=== PATIENT | male | born 1950 | race Caucasian/White ===

== ENCOUNTER 2018-03-17 11:12 | Emergency (ER) | payer MEDICARE ==
[~2018-03-17] VITALS: Ht 182.9 cm; Wt 106.6 kg
[~2018-03-17 11:12] MED LIST: ALBU2.5V5 NEB; ALPR0.5T6 PO; AMLO5TAB7 PO; AMOX1TAB11 PO; AMOX1TAB58 PO; AZIT250T6 PO; CYCL10TA2 PO; DOXY100T PO; FLUT1DIS5 IH; GUAI5SYR PO; HYDR-2758 PO; HYDR-971 PO; IPRA3AMP29 IH; LEVO500T59 PO; LOSA1TAB19 PO; LOSA50TA7 PO; METH4TAB2 PO; PANT40TA5 PO; PRED-220 PO; PRED2.5T PO; PRED20TA PO; TAMS0.4C2 PO; TIZA4TAB PO
[2018-03-17] MEDS ORDERED: IV NORMAL SALINE 1000ML BAG 1,000 ML IV SCH (12:02)
--- NOTE | 2018-03-17 12:11 | PHYS DOC ---
Past Medical History Past Medical History: COPD, Hypertension, Pneumonia Additional Past Medical Histor: Emphysema Past Surgical History: Other Additional Past Surgical Histo: Hernia repair, right hip infection Smoking: Cigarettes, Quit Greater Than 1 Year Alcohol Use: None Drug Use: None Adult General Chief Complaint Chief Complaint: SHORTNESS OF BREATH HPI HPI Pt is a 67-year-old male with a past history of COPD, on 3 L of home oxygen chronically, who presents to the emergency department for evaluation. He states he has been having pleuritic left-sided chest discomfort over the past 2 days. He states he started taking a Z-Shar which she had previously prescribed from his adhesive bandage machine operator but did not get any better. He denies any definite exertional pain but has been more short of breath than normal. He states he has a home pulse oximeter and on exertion, his oxygen saturation has been dropping into the upper 70s. He denies any chest pain at rest. He has had a cough but it has been nonproductive. He states he feels he has mucus in his chest but is unable to cough it up. Deep breathing worsens his left-sided chest pain. There are no alleviating factors to his symptoms. Review of Systems Review of Systems Constitutional: Denies fever or chills [] Eyes: Denies change in visual acuity, redness, or eye pain [] HENT: Denies nasal congestion or sore throat [] Respiratory: No additional information not addressed in HPI.[] Cardiovascular: No additional information not addressed in HPI [] GI: Denies abdominal pain, nausea, vomiting, bloody stools or diarrhea [] : Denies dysuria or hematuria [] Musculoskeletal: Denies back pain or joint pain [] Integument: Denies rash or skin lesions [] Neurologic: Denies headache, focal weakness or sensory changes [] Endocrine: Denies polyuria or polydipsia [] All other systems were reviewed and found to be within normal limits, except as documented in this note. Current Medications Current Medications Current Medications Medications (Trade) Dose Ordered Sig/Georges Start Time Stop Time Status Last Admin Dose Admin Albuterol/ Ipratropium (Duoneb) 3 ml 1X ONCE 03/17/18 12:15 03/17/18 12:16 DC 03/17/18 12:46 3 ML Aspirin (Children'S Aspirin) 162 mg 1X ONCE 03/17/18 12:15 03/17/18 12:16 DC 03/17/18 12:15 162 MG Info (CONTRAST GIVEN -- Rx MONITORING) 1 each PRN DAILY PRN 03/17/18 12:45 03/19/18 12:44 Iohexol (Omnipaque 300 Mg/ml) 75 ml 1X ONCE 03/17/18 12:45 03/17/18 12:46 DC Methylprednisolone Sodium Succinate (SOLU-Medrol 125MG VIAL) 125 mg 1X ONCE 03/17/18 12:15 03/17/18 12:16 DC 03/17/18 12:15 125 MG Sodium Chloride 1,000 ml @ 100 mls/hr Q10H 03/17/18 12:02 03/17/18 22:01 03/17/18 12:14 100 MLS/HR Allergies Allergies Allergies Coded Allergies Type Severity Reaction Last Updated Verified No Known Drug Allergies 09/12/14 No Physical Exam Physical Exam PHYSICAL EXAM: CONSTITUTIONAL: Well developed, well nourished HEAD: normocephalic, atraumatic EENT: PERRL, EOMI. Conjunctivae normal color, sclerae non-icteric; moist mucous membranes. NECK: Supple, non-tender; no meningismus. LUNGS: There are globally diminished breath sounds in all lung elizabeth, without any definite rales, wheezes, or rhonchi. HEART: Regular rate and rhythm, no murmur CHEST: No deformity; non-tender ABDOMEN: The abdomen is soft, and non-tender, no masses or bruits. EXTREM: Normal ROM; no deformity, no calf tenderness. Normal pulses palpable in all extremities. There is no pedal edema. SKIN: No rash; no diaphoresis NEURO: Alert; normal speech and cognition; CN's grossly intact; strength grossly intact without focal deficit. BACK: No CVA TTP. Current Patient Data Vital Signs Vital Signs Date Time Temp Pulse Resp B/P (MAP) Pulse Ox O2 Delivery O2 Flow Rate FiO2 03/17/18 12:48 93 Room Air 03/17/18 11:30 98.4 93 20 157/70 (99) 3.0 98.4 Lab Values Laboratory Tests Test 03/17/18 11:57 White Blood Count 9.2 x10^3/uL (4.0-11.0) Red Blood Count 4.79 x10^6/uL (4.30-5.70) Hemoglobin 14.4 g/dL (13.0-17.5) Hematocrit 42.1 % (39.0-53.0) Mean Corpuscular Volume 88 fL (79-100) Mean Corpuscular Hemoglobin 30 pg (25-35) Mean Corpuscular Hemoglobin Concent 34 g/dL (31-37) Red Cell Distribution Width 14.6 % (11.5-14.5) H Platelet Count 350 x10^3/uL (140-400) Neutrophils (%) (Auto) 49 % (31-73) Lymphocytes (%) (Auto) 35 % (24-48) Monocytes (%) (Auto) 9 % (0-9) Eosinophils (%) (Auto) 6 % (0-3) H Basophils (%) (Auto) 1 % (0-3) Neutrophils # (Auto) 4.5 x10^3uL (1.8-7.7) Lymphocytes # (Auto) 3.3 x10^3/uL (1.0-4.8) Monocytes # (Auto) 0.8 x10^3/uL (0.0-1.1) Eosinophils # (Auto) 0.6 x10^3/uL (0.0-0.7) Basophils # (Auto) 0.1 x10^3/uL (0.0-0.2) Sodium Level 137 mmol/L (136-145) Potassium Level 3.5 mmol/L (3.5-5.1) Chloride Level 106 mmol/L (98-107) Carbon Dioxide Level 27 mmol/L (21-32) Anion Gap 4 (6-14) L Blood Urea Nitrogen 7 mg/dL (8-26) L Creatinine 1.0 mg/dL (0.7-1.3) Estimated GFR (Cockcroft-Gault) 74.1 BUN/Creatinine Ratio 7 (6-20) Glucose Level 90 mg/dL (70-99) Calcium Level 9.4 mg/dL (8.5-10.1) Total Bilirubin 0.6 mg/dL (0.2-1.0) Aspartate Amino Transferase (AST) 15 U/L (15-37) Alanine Aminotransferase (ALT) 23 U/L (16-63) Alkaline Phosphatase 88 U/L (46-116) Creatine Kinase 53 U/L (39-308) Creatine Kinase MB (Mass) 0.5 ng/mL (0.0-3.6) Creatine Kinase MB Relative Index % (0-4) Troponin I Quantitative < 0.017 ng/mL (0.000-0.055) ZG-Wxp-S-Type Natriuretic Peptide 52 pg/mL (0-124) Total Protein 7.8 g/dL (6.4-8.2) Albumin 3.7 g/dL (3.4-5.0) Albumin/Globulin Ratio 0.9 (1.0-1.7) L Laboratory Tests 03/17/18 11:57 Laboratory Tests 03/17/18 11:57 EKG EKG [No sinus rhythm at a rate of 82 beats for minute, first-degree AV block, otherwise normal intervals. There are no acute ischemic ST/T changes.] Radiology/Procedures Radiology/Procedures [PROCEDURE: PORTABLE CHEST 1V PORTABLE CHEST 1V dated 03/17/2018 12:02 PM. Comparison: 10/22/2017 Clinical Indication: SHORTNESS OF BREATH. Findings: Single upright portable exam performed. Heart and mediastinal contours are stable. There is some prominent linear markings at the perihilar regions and bilateral lung bases, similar to prior study. Biapical lucency consistent with emphysematous change. There is blunting of the costophrenic sulci. No pneumothorax. Impression: 1. No acute radiographic abnormality. 2. Findings consistent with COPD, unchanged from prior exam. ] PROCEDURE: CT ANGIOGRAPHY CHEST Examination: CT angiography chest HISTORY: History of shortness of breath, pleuritic left-sided chest pain COMPARISON: 10/22/2017 TECHNIQUE: Axial CT angiographic images of chest were performed with IV contrast. Coronal and sagittal 3-D MIP reformats are performed Exposure: One or more of the following individualized dose reduction techniques were utilized for this examination: 1. Automated exposure control 2. Adjustment of the mA and/or kV according to patient size 3. Use of iterative reconstruction technique FINDINGS: The visualized thyroid gland grossly appears unremarkable. Mild cardiomegaly. The caliber of the aorta grossly appears unremarkable. Mild coronary artery calcifications. There is no evidence of filling defect identified in the main pulmonary arterial trunk and right and left main pulmonary arteries and the visualized lobar branches of the pulmonary arteries. The evaluation of the segmental branch of the pulmonary arteries is limited particularly in the right lower lobe of the lung due to mild motion artifact. Severe emphysematous changes identified in the lungs. Linear airspace opacity identified in the right lower lobe of the lung and the left lingula likely atelectasis or scarring similar to prior exam. Multiple cystic structures identified in the liver similar to prior exam likely cysts. Large gallstone identified in the proximal gallbladder. Mild degenerative changes thoracic spine. IMPRESSION: 1. No evidence of central pulmonary embolism. Evaluation of segmental branches is limited due to motion. 2. Severe emphysematous changes identified in the lungs. Linear airspace opacity identified in the right lower lobe of the lung and the left lingula likely atelectasis or scarring similar to prior exam. 3. Large gallstone identified within the gallbladder. Course & Med Decision Making Course & Med Decision Making Pertinent Labs and Imaging studies reviewed. (See chart for details) [2:10 PM: The patient's condition remained stable at this time. He is feeling similar to his baseline after receiving nebulizer treatment in the emergency department. He does take nebulizer treatments at home and I encouraged him to do so. He'll be treated with a short course of steroids, and I will change his antibiotic to Levaquin. He has no point with his PCP in 2 days and has an appointment with his adhesive bandage machine operator next week. Return precautions were discussed in detail.] Dragon Disclaimer Dragon Disclaimer This electronic medical record was generated, in whole or in part, using a voice recognition dictation system. Departure Departure Impression: Primary Impression: COPD (chronic obstructive pulmonary disease) Additional Impression: COPD exacerbation Disposition: 01 HOME, SELF-CARE Condition: STABLE Referrals: SUE KELLY MD (PCP) KRISTINA OROPEZA MD Patient Instructions: Chronic Obstructive Pulmonary Disease Exacerbation Scripts Levofloxacin (LEVAQUIN) 500 Mg Tablet 1 TAB PO DAILY, #7 TAB Prov: MADELYN BARBOZA MD 03/17/18 Prednisone (PREDNISONE) 20 Mg Tablet 40 MG PO DAILY for 5 Days, #10 TAB Prov: MADELYN BARBOZA MD 03/17/18 Problem Qualifiers MADELYN BARBOZA MD Mar 17, 2018 12:11
--- NOTE | 2018-03-17 12:12 | EKG ---
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
[2018-03-17 12:13] LABS: BASO # 0.1 x10^3/uL (0.0-0.2); BASO % 1 % (0-3); EOS # 0.6 x10^3/uL (0.0-0.7); EOS % 6 % (0-3); HEMATOCRIT 42.1 % (39.0-53.0); HEMOGLOBIN 14.4 g/dL (13.0-17.5); LYMPH # 3.3 x10^3/uL (1.0-4.8); LYMPH % 35 % (24-48); MEAN CORPUSCULAR HEMOGLOBIN 30 pg (25-35); MEAN CORPUSCULAR HGB CONC 34 g/dL (31-37); MEAN CORPUSCULAR VOLUME 88 fL (79-100); MONO # 0.8 x10^3/uL (0.0-1.1); MONO % 9 % (0-9); NEUT # 4.5 x10^3uL (1.8-7.7); NEUT % 49 % (31-73); PLATELET COUNT 350 x10^3/uL (140-400); RED BLOOD COUNT 4.79 x10^6/uL (4.30-5.70); RED CELL DISTRIBUTION WIDTH 14.6 % (11.5-14.5); WHITE BLOOD COUNT 9.2 x10^3/uL (4.0-11.0)
[2018-03-17] MEDS ORDERED: ASPIRIN CHEWABLE 81 MG TABLET. PO ONE (12:15)
[2018-03-17] MEDS ORDERED: IPRATRPIUM/ALBUTEROL 0.5/2.5MG 3 ML NEBU. NEB ONE (12:15)
[2018-03-17] MEDS ORDERED: methylPREDNISolone SOD SUCC PF 125 MG/2 ML VIAL. IV ONE (12:15)
--- NOTE | 2018-03-17 12:22 | RAD ---
PORTABLE CHEST 1V dated 03/17/2018 12:02 PM. Comparison: 10/22/2017 Clinical Indication: SHORTNESS OF BREATH. Findings: Single upright portable exam performed. Heart and mediastinal contours are stable. There is some prominent linear markings at the perihilar regions and bilateral lung bases, similar to prior study. Biapical lucency consistent with emphysematous change. There is blunting of the costophrenic sulci. No pneumothorax. Impression: 1. No acute radiographic abnormality. 2. Findings consistent with COPD, unchanged from prior exam. Electronically signed by: Tiago Cross MD (03/17/2018 12:19 PM) [id number]
[2018-03-17 12:26] LABS: CALCIUM 9.4 mg/dL (8.5-10.1); GFR 74.1; POTASSIUM 3.5 mmol/L (3.5-5.1)
[2018-03-17 12:32] LABS: ALBUMIN 3.7 g/dL (3.4-5.0); ALBUMIN/GLOBULIN RATIO 0.9 (1.0-1.7); TOTAL BILIRUBIN 0.6 mg/dL (0.2-1.0); TOTAL PROTEIN 7.8 g/dL (6.4-8.2)
[2018-03-17 12:40] LABS: CREATINE KINASE 53 U/L (39-308)
[2018-03-17] MEDS ORDERED: IOHEXOL 300 MG/ML 100ML VIAL. IV ONE (12:45)
[2018-03-17] MEDS ORDERED: CONTRAST GIVEN. MC PRN (12:45)
--- NOTE | 2018-03-17 13:27 | RAD ---
Examination: CT angiography chest HISTORY: History of shortness of breath, pleuritic left-sided chest pain COMPARISON: 10/22/2017 TECHNIQUE: Axial CT angiographic images of chest were performed with IV contrast. Coronal and sagittal 3-D MIP reformats are performed Exposure: One or more of the following individualized dose reduction techniques were utilized for this examination: 1. Automated exposure control 2. Adjustment of the mA and/or kV according to patient size 3. Use of iterative reconstruction technique FINDINGS: The visualized thyroid gland grossly appears unremarkable. Mild cardiomegaly. The caliber of the aorta grossly appears unremarkable. Mild coronary artery calcifications. There is no evidence of filling defect identified in the main pulmonary arterial trunk and right and left main pulmonary arteries and the visualized lobar branches of the pulmonary arteries. The evaluation of the segmental branch of the pulmonary arteries is limited particularly in the right lower lobe of the lung due to mild motion artifact. Severe emphysematous changes identified in the lungs. Linear airspace opacity identified in the right lower lobe of the lung and the left lingula likely atelectasis or scarring similar to prior exam. Multiple cystic structures identified in the liver similar to prior exam likely cysts. Large gallstone identified in the proximal gallbladder. Mild degenerative changes thoracic spine. IMPRESSION: 1. No evidence of central pulmonary embolism. Evaluation of segmental branches is limited due to motion. 2. Severe emphysematous changes identified in the lungs. Linear airspace opacity identified in the right lower lobe of the lung and the left lingula likely atelectasis or scarring similar to prior exam. 3. Large gallstone identified within the gallbladder. Electronically signed by: Blake Willson MD (03/17/2018 1:24 PM) [id number]
[2018-03-17 13:56] VITALS: BP 144/82
[2018-03-17] MEDS ORDERED: LEVO500T59 PO (14:11)
[2018-03-17] MEDS ORDERED: PRED20TA PO (14:11)
== END 2018-03-17 14:17 | disposition home or self-care (01) ==
LOC: ER 11:12
DX: J44.1 Chronic obstructive pulmonary disease with (acute) exacerbation (principal); I10 Essential (primary) hypertension; Z87.891 Personal history of nicotine dependence
CPT/HCPCS: 36415; 71045; 71275; 80053; 82553; 83880; 84484; 85025; 93005; 94640; 96374; 99285; J2930; J7030; J7620

== ENCOUNTER 2018-10-01 15:30 | Inpatient (IN) | payer MEDICARE ==
[~2018-10-01] VITALS: Ht 182.9 cm; Wt 107.1 kg
[~2018-10-01 15:30] MED LIST changes: +AMLO5TAB10 PO; -AMLO5TAB7 PO; -HYDR-2758 PO; +HYDR-2761 PO; +HYDR-3164 PO; -HYDR-971 PO; +LOSA-73 PO; -LOSA50TA7 PO
[2018-10-01] MEDS ORDERED: IV NORMAL SALINE 1000ML BAG 1,000 ML IV SCH (15:43)
[2018-10-01] MEDS ORDERED: IPRATRPIUM/ALBUTEROL 0.5/2.5MG 3 ML NEBU. NEB ONE (15:45)
--- NOTE | 2018-10-01 16:03 | PHYS DOC ---
Past Medical History Past Medical History: COPD, Hypertension, Pneumonia Additional Past Medical Histor: Emphysema (MADELYN BARBOZA MD) Past Surgical History: Other Additional Past Surgical Histo: Hernia repair, right hip infection (MADELYN BARBOZA MD) Alcohol Use: None Drug Use: None (MADELYN BARBOZA MD) Adult General Chief Complaint Chief Complaint: SHORTNESS OF BREATH HPI HPI Patient is a 67-year-old male with a past history of COPD, on home oxygen, who presents to the emergency department for evaluation. He states he has been having increasing shortness of breath, and cough productive of yellowish sputum , for the past 3 days. He reports subjective fevers at home. He has had some posterior pleuritic chest pain as well, no anterior chest pain. He has not had any nausea or vomiting. He was noted to have an oxygen saturation in the lower 80s on room air, which improved to the 89-90 level when he was placed on his home 3 L, improved to the mid 90s on 4 L nasal cannula. Exertion worsens his symptoms. There are no alleviating factors to his symptoms. (MADELYN BARBOZA MD) Review of Systems Review of Systems Constitutional: Denies lethargy or chills [] Eyes: Denies change in visual acuity, redness, or eye pain [] HENT: Denies otalgia or sore throat, reports nasal congestion [] Respiratory: No additional information not addressed in HPI [] Cardiovascular: No additional information not addressed in HPI [] GI: Denies abdominal pain, nausea, vomiting, bloody stools or diarrhea [] : Denies dysuria or hematuria [] Musculoskeletal: Denies back pain or joint pain [] Integument: Denies rash or skin lesions [] Neurologic: Denies headache, focal weakness or sensory changes [] Endocrine: Denies polyuria or polydipsia [] All other systems were reviewed and found to be within normal limits, except as documented in this note. (MADELYN BARBOZA MD) Current Medications Current Medications Current Medications Medications (Trade) Dose Ordered Sig/Georges Start Time Stop Time Status Last Admin Dose Admin Albuterol/ Ipratropium (Duoneb) 3 ml 1X ONCE 10/01/18 15:45 10/01/18 15:49 DC 10/01/18 15:59 3 ML Fentanyl Citrate (Fentanyl 2ml Vial) 50 mcg 1X ONCE 10/01/18 19:00 10/01/18 19:01 DC Sodium Chloride 1,000 ml @ 100 mls/hr Q10H 10/01/18 15:43 10/02/18 01:42 10/01/18 16:30 100 MLS/HR (NAN SABILLON Jr. DO) Allergies Allergies Allergies Coded Allergies Type Severity Reaction Last Updated Verified No Known Drug Allergies 09/12/14 No (NAN SABILLON Jr. DO) Physical Exam Physical Exam PHYSICAL EXAM: CONSTITUTIONAL: Well developed, well nourished HEAD: normocephalic, atraumatic EENT: PERRL, EOMI. Conjunctivae normal color, sclerae non-icteric; moist mucous membranes. NECK: Supple, non-tender; no meningismus. LUNGS: There are globally diminished breath sounds in all lung elizabeth, with mildly increased work of breathing, and faint scattered expiratory wheezes. HEART: Regular rate and rhythm, no murmur CHEST: No deformity; non-tender ABDOMEN: The abdomen is soft, and non-tender, no masses or bruits. EXTREM: Normal ROM; no deformity, no calf tenderness. Normal pulses palpable in all extremities. There is no pedal edema. SKIN: No rash; no diaphoresis NEURO: Alert; normal speech and cognition; CN's grossly intact; strength grossly intact without focal deficit. BACK: No CVA TTP. (MADELYN BARBOZA MD) Current Patient Data Vital Signs Vital Signs Date Time Temp Pulse Resp B/P (MAP) Pulse Ox O2 Delivery O2 Flow Rate FiO2 10/01/18 18:54 80 163/98 (119) 95 Nasal Cannula 4.0 10/01/18 17:10 22 10/01/18 15:56 98.0 98.0 (NAN SABILLON Jr. DO) Lab Values Laboratory Tests Test 10/01/18 16:00 10/01/18 16:13 Influenza Type A Antigen Negative (NEGATIVE) Influenza Type B Antigen Negative (NEGATIVE) White Blood Count 8.9 x10^3/uL (4.0-11.0) Red Blood Count 4.47 x10^6/uL (4.30-5.70) Hemoglobin 13.3 g/dL (13.0-17.5) Hematocrit 39.8 % (39.0-53.0) Mean Corpuscular Volume 89 fL (79-100) Mean Corpuscular Hemoglobin 30 pg (25-35) Mean Corpuscular Hemoglobin Concent 33 g/dL (31-37) Red Cell Distribution Width 15.1 % (11.5-14.5) H Platelet Count 343 x10^3/uL (140-400) Neutrophils (%) (Auto) 47 % (31-73) Lymphocytes (%) (Auto) 31 % (24-48) Monocytes (%) (Auto) 17 % (0-9) H Eosinophils (%) (Auto) 4 % (0-3) H Basophils (%) (Auto) 1 % (0-3) Neutrophils # (Auto) 4.2 x10^3uL (1.8-7.7) Lymphocytes # (Auto) 2.7 x10^3/uL (1.0-4.8) Monocytes # (Auto) 1.5 x10^3/uL (0.0-1.1) H Eosinophils # (Auto) 0.4 x10^3/uL (0.0-0.7) Basophils # (Auto) 0.1 x10^3/uL (0.0-0.2) D-Dimer (Kellee) 0.46 ug/mlFEU (0.00-0.50) Sodium Level 143 mmol/L (136-145) Potassium Level 3.3 mmol/L (3.5-5.1) L Chloride Level 103 mmol/L (98-107) Carbon Dioxide Level 29 mmol/L (21-32) Anion Gap 11 (6-14) Blood Urea Nitrogen 11 mg/dL (8-26) Creatinine 0.9 mg/dL (0.7-1.3) Estimated GFR (Cockcroft-Gault) 83.7 BUN/Creatinine Ratio 12 (6-20) Glucose Level 99 mg/dL (70-99) Lactic Acid Level 0.9 mmol/L (0.4-2.0) Calcium Level 9.5 mg/dL (8.5-10.1) Total Bilirubin 0.6 mg/dL (0.2-1.0) Aspartate Amino Transferase (AST) 14 U/L (15-37) L Alanine Aminotransferase (ALT) 17 U/L (16-63) Alkaline Phosphatase 90 U/L (46-116) Creatine Kinase 51 U/L (39-308) Creatine Kinase MB (Mass) 0.6 ng/mL (0.0-3.6) Creatine Kinase MB Relative Index % (0-4) Troponin I Quantitative < 0.017 ng/mL (0.000-0.055) [id number]-Type Natriuretic Peptide 59 pg/mL (0-124) Total Protein 7.6 g/dL (6.4-8.2) Albumin 3.5 g/dL (3.4-5.0) Albumin/Globulin Ratio 0.9 (1.0-1.7) L Laboratory Tests 10/01/18 16:13 Laboratory Tests 10/01/18 16:13 (NAN SABILLON Jr. DO) Lab Values Laboratory Tests Test 10/01/18 16:13 White Blood Count 8.9 x10^3/uL (4.0-11.0) Red Blood Count 4.47 x10^6/uL (4.30-5.70) Hemoglobin 13.3 g/dL (13.0-17.5) Hematocrit 39.8 % (39.0-53.0) Mean Corpuscular Volume 89 fL (79-100) Mean Corpuscular Hemoglobin 30 pg (25-35) Mean Corpuscular Hemoglobin Concent 33 g/dL (31-37) Red Cell Distribution Width 15.1 % (11.5-14.5) H Platelet Count 343 x10^3/uL (140-400) Neutrophils (%) (Auto) 47 % (31-73) Lymphocytes (%) (Auto) 31 % (24-48) Monocytes (%) (Auto) 17 % (0-9) H Eosinophils (%) (Auto) 4 % (0-3) H Basophils (%) (Auto) 1 % (0-3) Neutrophils # (Auto) 4.2 x10^3uL (1.8-7.7) Lymphocytes # (Auto) 2.7 x10^3/uL (1.0-4.8) Monocytes # (Auto) 1.5 x10^3/uL (0.0-1.1) H Eosinophils # (Auto) 0.4 x10^3/uL (0.0-0.7) Basophils # (Auto) 0.1 x10^3/uL (0.0-0.2) D-Dimer (Kellee) 0.46 ug/mlFEU (0.00-0.50) Sodium Level 143 mmol/L (136-145) Potassium Level 3.3 mmol/L (3.5-5.1) L Chloride Level 103 mmol/L (98-107) Carbon Dioxide Level 29 mmol/L (21-32) Anion Gap 11 (6-14) Blood Urea Nitrogen 11 mg/dL (8-26) Creatinine 0.9 mg/dL (0.7-1.3) Estimated GFR (Cockcroft-Gault) 83.7 BUN/Creatinine Ratio 12 (6-20) Glucose Level 99 mg/dL (70-99) Calcium Level 9.5 mg/dL (8.5-10.1) Total Bilirubin 0.6 mg/dL (0.2-1.0) Aspartate Amino Transferase (AST) 14 U/L (15-37) L Alanine Aminotransferase (ALT) 17 U/L (16-63) Alkaline Phosphatase 90 U/L (46-116) Troponin I Quantitative < 0.017 ng/mL (0.000-0.055) Total Protein 7.6 g/dL (6.4-8.2) Albumin 3.5 g/dL (3.4-5.0) Albumin/Globulin Ratio 0.9 (1.0-1.7) L Laboratory Tests 10/01/18 16:13 Laboratory Tests 10/01/18 16:13 (MADELYN BARBOZA MD) EKG EKG [Normal sinus rhythm a rate of 94 beats for minute, left axis deviation, normal intervals. There are no acute ischemic ST/T changes.] (MADELYN BARBOZA MD) Radiology/Procedures Radiology/Procedures [] (MADELYN BARBOZA MD) Impressions: PROCEDURE: CHEST PA & LATERAL EXAM: PA and Lateral Views of the Chest DATE: 10/01/2018 4:47 PM INDICATION: SHORTNESS OF AIR X3 DAYS. Hx COPD. COMPARISON: 03/17/2018, CT 03/17/2018 FINDINGS: Heart is top normal in size. Bilateral emphysematous changes are seen. No lobar consolidation. Linear opacities lung bases likely scarring/atelectasis. No pleural effusion or pneumothorax. IMPRESSION: 1. Bilateral emphysematous changes are seen. 2. Bibasilar linear predominant opacities likely scarring/atelectasis, not significantly changed. Electronically signed by: Tato Strauss MD (10/01/2018 5:30 PM) [facility] (NAN SABILLON Jr., DO) Course & Med Decision Making Course & Med Decision Making Pertinent Labs and Imaging studies reviewed. (See chart for details) [] 5:00 PM: Pt condition remains stable. Awaiting CXR and Influenza and lactic acid results. Care turned over to Dr Sabillon at shift change, report given, pending results and final disposition. (MADELYN BARBOZA MD) Dragon Disclaimer Dragon Disclaimer This electronic medical record was generated, in whole or in part, using a voice recognition dictation system. (MADELYN BARBOZA MD) Departure Departure Impression: Primary Impression: Dyspnea Additional Impressions: COPD exacerbation Pleurisy Disposition: ADMITTED INPATIENT Admitting Physician: Comfort Mann (NAN SABILLON Jr. DO) Condition: IMPROVED Referrals: SUE KELLY MD (PCP) Problem Qualifiers Primary Impression: Dyspnea Dyspnea type: unspecified Qualified Codes: R06.00 - Dyspnea, unspecified MADELYN BARBOZA MD Oct 01, 2018 16:03 NAN SABILLON Jr., DO Oct 01, 2018 18:46
[2018-10-01 16:26] LABS: BASO # 0.1 x10^3/uL (0.0-0.2); BASO % 1 % (0-3); EOS # 0.4 x10^3/uL (0.0-0.7); EOS % 4 % (0-3); HEMATOCRIT 39.8 % (39.0-53.0); HEMOGLOBIN 13.3 g/dL (13.0-17.5); LYMPH # 2.7 x10^3/uL (1.0-4.8); LYMPH % 31 % (24-48); MEAN CORPUSCULAR HEMOGLOBIN 30 pg (25-35); MEAN CORPUSCULAR HGB CONC 33 g/dL (31-37); MEAN CORPUSCULAR VOLUME 89 fL (79-100); MONO # 1.5 x10^3/uL (0.0-1.1); MONO % 17 % (0-9); NEUT # 4.2 x10^3uL (1.8-7.7); NEUT % 47 % (31-73); PLATELET COUNT 343 x10^3/uL (140-400); RED BLOOD COUNT 4.47 x10^6/uL (4.30-5.70); RED CELL DISTRIBUTION WIDTH 15.1 % (11.5-14.5); WHITE BLOOD COUNT 8.9 x10^3/uL (4.0-11.0)
[2018-10-01 16:43] LABS: CALCIUM 9.5 mg/dL (8.5-10.1); CREATININE 0.9 mg/dL (0.7-1.3); GFR 83.7; POTASSIUM 3.3 mmol/L (3.5-5.1)
[2018-10-01] MEDS ORDERED: fentaNYL PF VIAL 100 MCG/2 ML VIAL IV ONE ×2 (16:45→19:00)
[2018-10-01 16:50] LABS: ALBUMIN 3.5 g/dL (3.4-5.0); ALBUMIN/GLOBULIN RATIO 0.9 (1.0-1.7); TOTAL BILIRUBIN 0.6 mg/dL (0.2-1.0); TOTAL PROTEIN 7.6 g/dL (6.4-8.2)
[2018-10-01 17:06] LABS: CREATINE KINASE 51 U/L (39-308)
[2018-10-01 17:14] LABS: INFLUENZA A PATIENT NEGATIVE (NEGATIVE); INFLUENZA B PATIENT NEGATIVE (NEGATIVE)
--- NOTE | 2018-10-01 17:33 | RAD ---
EXAM: PA and Lateral Views of the Chest DATE: 10/01/2018 4:47 PM INDICATION: SHORTNESS OF AIR X3 DAYS. Hx COPD. COMPARISON: 03/17/2018, CT 03/17/2018 FINDINGS: Heart is top normal in size. Bilateral emphysematous changes are seen. No lobar consolidation. Linear opacities lung bases likely scarring/atelectasis. No pleural effusion or pneumothorax. IMPRESSION: 1. Bilateral emphysematous changes are seen. 2. Bibasilar linear predominant opacities likely scarring/atelectasis, not significantly changed. Electronically signed by: Tato Strauss MD (10/01/2018 5:30 PM) [facility]
[2018-10-01] MEDS ORDERED: ACETAMINOPHEN 325 MG TABLET. PO PRN (19:15)
[2018-10-01] MEDS ORDERED: ONDANSETRON PF 4 MG/2 ML VIAL. IV PRN ×2 (19:15→19:30)
[2018-10-01] MEDS ORDERED: fentaNYL PF VIAL 100 MCG/2 ML VIAL IV PRN (19:15)
[2018-10-01] MEDS ORDERED: ACETAMINOPHEN 500 MG TABLET PO PRN (19:30)
[2018-10-01] MEDS ORDERED: ONDANSETRON ODT 4 MG TAB.RAPDIS. PO PRN (19:30)
[2018-10-01] MEDS ORDERED: POTASSIUM CHLORIDE 20 MEQ TABLET.ER. PO ONE (19:30)
[2018-10-01] MEDS ORDERED: ACETAMINOPHEN/CODEINE 300/30MG TABLET. PO PRN (19:30)
[2018-10-01] MEDS ORDERED: tiZANidine 4 MG TABLET. PO PRN (19:30)
[2018-10-01] MEDS ORDERED: LABETALOL 20 MG/4 ML DISP.SYRIN. IVP PRN (19:30)
[2018-10-01] MEDS ORDERED: IPRATRPIUM/ALBUTEROL 0.5/2.5MG 3 ML NEBU. NEB SCH ×2 (20:00)
--- NOTE | 2018-10-01 20:35 | NUR ---
The patient, JESSIE BRANHAM, 67 y/o, M admitted by KATHIE EDMONDS MD, was given written information regarding hospital policies, unit procedures and contact persons. Valuables were checked and left with him.
[2018-10-01] MEDS: fentaNYL PF VIAL 100 MCG/2 ML VIAL IV PRN (21:00)
[2018-10-01] MEDS: HYDROcodone/APAP 5/325MG 1 TAB TABLET PO PRN (22:23)
[2018-10-01] MEDS: ALPRAZolam 0.5 MG TABLET PO PRN (22:23)
[2018-10-01] MEDS: TEMAZEPAM 7.5 MG CAPSULE PO PRN (22:24)
[2018-10-01 23:00] VITALS: BP 152/81
[2018-10-02] MEDS: fentaNYL PF VIAL 100 MCG/2 ML VIAL IV PRN ×7 (01:06→23:10)
[2018-10-02 03:00] VITALS: BP 137/67
[2018-10-02] MEDS ORDERED: ALBUTEROL SULFATE 2.5 MG/3 ML NEBU. NEB PRN (05:00)
--- NOTE | 2018-10-02 05:24 | EKG ---
[facility] [address] [place] [address] Test Date: 2018-10-01 Test Time: 15:47:54 Pat Name: JESSIE BRANHAM Department: Room: 521 1 Gender: Male Resident Care Provider: : 1950 Requested By: MADELYN BARBOZA Order Number: [id number] Reading MD: Nuno Catherine MD Measurements Intervals [place] Rate: 94 P: [place]: QRS: -18 QRSD: 102 T: 22 QT: 346 QTc: 433 Interpretive Statements SINUS RHYTHM Electronically Signed On 10-08-2018 13:49:39 CDT by Nuno Catherine MD
[2018-10-02 07:00] VITALS: BP 110/74
[2018-10-02] MEDS: guaiFENesin DM 200MG/20MG 10 ML SYRUP PO PRN ×2 (08:08→18:32)
[2018-10-02] MEDS: amLODIPine BESYLATE 5 MG TABLET PO SCH (08:09)
[2018-10-02] MEDS: TAMSULOSIN 0.4 MG CAP.ER.24H. PO SCH (08:14)
[2018-10-02] MEDS: LOSARTAN POTASSIUM 50 MG TABLET. PO SCH (08:18)
[2018-10-02] MEDS ORDERED: BUDESONIDE 0.5 MG/2 ML NEBU. NEB ONE (08:45)
--- NOTE | 2018-10-02 08:52 | PDOC1 ---
History and Physical Date of Admission Date of Admission DATE: 10/02/18 TIME: 08:47 Source Source: Chart review, Patient History of Present Illness History of Present Illness Mr. Beltran is a 67-year-old male admit from ER wtih acute weakness, cough, and hypoxia has worsened. He has a past history of COPD, on home oxygen, w./ days of worsneing shortness of breath, and cough w/ yellow sputum he has some fevers and chills at home, feels a little better this AM cough and deep chest pain with deep inspiration, pain 4/10, he has needed additional breathing tx to compensate Exertion worsens his symptoms. There are no alleviating factors to his symptoms. 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 Polanco, he has been seeing Dr. Lara as his technology solutions architect > 4 years, with home 02 for years. Past Medical History Cardiovascular: No pertinent hx Pulmonary: COPD, Pneumonia GI: GERD, Other Hepatobiliary: No pertinent hx Psych: No pertinent hx Musculoskeletal: low back pain Past Surgical History Past Surgical History: Hernia Repair Family History Family History: Hypertension, Other Social History Smoke: Quit ALCOHOL: none Drugs: None Current Problem List Problem List Problems Medical Problems: (1) COPD exacerbation Status: Acute (2) Dyspnea Status: Acute (3) Pleurisy Status: Acute Current Medications Current Medications Current Medications Albuterol/ Ipratropium (Duoneb) 3 ml 1X ONCE NEB Last administered on at 15:59; Start 10/01/18 at 15:45; Stop 10/01/18 at 15:49; Status DC Sodium Chloride 1,000 ml @ 100 mls/hr Q10H IV Last administered on 10/01/18at 16:30; Start 10/01/18 at 15:43; Stop 10/02/18 at 01:42; Status DC Fentanyl Citrate (Fentanyl 2ml Vial) 50 mcg 1X ONCE IV Last administered on at 17:10; Start 10/01/18 at 16:45; Stop 10/01/18 at 16:46; Status DC Fentanyl Citrate (Fentanyl 2ml Vial) 50 mcg 1X ONCE IV Last administered on at 19:13; Start 10/01/18 at 19:00; Stop 10/01/18 at 19:01; Status DC Labetalol HCl (Normodyne Iv Push) 20 mg PRN Q2HR PRN IVP HYPERTENSION, SEE COMMENTS; Start 10/01/18 at 19:30 Albuterol/ Ipratropium (Duoneb) 3 ml RTQID NEB Last administered on 10/01/18at 21:42; Start 10/01/18 at 20:00 Temazepam (Restoril) 7.5 mg PRN QHS PRN PO INSOMNIA Last administered on at 22:24; Start 10/01/18 at 19:30 Guaifenesin (Robitussin Dm) 10 ml PRN Q6HRS PRN PO COUGH Last administered on at 08:08; Start 10/01/18 at 19:30 Acetaminophen/ Codeine Phosphate (Tylenol #3) 1 tab PRN Q6HRS PRN PO MODERATE PAIN; Start 10/01/18 at 19:30 Acetaminophen (Tylenol) 500 mg PRN Q6HRS PRN PO MILD PAIN / TEMP; Start at 19:30 Ondansetron HCl (Zofran) 4 mg PRN Q6HRS PRN IV NAUSEA/VOMITING; Start 10/01/18 at 19:30 Ondansetron HCl (Zofran Odt) 4 mg PRN Q6HRS PRN PO NAUSEA/VOMITING; Start 10/01 at 19:30 Ondansetron HCl (Zofran) 4 mg PRN Q8HRS PRN IV NAUSEA/VOMITING; Start 10/01/18 at 19:15; Stop 10/02/18 at 19:14; Status UNV Fentanyl Citrate (Fentanyl 2ml Vial) 50 mcg PRN Q2HRS PRN IV PAIN; Start at 19:15; Stop 10/01/18 at 19:20; Status DC Acetaminophen (Tylenol) 650 mg PRN Q4HRS PRN PO FEVER; Start 10/01/18 at 19:15 ; Stop 10/02/18 at 19:14; Status UNV Albuterol/ Ipratropium (Duoneb) 3 ml RTQID NEB ; Start 10/01/18 at 20:00; Stop 10/02/18 at 19:59; Status UNV Potassium Chloride (Klor-Con) 40 meq 1X ONCE PO Last administered on 19:37; Start 10/01/18 at 19:30; Stop 10/01/18 at 19:31; Status DC Fentanyl Citrate (Fentanyl 2ml Vial) 50 mcg PRN Q2HR PRN IV PAIN Last administered on 10/02/18 05:04; Start 10/01/18 at 19:30 Alprazolam (Xanax) 0.5 mg PRN Q6HRS PRN PO ANXIETY Last administered on 22:23; Start 10/01/18 at 19:30 Amlodipine Besylate (Norvasc) 5 mg DAILY PO Last administered on 10/02/18 08: 09; Start 10/02/18 at 09:00 Acetaminophen/ Hydrocodone Bitart (Lortab 5/325) 1 tab PRN Q6HRS PRN PO SEVERE PAIN Last administered on 10/01/18 22:23; Start 10/01/18 at 19:30 Losartan Potassium (Cozaar) 50 mg DAILY PO Last administered on 10/02/18 08:18 ; Start 10/02/18 at 09:00 Tamsulosin HCl (Flomax) 0.4 mg DAILY PO Last administered on 10/02/18 08:14; Start 10/02/18 at 09:00 Tizanidine HCl (Zanaflex) 4 mg PRN QHS PRN PO MUSCLE SPASMS; Start 10/01/18 at 19:30 Albuterol Sulfate (Ventolin Neb Soln) 2.5 mg PRN Q4HRS PRN NEB SHORTNESS OF BREATH Last administered on 10/02/18 05:03; Start 10/02/18 at 05:00 Active Scripts Active Levaquin (Levofloxacin) 500 Mg Tablet 1 Tab PO DAILY Prednisone 20 Mg Tablet 40 Mg PO DAILY 5 Days Augmentin 500-125 Tablet (Amoxicillin/Potassium Clav) 1 Each Tablet 1 Tab PO BID [place] 5-325 Tablet (Acetaminophen/Hydrocodone Bitart) 1 Each Tablet 1 Tab PO PRN Q6HRS PRN Reported Alprazolam 0.5 Mg Tablet 1 Tab PO PRN Q6HRS PRN Tamsulosin Hcl 0.4 Mg Cap.er.24h 1 Cap PO DAILY Prednisone 2.5 Mg Tablet 5 Mg PO DAILY Tizanidine Hcl 4 Mg Tablet 1 Tab PO PRN QHS PRN Amlodipine Besylate 5 Mg Tablet 5 Mg PO DAILY Losartan Potassium 50 Mg Tablet 50 Mg PO DAILY Duoneb 0.5-3(2.5) Mg/3 Ml (Albuterol/Ipratropium) 3 Ml Ampul.neb 3 Ml IH Q4HRS Advair 500-50 Diskus (Fluticasone/Salmeterol) 1 Each Disk.w.dev 1 Puff IH BID PRN Patient takes prn before bed if he feels he needs it Allergies Allergies: Coded Allergies: No Known Drug Allergies (Unverified , 09/12/14) ROS General: YES: Chills, Fatigue PSYCHOLOGICAL ROS: No: Anxiety, Behavioral Disorder, Concentration difficultie , Decreased libido, Depression, Disorientation, Hallucinations, Hostility, Irritablity, Memory difficulties, Mood Swings, Obsessive thoughts, Physical abuse, Sexual abuse, Sleep disturbances, Suicidal ideation, Other Eyes: No Blurry vision, No Decreased vision, No Double vision, No Dry eyes, No Excessive tearing, No Eye Pain, No Itchy Eyes, No Loss of vision, No Photophobia , No Scotomata, No Uses contacts, No Uses glasses, No Other HEENT: No: Heacaches, Visual Changes, Hearing change, Nasal congestion, Nasal discharge, Oral lesions, Sinus pain, Sore Throat, Epistaxis, Sneezing, Snoring, Tinnitus, Vertigo, Vocal changes, Other Respiratory: YES: Cough, Pleuritic Pain, Shortness of breath, SOB with excertion, Tachypnea, Wheezing Cardiovascular: No Chest Pain, No Palpitations, No Orthopnea, No Paroxysmal Noc. Dyspnea, No Edema, No Lt Headedness, No Other Genitourinary: No Dysuria, No Frequency, No Incontinence, No Hematuria, No Retention, No Discharge, No Urgency, No Pain, No Flank Pain, No Other, No , No , No , No , No , No , No Musculoskeletal: No Gait Disturbance, No Joint Pain, No Joint Stiffness, No Joint Swelling, No Muscle Pain, No Muscular Weakness, No Pain In:, No Swelling In:, No Other Neurological: No Behavorial Changes, No Bowel/Bladder ControlChng, No Confusion , No Dizziness, No Gait Disturbance, No Headaches, No Impaired Coord/balance, No Memory Loss, No Numbness/Tingling, No Seizures, No Speech Problems, No Tremors, No Visual Changes, No Weakness, No Other Skin: No Dry Skin, No Eczema, No Hair Changes, No Lumps, No Mole Changes, No Mottling, No Nail Changes, No Pruritus, No Rash, No Skin Lesion Changes, No Other, No Acne Physical Exam General: Alert, Oriented X3, Cooperative, mild distress HEENT: Atraumatic, EOMI, Mucous membr. moist/pink Lungs: Other (smaller range of volume, long expiratory rales, no wheeze, ) Heart: S1S2, no gallops, no murmurs Extremities: No cyanosis, No edema, Normal pulses Skin: No rashes, No significant lesion Neuro: Normal speech, Normal tone, Sensation intact Psych/Mental Status: Mental status NL, Mood NL Vitals Vitals Vital Signs Date Time Temp Pulse Resp B/P (MAP) Pulse Ox O2 Delivery O2 Flow Rate FiO2 10/02/18 08:18 86 110/74 10/02/18 07:00 98.5 22 93 Nasal Cannula 5.0 98.5 Labs Labs Laboratory Tests Test 10/01/18 16:00 10/01/18 16:13 Influenza Type A Antigen Negative (NEGATIVE) Influenza Type B Antigen Negative (NEGATIVE) White Blood Count 8.9 x10^3/uL (4.0-11.0) Red Blood Count 4.47 x10^6/uL (4.30-5.70) Hemoglobin 13.3 g/dL (13.0-17.5) Hematocrit 39.8 % (39.0-53.0) Mean Corpuscular Volume 89 fL (79-100) Mean Corpuscular Hemoglobin 30 pg (25-35) Mean Corpuscular Hemoglobin Concent 33 g/dL (31-37) Red Cell Distribution Width 15.1 % (11.5-14.5) Platelet Count 343 x10^3/uL (140-400) Neutrophils (%) (Auto) 47 % (31-73) Lymphocytes (%) (Auto) 31 % (24-48) Monocytes (%) (Auto) 17 % (0-9) Eosinophils (%) (Auto) 4 % (0-3) Basophils (%) (Auto) 1 % (0-3) Neutrophils # (Auto) 4.2 x10^3uL (1.8-7.7) Lymphocytes # (Auto) 2.7 x10^3/uL (1.0-4.8) Monocytes # (Auto) 1.5 x10^3/uL (0.0-1.1) Eosinophils # (Auto) 0.4 x10^3/uL (0.0-0.7) Basophils # (Auto) 0.1 x10^3/uL (0.0-0.2) D-Dimer (Kellee) 0.46 ug/mlFEU (0.00-0.50) Sodium Level 143 mmol/L (136-145) Potassium Level 3.3 mmol/L (3.5-5.1) Chloride Level 103 mmol/L (98-107) Carbon Dioxide Level 29 mmol/L (21-32) Anion Gap 11 (6-14) Blood Urea Nitrogen 11 mg/dL (8-26) Creatinine 0.9 mg/dL (0.7-1.3) Estimated GFR (Cockcroft-Gault) 83.7 BUN/Creatinine Ratio 12 (6-20) Glucose Level 99 mg/dL (70-99) Lactic Acid Level 0.9 mmol/L (0.4-2.0) Calcium Level 9.5 mg/dL (8.5-10.1) Total Bilirubin 0.6 mg/dL (0.2-1.0) Aspartate Amino Transf (AST/SGOT) 14 U/L (15-37) Alanine Aminotransferase (ALT/SGPT) 17 U/L (16-63) Alkaline Phosphatase 90 U/L (46-116) Creatine Kinase 51 U/L (39-308) Creatine Kinase MB (Mass) 0.6 ng/mL (0.0-3.6) Creatine Kinase MB Relative Index % (0-4) Troponin I Quantitative < 0.017 ng/mL (0.000-0.055) OE-Lat-D-Type Natriuretic Peptide 59 pg/mL (0-124) Total Protein 7.6 g/dL (6.4-8.2) Albumin 3.5 g/dL (3.4-5.0) Albumin/Globulin Ratio 0.9 (1.0-1.7) Laboratory Tests Test 10/01/18 16:00 10/01/18 16:13 Influenza Type A Antigen Negative (NEGATIVE) Influenza Type B Antigen Negative (NEGATIVE) White Blood Count 8.9 x10^3/uL (4.0-11.0) Red Blood Count 4.47 x10^6/uL (4.30-5.70) Hemoglobin 13.3 g/dL (13.0-17.5) Hematocrit 39.8 % (39.0-53.0) Mean Corpuscular Volume 89 fL (79-100) Mean Corpuscular Hemoglobin 30 pg (25-35) Mean Corpuscular Hemoglobin Concent 33 g/dL (31-37) Red Cell Distribution Width 15.1 % (11.5-14.5) Platelet Count 343 x10^3/uL (140-400) Neutrophils (%) (Auto) 47 % (31-73) Lymphocytes (%) (Auto) 31 % (24-48) Monocytes (%) (Auto) 17 % (0-9) Eosinophils (%) (Auto) 4 % (0-3) Basophils (%) (Auto) 1 % (0-3) Neutrophils # (Auto) 4.2 x10^3uL (1.8-7.7) Lymphocytes # (Auto) 2.7 x10^3/uL (1.0-4.8) Monocytes # (Auto) 1.5 x10^3/uL (0.0-1.1) Eosinophils # (Auto) 0.4 x10^3/uL (0.0-0.7) Basophils # (Auto) 0.1 x10^3/uL (0.0-0.2) D-Dimer (Kellee) 0.46 ug/mlFEU (0.00-0.50) Sodium Level 143 mmol/L (136-145) Potassium Level 3.3 mmol/L (3.5-5.1) Chloride Level 103 mmol/L (98-107) Carbon Dioxide Level 29 mmol/L (21-32) Anion Gap 11 (6-14) Blood Urea Nitrogen 11 mg/dL (8-26) Creatinine 0.9 mg/dL (0.7-1.3) Estimated GFR (Cockcroft-Gault) 83.7 BUN/Creatinine Ratio 12 (6-20) Glucose Level 99 mg/dL (70-99) Lactic Acid Level 0.9 mmol/L (0.4-2.0) Calcium Level 9.5 mg/dL (8.5-10.1) Total Bilirubin 0.6 mg/dL (0.2-1.0) Aspartate Amino Transf (AST/SGOT) 14 U/L (15-37) Alanine Aminotransferase (ALT/SGPT) 17 U/L (16-63) Alkaline Phosphatase 90 U/L (46-116) Creatine Kinase 51 U/L (39-308) Creatine Kinase MB (Mass) 0.6 ng/mL (0.0-3.6) Creatine Kinase MB Relative Index % (0-4) Troponin I Quantitative < 0.017 ng/mL (0.000-0.055) PC-Ofx-U-Type Natriuretic Peptide 59 pg/mL (0-124) Total Protein 7.6 g/dL (6.4-8.2) Albumin 3.5 g/dL (3.4-5.0) Albumin/Globulin Ratio 0.9 (1.0-1.7) VTE Prophylaxis Ordered VTE Prophylaxis Devices: No VTE Pharmacological Prophylaxi: Yes Assessment/Plan Assessment/Plan Acute on chronic hypoxic respiratory failure COPD with acute exacerbation, acute bronchitis, hypokalemia BPH htn anxiety, stable SHARON FLORES MD Oct 02, 2018 08:52
--- NOTE | 2018-10-02 09:33 | NUR ---
SW following pt for anticipated dc needs. Chart reviewed and discussed with RN. Pt lives at home alone and has home 02. PT/OT pending. SW will await for PT/OT recommendations to assess skilled needs. No discharge recommendations/SW needs noted at this time. Will continue to assess needs.
[2018-10-02 09:40] LABS: BASO % 0 % (0-3); CALCIUM 9.3 mg/dL (8.5-10.1); EOS # 0.3 x10^3/uL (0.0-0.7); EOS % 4 % (0-3); GFR 74.1; HEMATOCRIT 41.8 % (39.0-53.0); HEMOGLOBIN 13.8 g/dL (13.0-17.5); LYMPH # 2.3 x10^3/uL (1.0-4.8); LYMPH % 28 % (24-48); MEAN CORPUSCULAR HEMOGLOBIN 30 pg (25-35); MEAN CORPUSCULAR HGB CONC 33 g/dL (31-37); MEAN CORPUSCULAR VOLUME 90 fL (79-100); MONO # 1.1 x10^3/uL (0.0-1.1); MONO % 14 % (0-9); NEUT # 4.3 x10^3uL (1.8-7.7); NEUT % 53 % (31-73); PLATELET COUNT 325 x10^3/uL (140-400); POTASSIUM 3.5 mmol/L (3.5-5.1); RED BLOOD COUNT 4.64 x10^6/uL (4.30-5.70); RED CELL DISTRIBUTION WIDTH 15.1 % (11.5-14.5); WHITE BLOOD COUNT 8.1 x10^3/uL (4.0-11.0)
[2018-10-02] MEDS: IPRATRPIUM/ALBUTEROL 0.5/2.5MG 3 ML NEBU. NEB SCH ×4 (10:36→23:58)
[2018-10-02 11:00] VITALS: BP 120/76
--- NOTE | 2018-10-02 12:51 | NUR ---
SW following pt. Pt was evaluated by PT/OT and no skilled needs indicated at this time. PT recommends a follow up with pulmonary rehab. SW will continue to follow pt.
[2018-10-02 14:24] VITALS: BP 103/77
--- NOTE | 2018-10-02 14:52 | CONS ---
DATE OF CONSULTATION: PULMONARY CONSULTATION ATTENDING PHYSICIAN: Dr. Casillas. REASON FOR CONSULTATION: Dyspnea. HISTORY OF PRESENT ILLNESS: The patient is known to me. He is a 67-year-old male who has a history of severe COPD with last FEV1 of 1.4, which was 38% predicted. He is on chronic oxygen at 3 liters. He came to the hospital with cough with yellow sputum production. Denies any chest pain. He does have some pain in his left upper quadrant after a meal. No headache, no nausea or vomiting, no diarrhea. The patient says that the nebulizer treatment is held. His chest x-ray did not reveal any definite consolidation. He has some mild parenchymal scarring. PAST MEDICAL HISTORY: Significant for history of COPD; history of chronic respiratory failure, last FEV1 of 1.4, which was 38% predicted; prior history of pneumonia. PAST SURGICAL HISTORY: Hernia repair. FAMILY HISTORY: Hypertension. SOCIAL HISTORY: Quit tobacco 20 years ago, before that smoked for 30 years. ALLERGIES: None. CURRENT MEDICATIONS: Reviewed as listed in the [facility], including bronchodilators and oxygen. He is not on antibiotics. REVIEW OF SYSTEMS: Twelve-point systems obtained. Pertinent positives discussed in my history of present illness, otherwise noncontributory. All systems that were negative were reviewed as well. PHYSICAL EXAMINATION: VITAL SIGNS: Reviewed. Pulse ox 92% on 4 liters. He was on 5 liters on admission. HEENT: Sclerae nonicteric. NECK: Supple. LUNGS: With rhonchi anteriorly. CARDIOVASCULAR: Regular rate. ABDOMEN: Soft, nontender, obese. EXTREMITIES: With no pitting edema. LABORATORY DATA: Reviewed. White cell count 8.1, hemoglobin 13.8 and platelets are 325. Influenza screen negative. D-dimer 0.46. IMPRESSION: 1. Acute on chronic hypoxic respiratory failure secondary to acute exacerbation of chronic obstructive pulmonary disease and acute bronchitis. 2. Cough with purulent sputum production consistent with acute bronchitis. No definite new consolidation seen on chest x-ray. 3. Normal D-dimer, no need for thromboembolic disease. 4. Left upper quadrant pain with meal. Likely gastroesophageal reflux disease. Would benefit from antacid therapy. RECOMMENDATIONS: 1. Continue with present DuoNebs. 2. Continue with Pulmicort. 3. Gradually wean oxygen to a baseline of 3 liters. 4. Add empiric antibiotics. 5. Add Pepcid. 6. We will follow along with you. Discussed with RN. KRISTINA OROPEZA MD DR: ELAINA/ramo JOB#: [id number] / [id number]
[2018-10-02] MEDS: cefTRIAXone IV Push 1 GM VIAL. IVP SCH (18:08)
[2018-10-02 19:00] VITALS: BP 138/76
[2018-10-02] MEDS: BUDESONIDE 0.5 MG/2 ML NEBU. NEB SCH (20:05)
[2018-10-02] MEDS: FAMOTIDINE 20 MG TABLET. PO SCH (20:18)
[2018-10-02] MEDS: HYDROcodone/APAP 5/325MG 1 TAB TABLET PO PRN (20:19)
[2018-10-02 22:52] VITALS: BP 100/73
[2018-10-02] MEDS: TEMAZEPAM 7.5 MG CAPSULE PO PRN (23:09)
[2018-10-02] MEDS: ALBUTEROL SULFATE 2.5 MG/3 ML NEBU. NEB PRN (23:40)
[2018-10-03] MEDS: ALBUTEROL SULFATE 2.5 MG/3 ML NEBU. NEB PRN (04:09)
[2018-10-03] MEDS: IPRATRPIUM/ALBUTEROL 0.5/2.5MG 3 ML NEBU. NEB SCH ×5 (07:11→23:03)
[2018-10-03] MEDS: BUDESONIDE 0.5 MG/2 ML NEBU. NEB SCH ×2 (07:15→19:23)
[2018-10-03 07:25] VITALS: BP 145/71
--- NOTE | 2018-10-03 08:35 | PDOC ---
PULMONARY PROGRESS NOTES Subjective has nasal congestion, causing him to have more sob, has cough, no pain, hard of hearing Vitals Vital Signs Date Time Temp Pulse Resp B/P (MAP) Pulse Ox O2 Delivery O2 Flow Rate FiO2 10/03/18 07:25 98.2 85 20 145/71 (95) 93 Nasal Cannula 5.0 98.2 ROS: No Nausea General: Alert, No acute distress Lungs: Other (a few end exp wheezing) Cardiovascular: S1, S2 Abdomen: Soft, Non-tender Neuro Exam: Alert Extremities: No Edema, Other Skin: Warm Labs Laboratory Tests Test 10/01/18 16:00 10/01/18 16:13 10/02/18 09:20 Influenza Type A Antigen Negative (NEGATIVE) Influenza Type B Antigen Negative (NEGATIVE) White Blood Count 8.9 x10^3/uL (4.0-11.0) 8.1 x10^3/uL (4.0-11.0) Red Blood Count 4.47 x10^6/uL (4.30-5.70) 4.64 x10^6/uL (4.30-5.70) Hemoglobin 13.3 g/dL (13.0-17.5) 13.8 g/dL (13.0-17.5) Hematocrit 39.8 % (39.0-53.0) 41.8 % (39.0-53.0) Mean Corpuscular Volume 89 fL (79-100) 90 fL (79-100) Mean Corpuscular Hemoglobin 30 pg (25-35) 30 pg (25-35) Mean Corpuscular Hemoglobin Concent 33 g/dL (31-37) 33 g/dL (31-37) Red Cell Distribution Width 15.1 % (11.5-14.5) 15.1 % (11.5-14.5) Platelet Count 343 x10^3/uL (140-400) 325 x10^3/uL (140-400) Neutrophils (%) (Auto) 47 % (31-73) 53 % (31-73) Lymphocytes (%) (Auto) 31 % (24-48) 28 % (24-48) Monocytes (%) (Auto) 17 % (0-9) 14 % (0-9) Eosinophils (%) (Auto) 4 % (0-3) 4 % (0-3) Basophils (%) (Auto) 1 % (0-3) 0 % (0-3) Neutrophils # (Auto) 4.2 x10^3uL (1.8-7.7) 4.3 x10^3uL (1.8-7.7) Lymphocytes # (Auto) 2.7 x10^3/uL (1.0-4.8) 2.3 x10^3/uL (1.0-4.8) Monocytes # (Auto) 1.5 x10^3/uL (0.0-1.1) 1.1 x10^3/uL (0.0-1.1) Eosinophils # (Auto) 0.4 x10^3/uL (0.0-0.7) 0.3 x10^3/uL (0.0-0.7) Basophils # (Auto) 0.1 x10^3/uL (0.0-0.2) 0.0 x10^3/uL (0.0-0.2) D-Dimer (Kellee) 0.46 ug/mlFEU (0.00-0.50) Sodium Level 143 mmol/L (136-145) 144 mmol/L (136-145) Potassium Level 3.3 mmol/L (3.5-5.1) 3.5 mmol/L (3.5-5.1) Chloride Level 103 mmol/L (98-107) 104 mmol/L (98-107) Carbon Dioxide Level 29 mmol/L (21-32) 29 mmol/L (21-32) Anion Gap 11 (6-14) 11 (6-14) Blood Urea Nitrogen 11 mg/dL (8-26) 15 mg/dL (8-26) Creatinine 0.9 mg/dL (0.7-1.3) 1.0 mg/dL (0.7-1.3) Estimated GFR (Cockcroft-Gault) 83.7 74.1 BUN/Creatinine Ratio 12 (6-20) Glucose Level 99 mg/dL (70-99) 109 mg/dL (70-99) Lactic Acid Level 0.9 mmol/L (0.4-2.0) Calcium Level 9.5 mg/dL (8.5-10.1) 9.3 mg/dL (8.5-10.1) Total Bilirubin 0.6 mg/dL (0.2-1.0) Aspartate Amino Transf (AST/SGOT) 14 U/L (15-37) Alanine Aminotransferase (ALT/SGPT) 17 U/L (16-63) Alkaline Phosphatase 90 U/L (46-116) Creatine Kinase 51 U/L (39-308) Creatine Kinase MB (Mass) 0.6 ng/mL (0.0-3.6) Creatine Kinase MB Relative Index % (0-4) Troponin I Quantitative < 0.017 ng/mL (0.000-0.055) LL-Jep-L-Type Natriuretic Peptide 59 pg/mL (0-124) Total Protein 7.6 g/dL (6.4-8.2) Albumin 3.5 g/dL (3.4-5.0) Albumin/Globulin Ratio 0.9 (1.0-1.7) Laboratory Tests Test 10/02/18 09:20 White Blood Count 8.1 x10^3/uL (4.0-11.0) Red Blood Count 4.64 x10^6/uL (4.30-5.70) Hemoglobin 13.8 g/dL (13.0-17.5) Hematocrit 41.8 % (39.0-53.0) Mean Corpuscular Volume 90 fL (79-100) Mean Corpuscular Hemoglobin 30 pg (25-35) Mean Corpuscular Hemoglobin Concent 33 g/dL (31-37) Red Cell Distribution Width 15.1 % (11.5-14.5) Platelet Count 325 x10^3/uL (140-400) Neutrophils (%) (Auto) 53 % (31-73) Lymphocytes (%) (Auto) 28 % (24-48) Monocytes (%) (Auto) 14 % (0-9) Eosinophils (%) (Auto) 4 % (0-3) Basophils (%) (Auto) 0 % (0-3) Neutrophils # (Auto) 4.3 x10^3uL (1.8-7.7) Lymphocytes # (Auto) 2.3 x10^3/uL (1.0-4.8) Monocytes # (Auto) 1.1 x10^3/uL (0.0-1.1) Eosinophils # (Auto) 0.3 x10^3/uL (0.0-0.7) Basophils # (Auto) 0.0 x10^3/uL (0.0-0.2) Sodium Level 144 mmol/L (136-145) Potassium Level 3.5 mmol/L (3.5-5.1) Chloride Level 104 mmol/L (98-107) Carbon Dioxide Level 29 mmol/L (21-32) Anion Gap 11 (6-14) Blood Urea Nitrogen 15 mg/dL (8-26) Creatinine 1.0 mg/dL (0.7-1.3) Estimated GFR (Cockcroft-Gault) 74.1 Glucose Level 109 mg/dL (70-99) Calcium Level 9.3 mg/dL (8.5-10.1) Medications Active Scripts Medications Dose Route/Sig Max Daily Dose Days Date Category Dose Instructions Levaquin (Levofloxacin) 500 Mg Tablet 1 Tab PO DAILY 03/17/18 Rx Prednisone 20 Mg Tablet 40 Mg PO DAILY 5 03/17/18 Rx Augmentin 500-125 Tablet (Amoxicillin/Potassium Clav) 1 Each Tablet 1 Tab PO BID 10/23/17 Rx Alprazolam 0.5 Mg Tablet 1 Tab PO PRN Q6HRS PRN 10/22/17 Reported Tamsulosin Hcl 0.4 Mg Cap.er.24h 1 Cap PO DAILY 10/22/17 Reported Prednisone 2.5 Mg Tablet 5 Mg PO DAILY 10/22/17 Reported [place] 5-325 Tablet (Acetaminophen/Hydrocodone Bitart) 1 Each Tablet 1 Tab PO PRN Q6HRS PRN 02/06/16 Rx Tizanidine Hcl 4 Mg Tablet 1 Tab PO PRN QHS PRN 08/16/15 Reported Amlodipine Besylate 5 Mg Tablet 5 Mg PO DAILY 08/15/15 Reported Losartan Potassium 50 Mg Tablet 50 Mg PO DAILY 08/15/15 Reported Duoneb 0.5-3(2.5) Mg/3 Ml (Albuterol/Ipratropium) 3 Ml Ampul.neb 3 Ml IH Q4HRS 08/15/15 Reported Advair 500-50 Diskus (Fluticasone/Salmeterol) 1 Each Disk.w.dev 1 Puff IH BID PRN 07/04/14 Reported Patient takes prn before bed if he feels he needs it Impression . IMPRESSION: 1. Acute on chronic hypoxic respiratory failure secondary to acute exacerbation of chronic obstructive pulmonary disease and acute bronchitis. 2. Cough with purulent sputum production consistent with acute bronchitis. No definite new consolidation seen on chest x-ray. 3. Normal D-dimer, no need for thromboembolic disease. 4. Left upper quadrant pain with meal. Likely gastroesophageal reflux disease. Would benefit from antacid therapy. 5. allergic rhinitis Plan . RECOMMENDATIONS: 1. Continue with present DuoNebs. 2. Continue with Pulmicort. 3. Gradually wean oxygen to a baseline of 3 liters. 4. cont empiric antibiotics. 5. Pepcid. 6. add flonase We will follow along with you. Discussed with pt DON TARANGO MD Oct 03, 2018 08:34
[2018-10-03] MEDS: TAMSULOSIN 0.4 MG CAP.ER.24H. PO SCH (08:55)
[2018-10-03] MEDS: amLODIPine BESYLATE 5 MG TABLET PO SCH (08:55)
[2018-10-03] MEDS: HYDROcodone/APAP 5/325MG 1 TAB TABLET PO PRN (08:56)
[2018-10-03] MEDS: LOSARTAN POTASSIUM 50 MG TABLET. PO SCH (08:56)
[2018-10-03] MEDS: fentaNYL PF VIAL 100 MCG/2 ML VIAL IV PRN ×7 (08:57→22:39)
[2018-10-03] MEDS ORDERED: POTASSIUM CHLORIDE 20 MEQ TABLET.ER. PO ONE (10:00)
[2018-10-03 11:05] VITALS: BP 126/78
--- NOTE | 2018-10-03 11:23 | PDOC ---
PROGRESS NOTES Chief Complaint Chief Complaint Acute on chronic hypoxic respiratory failure COPD with acute exacerbation, acute bronchitis, hypokalemia BPH htn anxiety, stable History of Present Illness History of Present Illness slept well, complains of weakness is talking better, has more wind, Vitals Vitals Vital Signs Date Time Temp Pulse Resp B/P (MAP) Pulse Ox O2 Delivery O2 Flow Rate FiO2 10/03/18 11:11 Nasal Cannula 5.5 10/03/18 10:50 93 10/03/18 08:56 85 145/71 10/03/18 07:25 98.2 20 98.2 Physical Exam General: Alert, Oriented X3, Cooperative, mild distress Heart: Regular rate Lungs: Clear, Other (a few end exp wheezing) Abdomen: Normal bowel sounds, Soft Extremities: No cyanosis, No edema, Normal pulses Skin: No rashes, No significant lesion Review of Systems Review of Systems no n.v.d Assessment and Plan Assessmemt and Plan Problems Medical Problems: (1) COPD exacerbation Status: Acute (2) Dyspnea Status: Acute (3) Pleurisy Status: Acute Comment Review of Relevant I have reviewed the following items tim (where applicable) has been applied. Labs Laboratory Tests Test 10/01/18 16:00 10/01/18 16:13 10/02/18 09:20 Influenza Type A Antigen Negative (NEGATIVE) Influenza Type B Antigen Negative (NEGATIVE) White Blood Count 8.9 x10^3/uL (4.0-11.0) 8.1 x10^3/uL (4.0-11.0) Red Blood Count 4.47 x10^6/uL (4.30-5.70) 4.64 x10^6/uL (4.30-5.70) Hemoglobin 13.3 g/dL (13.0-17.5) 13.8 g/dL (13.0-17.5) Hematocrit 39.8 % (39.0-53.0) 41.8 % (39.0-53.0) Mean Corpuscular Volume 89 fL (79-100) 90 fL (79-100) Mean Corpuscular Hemoglobin 30 pg (25-35) 30 pg (25-35) Mean Corpuscular Hemoglobin Concent 33 g/dL (31-37) 33 g/dL (31-37) Red Cell Distribution Width 15.1 % (11.5-14.5) 15.1 % (11.5-14.5) Platelet Count 343 x10^3/uL (140-400) 325 x10^3/uL (140-400) Neutrophils (%) (Auto) 47 % (31-73) 53 % (31-73) Lymphocytes (%) (Auto) 31 % (24-48) 28 % (24-48) Monocytes (%) (Auto) 17 % (0-9) 14 % (0-9) Eosinophils (%) (Auto) 4 % (0-3) 4 % (0-3) Basophils (%) (Auto) 1 % (0-3) 0 % (0-3) Neutrophils # (Auto) 4.2 x10^3uL (1.8-7.7) 4.3 x10^3uL (1.8-7.7) Lymphocytes # (Auto) 2.7 x10^3/uL (1.0-4.8) 2.3 x10^3/uL (1.0-4.8) Monocytes # (Auto) 1.5 x10^3/uL (0.0-1.1) 1.1 x10^3/uL (0.0-1.1) Eosinophils # (Auto) 0.4 x10^3/uL (0.0-0.7) 0.3 x10^3/uL (0.0-0.7) Basophils # (Auto) 0.1 x10^3/uL (0.0-0.2) 0.0 x10^3/uL (0.0-0.2) D-Dimer (Kellee) 0.46 ug/mlFEU (0.00-0.50) Sodium Level 143 mmol/L (136-145) 144 mmol/L (136-145) Potassium Level 3.3 mmol/L (3.5-5.1) 3.5 mmol/L (3.5-5.1) Chloride Level 103 mmol/L (98-107) 104 mmol/L (98-107) Carbon Dioxide Level 29 mmol/L (21-32) 29 mmol/L (21-32) Anion Gap 11 (6-14) 11 (6-14) Blood Urea Nitrogen 11 mg/dL (8-26) 15 mg/dL (8-26) Creatinine 0.9 mg/dL (0.7-1.3) 1.0 mg/dL (0.7-1.3) Estimated GFR (Cockcroft-Gault) 83.7 74.1 BUN/Creatinine Ratio 12 (6-20) Glucose Level 99 mg/dL (70-99) 109 mg/dL (70-99) Lactic Acid Level 0.9 mmol/L (0.4-2.0) Calcium Level 9.5 mg/dL (8.5-10.1) 9.3 mg/dL (8.5-10.1) Total Bilirubin 0.6 mg/dL (0.2-1.0) Aspartate Amino Transf (AST/SGOT) 14 U/L (15-37) Alanine Aminotransferase (ALT/SGPT) 17 U/L (16-63) Alkaline Phosphatase 90 U/L (46-116) Creatine Kinase 51 U/L (39-308) Creatine Kinase MB (Mass) 0.6 ng/mL (0.0-3.6) Creatine Kinase MB Relative Index % (0-4) Troponin I Quantitative < 0.017 ng/mL (0.000-0.055) NN-Ldh-Q-Type Natriuretic Peptide 59 pg/mL (0-124) Total Protein 7.6 g/dL (6.4-8.2) Albumin 3.5 g/dL (3.4-5.0) Albumin/Globulin Ratio 0.9 (1.0-1.7) Microbiology 10/02/18 Blood Culture - Preliminary, Resulted NO GROWTH AFTER 1 DAY Medications Current Medications Albuterol/ Ipratropium (Duoneb) 3 ml 1X ONCE NEB Last administered on at 15:59; Start 10/01/18 at 15:45; Stop 10/01/18 at 15:49; Status DC Sodium Chloride 1,000 ml @ 100 mls/hr Q10H IV Last administered on 10/01/18at 16:30; Start 10/01/18 at 15:43; Stop 10/02/18 at 01:42; Status DC Fentanyl Citrate (Fentanyl 2ml Vial) 50 mcg 1X ONCE IV Last administered on at 17:10; Start 10/01/18 at 16:45; Stop 10/01/18 at 16:46; Status DC Fentanyl Citrate (Fentanyl 2ml Vial) 50 mcg 1X ONCE IV Last administered on at 19:13; Start 10/01/18 at 19:00; Stop 10/01/18 at 19:01; Status DC Labetalol HCl (Normodyne Iv Push) 20 mg PRN Q2HR PRN IVP HYPERTENSION, SEE COMMENTS; Start 10/01/18 at 19:30 Albuterol/ Ipratropium (Duoneb) 3 ml RTQID NEB Last administered on 10/01/18at 21:42; Start 10/01/18 at 20:00; Stop 10/02/18 at 08:46; Status DC Temazepam (Restoril) 7.5 mg PRN QHS PRN PO INSOMNIA Last administered on at 23:09; Start 10/01/18 at 19:30 Guaifenesin (Robitussin Dm) 10 ml PRN Q6HRS PRN PO COUGH Last administered on at 18:32; Start 10/01/18 at 19:30 Acetaminophen/ Codeine Phosphate (Tylenol #3) 1 tab PRN Q6HRS PRN PO MODERATE PAIN; Start 10/01/18 at 19:30 Acetaminophen (Tylenol) 500 mg PRN Q6HRS PRN PO MILD PAIN / TEMP; Start at 19:30 Ondansetron HCl (Zofran) 4 mg PRN Q6HRS PRN IV NAUSEA/VOMITING; Start 10/01/18 at 19:30 Ondansetron HCl (Zofran Odt) 4 mg PRN Q6HRS PRN PO NAUSEA/VOMITING; Start 10/01 at 19:30 Ondansetron HCl (Zofran) 4 mg PRN Q8HRS PRN IV NAUSEA/VOMITING; Start 10/01/18 at 19:15; Stop 10/02/18 at 19:14; Status UNV Fentanyl Citrate (Fentanyl 2ml Vial) 50 mcg PRN Q2HRS PRN IV PAIN; Start at 19:15; Stop 10/01/18 at 19:20; Status DC Acetaminophen (Tylenol) 650 mg PRN Q4HRS PRN PO FEVER; Start 10/01/18 at 19:15 ; Stop 10/02/18 at 19:14; Status UNV Albuterol/ Ipratropium (Duoneb) 3 ml RTQID NEB ; Start 10/01/18 at 20:00; Stop 10/02/18 at 19:59; Status UNV Potassium Chloride (Klor-Con) 40 meq 1X ONCE PO Last administered on at 19:37; Start 10/01/18 at 19:30; Stop 10/01/18 at 19:31; Status DC Fentanyl Citrate (Fentanyl 2ml Vial) 50 mcg PRN Q2HR PRN IV PAIN Last administered on 10/03/18 10:50; Start 10/01/18 at 19:30 Alprazolam (Xanax) 0.5 mg PRN Q6HRS PRN PO ANXIETY Last administered on 22:23; Start 10/01/18 at 19:30 Amlodipine Besylate (Norvasc) 5 mg DAILY PO Last administered on 10/03/18 08: 55; Start 10/02/18 at 09:00 Acetaminophen/ Hydrocodone Bitart (Lortab 5/325) 1 tab PRN Q6HRS PRN PO SEVERE PAIN Last administered on 10/02/18 20:19; Start 10/01/18 at 19:30 Losartan Potassium (Cozaar) 50 mg DAILY PO Last administered on 10/03/18 08:56 ; Start 10/02/18 at 09:00 Tamsulosin HCl (Flomax) 0.4 mg DAILY PO Last administered on 10/03/18 08:55; Start 10/02/18 at 09:00 Tizanidine HCl (Zanaflex) 4 mg PRN QHS PRN PO MUSCLE SPASMS; Start 10/01/18 at 19:30 Albuterol Sulfate (Ventolin Neb Soln) 2.5 mg PRN Q4HRS PRN NEB SHORTNESS OF BREATH Last administered on 10/02/18at 05:03; Start 10/02/18 at 05:00; Stop 10/02 at 08:47; Status DC Albuterol/ Ipratropium (Duoneb) 3 ml Q4HRS W/A NEB Last administered on at 11:11; Start 10/02/18 at 10:00 Budesonide (Pulmicort) 0.5 mg RTBID NEB Last administered on 10/03/18at 07:15; Start 10/02/18 at 20:00 Budesonide (Pulmicort) 0.5 mg 1X ONCE NEB Last administered on 10/02/18at 08:45 ; Start 10/02/18 at 08:45; Stop 10/02/18 at 08:50; Status DC Albuterol Sulfate (Ventolin Neb Soln) 2.5 mg PRN Q4HRS PRN NEB SHORTNESS OF BREATH Last administered on 10/03/18at 04:09; Start 10/02/18 at 09:00 Ceftriaxone Sodium (Rocephin) 1 gm Q24H IVP Last administered on 10/02/18at 18: 08; Start 10/02/18 at 15:00 Famotidine (Pepcid) 20 mg QHS PO Last administered on 10/02/18at 20:18; Start at 21:00 Potassium Chloride (Klor-Con) 20 meq 1X ONCE PO Last administered on at 10:49; Start 10/03/18 at 10:00; Stop 10/03/18 at 10:01; Status DC Active Scripts Active Levaquin (Levofloxacin) 500 Mg Tablet 1 Tab PO DAILY Prednisone 20 Mg Tablet 40 Mg PO DAILY 5 Days Augmentin 500-125 Tablet (Amoxicillin/Potassium Clav) 1 Each Tablet 1 Tab PO BID [place] 5-325 Tablet (Acetaminophen/Hydrocodone Bitart) 1 Each Tablet 1 Tab PO PRN Q6HRS PRN Reported Alprazolam 0.5 Mg Tablet 1 Tab PO PRN Q6HRS PRN Tamsulosin Hcl 0.4 Mg Cap.er.24h 1 Cap PO DAILY Prednisone 2.5 Mg Tablet 5 Mg PO DAILY Tizanidine Hcl 4 Mg Tablet 1 Tab PO PRN QHS PRN Amlodipine Besylate 5 Mg Tablet 5 Mg PO DAILY Losartan Potassium 50 Mg Tablet 50 Mg PO DAILY Duoneb 0.5-3(2.5) Mg/3 Ml (Albuterol/Ipratropium) 3 Ml Ampul.neb 3 Ml IH Q4HRS Advair 500-50 Diskus (Fluticasone/Salmeterol) 1 Each Disk.w.dev 1 Puff IH BID PRN Patient takes prn before bed if he feels he needs it Vitals/I & O Vital Sign - Last 24 Hours 10/02/18 10/02/18 10/02/18 10/02/18 13:48 14:24 15:28 18:07 Temp 97.8 97.8 Pulse 95 Resp 20 22 20 B/P (MAP) 103/77 (86) Pulse Ox 93 92 91 91 O2 Delivery Nasal Cannula Nasal Cannula Nasal Cannula Nasal Cannula O2 Flow Rate 5.0 4.0 4.0 4.0 10/02/18 10/02/18 10/02/18 10/02/18 18:37 19:00 20:00 20:05 Temp 97.9 97.9 Pulse 88 Resp 20 20 B/P (MAP) 138/76 (96) Pulse Ox 92 93 O2 Delivery Nasal Cannula Nasal Cannula Nasal Cannula O2 Flow Rate 5.0 5.0 5.0 10/02/18 10/02/18 10/02/18 10/02/18 20:09 20:19 21:30 22:52 Temp 97.9 97.9 Pulse 108 Resp 20 22 B/P (MAP) 100/73 (82) Pulse Ox 91 91 O2 Delivery Nasal Cannula Nasal Cannula Nasal Cannula Nasal Cannula O2 Flow Rate 5.0 5.0 5.0 10/02/18 10/02/18 10/03/18 10/03/18 23:10 23:41 04:11 07:12 Resp 20 Pulse Ox 91 93 95 O2 Delivery Nasal Cannula Nasal Cannula Nasal Cannula Nasal Cannula O2 Flow Rate 5.0 5.0 5.0 5.5 10/03/18 10/03/18 10/03/18 10/03/18 07:25 08:00 08:55 08:56 Temp 98.2 98.2 Pulse 85 85 85 Resp 20 B/P (MAP) 145/71 (95) 145/71 145/71 Pulse Ox 93 O2 Delivery Nasal Cannula Nasal Cannula O2 Flow Rate 5.0 5.0 10/03/18 10/03/18 10/03/18 10/03/18 08:57 10:03 10:50 11:11 Pulse Ox 93 93 93 O2 Delivery Nasal Cannula Nasal Cannula Nasal Cannula Nasal Cannula O2 Flow Rate 5.0 5.0 5.0 5.5 Intake and Output 10/02/18 10/02/18 10/03/18 14:59 22:59 06:59 Intake Total 180 ml 180 ml Output Total 350 ml 1250 ml Balance 180 ml -170 ml -1250 ml SHARON FLORES MD Oct 03, 2018 11:23
[2018-10-03] MEDS: cefTRIAXone IV Push 1 GM VIAL. IVP SCH (14:52)
[2018-10-03 15:18] VITALS: BP 136/71
[2018-10-03 19:00] VITALS: BP 130/73
[2018-10-03] MEDS: LACTOBACILLUS RHAMNOSUS GG 1 CAPSULE. PO SCH (20:07)
[2018-10-03] MEDS: FAMOTIDINE 20 MG TABLET. PO SCH (20:07)
[2018-10-03 22:34] VITALS: BP 116/69
[2018-10-04] MEDS: IPRATRPIUM/ALBUTEROL 0.5/2.5MG 3 ML NEBU. NEB SCH ×5 (06:00→23:30)
[2018-10-04] MEDS: fentaNYL PF VIAL 100 MCG/2 ML VIAL IV PRN ×9 (06:17→23:06)
[2018-10-04] MEDS: BUDESONIDE 0.5 MG/2 ML NEBU. NEB SCH ×2 (06:39→19:23)
[2018-10-04 07:00] VITALS: BP 136/85
[2018-10-04] MEDS: LACTOBACILLUS RHAMNOSUS GG 1 CAPSULE. PO SCH ×2 (08:27→20:54)
[2018-10-04] MEDS: amLODIPine BESYLATE 5 MG TABLET PO SCH (08:27)
[2018-10-04] MEDS: TAMSULOSIN 0.4 MG CAP.ER.24H. PO SCH (08:27)
[2018-10-04] MEDS: LOSARTAN POTASSIUM 50 MG TABLET. PO SCH (08:27)
--- NOTE | 2018-10-04 08:32 | PDOC ---
PULMONARY PROGRESS NOTES Subjective has more sob, cough, has nasal congestion Vitals Vital Signs Date Time Temp Pulse Resp B/P (MAP) Pulse Ox O2 Delivery O2 Flow Rate FiO2 10/04/18 08:29 94 Nasal Cannula 5.0 10/04/18 08:27 103 136/85 10/04/18 07:00 98.1 20 98.1 ROS: No Nausea General: Alert, No acute distress Lungs: Wheezing Cardiovascular: S1, S2 Abdomen: Soft, Non-tender Neuro Exam: Alert Extremities: No Edema, Other Skin: Warm Labs Laboratory Tests Test 10/02/18 09:20 White Blood Count 8.1 x10^3/uL (4.0-11.0) Red Blood Count 4.64 x10^6/uL (4.30-5.70) Hemoglobin 13.8 g/dL (13.0-17.5) Hematocrit 41.8 % (39.0-53.0) Mean Corpuscular Volume 90 fL (79-100) Mean Corpuscular Hemoglobin 30 pg (25-35) Mean Corpuscular Hemoglobin Concent 33 g/dL (31-37) Red Cell Distribution Width 15.1 % (11.5-14.5) Platelet Count 325 x10^3/uL (140-400) Neutrophils (%) (Auto) 53 % (31-73) Lymphocytes (%) (Auto) 28 % (24-48) Monocytes (%) (Auto) 14 % (0-9) Eosinophils (%) (Auto) 4 % (0-3) Basophils (%) (Auto) 0 % (0-3) Neutrophils # (Auto) 4.3 x10^3uL (1.8-7.7) Lymphocytes # (Auto) 2.3 x10^3/uL (1.0-4.8) Monocytes # (Auto) 1.1 x10^3/uL (0.0-1.1) Eosinophils # (Auto) 0.3 x10^3/uL (0.0-0.7) Basophils # (Auto) 0.0 x10^3/uL (0.0-0.2) Sodium Level 144 mmol/L (136-145) Potassium Level 3.5 mmol/L (3.5-5.1) Chloride Level 104 mmol/L (98-107) Carbon Dioxide Level 29 mmol/L (21-32) Anion Gap 11 (6-14) Blood Urea Nitrogen 15 mg/dL (8-26) Creatinine 1.0 mg/dL (0.7-1.3) Estimated GFR (Cockcroft-Gault) 74.1 Glucose Level 109 mg/dL (70-99) Calcium Level 9.3 mg/dL (8.5-10.1) Medications Active Scripts Medications Dose Route/Sig Max Daily Dose Days Date Category Dose Instructions Levaquin (Levofloxacin) 500 Mg Tablet 1 Tab PO DAILY 03/17/18 Rx Prednisone 20 Mg Tablet 40 Mg PO DAILY 5 03/17/18 Rx Augmentin 500-125 Tablet (Amoxicillin/Potassium Clav) 1 Each Tablet 1 Tab PO BID 10/23/17 Rx Alprazolam 0.5 Mg Tablet 1 Tab PO PRN Q6HRS PRN 10/22/17 Reported Tamsulosin Hcl 0.4 Mg Cap.er.24h 1 Cap PO DAILY 10/22/17 Reported Prednisone 2.5 Mg Tablet 5 Mg PO DAILY 10/22/17 Reported [place] 5-325 Tablet (Acetaminophen/Hydrocodone Bitart) 1 Each Tablet 1 Tab PO PRN Q6HRS PRN 02/06/16 Rx Tizanidine Hcl 4 Mg Tablet 1 Tab PO PRN QHS PRN 08/16/15 Reported Amlodipine Besylate 5 Mg Tablet 5 Mg PO DAILY 08/15/15 Reported Losartan Potassium 50 Mg Tablet 50 Mg PO DAILY 08/15/15 Reported Duoneb 0.5-3(2.5) Mg/3 Ml (Albuterol/Ipratropium) 3 Ml Ampul.neb 3 Ml IH Q4HRS 08/15/15 Reported Advair 500-50 Diskus (Fluticasone/Salmeterol) 1 Each Disk.w.dev 1 Puff IH BID PRN 07/04/14 Reported Patient takes prn before bed if he feels he needs it Impression . IMPRESSION: 1. Acute on chronic hypoxic respiratory failure secondary to acute exacerbation of chronic obstructive pulmonary disease and acute bronchitis. 2. Cough with purulent sputum production consistent with acute bronchitis. No definite new consolidation seen on chest x-ray. 3. Normal D-dimer, no need for thromboembolic disease. 4. Left upper quadrant pain with meal. Likely gastroesophageal reflux disease. 5. allergic rhinitis Plan . RECOMMENDATIONS: 1. Continue with present DuoNebs. 2. Continue with Pulmicort. add solumedrol, will do cxr 3. Gradually wean oxygen to a baseline of 3 liters. 4. cont empiric antibiotics. 5. Pepcid. 6. flonase We will follow along with you. Discussed with pt, DON Hopkins MD Oct 04, 2018 08:32
--- NOTE | 2018-10-04 09:28 | RAD ---
EXAM: CHEST 1 VIEW History: Shortness of breath COMPARISON: 10/01/2018 TECHNIQUE: Single portable radiograph of the chest FINDINGS: The cardiac silhouette is unremarkable. Hyperinflated lungs likely changes of COPD. Mild bibasilar lung airspace opacities likely atelectasis or infiltrates. IMPRESSION: 1. Mild bibasilar lung airspace opacities likely atelectasis or infiltrates. 2. Changes of COPD. Electronically signed by: Blake Willson MD (10/04/2018 9:26 AM) [facility]
[2018-10-04] MEDS: FLUTICASONE 50MCG/NASAL SPRAY 16GM BOTTLE. NS SCH (10:34)
[2018-10-04] MEDS: methylPREDNISolone SOD SUCC PF 40 MG/ML VIAL. IV SCH ×2 (10:34→20:54)
[2018-10-04 10:48] VITALS: BP 135/73
--- NOTE | 2018-10-04 12:28 | PDOC ---
PROGRESS NOTES Chief Complaint Chief Complaint Acute on chronic hypoxic respiratory failure COPD with acute exacerbation, acute bronchitis, hypokalemia BPH htn anxiety, stable History of Present Illness History of Present Illness slept well, complains of weakness complains of pain and poor pain control, wants more IV meds, I discussed at length x2, that he needs to take PO meds if he can eat, he feels they dont work , and when he takes the IV fentanyl he thinks it helps with his breathing a lot. try large PO dose, cont IV PRN, try to wean, he was upset now, will need to try again to discuss is talking better, has more wind, Vitals Vitals Vital Signs Date Time Temp Pulse Resp B/P (MAP) Pulse Ox O2 Delivery O2 Flow Rate FiO2 10/04/18 11:09 93 Nasal Cannula 3.0 10/04/18 10:48 98.1 82 18 135/73 (93) 98.1 Physical Exam General: Alert, Oriented X3, Cooperative, No acute distress, mild distress Heart: Regular rate, No murmurs Lungs: Wheezing Abdomen: Normal bowel sounds, Soft Extremities: No cyanosis, No edema, Normal pulses Skin: No rashes, No breakdown, No significant lesion Review of Systems Review of Systems chest pain, dyspnea Assessment and Plan Assessmemt and Plan Problems Medical Problems: (1) COPD exacerbation Status: Acute (2) Dyspnea Status: Acute (3) Pleurisy Status: Acute Comment Review of Relevant I have reviewed the following items tim (where applicable) has been applied. Labs Microbiology 10/02/18 Blood Culture - Preliminary, Resulted NO GROWTH AFTER 2 DAYS Medications Current Medications Albuterol/ Ipratropium (Duoneb) 3 ml 1X ONCE NEB Last administered on at 15:59; Start 10/01/18 at 15:45; Stop 10/01/18 at 15:49; Status DC Sodium Chloride 1,000 ml @ 100 mls/hr Q10H IV Last administered on 10/01/18at 16:30; Start 10/01/18 at 15:43; Stop 10/02/18 at 01:42; Status DC Fentanyl Citrate (Fentanyl 2ml Vial) 50 mcg 1X ONCE IV Last administered on at 17:10; Start 10/01/18 at 16:45; Stop 10/01/18 at 16:46; Status DC Fentanyl Citrate (Fentanyl 2ml Vial) 50 mcg 1X ONCE IV Last administered on at 19:13; Start 10/01/18 at 19:00; Stop 10/01/18 at 19:01; Status DC Labetalol HCl (Normodyne Iv Push) 20 mg PRN Q2HR PRN IVP HYPERTENSION, SEE COMMENTS; Start 10/01/18 at 19:30 Albuterol/ Ipratropium (Duoneb) 3 ml RTQID NEB Last administered on 10/01/18at 21:42; Start 10/01/18 at 20:00; Stop 10/02/18 at 08:46; Status DC Temazepam (Restoril) 7.5 mg PRN QHS PRN PO INSOMNIA Last administered on at 23:09; Start 10/01/18 at 19:30 Guaifenesin (Robitussin Dm) 10 ml PRN Q6HRS PRN PO COUGH Last administered on at 18:32; Start 10/01/18 at 19:30 Acetaminophen/ Codeine Phosphate (Tylenol #3) 1 tab PRN Q6HRS PRN PO MODERATE PAIN; Start 10/01/18 at 19:30 Acetaminophen (Tylenol) 500 mg PRN Q6HRS PRN PO MILD PAIN / TEMP; Start at 19:30 Ondansetron HCl (Zofran) 4 mg PRN Q6HRS PRN IV NAUSEA/VOMITING; Start 10/01/18 at 19:30 Ondansetron HCl (Zofran Odt) 4 mg PRN Q6HRS PRN PO NAUSEA/VOMITING; Start 10/01 at 19:30 Ondansetron HCl (Zofran) 4 mg PRN Q8HRS PRN IV NAUSEA/VOMITING; Start 10/01/18 at 19:15; Stop 10/02/18 at 19:14; Status UNV Fentanyl Citrate (Fentanyl 2ml Vial) 50 mcg PRN Q2HRS PRN IV PAIN; Start at 19:15; Stop 10/01/18 at 19:20; Status DC Acetaminophen (Tylenol) 650 mg PRN Q4HRS PRN PO FEVER; Start 10/01/18 at 19:15 ; Stop 10/02/18 at 19:14; Status UNV Albuterol/ Ipratropium (Duoneb) 3 ml RTQID NEB ; Start 10/01/18 at 20:00; Stop 10/02/18 at 19:59; Status UNV Potassium Chloride (Klor-Con) 40 meq 1X ONCE PO Last administered on at 19:37; Start 10/01/18 at 19:30; Stop 10/01/18 at 19:31; Status DC Fentanyl Citrate (Fentanyl 2ml Vial) 50 mcg PRN Q2HR PRN IV PAIN Last administered on 10/04/18 10:35; Start 10/01/18 at 19:30; Stop 10/04/18 at 12:19 ; Status DC Alprazolam (Xanax) 0.5 mg PRN Q6HRS PRN PO ANXIETY Last administered on at 22:23; Start 10/01/18 at 19:30 Amlodipine Besylate (Norvasc) 5 mg DAILY PO Last administered on 10/04/18at 08: 27; Start 10/02/18 at 09:00 Acetaminophen/ Hydrocodone Bitart (Lortab 5/325) 1 tab PRN Q6HRS PRN PO SEVERE PAIN Last administered on 10/02/18 20:19; Start 10/01/18 at 19:30 Losartan Potassium (Cozaar) 50 mg DAILY PO Last administered on 10/04/18at 08:27 ; Start 10/02/18 at 09:00 Tamsulosin HCl (Flomax) 0.4 mg DAILY PO Last administered on 10/04/18at 08:27; Start 10/02/18 at 09:00 Tizanidine HCl (Zanaflex) 4 mg PRN QHS PRN PO MUSCLE SPASMS; Start 10/01/18 at 19:30 Albuterol Sulfate (Ventolin Neb Soln) 2.5 mg PRN Q4HRS PRN NEB SHORTNESS OF BREATH Last administered on 10/02/18at 05:03; Start 10/02/18 at 05:00; Stop 10/02 at 08:47; Status DC Albuterol/ Ipratropium (Duoneb) 3 ml Q4HRS W/A NEB Last administered on at 10:55; Start 10/02/18 at 10:00 Budesonide (Pulmicort) 0.5 mg RTBID NEB Last administered on 10/04/18 06:39; Start 10/02/18 at 20:00 Budesonide (Pulmicort) 0.5 mg 1X ONCE NEB Last administered on 10/02/18at 08:45 ; Start 10/02/18 at 08:45; Stop 10/02/18 at 08:50; Status DC Albuterol Sulfate (Ventolin Neb Soln) 2.5 mg PRN Q4HRS PRN NEB SHORTNESS OF BREATH Last administered on 10/03/18 04:09; Start 10/02/18 at 09:00 Ceftriaxone Sodium (Rocephin) 1 gm Q24H IVP Last administered on 10/03/18 14: 52; Start 10/02/18 at 15:00 Famotidine (Pepcid) 20 mg QHS PO Last administered on 10/03/18 20:07; Start at 21:00 Potassium Chloride (Klor-Con) 20 meq 1X ONCE PO Last administered on at 10:49; Start 10/03/18 at 10:00; Stop 10/03/18 at 10:01; Status DC Lactobacillus Rhamnosus (Culturelle) 1 cap BID PO Last administered on 08:27; Start 10/03/18 at 21:00 Methylprednisolone Sodium Succinate (SOLU-Medrol 40MG VIAL) 40 mg Q12HR IV Last administered on 10/04/18at 10:34; Start 10/04/18 at 09:00 Fluticasone Propionate (Flonase) 2 spray DAILY NS Last administered on at 10:34; Start 10/04/18 at 09:00 Fentanyl Citrate (Fentanyl 2ml Vial) 75 mcg PRN Q2HR PRN IV PAIN SEVERE; Start 10/04/18 at 12:30 Oxycodone HCl (Roxicodone) 10 mg PRN Q6HRS PRN PO PAIN SEVERE 2ND CHOICE; Start 10/04/18 at 12:30 Active Scripts Active Levaquin (Levofloxacin) 500 Mg Tablet 1 Tab PO DAILY Prednisone 20 Mg Tablet 40 Mg PO DAILY 5 Days Augmentin 500-125 Tablet (Amoxicillin/Potassium Clav) 1 Each Tablet 1 Tab PO BID [place] 5-325 Tablet (Acetaminophen/Hydrocodone Bitart) 1 Each Tablet 1 Tab PO PRN Q6HRS PRN Reported Alprazolam 0.5 Mg Tablet 1 Tab PO PRN Q6HRS PRN Tamsulosin Hcl 0.4 Mg Cap.er.24h 1 Cap PO DAILY Prednisone 2.5 Mg Tablet 5 Mg PO DAILY Tizanidine Hcl 4 Mg Tablet 1 Tab PO PRN QHS PRN Amlodipine Besylate 5 Mg Tablet 5 Mg PO DAILY Losartan Potassium 50 Mg Tablet 50 Mg PO DAILY Duoneb 0.5-3(2.5) Mg/3 Ml (Albuterol/Ipratropium) 3 Ml Ampul.neb 3 Ml IH Q4HRS Advair 500-50 Diskus (Fluticasone/Salmeterol) 1 Each Disk.w.dev 1 Puff IH BID PRN Patient takes prn before bed if he feels he needs it Vitals/I & O Vital Sign - Last 24 Hours 10/03/18 10/03/18 10/03/18 10/03/18 13:44 15:18 15:24 16:21 Temp 98.3 98.3 Pulse 87 Resp 20 B/P (MAP) 136/71 (92) Pulse Ox 94 92 92 O2 Delivery Nasal Cannula Nasal Cannula Nasal Cannula Nasal Cannula O2 Flow Rate 5.5 5.0 5.5 5.5 10/03/18 10/03/18 10/03/18 10/03/18 18:07 19:00 19:24 19:25 Temp 97.7 97.7 Pulse 86 Resp 18 B/P (MAP) 130/73 (92) Pulse Ox 92 94 94 94 O2 Delivery Nasal Cannula Nasal Cannula Nasal Cannula Nasal Cannula O2 Flow Rate 5.5 5.0 5.5 5.5 10/03/18 10/03/18 10/03/18 10/03/18 20:00 20:06 22:34 22:39 Temp 98.2 98.2 Pulse 89 Resp 16 20 19 B/P (MAP) 116/69 (85) Pulse Ox 94 92 92 O2 Delivery Nasal Cannula Nasal Cannula Nasal Cannula Nasal Cannula O2 Flow Rate 5.0 5.0 5.0 5.0 10/03/18 10/04/18 10/04/18 10/04/18 23:04 06:17 06:39 06:51 Resp 19 20 Pulse Ox 94 94 94 O2 Delivery Nasal Cannula Nasal Cannula Nasal Cannula O2 Flow Rate 5.5 5.0 5.5 10/04/18 10/04/18 10/04/18 10/04/18 07:00 08:00 08:27 08:27 Temp 98.1 98.1 Pulse 103 103 103 Resp 20 B/P (MAP) 136/85 (102) 136/85 136/85 Pulse Ox 94 O2 Delivery Nasal Cannula Nasal Cannula O2 Flow Rate 5.0 5.0 10/04/18 10/04/18 10/04/18 10/04/18 08:29 10:35 10:48 10:55 Temp 98.1 98.1 Pulse 82 Resp 18 B/P (MAP) 135/73 (93) Pulse Ox 94 94 96 93 O2 Delivery Nasal Cannula Nasal Cannula Nasal Cannula Nasal Cannula O2 Flow Rate 5.0 5.0 5.0 3.0 10/04/18 11:09 Pulse Ox 93 O2 Delivery Nasal Cannula O2 Flow Rate 3.0 Intake and Output 10/03/18 10/03/18 10/04/18 14:59 22:59 06:59 Intake Total 500 ml 400 ml 1000 ml Output Total 975 ml 550 ml Balance 500 ml -575 ml 450 ml SHARON FLORES MD Oct 04, 2018 12:28
[2018-10-04] MEDS ORDERED: oxyCODONE IR 5 MG TABLET PO PRN (12:30)
[2018-10-04 14:52] VITALS: BP 123/69
[2018-10-04] MEDS: cefTRIAXone IV Push 1 GM VIAL. IVP SCH (15:00)
[2018-10-04] MEDS: guaiFENesin DM 200MG/20MG 10 ML SYRUP PO PRN (18:43)
[2018-10-04 19:00] VITALS: BP 117/88
[2018-10-04] MEDS: FAMOTIDINE 20 MG TABLET. PO SCH (20:54)
[2018-10-04 23:00] VITALS: BP 142/80
[2018-10-04] MEDS: TEMAZEPAM 7.5 MG CAPSULE PO PRN (23:05)
[2018-10-05 07:00] VITALS: BP 128/82
[2018-10-05] MEDS: IPRATRPIUM/ALBUTEROL 0.5/2.5MG 3 ML NEBU. NEB SCH ×5 (07:06→23:24)
[2018-10-05] MEDS: BUDESONIDE 0.5 MG/2 ML NEBU. NEB SCH ×2 (07:07→19:04)
[2018-10-05] MEDS: FLUTICASONE 50MCG/NASAL SPRAY 16GM BOTTLE. NS SCH (08:03)
[2018-10-05] MEDS: methylPREDNISolone SOD SUCC PF 40 MG/ML VIAL. IV SCH ×2 (08:05→20:21)
[2018-10-05] MEDS: LACTOBACILLUS RHAMNOSUS GG 1 CAPSULE. PO SCH ×2 (08:06→20:11)
[2018-10-05] MEDS: TAMSULOSIN 0.4 MG CAP.ER.24H. PO SCH (08:06)
[2018-10-05] MEDS: fentaNYL PF VIAL 100 MCG/2 ML VIAL IV PRN ×4 (08:08→19:05)
[2018-10-05] MEDS: LOSARTAN POTASSIUM 50 MG TABLET. PO SCH (08:23)
[2018-10-05] MEDS: amLODIPine BESYLATE 5 MG TABLET PO SCH (08:23)
[2018-10-05 11:00] VITALS: BP 122/83
--- NOTE | 2018-10-05 11:04 | PDOC ---
PULMONARY PROGRESS NOTES Subjective mild sob, cough, has nasal congestion, constipated since admit Vitals Vital Signs Date Time Temp Pulse Resp B/P (MAP) Pulse Ox O2 Delivery O2 Flow Rate FiO2 10/05/18 10:46 20 95 Nasal Cannula 4.0 10/05/18 08:23 98 128/82 10/05/18 07:00 97.5 97.5 ROS: No Nausea General: Alert, No acute distress Lungs: Wheezing (left lung) Cardiovascular: S1, S2 Abdomen: Soft, Non-tender Neuro Exam: Alert Extremities: No Edema, Other Skin: Warm Medications Active Scripts Medications Dose Route/Sig Max Daily Dose Days Date Category Dose Instructions Levaquin (Levofloxacin) 500 Mg Tablet 1 Tab PO DAILY 03/17/18 Rx Prednisone 20 Mg Tablet 40 Mg PO DAILY 5 03/17/18 Rx Augmentin 500-125 Tablet (Amoxicillin/Potassium Clav) 1 Each Tablet 1 Tab PO BID 10/23/17 Rx Alprazolam 0.5 Mg Tablet 1 Tab PO PRN Q6HRS PRN 10/22/17 Reported Tamsulosin Hcl 0.4 Mg Cap.er.24h 1 Cap PO DAILY 10/22/17 Reported Prednisone 2.5 Mg Tablet 5 Mg PO DAILY 10/22/17 Reported [place] 5-325 Tablet (Acetaminophen/Hydrocodone Bitart) 1 Each Tablet 1 Tab PO PRN Q6HRS PRN 02/06/16 Rx Tizanidine Hcl 4 Mg Tablet 1 Tab PO PRN QHS PRN 08/16/15 Reported Amlodipine Besylate 5 Mg Tablet 5 Mg PO DAILY 08/15/15 Reported Losartan Potassium 50 Mg Tablet 50 Mg PO DAILY 08/15/15 Reported Duoneb 0.5-3(2.5) Mg/3 Ml (Albuterol/Ipratropium) 3 Ml Ampul.neb 3 Ml IH Q4HRS 08/15/15 Reported Advair 500-50 Diskus (Fluticasone/Salmeterol) 1 Each Disk.w.dev 1 Puff IH BID PRN 07/04/14 Reported Patient takes prn before bed if he feels he needs it Impression . IMPRESSION: 1. Acute on chronic hypoxic respiratory failure secondary to acute exacerbation of chronic obstructive pulmonary disease and acute bronchitis. 2. Cough with purulent sputum production consistent with acute bronchitis. No definite new consolidation seen on chest x-ray. 3. Normal D-dimer, no need for thromboembolic disease. 4. Left upper quadrant pain with meal. Likely gastroesophageal reflux disease. 5. allergic rhinitis Plan . 1. Continue with present DuoNebs.q 4 hr 2. Continue with Pulmicort. solumedrol, 3. Gradually wean oxygen to a baseline of 3 liters. 4. cont empiric antibiotics. 5. change Pepcid to protonix 6. flonase 7. add laxatives We will follow along with you. Discussed with pt, rn KRISTINA OROPEZA MD Oct 05, 2018 11:04
--- NOTE | 2018-10-05 11:25 | PDOC ---
PROGRESS NOTES Chief Complaint Chief Complaint Acute on chronic hypoxic respiratory failure COPD with acute exacerbation, acute bronchitis, hypokalemia BPH htn anxiety, stable History of Present Illness History of Present Illness slept well, complains of weakness complains of pain and poor pain control, wants more IV meds, he needs to take PO meds if he can eat, he feels they dont work, and when he takes the IV fentanyl he thinks it helps with his breathing. He is constipated today. No BM for 4 days. I have advised against opioids for pain control due to this side effect. Plan: Bowel regimen, back off IV pain medications Cont breathing treatments Sleep aid Hopefully home in AM Vitals Vitals Vital Signs Date Time Temp Pulse Resp B/P (MAP) Pulse Ox O2 Delivery O2 Flow Rate FiO2 10/05/18 11:21 Nasal Cannula 4.0 10/05/18 11:00 97.7 93 20 122/83 (96) 91 97.7 Physical Exam General: Alert, Oriented X3, Cooperative, No acute distress, mild distress Heart: Regular rate, No murmurs Lungs: Wheezing (left lung) Abdomen: Normal bowel sounds, Soft Extremities: No cyanosis, No edema, Normal pulses Skin: No rashes, No breakdown, No significant lesion Assessment and Plan Assessmemt and Plan Problems Medical Problems: (1) COPD exacerbation Status: Acute (2) Dyspnea Status: Acute (3) Pleurisy Status: Acute Comment Review of Relevant I have reviewed the following items tim (where applicable) has been applied. Labs Microbiology 10/02/18 Blood Culture - Preliminary, Resulted NO GROWTH AFTER 3 DAYS Medications Current Medications Albuterol/ Ipratropium (Duoneb) 3 ml 1X ONCE NEB Last administered on at 15:59; Start 10/01/18 at 15:45; Stop 10/01/18 at 15:49; Status DC Sodium Chloride 1,000 ml @ 100 mls/hr Q10H IV Last administered on 10/01/18at 16:30; Start 10/01/18 at 15:43; Stop 10/02/18 at 01:42; Status DC Fentanyl Citrate (Fentanyl 2ml Vial) 50 mcg 1X ONCE IV Last administered on at 17:10; Start 10/01/18 at 16:45; Stop 10/01/18 at 16:46; Status DC Fentanyl Citrate (Fentanyl 2ml Vial) 50 mcg 1X ONCE IV Last administered on at 19:13; Start 10/01/18 at 19:00; Stop 10/01/18 at 19:01; Status DC Labetalol HCl (Normodyne Iv Push) 20 mg PRN Q2HR PRN IVP HYPERTENSION, SEE COMMENTS; Start 10/01/18 at 19:30 Albuterol/ Ipratropium (Duoneb) 3 ml RTQID NEB Last administered on 10/01/18at 21:42; Start 10/01/18 at 20:00; Stop 10/02/18 at 08:46; Status DC Temazepam (Restoril) 7.5 mg PRN QHS PRN PO INSOMNIA Last administered on at 23:05; Start 10/01/18 at 19:30 Guaifenesin (Robitussin Dm) 10 ml PRN Q6HRS PRN PO COUGH Last administered on at 18:43; Start 10/01/18 at 19:30 Acetaminophen/ Codeine Phosphate (Tylenol #3) 1 tab PRN Q6HRS PRN PO MODERATE PAIN; Start 10/01/18 at 19:30 Acetaminophen (Tylenol) 500 mg PRN Q6HRS PRN PO MILD PAIN / TEMP; Start at 19:30 Ondansetron HCl (Zofran) 4 mg PRN Q6HRS PRN IV NAUSEA/VOMITING; Start 10/01/18 at 19:30 Ondansetron HCl (Zofran Odt) 4 mg PRN Q6HRS PRN PO NAUSEA/VOMITING; Start 10/01 at 19:30 Ondansetron HCl (Zofran) 4 mg PRN Q8HRS PRN IV NAUSEA/VOMITING; Start 10/01/18 at 19:15; Stop 10/02/18 at 19:14; Status UNV Fentanyl Citrate (Fentanyl 2ml Vial) 50 mcg PRN Q2HRS PRN IV PAIN; Start at 19:15; Stop 10/01/18 at 19:20; Status DC Acetaminophen (Tylenol) 650 mg PRN Q4HRS PRN PO FEVER; Start 10/01/18 at 19:15 ; Stop 10/02/18 at 19:14; Status UNV Albuterol/ Ipratropium (Duoneb) 3 ml RTQID NEB ; Start 10/01/18 at 20:00; Stop 10/02/18 at 19:59; Status UNV Potassium Chloride (Klor-Con) 40 meq 1X ONCE PO Last administered on at 19:37; Start 10/01/18 at 19:30; Stop 10/01/18 at 19:31; Status DC Fentanyl Citrate (Fentanyl 2ml Vial) 50 mcg PRN Q2HR PRN IV PAIN Last administered on 10/04/18at 10:35; Start 10/01/18 at 19:30; Stop 10/04/18 at 12:19 ; Status DC Alprazolam (Xanax) 0.5 mg PRN Q6HRS PRN PO ANXIETY Last administered on 22:23; Start 10/01/18 at 19:30 Amlodipine Besylate (Norvasc) 5 mg DAILY PO Last administered on 10/05/18at 08: 23; Start 10/02/18 at 09:00 Acetaminophen/ Hydrocodone Bitart (Lortab 5/325) 1 tab PRN Q6HRS PRN PO SEVERE PAIN Last administered on 10/02/18 20:19; Start 10/01/18 at 19:30 Losartan Potassium (Cozaar) 50 mg DAILY PO Last administered on 10/05/18at 08:23 ; Start 10/02/18 at 09:00 Tamsulosin HCl (Flomax) 0.4 mg DAILY PO Last administered on 10/05/18at 08:06; Start 10/02/18 at 09:00 Tizanidine HCl (Zanaflex) 4 mg PRN QHS PRN PO MUSCLE SPASMS; Start 10/01/18 at 19:30 Albuterol Sulfate (Ventolin Neb Soln) 2.5 mg PRN Q4HRS PRN NEB SHORTNESS OF BREATH Last administered on 10/02/18at 05:03; Start 10/02/18 at 05:00; Stop 10/02 at 08:47; Status DC Albuterol/ Ipratropium (Duoneb) 3 ml Q4HRS W/A NEB Last administered on at 11:20; Start 10/02/18 at 10:00 Budesonide (Pulmicort) 0.5 mg RTBID NEB Last administered on 10/05/18 07:07; Start 10/02/18 at 20:00 Budesonide (Pulmicort) 0.5 mg 1X ONCE NEB Last administered on 10/02/18at 08:45 ; Start 10/02/18 at 08:45; Stop 10/02/18 at 08:50; Status DC Albuterol Sulfate (Ventolin Neb Soln) 2.5 mg PRN Q4HRS PRN NEB SHORTNESS OF BREATH Last administered on 10/03/18 04:09; Start 10/02/18 at 09:00 Ceftriaxone Sodium (Rocephin) 1 gm Q24H IVP Last administered on 10/04/18 15: 00; Start 10/02/18 at 15:00 Famotidine (Pepcid) 20 mg QHS PO Last administered on 10/04/18 20:54; Start at 21:00 Potassium Chloride (Klor-Con) 20 meq 1X ONCE PO Last administered on 10:49; Start 10/03/18 at 10:00; Stop 10/03/18 at 10:01; Status DC Lactobacillus Rhamnosus (Culturelle) 1 cap BID PO Last administered on 08:06; Start 10/03/18 at 21:00 Methylprednisolone Sodium Succinate (SOLU-Medrol 40MG VIAL) 40 mg Q12HR IV Last administered on 10/05/18 08:05; Start 10/04/18 at 09:00 Fluticasone Propionate (Flonase) 2 spray DAILY NS Last administered on 08:03; Start 10/04/18 at 09:00 Fentanyl Citrate (Fentanyl 2ml Vial) 75 mcg PRN Q2HR PRN IV PAIN SEVERE Last administered on 10/05/18 10:46; Start 10/04/18 at 12:30 Oxycodone HCl (Roxicodone) 10 mg PRN Q6HRS PRN PO PAIN SEVERE 2ND CHOICE; Start 10/04/18 at 12:30 Active Scripts Active Levaquin (Levofloxacin) 500 Mg Tablet 1 Tab PO DAILY Prednisone 20 Mg Tablet 40 Mg PO DAILY 5 Days Augmentin 500-125 Tablet (Amoxicillin/Potassium Clav) 1 Each Tablet 1 Tab PO BID [place] 5-325 Tablet (Acetaminophen/Hydrocodone Bitart) 1 Each Tablet 1 Tab PO PRN Q6HRS PRN Reported Alprazolam 0.5 Mg Tablet 1 Tab PO PRN Q6HRS PRN Tamsulosin Hcl 0.4 Mg Cap.er.24h 1 Cap PO DAILY Prednisone 2.5 Mg Tablet 5 Mg PO DAILY Tizanidine Hcl 4 Mg Tablet 1 Tab PO PRN QHS PRN Amlodipine Besylate 5 Mg Tablet 5 Mg PO DAILY Losartan Potassium 50 Mg Tablet 50 Mg PO DAILY Duoneb 0.5-3(2.5) Mg/3 Ml (Albuterol/Ipratropium) 3 Ml Ampul.neb 3 Ml IH Q4HRS Advair 500-50 Diskus (Fluticasone/Salmeterol) 1 Each Disk.w.dev 1 Puff IH BID PRN Patient takes prn before bed if he feels he needs it Vitals/I & O Vital Sign - Last 24 Hours 10/04/18 10/04/18 10/04/18 10/04/18 12:50 14:50 14:52 15:07 Temp 97.5 97.5 Pulse 101 Resp 18 B/P (MAP) 123/69 (87) Pulse Ox 93 93 91 O2 Delivery Nasal Cannula Nasal Cannula Nasal Cannula Nasal Cannula O2 Flow Rate 3.0 3.0 5.0 3.0 10/04/18 10/04/18 10/04/18 10/04/18 16:51 18:42 19:00 19:24 Temp 97.8 97.8 Pulse 106 Resp 20 B/P (MAP) 117/88 (98) Pulse Ox 91 91 92 93 O2 Delivery Nasal Cannula Nasal Cannula Nasal Cannula Nasal Cannula O2 Flow Rate 3.0 3.0 5.0 4.0 10/04/18 10/04/18 10/04/18 10/04/18 19:26 20:23 20:56 23:00 Temp 97.7 97.7 Pulse 105 Resp 18 18 B/P (MAP) 142/80 (100) Pulse Ox 93 93 93 O2 Delivery Nasal Cannula Nasal Cannula Nasal Cannula Nasal Cannula O2 Flow Rate 4.0 5.0 4.0 4.0 10/04/18 10/04/18 10/05/18 10/05/18 23:06 23:20 07:00 07:08 Temp 97.5 97.5 Pulse 98 Resp 18 20 B/P (MAP) 128/82 (97) Pulse Ox 93 91 95 O2 Delivery Nasal Cannula Nasal Cannula Nasal Cannula Nasal Cannula O2 Flow Rate 4.0 4.0 4.0 4.0 10/05/18 10/05/18 10/05/18 10/05/18 07:15 08:08 08:23 08:23 Pulse 98 98 Resp 20 B/P (MAP) 128/82 128/82 Pulse Ox 95 95 O2 Delivery Nasal Cannula Nasal Cannula O2 Flow Rate 4.0 4.0 10/05/18 10/05/18 10/05/18 10/05/18 08:38 10:46 11:00 11:21 Temp 97.7 97.7 Pulse 93 Resp 20 20 20 B/P (MAP) 122/83 (96) Pulse Ox 95 95 91 O2 Delivery Nasal Cannula Nasal Cannula Nasal Cannula Nasal Cannula O2 Flow Rate 4.0 4.0 4.0 4.0 Intake and Output 10/04/18 10/04/18 10/05/18 15:00 23:00 07:00 Intake Total 450 ml 300 ml Output Total 600 ml 500 ml 700 ml Balance -600 ml -50 ml -400 ml TOD CHOWDARY MD Oct 05, 2018 11:25
[2018-10-05] MEDS ORDERED: SENNOSIDES/DOCUSATE 8.6/50MG TABLET. PO PRN (11:30)
[2018-10-05] MEDS ORDERED: MAGNESIUM CITRATE 296 ML SOLUTION. PO ONE (12:00)
[2018-10-05] MEDS: POLYETHYLENE GLYCOL 3350 17 GM PACKET. PO SCH (12:30)
[2018-10-05] MEDS: ALBUTEROL SULFATE 2.5 MG/3 ML NEBU. NEB PRN (13:28)
[2018-10-05 15:00] VITALS: BP 125/80
[2018-10-05] MEDS: cefTRIAXone IV Push 1 GM VIAL. IVP SCH (15:33)
[2018-10-05] MEDS ORDERED: PANTOPRAZOLE IV PUSH 40 MG VIAL. IVP ONE (15:45)
[2018-10-05] MEDS: SIMETHICONE 80 MG TAB.CHEW PO PRN ×2 (16:09→20:11)
[2018-10-05 19:00] VITALS: BP 116/79
[2018-10-05] MEDS: FAMOTIDINE 20 MG TABLET. PO SCH (20:11)
[2018-10-05 22:59] VITALS: BP 124/59
[2018-10-05] MEDS: ALPRAZolam 0.5 MG TABLET PO PRN (23:04)
[2018-10-06] MEDS: fentaNYL PF VIAL 100 MCG/2 ML VIAL IV PRN ×2 (00:03→09:43)
[2018-10-06 07:00] VITALS: BP 112/67
[2018-10-06] MEDS: IPRATRPIUM/ALBUTEROL 0.5/2.5MG 3 ML NEBU. NEB SCH ×2 (07:20→11:09)
[2018-10-06] MEDS: BUDESONIDE 0.5 MG/2 ML NEBU. NEB SCH (07:20)
--- NOTE | 2018-10-06 08:18 | PDOC ---
PROGRESS NOTES Chief Complaint Chief Complaint Acute on chronic hypoxic respiratory failure COPD with acute exacerbation, acute bronchitis, hypokalemia BPH htn anxiety, stable History of Present Illness History of Present Illness slept well, complains of weakness complains of pain and poor pain control, wants more IV meds, he needs to take PO meds if he can eat, he feels they dont work, and when he takes the IV fentanyl he thinks it helps with his breathing. He is constipated today. No BM for 4 days. I have advised against opioids for pain control due to this side effect. He is ok with oral norco. Had small BM and large flatus with good abdominal relief. States his breathing is better and he is ready to go home. Plan: Bowel regimen, back off IV pain medications Cont breathing treatments Sleep aid home Vitals Vitals Vital Signs Date Time Temp Pulse Resp B/P (MAP) Pulse Ox O2 Delivery O2 Flow Rate FiO2 10/06/18 07:18 94 Nasal Cannula 4.0 10/06/18 00:03 18 10/05/18 22:59 98.3 84 124/59 (80) 98.3 Physical Exam General: Alert, Oriented X3, Cooperative, No acute distress, mild distress Heart: Regular rate, No murmurs Lungs: Wheezing (left lung) Abdomen: Normal bowel sounds, Soft Extremities: No cyanosis, No edema, Normal pulses Skin: No rashes, No breakdown, No significant lesion Assessment and Plan Assessmemt and Plan Problems Medical Problems: (1) COPD exacerbation Status: Acute (2) Dyspnea Status: Acute (3) Pleurisy Status: Acute Comment Review of Relevant I have reviewed the following items tim (where applicable) has been applied. Labs Microbiology 10/02/18 Blood Culture - Preliminary, Resulted NO GROWTH AFTER 3 DAYS Medications Current Medications Albuterol/ Ipratropium (Duoneb) 3 ml 1X ONCE NEB Last administered on at 15:59; Start 10/01/18 at 15:45; Stop 10/01/18 at 15:49; Status DC Sodium Chloride 1,000 ml @ 100 mls/hr Q10H IV Last administered on 10/01/18at 16:30; Start 10/01/18 at 15:43; Stop 10/02/18 at 01:42; Status DC Fentanyl Citrate (Fentanyl 2ml Vial) 50 mcg 1X ONCE IV Last administered on at 17:10; Start 10/01/18 at 16:45; Stop 10/01/18 at 16:46; Status DC Fentanyl Citrate (Fentanyl 2ml Vial) 50 mcg 1X ONCE IV Last administered on at 19:13; Start 10/01/18 at 19:00; Stop 10/01/18 at 19:01; Status DC Labetalol HCl (Normodyne Iv Push) 20 mg PRN Q2HR PRN IVP HYPERTENSION, SEE COMMENTS; Start 10/01/18 at 19:30 Albuterol/ Ipratropium (Duoneb) 3 ml RTQID NEB Last administered on 10/01/18at 21:42; Start 10/01/18 at 20:00; Stop 10/02/18 at 08:46; Status DC Temazepam (Restoril) 7.5 mg PRN QHS PRN PO INSOMNIA Last administered on at 23:05; Start 10/01/18 at 19:30 Guaifenesin (Robitussin Dm) 10 ml PRN Q6HRS PRN PO COUGH Last administered on at 18:43; Start 10/01/18 at 19:30 Acetaminophen/ Codeine Phosphate (Tylenol #3) 1 tab PRN Q6HRS PRN PO MODERATE PAIN; Start 10/01/18 at 19:30 Acetaminophen (Tylenol) 500 mg PRN Q6HRS PRN PO MILD PAIN / TEMP; Start at 19:30 Ondansetron HCl (Zofran) 4 mg PRN Q6HRS PRN IV NAUSEA/VOMITING Last administered on 10/05/18at 14:03; Start 10/01/18 at 19:30 Ondansetron HCl (Zofran Odt) 4 mg PRN Q6HRS PRN PO NAUSEA/VOMITING; Start 10/01 at 19:30 Ondansetron HCl (Zofran) 4 mg PRN Q8HRS PRN IV NAUSEA/VOMITING; Start 10/01/18 at 19:15; Stop 10/02/18 at 19:14; Status UNV Fentanyl Citrate (Fentanyl 2ml Vial) 50 mcg PRN Q2HRS PRN IV PAIN; Start at 19:15; Stop 10/01/18 at 19:20; Status DC Acetaminophen (Tylenol) 650 mg PRN Q4HRS PRN PO FEVER; Start 10/01/18 at 19:15 ; Stop 10/02/18 at 19:14; Status UNV Albuterol/ Ipratropium (Duoneb) 3 ml RTQID NEB ; Start 10/01/18 at 20:00; Stop 10/02/18 at 19:59; Status UNV Potassium Chloride (Klor-Con) 40 meq 1X ONCE PO Last administered on at 19:37; Start 10/01/18 at 19:30; Stop 10/01/18 at 19:31; Status DC Fentanyl Citrate (Fentanyl 2ml Vial) 50 mcg PRN Q2HR PRN IV PAIN Last administered on 10/04/18at 10:35; Start 10/01/18 at 19:30; Stop 10/04/18 at 12:19 ; Status DC Alprazolam (Xanax) 0.5 mg PRN Q6HRS PRN PO ANXIETY Last administered on at 23:04; Start 10/01/18 at 19:30 Amlodipine Besylate (Norvasc) 5 mg DAILY PO Last administered on 10/05/18at 08: 23; Start 10/02/18 at 09:00 Acetaminophen/ Hydrocodone Bitart (Lortab 5/325) 1 tab PRN Q6HRS PRN PO SEVERE PAIN Last administered on 10/02/18at 20:19; Start 10/01/18 at 19:30 Losartan Potassium (Cozaar) 50 mg DAILY PO Last administered on 10/05/18at 08:23 ; Start 10/02/18 at 09:00 Tamsulosin HCl (Flomax) 0.4 mg DAILY PO Last administered on 10/05/18at 08:06; Start 10/02/18 at 09:00 Tizanidine HCl (Zanaflex) 4 mg PRN QHS PRN PO MUSCLE SPASMS; Start 10/01/18 at 19:30 Albuterol Sulfate (Ventolin Neb Soln) 2.5 mg PRN Q4HRS PRN NEB SHORTNESS OF BREATH Last administered on 10/02/18at 05:03; Start 10/02/18 at 05:00; Stop 10/02 at 08:47; Status DC Albuterol/ Ipratropium (Duoneb) 3 ml Q4HRS W/A NEB Last administered on 07:20; Start 10/02/18 at 10:00 Budesonide (Pulmicort) 0.5 mg RTBID NEB Last administered on 10/06/18 07:20; Start 10/02/18 at 20:00 Budesonide (Pulmicort) 0.5 mg 1X ONCE NEB Last administered on 10/02/18 08:45 ; Start 10/02/18 at 08:45; Stop 10/02/18 at 08:50; Status DC Albuterol Sulfate (Ventolin Neb Soln) 2.5 mg PRN Q4HRS PRN NEB SHORTNESS OF BREATH Last administered on 10/05/18 13:28; Start 10/02/18 at 09:00 Ceftriaxone Sodium (Rocephin) 1 gm Q24H IVP Last administered on 10/05/18 15: 33; Start 10/02/18 at 15:00 Famotidine (Pepcid) 20 mg QHS PO Last administered on 10/05/18 20:11; Start at 21:00 Potassium Chloride (Klor-Con) 20 meq 1X ONCE PO Last administered on 10:49; Start 10/03/18 at 10:00; Stop 10/03/18 at 10:01; Status DC Lactobacillus Rhamnosus (Culturelle) 1 cap BID PO Last administered on 20:11; Start 10/03/18 at 21:00 Methylprednisolone Sodium Succinate (SOLU-Medrol 40MG VIAL) 40 mg Q12HR IV Last administered on 10/05/18 20:21; Start 10/04/18 at 09:00 Fluticasone Propionate (Flonase) 2 spray DAILY NS Last administered on 08:03; Start 10/04/18 at 09:00 Fentanyl Citrate (Fentanyl 2ml Vial) 75 mcg PRN Q2HR PRN IV PAIN SEVERE Last administered on 10/06/18 00:03; Start 10/04/18 at 12:30 Oxycodone HCl (Roxicodone) 10 mg PRN Q6HRS PRN PO PAIN SEVERE 2ND CHOICE Last administered on 10/05/18 20:18; Start 10/04/18 at 12:30 Magnesium Citrate (Citroma) 296 ml 1X ONCE PO Last administered on 10/05/18 12:30; Start 10/05/18 at 12:00; Stop 10/05/18 at 12:01; Status DC Senna/Docusate Sodium (Senna Plus) 2 tab PRN BID PRN PO CONSTIPATION; Start at 11:30 Polyethylene Glycol (miraLAX PACKET) 17 gm DAILY PO Last administered on 12:30; Start 10/05/18 at 12:00 Simethicone (Gas-X) 80 mg PRN Q2HRS PRN PO GAS / BLOATING Last administered on 10/05/18 20:11; Start 10/05/18 at 15:45 Pantoprazole Sodium (PROTONIX VIAL for IV PUSH) 40 mg 1X ONCE IVP Last administered on 10/05/18 16:09; Start 10/05/18 at 15:45; Stop 10/05/18 at 15:48 ; Status DC Active Scripts Active Levaquin (Levofloxacin) 500 Mg Tablet 1 Tab PO DAILY Prednisone 20 Mg Tablet 40 Mg PO DAILY 5 Days Augmentin 500-125 Tablet (Amoxicillin/Potassium Clav) 1 Each Tablet 1 Tab PO BID [place] 5-325 Tablet (Acetaminophen/Hydrocodone Bitart) 1 Each Tablet 1 Tab PO PRN Q6HRS PRN Reported Alprazolam 0.5 Mg Tablet 1 Tab PO PRN Q6HRS PRN Tamsulosin Hcl 0.4 Mg Cap.er.24h 1 Cap PO DAILY Prednisone 2.5 Mg Tablet 5 Mg PO DAILY Tizanidine Hcl 4 Mg Tablet 1 Tab PO PRN QHS PRN Amlodipine Besylate 5 Mg Tablet 5 Mg PO DAILY Losartan Potassium 50 Mg Tablet 50 Mg PO DAILY Duoneb 0.5-3(2.5) Mg/3 Ml (Albuterol/Ipratropium) 3 Ml Ampul.neb 3 Ml IH Q4HRS Advair 500-50 Diskus (Fluticasone/Salmeterol) 1 Each Disk.w.dev 1 Puff IH BID PRN Patient takes prn before bed if he feels he needs it Vitals/I & O Vital Sign - Last 24 Hours 3/18/19 10/05/18 10/05/18 10/05/18 08:23 08:23 10:46 11:00 Temp 97.7 97.7 Pulse 98 98 93 Resp 20 20 B/P (MAP) 128/82 128/82 122/83 (96) Pulse Ox 95 91 O2 Delivery Nasal Cannula Nasal Cannula O2 Flow Rate 4.0 4.0 10/05/18 10/05/18 10/05/18 10/05/18 11:21 13:29 14:03 15:00 Temp 97.7 97.7 Pulse 95 Resp 20 20 B/P (MAP) 125/80 (95) Pulse Ox 91 91 O2 Delivery Nasal Cannula Nasal Cannula Nasal Cannula Nasal Cannula O2 Flow Rate 4.0 4.0 4.0 4.0 10/05/18 10/05/18 10/05/18 10/05/18 15:51 19:00 19:05 19:05 Temp 98.1 98.1 Pulse 95 Resp 18 20 B/P (MAP) 116/79 (91) Pulse Ox 92 91 92 O2 Delivery Nasal Cannula Nasal Cannula Nasal Cannula Nasal Cannula O2 Flow Rate 4.0 4.0 4.0 4.0 10/05/18 10/05/18 10/05/18 10/05/18 19:35 19:58 20:18 21:18 Resp 20 20 18 Pulse Ox 98 98 O2 Delivery Nasal Cannula Nasal Cannula Nasal Cannula O2 Flow Rate 4.0 4.0 4.0 10/05/18 10/05/18 10/06/18 10/06/18 22:59 23:24 00:03 00:33 Temp 98.3 98.3 Pulse 84 Resp 18 18 B/P (MAP) 124/59 (80) Pulse Ox 93 93 95 95 O2 Delivery Nasal Cannula Nasal Cannula Nasal Cannula Nasal Cannula O2 Flow Rate 4.0 4.0 4.0 4.0 10/06/18 07:18 Pulse Ox 94 O2 Delivery Nasal Cannula O2 Flow Rate 4.0 Intake and Output 10/05/18 10/05/18 10/06/18 15:00 23:00 07:00 Intake Total 600 ml 520 ml Output Total 700 ml 0 ml Balance 600 ml -180 ml 0 ml TOD CHOWDARY MD Oct 06, 2018 08:18
[2018-10-06] MEDS: POLYETHYLENE GLYCOL 3350 17 GM PACKET. PO SCH (09:00)
[2018-10-06] MEDS: FLUTICASONE 50MCG/NASAL SPRAY 16GM BOTTLE. NS SCH (09:52)
[2018-10-06] MEDS: LOSARTAN POTASSIUM 50 MG TABLET. PO SCH (09:53)
[2018-10-06] MEDS: amLODIPine BESYLATE 5 MG TABLET PO SCH (09:54)
[2018-10-06] MEDS: TAMSULOSIN 0.4 MG CAP.ER.24H. PO SCH (09:56)
[2018-10-06] MEDS: LACTOBACILLUS RHAMNOSUS GG 1 CAPSULE. PO SCH (09:57)
[2018-10-06] MEDS: methylPREDNISolone SOD SUCC PF 40 MG/ML VIAL. IV SCH (10:01)
[2018-10-06 11:17] VITALS: BP 109/65
[2018-10-06] MEDS ORDERED: HYDR-3164 PO (11:48)
[2018-10-06] MEDS ORDERED: FLUT16SP NS (11:48)
[2018-10-06] MEDS ORDERED: PANT20TA2 PO (11:48)
[2018-10-06] MEDS ORDERED: LACT1CAP19 PO (11:48)
[2018-10-06] MEDS ORDERED: LEVO500T59 PO (11:48)
--- NOTE | 2018-10-06 11:51 | PDOC3 ---
Discharge Summary Visit Information Date of Admission: Oct 01, 2018 Date of Discharge: Oct 06, 2018 Final Diagnosis Problems Medical Problems: (1) COPD exacerbation Status: Acute (2) Dyspnea Status: Acute (3) Pleurisy Status: Acute Brief Hospital Course Allergies Allergies Coded Allergies Type Severity Reaction Last Updated Verified No Known Drug Allergies 09/12/14 No Vital Signs Vital Signs Date Time Temp Pulse Resp B/P (MAP) Pulse Ox O2 Delivery O2 Flow Rate FiO2 10/06/18 11:17 97.4 91 18 109/65 (80) 94 Nasal Cannula 4.0 97.4 Brief Hospital Course Mr Beltran is a 67-year-old male who has a history of severe COPD with last FEV1 of 1.4, which was 38% predicted. He is on chronic oxygen at 3 liters. He came to the hospital with cough with yellow sputum production. Denies any chest pain. He does have some pain in his left upper quadrant after a meal. No headache, no nausea or vomiting, no diarrhea. The patient says that the nebulizer treatment is helping him here more than home. His chest x-ray did not reveal any definite consolidation. He has some mild parenchymal scarring. After starting treatment he slept well, complains of weakness and complains of pain and poor pain control, wanted more IV meds, he needs to take PO meds if he can eat, he feels they don't work, and when he takes the IV fentanyl he thinks it helps with his breathing. However, changing from oxycodone to hydrocodone seemed to help. He was constipated. No BM for 4 days. I have advised against opioids for pain control due to this side effect. Had small BM and large flatus with good abdominal relief. States his breathing is better and he is ready to go home. Has f/u scheduled with pulm outpatient. Gets O2 and nebs through [employer]. Greater than 30 minutes spent on discharge including meds and f/u. Discharge Information Condition at Discharge: Improved Follow Up: Weeks (2) Disposition/Orders: D/C to Home Scheduled Amlodipine Besylate (Amlodipine Besylate) 5 Mg Tablet, 5 MG PO DAILY for htn, ( Reported) Entered as Reported by: TROY MONSIVAIS [facility] on 08/15/15 1348 Last Action: Continued on 10/01/181917 by KATHIE EDMONDS Amoxicillin/Potassium Clav (Augmentin 500-125 Tablet) 1 Each Tablet, 1 TAB PO BID, #20 Prescribed by: JEFFREY COX MD on 10/23/17 1126 Last Action: HELD on 10/01/181918 by KATHIE EDMONDS Fluticasone Propionate (Fluticasone Propionate Nasal [place]) 16 Gm [place].susp, 2 SPRAY NS DAILY for Nasal congestion for 30 Days, #1 Ref 2 Prescribed by: TOD CHOWDARY MD on 10/06/18 1148 Ipratropium/Albuterol Sulfate (Duoneb 0.5-3(2.5) Mg/3 Ml) 3 Ml Ampul.neb, 3 ML IH Q4HRS for shortness of breath, (Reported) Entered as Reported by: TROY MONSIVAIS R[facility] on 08/15/15 1348 Last Action: Reviewed on 10/01/181917 by KATHIE EDMONDS Lactobacillus Rhamnosus Gg (Culturelle) 1 Each Cap.sprink, 1 CAP PO BID for Constipation for 7 Days, #14 Prescribed by: TOD CHOWDARY MD on 10/06/18 1148 Levofloxacin (Levaquin) 500 Mg Tablet, 1 TAB PO DAILY for COPD for 7 Days, #7 Prescribed by: TOD CHOWDARY MD on 10/06/18 1148 Losartan Potassium (Losartan Potassium) 50 Mg Tablet, 50 MG PO DAILY for htn, ( Reported) Entered as Reported by: TROY MONSIVAIS RPH on 08/15/15 1348 Last Action: Continued on 10/01/181917 by KATHIE EDMONDS Lubiprostone (Amitiza) 8 Mcg Capsule, 1 CAP PO BID for constipation for 30 Days , #60 Ref 2 Prescribed by: TOD CHOWDARY MD on 10/06/18 1209 Pantoprazole Sodium (Protonix) 20 Mg Tablet.dr, 1 TAB PO DAILY for GERD, #30 Prescribed by: TOD CHOWDARY MD on 10/06/18 1148 Polyethylene Glycol 3350 (Polyethylene Glycol 3350) 17 Gm Powd.pack, 17 GM PO DAILY for constipation for 30 Days, #30 Prescribed by: TOD CHOWDARY MD on 10/06/18 1209 Prednisone (Prednisone) 2.5 Mg Tablet, 5 MG PO DAILY, (Reported) Entered as Reported by: REAGAN ARAIZA RN on 10/22/17 1623 Last Action: HELD on 10/01/181917 by KATHIE EDMONDS Prednisone (Prednisone) 20 Mg Tablet, 40 MG PO DAILY for 5 Days, #10 Prescribed by: MADELYN BARBOZA MD on 03/17/18 1411 Last Action: HELD on 10/01/181918 by KATHIE EDMONDS Tamsulosin Hcl (Tamsulosin Hcl) 0.4 Mg Cap.er.24h, 1 CAP PO DAILY, #30 Ref 5 ( Reported) Entered as Reported by: REAGAN ARAIZA RN on 10/22/171622 Last Action: Continued on 10/01/181917 by KATHIE EDMONDS Scheduled PRN Alprazolam (Alprazolam) 0.5 Mg Tablet, 1 TAB PO PRN Q6HRS PRN for ANXIETY, ( Reported) Entered as Reported by: REAGAN ARAIZA RN on 10/22/171627 Last Action: Continued on 10/01/181918 by KATHIE EDMONDS Fluticasone/Salmeterol (Advair 500-50 Diskus) 1 Each Disk.w.dev, 1 PUFF IH BID PRN for SHORTNESS OF BREATH, #1 Ref 5 (Reported) Patient takes prn before bed if he feels he needs it Entered as Reported by: ROX ANGEL on 07/04/14 2351 Last Action: HELD on 10/01/181917 by KATHIE EDMONDS Hydrocodone/Apap 5-325 ([place] 5-325 Tablet) 1 Each Tablet, 1 TAB PO PRN Q6HRS PRN for PAIN for 6 Days, #20 Prescribed by: TOD CHOWDARY MD on 10/06/18 1148 Sennosides/Docusate Sodium (Senna-Time S Tablet) 1 Each Tablet, 2 TAB PO PRN BID PRN for CONSTIPATION for 30 Days, #60 Prescribed by: TOD CHOWDARY MD on 10/06/18 1209 Tizanidine Hcl (Tizanidine Hcl) 4 Mg Tablet, 1 TAB PO PRN QHS PRN for MUSCLE PAIN, #30 (Reported) Entered as Reported by: ROE ZAVALA on 08/16/15 1303 Last Action: Converted on 10/01/181917 by TOD BASS MD Oct 06, 2018 11:51
[2018-10-06] MEDS ORDERED: SENN-22 PO (12:09)
[2018-10-06] MEDS ORDERED: POLY17PO28 PO (12:09)
[2018-10-06] MEDS ORDERED: LUBI8CAP4 PO (12:09)
--- NOTE | 2018-10-06 13:02 | PDOC ---
PULMONARY PROGRESS NOTES Subjective no sob, Vitals Vital Signs Date Time Temp Pulse Resp B/P (MAP) Pulse Ox O2 Delivery O2 Flow Rate FiO2 10/06/18 11:17 97.4 91 18 109/65 (80) 94 Nasal Cannula 4.0 97.4 ROS: No Nausea General: Alert, No acute distress Lungs: Wheezing (resolved) Cardiovascular: S1, S2 Abdomen: Soft, Non-tender Neuro Exam: Alert Extremities: No Edema, Other Skin: Warm Medications Active Scripts Medications Dose Route/Sig Max Daily Dose Days Date Category Dose Instructions Levaquin (Levofloxacin) 500 Mg Tablet 1 Tab PO DAILY 03/17/18 Rx Prednisone 20 Mg Tablet 40 Mg PO DAILY 5 03/17/18 Rx Augmentin 500-125 Tablet (Amoxicillin/Potassium Clav) 1 Each Tablet 1 Tab PO BID 10/23/17 Rx Alprazolam 0.5 Mg Tablet 1 Tab PO PRN Q6HRS PRN 10/22/17 Reported Tamsulosin Hcl 0.4 Mg Cap.er.24h 1 Cap PO DAILY 10/22/17 Reported Prednisone 2.5 Mg Tablet 5 Mg PO DAILY 10/22/17 Reported [place] 5-325 Tablet (Acetaminophen/Hydrocodone Bitart) 1 Each Tablet 1 Tab PO PRN Q6HRS PRN 02/06/16 Rx Tizanidine Hcl 4 Mg Tablet 1 Tab PO PRN QHS PRN 08/16/15 Reported Amlodipine Besylate 5 Mg Tablet 5 Mg PO DAILY 08/15/15 Reported Losartan Potassium 50 Mg Tablet 50 Mg PO DAILY 08/15/15 Reported Duoneb 0.5-3(2.5) Mg/3 Ml (Albuterol/Ipratropium) 3 Ml Ampul.neb 3 Ml IH Q4HRS 08/15/15 Reported Advair 500-50 Diskus (Fluticasone/Salmeterol) 1 Each Disk.w.dev 1 Puff IH BID PRN 07/04/14 Reported Patient takes prn before bed if he feels he needs it Impression . IMPRESSION: 1. Acute on chronic hypoxic respiratory failure secondary to acute exacerbation of chronic obstructive pulmonary disease and acute bronchitis. 2. Cough with purulent sputum production consistent with acute bronchitis. No definite new consolidation seen on chest x-ray. 3. Normal D-dimer, no need for thromboembolic disease. 4. Left upper quadrant pain with meal. Likely gastroesophageal reflux disease. 5. allergic rhinitis Plan . 1. Continue with present DuoNebs. 2. Continue with Pulmicort. solumedrol, 3. Gradually wean oxygen to a baseline of 3 liters. 4. empiric antibiotics. 5. protonix 6. flonase 7. laxatives clinically better. ok with [facility] KRISTINA OROPEZA MD Oct 06, 2018 13:02
[2018-11-26] MEDS ORDERED: HYDR-3164 PO (10:41)
[2018-11-26] MEDS ORDERED: guaiFENesin/CODEINE 100mg/10mg PO (10:41)
[2018-11-26] MEDS ORDERED: BUDE0.5A NEB (10:41)
[2018-11-27] MEDS ORDERED: PANT20TA2 PO (10:26)
== END 2018-10-06 13:20 | disposition home or self-care (01) | DRG 871 ==
LOC: ER 15:30 → 5 NORTH 19:06
PROVIDERS: ADMIT Internal Medicine; ATTEND Internal Medicine
DX: A41.9 Sepsis, unspecified organism (principal); J96.21 Acute and chronic respiratory failure with hypoxia; J44.1 Chronic obstructive pulmonary disease with (acute) exacerbation; J98.11 Atelectasis; J44.0 Chronic obstructive pulmonary disease with (acute) lower respiratory infection; Z99.81 Dependence on supplemental oxygen; I10 Essential (primary) hypertension; E87.6 Hypokalemia; F41.9 Anxiety disorder, unspecified; J20.9 Acute bronchitis, unspecified; J30.9 Allergic rhinitis, unspecified; K59.00 Constipation, unspecified; N40.0 Benign prostatic hyperplasia without lower urinary tract symptoms; M54.5 Low back pain; K21.9 Gastro-esophageal reflux disease without esophagitis; Z82.49 Family history of ischemic heart disease and other diseases of the circulatory system; Z87.01 Personal history of pneumonia (recurrent); Z87.891 Personal history of nicotine dependence
CPT/HCPCS: 36415; 71045; 71046; 80048; 80053; 82553; 83605; 83880; 84484; 85025; 85379; 87040; 87804; 93005; 94640; 94760; 96361; 96374; 96376; C9113; J0696; J2405; J2920; J3010; J7030; J7613; J7620; J7626; 97116; 99285-25

== ENCOUNTER 2018-11-23 19:10 | Inpatient (IN) | payer MEDICARE ==
[~2018-11-23] VITALS: Ht 182.9 cm; Wt 104.9 kg
[~2018-11-23 19:10] MED LIST changes: +FLUT16SP NS; +LACT1CAP19 PO; +LUBI8CAP4 PO; +PANT20TA2 PO; +POLY17PO28 PO; +SENN-22 PO
[2018-11-23] MEDS ORDERED: IV NORMAL SALINE 1000ML BAG 1,000 ML IV SCH (19:17)
--- NOTE | 2018-11-23 19:30 | PHYS DOC ---
Past Medical History Past Medical History: COPD, Hypertension, Pneumonia, Other Additional Past Medical Histor: Emphysema Past Surgical History: Other Additional Past Surgical Histo: Hernia repair, right hip infection Alcohol Use: None Drug Use: None Adult General Chief Complaint Chief Complaint: SHORTNESS OF BREATH HPI HPI Patient is a 68-year-old male who presents with three-day history of worsening shortness of breath. Patient states that he has history of COPD and states that he has been on home oxygen for a long time now. He is usually on 3 L but states that over the last 3 days that has not been sufficient. Patient states that shortness of breath is gotten to the point now where if he walks more than about 10 feet his oxygen levels drop significantly and he is completely out of breath. Patient is not sure whether or not he has been running a fever but does indicate that he has had some chills. He states that he has had a cough is been productive of green sputum. He denies any actual chest pain but does admit to burning feeling in his chest especially with coughing. He states that nothing is improving his symptoms. Review of Systems Review of Systems Constitutional: Admits to chills [] Respiratory: Complains of cough and shortness of breath [] Cardiovascular: No additional information not addressed in HPI [] GI: Denies abdominal pain, nausea, vomiting or diarrhea [] Integument: Denies rash or skin lesions [] Neurologic: Denies headache, focal weakness or sensory changes [] All other systems were reviewed and found to be within normal limits, except as documented in this note. Current Medications Current Medications Current Medications Medications (Trade) Dose Ordered Sig/Georges Start Time Stop Time Status Last Admin Dose Admin Albuterol Sulfate (Ventolin Neb Soln) 10 mg 1X ONCE 11/23/18 19:45 11/23/18 19:46 DC 11/23/18 19:26 10 MG Azithromycin (Zithromax) 500 mg 1X ONCE 11/23/18 21:00 11/23/18 21:01 Ceftriaxone Sodium (Rocephin) 1 gm 1X ONCE 11/23/18 21:00 11/23/18 21:01 Hydromorphone HCl (Dilaudid) 0.5 mg 1X ONCE 11/23/18 21:00 11/23/18 21:01 Ipratropium [place] (Atrovent) 0.5 mg 1X ONCE 11/23/18 19:45 11/23/18 19:46 DC 11/23/18 19:26 0.5 MG Methylprednisolone Sodium Succinate (SOLU-Medrol 125MG VIAL) 125 mg 1X ONCE 11/23/18 19:45 11/23/18 19:46 DC 11/23/18 19:41 125 MG Morphine Sulfate (Morphine Sulfate) 4 mg STK-MED ONCE 11/23/18 19:50 11/23/18 19:51 DC Ondansetron HCl (Zofran) 4 mg STK-MED ONCE 11/23/18 19:49 11/23/18 19:50 DC Sodium Chloride 1,000 ml @ 1,000 mls/hr Q1H 11/23/18 19:17 11/23/18 20:16 DC 11/23/18 19:17 1,000 MLS/HR Allergies Allergies Allergies Coded Allergies Type Severity Reaction Last Updated Verified No Known Drug Allergies 09/12/14 No Physical Exam Physical Exam Constitutional: Well developed, well nourished, in mild respiratory distress, non-toxic appearance. [] HENT: Normocephalic, atraumatic, bilateral external ears normal, oropharynx moist, no oral exudates, nose normal. [] Eyes: PERRLA, EOMI, conjunctiva normal, no discharge. [] Neck: Normal range of motion, no tenderness, supple, no stridor. [] Cardiovascular: Regular rate and rhythm[] Lungs & Thorax: Diminished breath sounds are noted bilaterally with coarse inspiratory and expiratory rhonchi to auscultation [] Abdomen: Bowel sounds normal, soft, no tenderness. [] Skin: Warm, dry, no erythema, no rash. [] Extremities: No tenderness, no cyanosis, no clubbing, ROM intact. [] Neurologic: Alert and oriented X 3, no focal deficits noted. [] Current Patient Data Vital Signs Vital Signs Date Time Temp Pulse Resp B/P (MAP) Pulse Ox O2 Delivery O2 Flow Rate FiO2 11/23/18 20:00 22 98 Room Air 11/23/18 19:25 5.0 11/23/18 19:12 98.5 107 169/90 (116) 98.5 Lab Values Laboratory Tests Test 11/23/18 19:28 White Blood Count 10.1 x10^3/uL (4.0-11.0) Red Blood Count 4.74 x10^6/uL (4.30-5.70) Hemoglobin 13.5 g/dL (13.0-17.5) Hematocrit 41.0 % (39.0-53.0) Mean Corpuscular Volume 87 fL (79-100) Mean Corpuscular Hemoglobin 28 pg (25-35) Mean Corpuscular Hemoglobin Concent 33 g/dL (31-37) Red Cell Distribution Width 14.6 % (11.5-14.5) H Platelet Count 428 x10^3/uL (140-400) H Neutrophils (%) (Auto) 49 % (31-73) Lymphocytes (%) (Auto) 32 % (24-48) Monocytes (%) (Auto) 11 % (0-9) H Eosinophils (%) (Auto) 7 % (0-3) H Basophils (%) (Auto) 1 % (0-3) Neutrophils # (Auto) 4.9 x10^3uL (1.8-7.7) Lymphocytes # (Auto) 3.3 x10^3/uL (1.0-4.8) Monocytes # (Auto) 1.1 x10^3/uL (0.0-1.1) Eosinophils # (Auto) 0.7 x10^3/uL (0.0-0.7) Basophils # (Auto) 0.1 x10^3/uL (0.0-0.2) Sodium Level 140 mmol/L (136-145) Potassium Level 4.1 mmol/L (3.5-5.1) Chloride Level 103 mmol/L (98-107) Carbon Dioxide Level 27 mmol/L (21-32) Anion Gap 10 (6-14) Blood Urea Nitrogen 13 mg/dL (8-26) Creatinine 1.0 mg/dL (0.7-1.3) Estimated GFR (Cockcroft-Gault) 73.9 BUN/Creatinine Ratio 13 (6-20) Glucose Level 119 mg/dL (70-99) H Lactic Acid Level 1.3 mmol/L (0.4-2.0) Calcium Level 9.6 mg/dL (8.5-10.1) Total Bilirubin 0.4 mg/dL (0.2-1.0) Aspartate Amino Transferase (AST) 20 U/L (15-37) Alanine Aminotransferase (ALT) 24 U/L (16-63) Alkaline Phosphatase 90 U/L (46-116) Troponin I Quantitative < 0.017 ng/mL (0.000-0.055) OJ-Dyx-B-Type Natriuretic Peptide 36 pg/mL (0-124) Total Protein 7.7 g/dL (6.4-8.2) Albumin 4.0 g/dL (3.4-5.0) Albumin/Globulin Ratio 1.1 (1.0-1.7) Laboratory Tests 11/23/18 19:28 Laboratory Tests 11/23/18 19:28 EKG EKG [] Interpretation Time: EKG demonstrates normal sinus rhythm with rate of 94. Radiology/Procedures Radiology/Procedures [] Course & Med Decision Making Course & Med Decision Making Pertinent Labs and Imaging studies reviewed. (See chart for details) [] Dragon Disclaimer Dragon Disclaimer This electronic medical record was generated, in whole or in part, using a voice recognition dictation system. Departure Departure Impression: Primary Impression: CAP (community acquired pneumonia) Additional Impression: COPD exacerbation Disposition: 09 ADMITTED INPATIENT Admitting Physician: Jonathan Boykin Condition: IMPROVED Referrals: SUE KELLY MD (PCP) Problem Qualifiers Primary Impression: CAP (community acquired pneumonia) Laterality: right Lung location: lower lobe of lung Qualified Codes: J1 8.1 - Lobar pneumonia, unspecified organism NAN QUIROZ Jr. DO November 23, 2018 19:30
[2018-11-23 19:37] LABS: BASO # 0.1 x10^3/uL (0.0-0.2); BASO % 1 % (0-3); EOS # 0.7 x10^3/uL (0.0-0.7); EOS % 7 % (0-3); HEMOGLOBIN 13.5 g/dL (13.0-17.5); LYMPH # 3.3 x10^3/uL (1.0-4.8); LYMPH % 32 % (24-48); MEAN CORPUSCULAR HEMOGLOBIN 28 pg (25-35); MEAN CORPUSCULAR HGB CONC 33 g/dL (31-37); MEAN CORPUSCULAR VOLUME 87 fL (79-100); MONO # 1.1 x10^3/uL (0.0-1.1); MONO % 11 % (0-9); NEUT # 4.9 x10^3uL (1.8-7.7); NEUT % 49 % (31-73); PLATELET COUNT 428 x10^3/uL (140-400); RED BLOOD COUNT 4.74 x10^6/uL (4.30-5.70); RED CELL DISTRIBUTION WIDTH 14.6 % (11.5-14.5); WHITE BLOOD COUNT 10.1 x10^3/uL (4.0-11.0)
[2018-11-23] MEDS ORDERED: ALBUTEROL SULFATE 2.5 MG/3 ML NEBU. CONT NEB ONE (19:45)
[2018-11-23] MEDS ORDERED: IPRATROPIUM BROMIDE 0.5 MG/2.5 ML NEBU. NEB ONE (19:45)
[2018-11-23] MEDS ORDERED: methylPREDNISolone SOD SUCC PF 125 MG/2 ML VIAL. IV ONE (19:45)
[2018-11-23] MEDS ORDERED: ONDANSETRON PF 4 MG/2 ML VIAL. ONE (19:49)
[2018-11-23] MEDS ORDERED: MORPHINE SULFATE 4 MG/ML VIAL. ONE (19:50)
[2018-11-23 19:52] LABS: CALCIUM 9.6 mg/dL (8.5-10.1); GFR 73.9; POTASSIUM 4.1 mmol/L (3.5-5.1)
[2018-11-23] MEDS ORDERED: ONDANSETRON PF 4 MG/2 ML VIAL. IV ONE (20:00)
[2018-11-23] MEDS ORDERED: MORPHINE SULFATE 4 MG/ML VIAL. IV ONE (20:00)
[2018-11-23 20:04] LABS: ALBUMIN/GLOBULIN RATIO 1.1 (1.0-1.7); TOTAL BILIRUBIN 0.4 mg/dL (0.2-1.0); TOTAL PROTEIN 7.7 g/dL (6.4-8.2)
--- NOTE | 2018-11-23 20:37 | RAD ---
EXAM: Chest, single view. HISTORY: Shortness of breath. COMPARISON: 10/04/2018. FINDINGS: A frontal view of the chest is obtained. There is increased bilateral lower lobe atelectasis or infiltrate. There is no pleural effusion or pneumothorax. There is a stable prominent cardiac silhouette. There is severe emphysema. IMPRESSION: 1. Interval increase in bilateral lower lobe atelectasis or infiltrate. 2. Emphysema. Electronically signed by: Ute Childers MD (11/23/2018 8:34 PM) [facility]
[2018-11-23] MEDS: IV NORMAL SALINE 1000ML BAG 1,000 ML IV SCH (20:53)
[2018-11-23] MEDS ORDERED: ONDANSETRON PF 4 MG/2 ML VIAL. IV PRN (21:00)
[2018-11-23] MEDS ORDERED: cefTRIAXone IV Push 1 GM VIAL. IVP ONE (21:00)
[2018-11-23] MEDS ORDERED: ACETAMINOPHEN 325 MG TABLET. PO PRN (21:00)
[2018-11-23] MEDS ORDERED: AZITHROMYCIN 250 MG TABLET. PO ONE (21:00)
[2018-11-23] MEDS ORDERED: HYDROmorphone 2 MG/ML VIAL IV ONE (21:00)
[2018-11-23 21:14] LABS: INFLUENZA A PATIENT NEGATIVE (NEGATIVE); INFLUENZA B PATIENT NEGATIVE (NEGATIVE)
[2018-11-23] MEDS ORDERED: MORPHINE SULFATE 10 MG/ML VIAL. ONE (22:15)
[2018-11-23] MEDS ORDERED: MORPHINE SULFATE 10 MG/ML VIAL. IV ONE (22:15)
[2018-11-23 23:16] VITALS: BP 119/84
[2018-11-23] MEDS: IPRATRPIUM/ALBUTEROL 0.5/2.5MG 3 ML NEBU. NEB SCH (23:33)
--- NOTE | 2018-11-24 00:30 | NUR ---
ADMISSION NOTE: admit documentation completed for primary RN. Transfer of care to primary RN occurred at this time.
[2018-11-24] MEDS: MORPHINE SULFATE 4 MG/ML VIAL. IV PRN ×2 (00:39→07:45)
[2018-11-24] MEDS ORDERED: NON FORMULARY ITEM (Fluticasone/Salmeterol (Advair 500-50 Diskus) 1 PUFF) IH PRN (01:45)
[2018-11-24] MEDS ORDERED: POLYETHYLENE GLYCOL 3350 17 GM PACKET. PO PRN (01:45)
[2018-11-24] MEDS ORDERED: guaiFENesin DM 200MG/20MG 10 ML SYRUP PO PRN (01:45)
[2018-11-24] MEDS ORDERED: SENNOSIDES/DOCUSATE 8.6/50MG TABLET. PO PRN (01:45)
[2018-11-24] MEDS ORDERED: ALBUTEROL SULFATE 2.5 MG/3 ML NEBU. NEB PRN (02:15)
[2018-11-24] MEDS: IV NORMAL SALINE 1000ML BAG 1,000 ML IV SCH ×2 (06:30→16:53)
--- NOTE | 2018-11-24 06:59 | EKG ---
[facility] [address] [place] [address] Test Date: 2018-11-23 Test Time: 19:20:17 Pat Name: JESSIE BRANHAM Department: Room: [facility] Gender: M Med Asst: : 1950 Requested By: NAN QUIROZ Order Number: [id number] Reading MD: Nuno Catherine MD Measurements Intervals [employer] Rate: 94 P: 66 IA: 194 QRS: -28 QRSD: 102 T: 39 QT: 340 QTc: 425 Interpretive Statements SINUS RHYTHM Electronically Signed On 12-21-2018 8:10:31 CDT by Nuno Catherine MD
[2018-11-24 07:00] VITALS: BP 147/77
[2018-11-24] MEDS: IPRATRPIUM/ALBUTEROL 0.5/2.5MG 3 ML NEBU. NEB SCH ×4 (07:06→19:28)
[2018-11-24] MEDS: BUDESONIDE 0.5 MG/2 ML NEBU. NEB PRN ×2 (07:06→19:30)
--- NOTE | 2018-11-24 07:21 | NUR ---
Notified Dr. Reaves's answering service about consult.
[2018-11-24] MEDS: PANTOPRAZOLE 40 MG TABLET.DR. PO SCH (07:30)
[2018-11-24] MEDS ORDERED: ONDANSETRON PF 4 MG/2 ML VIAL. IV PRN (08:30)
[2018-11-24] MEDS: TAMSULOSIN 0.4 MG CAP.ER.24H. PO SCH (09:00)
[2018-11-24] MEDS: amLODIPine BESYLATE 5 MG TABLET PO SCH (09:00)
[2018-11-24] MEDS: LOSARTAN POTASSIUM 50 MG TABLET. PO SCH (09:00)
--- NOTE | 2018-11-24 10:10 | NUR ---
This RN notified by Linda KRUSE of pt behavior when POT ROOM SUPERVISOR rounded and asked if pt needed anything at approx 1000. Pt was on phone, and stated to POT ROOM SUPERVISOR, "See this button right here, if I need anything I'll let you know." POT ROOM SUPERVISOR reported tone was condescending. POT ROOM SUPERVISOR and RN reported interaction to charge nurse. Pt on telemetry and will continue to monitor.
[2018-11-24] MEDS ORDERED: NICOTINE 21MG PATCH. TD PRN (10:15)
--- NOTE | 2018-11-24 10:16 | PDOC1 ---
History and Physical Date of Admission Date of Admission DATE: 11/24/18 TIME: 10:12 Identification/Chief Complaint Chief Complaint 3 days worsening uri sxs Source Source: Caregiver, Chart review, Patient History of Present Illness History of Present Illness He is cranky so limited H&P He claims morphine 4 mg is not helping the pain Most history obtained from the ER chart Current smoker, known COPD on home O2 24 7. 3 days worsening symptoms of URI symptoms. WBC 12 with no fevers, platelets 428. Flu negative. Wheezy on auscultation both anterior and posterior chest Right lower lobe pneumonia on x-ray hence admitted henceforth. LAbs otherwise ok Past Medical History Cardiovascular: No pertinent hx Pulmonary: Bronchitis, COPD, Pneumonia GI: GERD, Other Hepatobiliary: No pertinent hx Psych: No pertinent hx Musculoskeletal: low back pain Past Surgical History Past Surgical History: Hernia Repair, No pertinent history Family History Family History: Hypertension, Other Social History Smoke: 1 pack per day ALCOHOL: none Drugs: None Current Problem List Problem List Problems Medical Problems: (1) CAP (community acquired pneumonia) Status: Acute (2) COPD exacerbation Status: Acute Current Medications Current Medications Current Medications Sodium Chloride 1,000 ml @ 1,000 mls/hr Q1H IV Last administered on 11/23/18at 19:17; Start 11/23/18 at 19:17; Stop 11/23/18 at 20:16; Status DC Ipratropium [place] (Atrovent) 0.5 mg 1X ONCE NEB Last administered on 11/23/18at 19:26; Start 11/23/18 at 19:45; Stop 11/23/18 at 19:46; Status DC Methylprednisolone Sodium Succinate (SOLU-Medrol 125MG VIAL) 125 mg 1X ONCE IV Last administered on 11/23/18at 19:41; Start 11/23/18 at 19:45; Stop 11/23/18 at 19:46; Status DC Albuterol Sulfate (Ventolin Neb Soln) 10 mg 1X ONCE CONT NEB Last administered on 11/23/18at 19:26; Start 11/23/18 at 19:45; Stop 11/23/18 at 19:46; Status DC Morphine Sulfate (Morphine Sulfate) 4 mg 1X ONCE IV Last administered on 11/23/18at 20:00; Start 11/23/18 at 20:00; Stop 11/23/18 at 20:01; Status DC Ondansetron HCl (Zofran) 4 mg 1X ONCE IV Last administered on 11/23/18at 20:00; Start 11/23/18 at 20:00; Stop 11/23/18 at 20:01; Status DC Ondansetron HCl (Zofran) 4 mg STK-MED ONCE .ROUTE ; Start 11/23/18 at 19:49; Stop 11/23/18 at 19:50; Status DC Morphine Sulfate (Morphine Sulfate) 4 mg STK-MED ONCE .ROUTE ; Start 11/23/18 at 19:50; Stop 11/23/18 at 19:51; Status DC Hydromorphone HCl (Dilaudid) 0.5 mg 1X ONCE IV Last administered on 11/23/18at 21:00; Start 11/23/18 at 21:00; Stop 11/23/18 at 21:01; Status DC Ceftriaxone Sodium (Rocephin) 1 gm 1X ONCE IVP Last administered on 11/23/18at 21:00; Start 11/23/18 at 21:00; Stop 11/23/18 at 21:01; Status DC Azithromycin (Zithromax) 500 mg 1X ONCE PO Last administered on 11/23/18at 21:00; Start 11/23/18 at 21:00; Stop 11/23/18 at 21:01; Status DC Ondansetron HCl (Zofran) 4 mg PRN Q8HRS PRN IV NAUSEA/VOMITING; Start 11/23/18 at 21:00; Stop 11/24/18 at 08:28; Status DC Morphine Sulfate (Morphine Sulfate) 4 mg PRN Q2HR PRN IV PAIN Last administered on 11/24/18at 07:45; Start 11/23/18 at 21:00; Stop 11/24/18 at 20:59 Sodium Chloride 1,000 ml @ 100 mls/hr Q10H IV ; Start 11/23/18 at 20:53; Stop 11/24/18 at 20:52 Acetaminophen (Tylenol) 650 mg PRN Q4HRS PRN PO FEVER; Start 11/23/18 at 21:00; Stop 11/24/18 at 20:59 Albuterol/ Ipratropium (Duoneb) 3 ml RTQID NEB Last administered on 11/24/18at 07:06; Start 11/23/18 at 22:00; Stop 11/25/18 at 21:59 Morphine Sulfate (Morphine Sulfate) 5 mg 1X ONCE IV Last administered on 11/23/18at 22:15; Start 11/23/18 at 22:15; Stop 11/23/18 at 22:16; Status DC Morphine Sulfate (Morphine Sulfate) 10 mg STK-MED ONCE .ROUTE ; Start 11/23/18 at 22:15; Stop 11/23/18 at 22:16; Status DC Guaifenesin (Robitussin Dm) 10 ml PRN Q6HRS PRN PO COUGH; Start 11/24/18 at 01:45 Amlodipine Besylate (Norvasc) 5 mg DAILY PO ; Start 11/24/18 at 09:00 Acetaminophen/ Hydrocodone Bitart (Lortab 5/325) 1 tab PRN Q6HRS PRN PO PAIN; Start 11/24/18 at 01:45 Albuterol Sulfate (Ventolin Neb Soln) 2.5 mg PRN Q4HRS PRN NEB SHORTNESS OF BREATH; Start 11/24/18 at 01:45 Losartan Potassium (Cozaar) 50 mg DAILY PO ; Start 11/24/18 at 09:00 Senna/Docusate Sodium (Senna Plus) 2 tab PRN BID PRN PO CONSTIPATION; Start 11/24/18 at 01:45 Tamsulosin HCl (Flomax) 0.4 mg DAILY PO ; Start 11/24/18 at 09:00 Non-Formulary Medication (Fluticasone/ Salmeterol (Advair 500-50 Diskus)) 1 puff BID PRN IH SHORTNESS OF BREATH; Start 11/24/18 at 01:45; Status UNV Pantoprazole Sodium (Protonix) 20 mg DAILYAC PO ; Start 11/24/18 at 07:30 Polyethylene Glycol (miraLAX PACKET) 17 gm PRN DAILY PRN PO CONSTIPATION; Start 11/24/18 at 01:45 Albuterol Sulfate (Ventolin Neb Soln) 2.5 mg PRN BID PRN NEB SHORTNESS OF BREATH; Start 11/24/18 at 02:15 Budesonide (Pulmicort) 0.5 mg PRN BID PRN NEB SHORTNESS OF BREATH Last administered on 11/24/18at 07:06; Start 11/24/18 at 02:15 Ondansetron HCl (Zofran) 4 mg PRN Q6HRS PRN IV NAUSEA/VOMITING; Start 11/24/18 at 08:30 Active Scripts Active Polyethylene Glycol 3350 17 Gm Powd.pack 17 Gm PO DAILY 30 Days Senna-Time S Tablet (Sennosides/Docusate Sodium) 1 Each Tablet 2 Tab PO PRN BID PRN 30 Days Protonix (Pantoprazole Sodium) 20 Mg Tablet.dr 1 Tab PO DAILY Fluticasone Propionate Nasal [place] (Fluticasone Propionate) 16 Gm [place].susp 2 [place] NS DAILY 30 Days [place] 5-325 Tablet (Acetaminophen/Hydrocodone Bitart) 1 Each Tablet 1 Tab PO PRN Q6HRS PRN 6 Days Reported Tamsulosin Hcl 0.4 Mg Cap.er.24h 1 Cap PO DAILY Amlodipine Besylate 5 Mg Tablet 5 Mg PO DAILY Losartan Potassium 50 Mg Tablet 50 Mg PO DAILY Duoneb 0.5-3(2.5) Mg/3 Ml (Albuterol/Ipratropium) 3 Ml Ampul.neb 3 Ml IH Q4HRS Advair 500-50 Diskus (Fluticasone/Salmeterol) 1 Each Disk.w.dev 1 Puff IH BID PRN Patient takes prn before bed if he feels he needs it Allergies Allergies: Coded Allergies: No Known Drug Allergies (Unverified , 09/12/14) ROS Review of System As per history of present illness, the rest of ROS 14 point negative Physical Exam General: No acute distress HEENT: Atraumatic, PERRLA Lungs: Normal air movement, Other (symm,etrical chest expansion, no crackles but wheezing all over both anterior and posterior auscultation) Heart: S1S2, RRR, no thrills, no rubs Cardiovascular: S1, S2 Abdomen: Normal bowel sounds, Soft, No tenderness, No hepatosplenomegaly, No masses Male Genitals Exam: normal genitalia, normal prostate Extremities: No clubbing, No cyanosis, No edema, Normal pulses, No tenderness/swelling Skin: No rashes, No breakdown Neuro: Normal gait, Normal speech, Strength at 5/5 X4 ext, Normal tone, Sensation intact, Cranial nerves 3-12 NL, Reflexes 2+ Psych/Mental Status: Mental status NL, Mood NL Vitals Vitals Vital Signs Date Time Temp Pulse Resp B/P (MAP) Pulse Ox O2 Delivery O2 Flow Rate FiO2 11/24/18 08:00 Nasal Cannula 4.0 11/24/18 07:45 14 11/24/18 07:12 90 11/24/18 07:00 97.4 106 147/77 (100) 97.4 Labs Labs Laboratory Tests Test 11/23/18 19:28 11/23/18 20:06 White Blood Count 10.1 x10^3/uL (4.0-11.0) Red Blood Count 4.74 x10^6/uL (4.30-5.70) Hemoglobin 13.5 g/dL (13.0-17.5) Hematocrit 41.0 % (39.0-53.0) Mean Corpuscular Volume 87 fL (79-100) Mean Corpuscular Hemoglobin 28 pg (25-35) Mean Corpuscular Hemoglobin Concent 33 g/dL (31-37) Red Cell Distribution Width 14.6 % (11.5-14.5) Platelet Count 428 x10^3/uL (140-400) Neutrophils (%) (Auto) 49 % (31-73) Lymphocytes (%) (Auto) 32 % (24-48) Monocytes (%) (Auto) 11 % (0-9) Eosinophils (%) (Auto) 7 % (0-3) Basophils (%) (Auto) 1 % (0-3) Neutrophils # (Auto) 4.9 x10^3uL (1.8-7.7) Lymphocytes # (Auto) 3.3 x10^3/uL (1.0-4.8) Monocytes # (Auto) 1.1 x10^3/uL (0.0-1.1) Eosinophils # (Auto) 0.7 x10^3/uL (0.0-0.7) Basophils # (Auto) 0.1 x10^3/uL (0.0-0.2) Sodium Level 140 mmol/L (136-145) Potassium Level 4.1 mmol/L (3.5-5.1) Chloride Level 103 mmol/L (98-107) Carbon Dioxide Level 27 mmol/L (21-32) Anion Gap 10 (6-14) Blood Urea Nitrogen 13 mg/dL (8-26) Creatinine 1.0 mg/dL (0.7-1.3) Estimated GFR (Cockcroft-Gault) 73.9 BUN/Creatinine Ratio 13 (6-20) Glucose Level 119 mg/dL (70-99) Lactic Acid Level 1.3 mmol/L (0.4-2.0) Calcium Level 9.6 mg/dL (8.5-10.1) Total Bilirubin 0.4 mg/dL (0.2-1.0) Aspartate Amino Transf (AST/SGOT) 20 U/L (15-37) Alanine Aminotransferase (ALT/SGPT) 24 U/L (16-63) Alkaline Phosphatase 90 U/L (46-116) Troponin I Quantitative < 0.017 ng/mL (0.000-0.055) PU-Hem-W-Type Natriuretic Peptide 36 pg/mL (0-124) Total Protein 7.7 g/dL (6.4-8.2) Albumin 4.0 g/dL (3.4-5.0) Albumin/Globulin Ratio 1.1 (1.0-1.7) Influenza Type A Antigen Negative (NEGATIVE) Influenza Type B Antigen Negative (NEGATIVE) Laboratory Tests Test 11/23/18 19:28 11/23/18 20:06 White Blood Count 10.1 x10^3/uL (4.0-11.0) Red Blood Count 4.74 x10^6/uL (4.30-5.70) Hemoglobin 13.5 g/dL (13.0-17.5) Hematocrit 41.0 % (39.0-53.0) Mean Corpuscular Volume 87 fL (79-100) Mean Corpuscular Hemoglobin 28 pg (25-35) Mean Corpuscular Hemoglobin Concent 33 g/dL (31-37) Red Cell Distribution Width 14.6 % (11.5-14.5) Platelet Count 428 x10^3/uL (140-400) Neutrophils (%) (Auto) 49 % (31-73) Lymphocytes (%) (Auto) 32 % (24-48) Monocytes (%) (Auto) 11 % (0-9) Eosinophils (%) (Auto) 7 % (0-3) Basophils (%) (Auto) 1 % (0-3) Neutrophils # (Auto) 4.9 x10^3uL (1.8-7.7) Lymphocytes # (Auto) 3.3 x10^3/uL (1.0-4.8) Monocytes # (Auto) 1.1 x10^3/uL (0.0-1.1) Eosinophils # (Auto) 0.7 x10^3/uL (0.0-0.7) Basophils # (Auto) 0.1 x10^3/uL (0.0-0.2) Sodium Level 140 mmol/L (136-145) Potassium Level 4.1 mmol/L (3.5-5.1) Chloride Level 103 mmol/L (98-107) Carbon Dioxide Level 27 mmol/L (21-32) Anion Gap 10 (6-14) Blood Urea Nitrogen 13 mg/dL (8-26) Creatinine 1.0 mg/dL (0.7-1.3) Estimated GFR (Cockcroft-Gault) 73.9 BUN/Creatinine Ratio 13 (6-20) Glucose Level 119 mg/dL (70-99) Lactic Acid Level 1.3 mmol/L (0.4-2.0) Calcium Level 9.6 mg/dL (8.5-10.1) Total Bilirubin 0.4 mg/dL (0.2-1.0) Aspartate Amino Transf (AST/SGOT) 20 U/L (15-37) Alanine Aminotransferase (ALT/SGPT) 24 U/L (16-63) Alkaline Phosphatase 90 U/L (46-116) Troponin I Quantitative < 0.017 ng/mL (0.000-0.055) VY-Zqi-Y-Type Natriuretic Peptide 36 pg/mL (0-124) Total Protein 7.7 g/dL (6.4-8.2) Albumin 4.0 g/dL (3.4-5.0) Albumin/Globulin Ratio 1.1 (1.0-1.7) Influenza Type A Antigen Negative (NEGATIVE) Influenza Type B Antigen Negative (NEGATIVE) VTE Prophylaxis Ordered VTE Prophylaxis Devices: Yes VTE Pharmacological Prophylaxi: Yes Assessment/Plan Assessment/Plan COPD exacerbation pneumonia Smoker obesity BMI 32 History GERD PLAN: CAP Coverage DuoNeb, cough medicine, Pulmo consult Okay to give Dilaudid as per his request Regular diet I Have reconciled home meds [place] patch Smoking cessation done less than 30 minutes 1-1 Discussed with RN's KATHIE EDMONDS MD November 24, 2018 10:16
[2018-11-24] MEDS: AZITHROMYCIN 250 MG TABLET. PO SCH (10:36)
[2018-11-24] MEDS: methylPREDNISolone SOD SUCC PF 40 MG/ML VIAL. IV SCH ×3 (10:36→21:17)
[2018-11-24] MEDS: cefTRIAXone IV Push 1 GM VIAL. IVP SCH (10:36)
[2018-11-24] MEDS: HYDROmorphone 2 MG/ML VIAL IVP PRN ×4 (10:37→23:33)
[2018-11-24 11:00] VITALS: BP 114/80
[2018-11-24] MEDS: HYDROcodone/APAP 5/325MG 1 TAB TABLET PO PRN (14:29)
[2018-11-24 15:00] VITALS: BP 141/84
[2018-11-24] MEDS: ALBUTEROL SULFATE 2.5 MG/3 ML NEBU. NEB PRN ×2 (16:03→23:30)
--- NOTE | 2018-11-24 16:29 | PDOC ---
PULMONARY PROGRESS NOTES Vitals Vital Signs Date Time Temp Pulse Resp B/P (MAP) Pulse Ox O2 Delivery O2 Flow Rate FiO2 11/24/18 16:03 Nasal Cannula 4.0 11/24/18 15:00 98.0 98 16 141/84 (103) 91 98.0 General: Alert, No acute distress Lungs: Wheezing Cardiovascular: S1, S2 Abdomen: Soft, Non-tender Extremities: No Edema, Other Labs Laboratory Tests Test 11/23/18 19:28 11/23/18 20:06 White Blood Count 10.1 x10^3/uL (4.0-11.0) Red Blood Count 4.74 x10^6/uL (4.30-5.70) Hemoglobin 13.5 g/dL (13.0-17.5) Hematocrit 41.0 % (39.0-53.0) Mean Corpuscular Volume 87 fL (79-100) Mean Corpuscular Hemoglobin 28 pg (25-35) Mean Corpuscular Hemoglobin Concent 33 g/dL (31-37) Red Cell Distribution Width 14.6 % (11.5-14.5) Platelet Count 428 x10^3/uL (140-400) Neutrophils (%) (Auto) 49 % (31-73) Lymphocytes (%) (Auto) 32 % (24-48) Monocytes (%) (Auto) 11 % (0-9) Eosinophils (%) (Auto) 7 % (0-3) Basophils (%) (Auto) 1 % (0-3) Neutrophils # (Auto) 4.9 x10^3uL (1.8-7.7) Lymphocytes # (Auto) 3.3 x10^3/uL (1.0-4.8) Monocytes # (Auto) 1.1 x10^3/uL (0.0-1.1) Eosinophils # (Auto) 0.7 x10^3/uL (0.0-0.7) Basophils # (Auto) 0.1 x10^3/uL (0.0-0.2) Sodium Level 140 mmol/L (136-145) Potassium Level 4.1 mmol/L (3.5-5.1) Chloride Level 103 mmol/L (98-107) Carbon Dioxide Level 27 mmol/L (21-32) Anion Gap 10 (6-14) Blood Urea Nitrogen 13 mg/dL (8-26) Creatinine 1.0 mg/dL (0.7-1.3) Estimated GFR (Cockcroft-Gault) 73.9 BUN/Creatinine Ratio 13 (6-20) Glucose Level 119 mg/dL (70-99) Lactic Acid Level 1.3 mmol/L (0.4-2.0) Calcium Level 9.6 mg/dL (8.5-10.1) Total Bilirubin 0.4 mg/dL (0.2-1.0) Aspartate Amino Transf (AST/SGOT) 20 U/L (15-37) Alanine Aminotransferase (ALT/SGPT) 24 U/L (16-63) Alkaline Phosphatase 90 U/L (46-116) Troponin I Quantitative < 0.017 ng/mL (0.000-0.055) GL-Ohv-E-Type Natriuretic Peptide 36 pg/mL (0-124) Total Protein 7.7 g/dL (6.4-8.2) Albumin 4.0 g/dL (3.4-5.0) Albumin/Globulin Ratio 1.1 (1.0-1.7) Influenza Type A Antigen Negative (NEGATIVE) Influenza Type B Antigen Negative (NEGATIVE) Laboratory Tests Test 11/23/18 19:28 11/23/18 20:06 White Blood Count 10.1 x10^3/uL (4.0-11.0) Red Blood Count 4.74 x10^6/uL (4.30-5.70) Hemoglobin 13.5 g/dL (13.0-17.5) Hematocrit 41.0 % (39.0-53.0) Mean Corpuscular Volume 87 fL (79-100) Mean Corpuscular Hemoglobin 28 pg (25-35) Mean Corpuscular Hemoglobin Concent 33 g/dL (31-37) Red Cell Distribution Width 14.6 % (11.5-14.5) Platelet Count 428 x10^3/uL (140-400) Neutrophils (%) (Auto) 49 % (31-73) Lymphocytes (%) (Auto) 32 % (24-48) Monocytes (%) (Auto) 11 % (0-9) Eosinophils (%) (Auto) 7 % (0-3) Basophils (%) (Auto) 1 % (0-3) Neutrophils # (Auto) 4.9 x10^3uL (1.8-7.7) Lymphocytes # (Auto) 3.3 x10^3/uL (1.0-4.8) Monocytes # (Auto) 1.1 x10^3/uL (0.0-1.1) Eosinophils # (Auto) 0.7 x10^3/uL (0.0-0.7) Basophils # (Auto) 0.1 x10^3/uL (0.0-0.2) Sodium Level 140 mmol/L (136-145) Potassium Level 4.1 mmol/L (3.5-5.1) Chloride Level 103 mmol/L (98-107) Carbon Dioxide Level 27 mmol/L (21-32) Anion Gap 10 (6-14) Blood Urea Nitrogen 13 mg/dL (8-26) Creatinine 1.0 mg/dL (0.7-1.3) Estimated GFR (Cockcroft-Gault) 73.9 BUN/Creatinine Ratio 13 (6-20) Glucose Level 119 mg/dL (70-99) Lactic Acid Level 1.3 mmol/L (0.4-2.0) Calcium Level 9.6 mg/dL (8.5-10.1) Total Bilirubin 0.4 mg/dL (0.2-1.0) Aspartate Amino Transf (AST/SGOT) 20 U/L (15-37) Alanine Aminotransferase (ALT/SGPT) 24 U/L (16-63) Alkaline Phosphatase 90 U/L (46-116) Troponin I Quantitative < 0.017 ng/mL (0.000-0.055) ED-Sil-X-Type Natriuretic Peptide 36 pg/mL (0-124) Total Protein 7.7 g/dL (6.4-8.2) Albumin 4.0 g/dL (3.4-5.0) Albumin/Globulin Ratio 1.1 (1.0-1.7) Influenza Type A Antigen Negative (NEGATIVE) Influenza Type B Antigen Negative (NEGATIVE) Medications Active Scripts Medications Dose Route/Sig Max Daily Dose Days Date Category Dose Instructions Polyethylene Glycol 3350 17 Gm Powd.pack 17 Gm PO DAILY 10/06/18 Rx Senna-Time S Tablet (Sennosides/Docusate Sodium) 1 Each Tablet 2 Tab PO PRN BID PRN 30 10/06/18 Rx Protonix (Pantoprazole Sodium) 20 Mg Tablet.dr 1 Tab PO DAILY 10/06/18 Rx Fluticasone Propionate Nasal [place] (Fluticasone Propionate) 16 Gm [place].susp 2 [place] NS DAILY 30 10/06/18 Rx [place] 5-325 Tablet (Acetaminophen/Hydrocodone Bitart) 1 Each Tablet 1 Tab PO PRN Q6HRS PRN 6 10/06/18 Rx Tamsulosin Hcl 0.4 Mg Cap.er.24h 1 Cap PO DAILY 10/22/17 Reported Amlodipine Besylate 5 Mg Tablet 5 Mg PO DAILY 08/15/15 Reported Losartan Potassium 50 Mg Tablet 50 Mg PO DAILY 08/15/15 Reported Duoneb 0.5-3(2.5) Mg/3 Ml (Albuterol/Ipratropium) 3 Ml Ampul.neb 3 Ml IH Q4HRS 08/15/15 Reported Advair 500-50 Diskus (Fluticasone/Salmeterol) 1 Each Disk.w.dev 1 Puff IH BID PRN 07/04/14 Reported Patient takes prn before bed if he feels he needs it Impression . NOTE DICTATED PNEUMONIA AECOPD CONTINUE THE SAME THANKS ISRAEL JETT MD November 24, 2018 16:29
[2018-11-24 19:48] VITALS: BP_SYST 79
[2018-11-24] MEDS: BUDESONIDE 0.5 MG/2 ML NEBU. NEB SCH (20:00)
[2018-11-24] MEDS ORDERED: MAGNESIUM HYDROXIDE 2,400 MG/30 ML ORAL.SUSP. PO PRN (20:30)
[2018-11-24 23:34] VITALS: BP 119/76
--- NOTE | 2018-11-25 03:30 | CONS ---
DATE OF CONSULTATION: 11/24/2018 ATTENDING PHYSICIAN: Dr. Mann. REASON FOR CONSULTATION: The patient is seen in pulmonary consultation at the request of Dr. Mann for increasing shortness of air. HISTORY OF PRESENT ILLNESS: The patient is a 68-year-old known to me from previous hospitalization, chronic respiratory failure on 3 liters of oxygen supplementation, failed outpatient therapy. The patient was being followed by his insurance provider nurse who recommended that he come in to the Emergency Room to be evaluated. She was having difficulty adequately maintaining O2 sats above 92%. The patient was complaining of being more short of breath, unable to produce any mucus. He is unable to move from one side of the room to another. He presented and was admitted. A chest x-ray was obtained. I reviewed it. There is increased bilateral lower lobe atelectasis and infiltrates. He was admitted and treated for pneumonia. The patient also had a fever in the Emergency Room. He denied hemoptysis. No nausea, vomiting or diarrhea. PAST MEDICAL HISTORY: Chronic respiratory failure, COPD of the emphysematous type, tobacco dependence, quit 20 years ago. He has had previous FEV1 of 38% of predicted. PAST SURGICAL HISTORY: Status post hernia repair. FAMILY HISTORY: Hypertension. SOCIAL HISTORY: He quit tobacco 20 years ago, has well over a 30-year history of tobacco use. ALLERGIES: No known drug allergies. CURRENT MEDICATIONS: List was reviewed. REVIEW OF SYSTEMS: CONSTITUTIONAL: Subjective fever. EYES: No change in visual acuity. HEENT: No nasal congestion or sore throat. PULMONARY: As indicated above. CARDIOVASCULAR: No chest pain or pressure. GASTROINTESTINAL: No nausea, vomiting or diarrhea. GENITOURINARY: No dysuria or frequency. MUSCULOSKELETAL: No localized muscle aches or joint pain. SKIN: No new skin lesions. NEUROLOGIC: No headaches, diplopia or blurred vision. PHYSICAL EXAMINATION: GENERAL: The patient was in no respiratory distress. VITAL SIGNS: Stable. O2 saturation was greater than 92%, currently on 4-5 liters. HEENT: Eyes, the sclerae were nonicteric. NECK: Jugular venous distention was not elevated. No lymphadenopathy. CHEST: Full expansion. LUNGS: Crackles in the bases. Bilateral wheezing. Poor inspiratory and expiratory flow. CARDIOVASCULAR: Regular rate and rhythm with S1, S2, no S3. ABDOMEN: Soft, nontender, nondistended. EXTREMITIES: No clubbing, cyanosis or edema. NEUROLOGIC: The patient was awake, alert, following commands. A detailed neuro exam was not performed. LABORATORY DATA: Serology for influenza was negative. Electrolytes were noted. BUN and creatinine were normal. White count was normal. IMPRESSION: 1. Acute exacerbation of chronic obstructive pulmonary disease. 2. History of tobacco dependence, in remission. 3. Abnormal x-ray compatible with atelectasis, possible pneumonia. 4. Severe emphysema. 5. Panic disorder, unspecified. PLAN: 1. Continue antibiotics. 2. Nebulized treatments. 3. Oxygen supplementation. 4. We will follow clinical course and make further recommendations. The patient was admitted as a consequence of increasing shortness of air. His [facility] RN recommended that he come to the Emergency Room. He was worsening at home, suspect he will be in for 2-3 days. I do appreciate the privilege in sharing in the patient's care. ISRAEL JETT MD DR: ISIDORO/ramo JOB#: [id number] / [id number]
[2018-11-25] MEDS: methylPREDNISolone SOD SUCC PF 40 MG/ML VIAL. IV SCH ×3 (06:00→21:00)
[2018-11-25] MEDS: HYDROmorphone 2 MG/ML VIAL IVP PRN ×5 (06:01→22:29)
[2018-11-25 07:00] VITALS: BP 131/82
[2018-11-25] MEDS: IPRATRPIUM/ALBUTEROL 0.5/2.5MG 3 ML NEBU. NEB SCH ×4 (07:17→19:46)
[2018-11-25] MEDS: BUDESONIDE 0.5 MG/2 ML NEBU. NEB SCH ×2 (07:17→19:46)
[2018-11-25] MEDS: PANTOPRAZOLE 40 MG TABLET.DR. PO SCH (07:30)
[2018-11-25] MEDS: LOSARTAN POTASSIUM 50 MG TABLET. PO SCH (07:48)
[2018-11-25] MEDS: AZITHROMYCIN 250 MG TABLET. PO SCH (07:48)
[2018-11-25] MEDS: TAMSULOSIN 0.4 MG CAP.ER.24H. PO SCH (07:48)
[2018-11-25] MEDS: amLODIPine BESYLATE 5 MG TABLET PO SCH (07:48)
[2018-11-25] MEDS: HYDROcodone/APAP 5/325MG 1 TAB TABLET PO PRN (08:34)
--- NOTE | 2018-11-25 09:14 | PDOC ---
PULMONARY PROGRESS NOTES Subjective PT STILL SOA SOME CHEST PAIN ON LEFT SIDE Vitals Vital Signs Date Time Temp Pulse Resp B/P (MAP) Pulse Ox O2 Delivery O2 Flow Rate FiO2 11/25/18 08:34 20 93 Nasal Cannula 4.0 11/25/18 07:48 101 119/76 11/25/18 07:00 97.5 97.5 ROS: No Nausea, No Abdominal Pain General: Alert, No acute distress Lungs: Wheezing Cardiovascular: S1, S2 Abdomen: Soft, Non-tender Neuro Exam: Alert Extremities: No Edema, Other Skin: Warm Labs Laboratory Tests Test 11/23/18 19:28 11/23/18 20:06 White Blood Count 10.1 x10^3/uL (4.0-11.0) Red Blood Count 4.74 x10^6/uL (4.30-5.70) Hemoglobin 13.5 g/dL (13.0-17.5) Hematocrit 41.0 % (39.0-53.0) Mean Corpuscular Volume 87 fL (79-100) Mean Corpuscular Hemoglobin 28 pg (25-35) Mean Corpuscular Hemoglobin Concent 33 g/dL (31-37) Red Cell Distribution Width 14.6 % (11.5-14.5) Platelet Count 428 x10^3/uL (140-400) Neutrophils (%) (Auto) 49 % (31-73) Lymphocytes (%) (Auto) 32 % (24-48) Monocytes (%) (Auto) 11 % (0-9) Eosinophils (%) (Auto) 7 % (0-3) Basophils (%) (Auto) 1 % (0-3) Neutrophils # (Auto) 4.9 x10^3uL (1.8-7.7) Lymphocytes # (Auto) 3.3 x10^3/uL (1.0-4.8) Monocytes # (Auto) 1.1 x10^3/uL (0.0-1.1) Eosinophils # (Auto) 0.7 x10^3/uL (0.0-0.7) Basophils # (Auto) 0.1 x10^3/uL (0.0-0.2) Sodium Level 140 mmol/L (136-145) Potassium Level 4.1 mmol/L (3.5-5.1) Chloride Level 103 mmol/L (98-107) Carbon Dioxide Level 27 mmol/L (21-32) Anion Gap 10 (6-14) Blood Urea Nitrogen 13 mg/dL (8-26) Creatinine 1.0 mg/dL (0.7-1.3) Estimated GFR (Cockcroft-Gault) 73.9 BUN/Creatinine Ratio 13 (6-20) Glucose Level 119 mg/dL (70-99) Lactic Acid Level 1.3 mmol/L (0.4-2.0) Calcium Level 9.6 mg/dL (8.5-10.1) Total Bilirubin 0.4 mg/dL (0.2-1.0) Aspartate Amino Transf (AST/SGOT) 20 U/L (15-37) Alanine Aminotransferase (ALT/SGPT) 24 U/L (16-63) Alkaline Phosphatase 90 U/L (46-116) Troponin I Quantitative < 0.017 ng/mL (0.000-0.055) EC-Mjz-Y-Type Natriuretic Peptide 36 pg/mL (0-124) Total Protein 7.7 g/dL (6.4-8.2) Albumin 4.0 g/dL (3.4-5.0) Albumin/Globulin Ratio 1.1 (1.0-1.7) Influenza Type A Antigen Negative (NEGATIVE) Influenza Type B Antigen Negative (NEGATIVE) Medications Active Scripts Medications Dose Route/Sig Max Daily Dose Days Date Category Dose Instructions Polyethylene Glycol 3350 17 Gm Powd.pack 17 Gm PO DAILY 30 10/06/18 Rx Senna-Time S Tablet (Sennosides/Docusate Sodium) 1 Each Tablet 2 Tab PO PRN BID PRN 30 10/06/18 Rx Protonix (Pantoprazole Sodium) 20 Mg Tablet.dr 1 Tab PO DAILY 10/06/18 Rx Fluticasone Propionate Nasal [place] (Fluticasone Propionate) 16 Gm [place].susp 2 [place] NS DAILY 30 10/06/18 Rx [place] 5-325 Tablet (Acetaminophen/Hydrocodone Bitart) 1 Each Tablet 1 Tab PO PRN Q6HRS PRN 6 10/06/18 Rx Tamsulosin Hcl 0.4 Mg Cap.er.24h 1 Cap PO DAILY 10/22/17 Reported Amlodipine Besylate 5 Mg Tablet 5 Mg PO DAILY 08/15/15 Reported Losartan Potassium 50 Mg Tablet 50 Mg PO DAILY 08/15/15 Reported Duoneb 0.5-3(2.5) Mg/3 Ml (Albuterol/Ipratropium) 3 Ml Ampul.neb 3 Ml IH Q4HRS 08/15/15 Reported Advair 500-50 Diskus (Fluticasone/Salmeterol) 1 Each Disk.w.dev 1 Puff IH BID PRN 07/04/14 Reported Patient takes prn before bed if he feels he needs it Impression . IMPRESSION: 1. Acute exacerbation of chronic obstructive pulmonary disease. 2. History of tobacco dependence, in remission. 3. Abnormal x-ray compatible with atelectasis, possible pneumonia. 4. Severe emphysema. 5. Panic disorder, unspecified. Plan . PT VERY SOA WITH MINIMAL EXERTION CHECK HIS O2 SAT DROPS TO 82 WILL CONTINUE ANITBX AND STEROIDS WILL NEED ANOTHER 24-48 AVOID CAFFEINE INFORMED PT TO AVOID REFLUX WILL ADD ISRAEL MCDONALD MD November 25, 2018 09:14
--- NOTE | 2018-11-25 10:54 | NUR ---
SW following pt for anticipated dc needs. Chart reviewed and discussed with RN. Pt lives at home alone and has home 02. Pt is independent with ADL's and does not have skilled needs. No other needs noted at this time.
[2018-11-25 11:00] VITALS: BP 104/61
[2018-11-25] MEDS: cefTRIAXone IV Push 1 GM VIAL. IVP SCH (11:57)
--- NOTE | 2018-11-25 12:25 | PDOC ---
PROGRESS NOTES Chief Complaint Chief Complaint COPD exacerbation pneumonia Smoker obesity BMI 32 History GERD History of Present Illness History of Present Illness He relayed to me that he almost choked last night Palms got sweaty, heart rate went as high up as 170-180 He ate a piece of beef and some liquid last night then he near choked He initially requested a bronchoscopy from me After heavy education counseling, he was agreeable to CPM Plan: May DC telemetry Wanted to try some antireflux and that is okay Xanax when necessary low-dose Some wheezing still evident today target home tomorrow Vitals Vitals Vital Signs Date Time Temp Pulse Resp B/P (MAP) Pulse Ox O2 Delivery O2 Flow Rate FiO2 11/25/18 11:16 93 Nasal Cannula 4.0 11/25/18 11:00 97.7 89 18 104/61 (75) 97.7 Physical Exam General: Alert, Oriented X3, Cooperative, No acute distress Heart: Regular rate Lungs: Wheezing Abdomen: Normal bowel sounds, Soft, No tenderness, No hepatosplenomegaly, No masses Extremities: No clubbing, No cyanosis, No edema, Normal pulses, No tenderness/swelling Skin: No rashes, No breakdown Review of Systems Review of Systems A 14 point ROS was completed with the following noted as positive: Other systems reviewed and negative. \CONSTITUTIONAL: No fever or chills EYES: No recent changes SKIN: No rash or itching CARDIOVASCULAR: No chest pain, syncope, palpitations, or edema RESPIRATORY: No SOB or cough GASTROINTESTINAL: No nausea, vomiting or abdominal pain NEUROLOGICAL: No headaches or weakness ENDOCRINE: No cold or heat intolerance GENITOURINARY: No urgency or frequency of urination MUSCULOSKELETAL: No back pain or joint pain LYMPHATICS: No enlarged lymph nodes PSYCHIATRIC: No anxiety or depression Assessment and Plan Assessmemt and Plan Problems Medical Problems: (1) CAP (community acquired pneumonia) Status: Acute (2) COPD exacerbation Status: Acute Comment Review of Relevant I have reviewed the following items tim (where applicable) has been applied. Labs Laboratory Tests Test 11/23/18 19:28 11/23/18 20:06 White Blood Count 10.1 x10^3/uL (4.0-11.0) Red Blood Count 4.74 x10^6/uL (4.30-5.70) Hemoglobin 13.5 g/dL (13.0-17.5) Hematocrit 41.0 % (39.0-53.0) Mean Corpuscular Volume 87 fL (79-100) Mean Corpuscular Hemoglobin 28 pg (25-35) Mean Corpuscular Hemoglobin Concent 33 g/dL (31-37) Red Cell Distribution Width 14.6 % (11.5-14.5) Platelet Count 428 x10^3/uL (140-400) Neutrophils (%) (Auto) 49 % (31-73) Lymphocytes (%) (Auto) 32 % (24-48) Monocytes (%) (Auto) 11 % (0-9) Eosinophils (%) (Auto) 7 % (0-3) Basophils (%) (Auto) 1 % (0-3) Neutrophils # (Auto) 4.9 x10^3uL (1.8-7.7) Lymphocytes # (Auto) 3.3 x10^3/uL (1.0-4.8) Monocytes # (Auto) 1.1 x10^3/uL (0.0-1.1) Eosinophils # (Auto) 0.7 x10^3/uL (0.0-0.7) Basophils # (Auto) 0.1 x10^3/uL (0.0-0.2) Sodium Level 140 mmol/L (136-145) Potassium Level 4.1 mmol/L (3.5-5.1) Chloride Level 103 mmol/L (98-107) Carbon Dioxide Level 27 mmol/L (21-32) Anion Gap 10 (6-14) Blood Urea Nitrogen 13 mg/dL (8-26) Creatinine 1.0 mg/dL (0.7-1.3) Estimated GFR (Cockcroft-Gault) 73.9 BUN/Creatinine Ratio 13 (6-20) Glucose Level 119 mg/dL (70-99) Lactic Acid Level 1.3 mmol/L (0.4-2.0) Calcium Level 9.6 mg/dL (8.5-10.1) Total Bilirubin 0.4 mg/dL (0.2-1.0) Aspartate Amino Transf (AST/SGOT) 20 U/L (15-37) Alanine Aminotransferase (ALT/SGPT) 24 U/L (16-63) Alkaline Phosphatase 90 U/L (46-116) Troponin I Quantitative < 0.017 ng/mL (0.000-0.055) PC-Kvv-C-Type Natriuretic Peptide 36 pg/mL (0-124) Total Protein 7.7 g/dL (6.4-8.2) Albumin 4.0 g/dL (3.4-5.0) Albumin/Globulin Ratio 1.1 (1.0-1.7) Influenza Type A Antigen Negative (NEGATIVE) Influenza Type B Antigen Negative (NEGATIVE) Medications Current Medications Sodium Chloride 1,000 ml @ 1,000 mls/hr Q1H IV Last administered on 11/23/18 19:17; Start 11/23/18 at 19:17; Stop 11/23/18 at 20:16; Status DC Ipratropium [place] (Atrovent) 0.5 mg 1X ONCE NEB Last administered on 11/23/18 19:26; Start 11/23/18 at 19:45; Stop 11/23/18 at 19:46; Status DC Methylprednisolone Sodium Succinate (SOLU-Medrol 125MG VIAL) 125 mg 1X ONCE IV Last administered on 11/23/18at 19:41; Start 11/23/18 at 19:45; Stop 11/23/18 at 19:46; Status DC Albuterol Sulfate (Ventolin Neb Soln) 10 mg 1X ONCE CONT NEB Last administered on 11/23/18 19:26; Start 11/23/18 at 19:45; Stop 11/23/18 at 19:46; Status DC Morphine Sulfate (Morphine Sulfate) 4 mg 1X ONCE IV Last administered on 11/23/18at 20:00; Start 11/23/18 at 20:00; Stop 11/23/18 at 20:01; Status DC Ondansetron HCl (Zofran) 4 mg 1X ONCE IV Last administered on 11/23/18at 20:00; Start 11/23/18 at 20:00; Stop 11/23/18 at 20:01; Status DC Ondansetron HCl (Zofran) 4 mg STK-MED ONCE .ROUTE ; Start 11/23/18 at 19:49; Stop 11/23/18 at 19:50; Status DC Morphine Sulfate (Morphine Sulfate) 4 mg STK-MED ONCE .ROUTE ; Start 11/23/18 at 19:50; Stop 11/23/18 at 19:51; Status DC Hydromorphone HCl (Dilaudid) 0.5 mg 1X ONCE IV Last administered on 11/23/18at 21:00; Start 11/23/18 at 21:00; Stop 11/23/18 at 21:01; Status DC Ceftriaxone Sodium (Rocephin) 1 gm 1X ONCE IVP Last administered on 11/23/18at 21:00; Start 11/23/18 at 21:00; Stop 11/23/18 at 21:01; Status DC Azithromycin (Zithromax) 500 mg 1X ONCE PO Last administered on 11/23/18at 21:00; Start 11/23/18 at 21:00; Stop 11/23/18 at 21:01; Status DC Ondansetron HCl (Zofran) 4 mg PRN Q8HRS PRN IV NAUSEA/VOMITING; Start 11/23/18 at 21:00; Stop 11/24/18 at 08:28; Status DC Morphine Sulfate (Morphine Sulfate) 4 mg PRN Q2HR PRN IV PAIN Last administered on 11/24/18at 07:45; Start 11/23/18 at 21:00; Stop 11/24/18 at 14:36; Status DC Sodium Chloride 1,000 ml @ 100 mls/hr Q10H IV ; Start 11/23/18 at 20:53; Stop 11/24/18 at 20:52; Status DC Acetaminophen (Tylenol) 650 mg PRN Q4HRS PRN PO FEVER; Start 11/23/18 at 21:00; Stop 11/24/18 at 20:59; Status DC Albuterol/ Ipratropium (Duoneb) 3 ml RTQID NEB Last administered on 11/25/18at 11:16; Start 11/23/18 at 22:00; Stop 11/25/18 at 21:59 Morphine Sulfate (Morphine Sulfate) 5 mg 1X ONCE IV Last administered on 11/23/18at 22:15; Start 11/23/18 at 22:15; Stop 11/23/18 at 22:16; Status DC Morphine Sulfate (Morphine Sulfate) 10 mg STK-MED ONCE .ROUTE ; Start 11/23/18 at 22:15; Stop 11/23/18 at 22:16; Status DC Guaifenesin (Robitussin Dm) 10 ml PRN Q6HRS PRN PO COUGH; Start 11/24/18 at 01:45 Amlodipine Besylate (Norvasc) 5 mg DAILY PO ; Start 11/24/18 at 09:00 Acetaminophen/ Hydrocodone Bitart (Lortab 5/325) 1 tab PRN Q6HRS PRN PO PAIN Last administered on 11/25/18at 08:34; Start 11/24/18 at 01:45 Albuterol Sulfate (Ventolin Neb Soln) 2.5 mg PRN Q4HRS PRN NEB SHORTNESS OF BREATH Last administered on 11/24/18at 23:30; Start 11/24/18 at 01:45 Losartan Potassium (Cozaar) 50 mg DAILY PO ; Start 11/24/18 at 09:00 Senna/Docusate Sodium (Senna Plus) 2 tab PRN BID PRN PO CONSTIPATION 2ND CHOICE; Start 11/24/18 at 01:45 Tamsulosin HCl (Flomax) 0.4 mg DAILY PO ; Start 11/24/18 at 09:00 Non-Formulary Medication (Fluticasone/ Salmeterol (Advair 500-50 Diskus)) 1 puff BID PRN IH SHORTNESS OF BREATH; Start 11/24/18 at 01:45; Status UNV Pantoprazole Sodium (Protonix) 20 mg DAILYAC PO ; Start 11/24/18 at 07:30 Polyethylene Glycol (miraLAX PACKET) 17 gm PRN DAILY PRN PO CONSTIPATION 1ST CHOICE; Start 11/24/18 at 01:45 Albuterol Sulfate (Ventolin Neb Soln) 2.5 mg PRN BID PRN NEB SHORTNESS OF BREATH; Start 11/24/18 at 02:15; Stop 11/24/18 at 14:36; Status DC Budesonide (Pulmicort) 0.5 mg PRN BID PRN NEB SHORTNESS OF BREATH Last administered on 11/24/18at 19:30; Start 11/24/18 at 02:15; Stop 11/24/18 at 19:50; Status DC Ondansetron HCl (Zofran) 4 mg PRN Q6HRS PRN IV NAUSEA/VOMITING; Start 11/24/18 at 08:30 Hydromorphone HCl (Dilaudid) 0.4 mg PRN Q4HRS PRN IVP PAIN Last administered on 11/25/18 09:58; Start 11/24/18 at 10:15 Methylprednisolone Sodium Succinate (SOLU-Medrol 40MG VIAL) 40 mg Q8HRS IV Last administered on 11/25/18 11:57; Start 11/24/18 at 10:00 Ceftriaxone Sodium (Rocephin) 1 gm Q24H IVP Last administered on 11/25/18 11:57; Start 11/24/18 at 11:00 Azithromycin (Zithromax) 250 mg DAILY PO Last administered on 11/25/18 07:48; Start 11/24/18 at 10:30 Nicotine (Nicoderm Cq 21mg) 1 patch PRN DAILY PRN TD SMOKING CESSATION; Start 11/24/18 at 10:15 Budesonide (Pulmicort) 0.5 mg RTBID NEB Last administered on 11/25/18 07:17; Start 11/24/18 at 20:00 Magnesium Hydroxide (Milk Of Magnesia) 2,400 mg PRN DAILY PRN PO CONSTIPATION 3RD CHOICE; Start 11/24/18 at 20:30 Active Scripts Active Polyethylene Glycol 3350 17 Gm Powd.pack 17 Gm PO DAILY 30 Days Senna-Time S Tablet (Sennosides/Docusate Sodium) 1 Each Tablet 2 Tab PO PRN BID PRN 30 Days Protonix (Pantoprazole Sodium) 20 Mg Tablet.dr 1 Tab PO DAILY Fluticasone Propionate Nasal [place] (Fluticasone Propionate) 16 Gm [place].susp 2 [place] NS DAILY 30 Days [place] 5-325 Tablet (Acetaminophen/Hydrocodone Bitart) 1 Each Tablet 1 Tab PO PRN Q6HRS PRN 6 Days Reported Tamsulosin Hcl 0.4 Mg Cap.er.24h 1 Cap PO DAILY Amlodipine Besylate 5 Mg Tablet 5 Mg PO DAILY Losartan Potassium 50 Mg Tablet 50 Mg PO DAILY Duoneb 0.5-3(2.5) Mg/3 Ml (Albuterol/Ipratropium) 3 Ml Ampul.neb 3 Ml IH Q4HRS Advair 500-50 Diskus (Fluticasone/Salmeterol) 1 Each Disk.w.dev 1 Puff IH BID PRN Patient takes prn before bed if he feels he needs it Vitals/I & O Vital Sign - Last 24 Hours 11/24/18 11/24/18 11/24/187/19 14:29 14:29 15:00 15:17 Temp 98.0 98.0 Pulse 98 Resp 14 16 B/P (MAP) 141/84 (103) Pulse Ox 92 92 91 O2 Delivery Nasal Cannula Nasal Cannula Nasal Cannula Nasal Cannula O2 Flow Rate 4.0 4.0 4.0 4.0 11/24/18 11/24/18 11/24/18 11/24/18 16:03 18:28 19:29 19:48 Pulse 105 Resp 14 16 B/P (MAP) 79/ Pulse Ox 91 91 92 O2 Delivery Nasal Cannula Nasal Cannula Nasal Cannula Nasal Cannula O2 Flow Rate 4.0 4.0 5.0 5.0 11/24/18 11/24/18 11/24/18 11/24/18 20:00 20:05 23:30 23:33 Pulse Ox 92 O2 Delivery Nasal Cannula Nasal Cannula Nasal Cannula O2 Flow Rate 4.0 4.0 4.0 4.0 11/24/18 11/25/18 11/25/18 11/25/18 23:34 03:35 06:01 07:00 Temp 97.4 97.5 97.4 97.5 Pulse 101 104 Resp 18 16 16 B/P (MAP) 119/76 (90) 131/82 (98) Pulse Ox 94 94 94 O2 Delivery Nasal Cannula Nasal Cannula Nasal Cannula Nasal Cannula O2 Flow Rate 4.0 4.0 4.0 4.0 11/25/18 11/25/18 11/25/18 11/25/18 07:13 07:33 07:48 07:48 Pulse 101 101 B/P (MAP) 119/76 119/76 Pulse Ox 93 O2 Delivery Nasal Cannula Nasal Cannula O2 Flow Rate 4.0 4.0 11/25/18 11/25/18 11/25/18 11/25/18 08:34 09:20 09:58 10:16 Resp 20 20 20 20 Pulse Ox 93 93 93 93 O2 Delivery Nasal Cannula Nasal Cannula Nasal Cannula Nasal Cannula O2 Flow Rate 4.0 4.0 4.0 4.0 11/25/18 11/25/18 11:00 11:16 Temp 97.7 97.7 Pulse 89 Resp 18 B/P (MAP) 104/61 (75) Pulse Ox 92 93 O2 Delivery Nasal Cannula Nasal Cannula O2 Flow Rate 4.0 4.0 Intake and Output 5/7/19 5/7/19 5/8/19 15:00 23:00 07:00 Intake Total 310 ml 600 ml 1000 ml Output Total 350 ml 0 ml Balance -40 ml 600 ml 1000 ml KATHIE EDMONDS MD November 25, 2018 12:25
[2018-11-25] MEDS ORDERED: MAG HYDROX/ALUMINUM HYD/SIMETH 30 ML ORAL.SUSP PO PRN (12:30)
[2018-11-25] MEDS ORDERED: ALPRAZolam 0.25 MG TABLET PO PRN (12:30)
[2018-11-25] MEDS ORDERED: PANTOPRAZOLE 40 MG TABLET.DR. PO ONE (12:30)
[2018-11-25 15:00] VITALS: BP 124/68
[2018-11-25 19:00] VITALS: BP 140/85
[2018-11-25] MEDS: LACTOBACILLUS RHAMNOSUS GG 1 CAPSULE. PO SCH (20:59)
[2018-11-25 23:00] VITALS: BP 143/84
[2018-11-25] MEDS: ALBUTEROL SULFATE 2.5 MG/3 ML NEBU. NEB PRN (23:23)
[2018-11-26] MEDS: HYDROcodone/APAP 5/325MG 1 TAB TABLET PO PRN ×2 (00:04→08:57)
[2018-11-26] MEDS: methylPREDNISolone SOD SUCC PF 40 MG/ML VIAL. IV SCH ×3 (05:48→23:06)
[2018-11-26] MEDS: HYDROmorphone 2 MG/ML VIAL IVP PRN ×5 (05:48→23:06)
[2018-11-26] MEDS: ALBUTEROL SULFATE 2.5 MG/3 ML NEBU. NEB PRN ×3 (06:10→22:52)
[2018-11-26] MEDS: BUDESONIDE 0.5 MG/2 ML NEBU. NEB SCH ×2 (06:11→20:17)
[2018-11-26 07:00] VITALS: BP 134/77
[2018-11-26] MEDS ORDERED: PANTOPRAZOLE 40 MG TABLET.DR. PO SCH (07:30)
[2018-11-26] MEDS: PANTOPRAZOLE 40 MG TABLET.DR. PO SCH ×2 (07:30→16:30)
--- NOTE | 2018-11-26 08:36 | PDOC ---
PROGRESS NOTES Chief Complaint Chief Complaint COPD exacerbation Hypoxic respiratory failure, home O2 dependency 3.5 liters CAP Sepsis Smoker obesity BMI 32 GERD, dysphagia? History of Present Illness History of Present Illness Off telemetry He desats easily just going to the bathroom He's on O2 3-1/2 L at home Pulmonary note reviewed-will need more days, desats easy Plan: I am unsure of further benefit of 6 minute walk since he is on 3-1/2 L at home, so i did not order one Currently he is around 4 L in house He relays again to be some reflux symptoms and I have started PPI and Robitussin yesterday for cough-he tells me Robitussin refluxed last night Now tells me some swallow issues which sounds rather minor I did decide to consult GI since we are keeping for lung issues Continue PPI, I did advise Toradol for pleuritic chest pain during coughing and Robitussin with codeine Dilaudid helps with his pleuritic CP Vitals Vitals Vital Signs Date Time Temp Pulse Resp B/P (MAP) Pulse Ox O2 Delivery O2 Flow Rate FiO2 11/26/18 07:00 97.6 91 14 134/77 (96) 92 Nasal Cannula 4.0 97.6 Physical Exam General: Alert, Oriented X3, Cooperative, No acute distress Heart: Regular rate Lungs: Wheezing Abdomen: Normal bowel sounds, Soft, No tenderness, No hepatosplenomegaly, No masses Extremities: No clubbing, No cyanosis, No edema, Normal pulses, No tenderness/swelling Skin: No rashes, No breakdown Review of Systems Review of Systems Reflux symptoms, left-sided chest/left-sided back pleuritic chest pain Assessment and Plan Assessmemt and Plan Problems Medical Problems: (1) CAP (community acquired pneumonia) Status: Acute (2) COPD exacerbation Status: Acute Comment Review of Relevant I have reviewed the following items tim (where applicable) has been applied. Labs Microbiology 11/23/18 Blood Culture - Preliminary, Resulted NO GROWTH AFTER 1 DAY Medications Current Medications Sodium Chloride 1,000 ml @ 1,000 mls/hr Q1H IV Last administered on 11/23/18at 19:17; Start 11/23/18 at 19:17; Stop 11/23/18 at 20:16; Status DC Ipratropium [place] (Atrovent) 0.5 mg 1X ONCE NEB Last administered on 11/23/18 19:26; Start 11/23/18 at 19:45; Stop 11/23/18 at 19:46; Status DC Methylprednisolone Sodium Succinate (SOLU-Medrol 125MG VIAL) 125 mg 1X ONCE IV Last administered on 11/23/18at 19:41; Start 11/23/18 at 19:45; Stop 11/23/18 at 19:46; Status DC Albuterol Sulfate (Ventolin Neb Soln) 10 mg 1X ONCE CONT NEB Last administered on 11/23/18 19:26; Start 11/23/18 at 19:45; Stop 11/23/18 at 19:46; Status DC Morphine Sulfate (Morphine Sulfate) 4 mg 1X ONCE IV Last administered on 11/23/18 20:00; Start 11/23/18 at 20:00; Stop 11/23/18 at 20:01; Status DC Ondansetron HCl (Zofran) 4 mg 1X ONCE IV Last administered on 11/23/18at 20:00; Start 11/23/18 at 20:00; Stop 11/23/18 at 20:01; Status DC Ondansetron HCl (Zofran) 4 mg STK-MED ONCE .ROUTE ; Start 11/23/18 at 19:49; Stop 11/23/18 at 19:50; Status DC Morphine Sulfate (Morphine Sulfate) 4 mg STK-MED ONCE .ROUTE ; Start 11/23/18 at 19:50; Stop 11/23/18 at 19:51; Status DC Hydromorphone HCl (Dilaudid) 0.5 mg 1X ONCE IV Last administered on 11/23/18 21:00; Start 11/23/18 at 21:00; Stop 11/23/18 at 21:01; Status DC Ceftriaxone Sodium (Rocephin) 1 gm 1X ONCE IVP Last administered on 11/23/18 21:00; Start 11/23/18 at 21:00; Stop 11/23/18 at 21:01; Status DC Azithromycin (Zithromax) 500 mg 1X ONCE PO Last administered on 11/23/18 21 :00; Start 11/23/18 at 21:00; Stop 11/23/18 at 21:01; Status DC Ondansetron HCl (Zofran) 4 mg PRN Q8HRS PRN IV NAUSEA/VOMITING; Start 11/23/18 at 21:00; Stop 11/24/18 at 08:28; Status DC Morphine Sulfate (Morphine Sulfate) 4 mg PRN Q2HR PRN IV PAIN Last administered on 11/24/18at 07:45; Start 11/23/18 at 21:00; Stop 11/24/18 at 14:36; Status DC Sodium Chloride 1,000 ml @ 100 mls/hr Q10H IV ; Start 11/23/18 at 20:53; Stop 11/24/18 at 20:52; Status DC Acetaminophen (Tylenol) 650 mg PRN Q4HRS PRN PO FEVER; Start 11/23/18 at 21:00; Stop 11/24/18 at 20:59; Status DC Albuterol/ Ipratropium (Duoneb) 3 ml RTQID NEB Last administered on 11/25/18at 19:46; Start 11/23/18 at 22:00; Stop 11/25/18 at 21:59; Status DC Morphine Sulfate (Morphine Sulfate) 5 mg 1X ONCE IV Last administered on 11/23/18at 22:15; Start 11/23/18 at 22:15; Stop 11/23/18 at 22:16; Status DC Morphine Sulfate (Morphine Sulfate) 10 mg STK-MED ONCE .ROUTE ; Start 11/23/18 at 22:15; Stop 11/23/18 at 22:16; Status DC Guaifenesin (Robitussin Dm) 10 ml PRN Q6HRS PRN PO COUGH Last administered on 11/25/18at 20:59; Start 11/24/18 at 01:45 Amlodipine Besylate (Norvasc) 5 mg DAILY PO ; Start 11/24/18 at 09:00 Acetaminophen/ Hydrocodone Bitart (Lortab 5/325) 1 tab PRN Q6HRS PRN PO PAIN Last administered on 11/26/18at 00:04; Start 11/24/18 at 01:45 Albuterol Sulfate (Ventolin Neb Soln) 2.5 mg PRN Q4HRS PRN NEB SHORTNESS OF BREATH Last administered on 11/26/18at 06:10; Start 11/24/18 at 01:45 Losartan Potassium (Cozaar) 50 mg DAILY PO ; Start 11/24/18 at 09:00 Senna/Docusate Sodium (Senna Plus) 2 tab PRN BID PRN PO CONSTIPATION 2ND CHOICE; Start 11/24/18 at 01:45 Tamsulosin HCl (Flomax) 0.4 mg DAILY PO ; Start 11/24/18 at 09:00 Non-Formulary Medication (Fluticasone/ Salmeterol (Advair 500-50 Diskus)) 1 puff BID PRN IH SHORTNESS OF BREATH; Start 11/24/18 at 01:45; Status UNV Pantoprazole Sodium (Protonix) 20 mg DAILYAC PO ; Start 11/24/18 at 07:30 Polyethylene Glycol (miraLAX PACKET) 17 gm PRN DAILY PRN PO CONSTIPATION 1ST CHOICE; Start 11/24/18 at 01:45 Albuterol Sulfate (Ventolin Neb Soln) 2.5 mg PRN BID PRN NEB SHORTNESS OF BREATH; Start 11/24/18 at 02:15; Stop 11/24/18 at 14:36; Status DC Budesonide (Pulmicort) 0.5 mg PRN BID PRN NEB SHORTNESS OF BREATH Last administered on 11/24/18at 19:30; Start 11/24/18 at 02:15; Stop 11/24/18 at 19:50; Status DC Ondansetron HCl (Zofran) 4 mg PRN Q6HRS PRN IV NAUSEA/VOMITING; Start 11/24/18 at 08:30 Hydromorphone HCl (Dilaudid) 0.4 mg PRN Q4HRS PRN IVP PAIN Last administered on 11/26/18at 05:48; Start 11/24/18 at 10:15 Methylprednisolone Sodium Succinate (SOLU-Medrol 40MG VIAL) 40 mg Q8HRS IV Last administered on 11/26/18at 05:48; Start 11/24/18 at 10:00 Ceftriaxone Sodium (Rocephin) 1 gm Q24H IVP Last administered on 11/25/18at 11:57; Start 11/24/18 at 11:00 Azithromycin (Zithromax) 250 mg DAILY PO Last administered on 11/25/18at 07:48; Start 11/24/18 at 10:30 Nicotine (Nicoderm Cq 21mg) 1 patch PRN DAILY PRN TD SMOKING CESSATION; Start 11/24/18 at 10:15 Budesonide (Pulmicort) 0.5 mg RTBID NEB Last administered on 11/26/18at 06:11; Start 11/24/18 at 20:00 Magnesium Hydroxide (Milk Of Magnesia) 2,400 mg PRN DAILY PRN PO CONSTIPATION 3RD CHOICE; Start 11/24/18 at 20:30 Alprazolam (Xanax) 0.25 mg PRN Q8HRS PRN PO ANXIETY / AGITATION Last administered on 11/25/18at 14:07; Start 11/25/18 at 12:30 Al Hydroxide/Mg Hydroxide (Mylanta Plus Xs) 30 ml PRN Q2HR PRN PO HEARTBURN / GAS; Start 11/25/18 at 12:30 Pantoprazole Sodium (Protonix) 40 mg DAILYAC PO ; Start 11/26/18 at 07:30 Pantoprazole Sodium (Protonix) 40 mg 1X ONCE PO Last administered on 11/25/18at 12:34; Start 11/25/18 at 12:30; Stop 11/25/18 at 12:31; Status DC Lactobacillus Rhamnosus (Culturelle) 1 cap BID PO Last administered on 11/25/18at 20:59; Start 11/25/18 at 21:00 Active Scripts Active Polyethylene Glycol 3350 17 Gm Powd.pack 17 Gm PO DAILY 30 Days Senna-Time S Tablet (Sennosides/Docusate Sodium) 1 Each Tablet 2 Tab PO PRN BID PRN 30 Days Protonix (Pantoprazole Sodium) 20 Mg Tablet.dr 1 Tab PO DAILY Fluticasone Propionate Nasal [place] (Fluticasone Propionate) 16 Gm [place].susp 2 [place] NS DAILY 30 Days [place] 5-325 Tablet (Acetaminophen/Hydrocodone Bitart) 1 Each Tablet 1 Tab PO PRN Q6HRS PRN 6 Days Reported Tamsulosin Hcl 0.4 Mg Cap.er.24h 1 Cap PO DAILY Amlodipine Besylate 5 Mg Tablet 5 Mg PO DAILY Losartan Potassium 50 Mg Tablet 50 Mg PO DAILY Duoneb 0.5-3(2.5) Mg/3 Ml (Albuterol/Ipratropium) 3 Ml Ampul.neb 3 Ml IH Q4HRS Advair 500-50 Diskus (Fluticasone/Salmeterol) 1 Each Disk.w.dev 1 Puff IH BID PRN Patient takes prn before bed if he feels he needs it Vitals/I & O Vital Sign - Last 24 Hours 11/25/18 11/25/18 11/25/18 11/25/18 08:34 09:58 11:00 11:16 Temp 97.7 97.7 Pulse 89 Resp 20 20 18 B/P (MAP) 104/61 (75) Pulse Ox 93 93 92 93 O2 Delivery Nasal Cannula Nasal Cannula Nasal Cannula Nasal Cannula O2 Flow Rate 4.0 4.0 4.0 4.0 11/25/18 11/25/18 11/25/18 11/25/18 14:07 15:00 16:40 18:28 Temp 97.3 97.3 Pulse 101 Resp 20 16 20 B/P (MAP) 124/68 (86) Pulse Ox 93 96 90 O2 Delivery Nasal Cannula Nasal Cannula Nasal Cannula Nasal Cannula O2 Flow Rate 4.0 4.0 4.0 4.0 11/25/18 11/25/18 11/25/18 11/25/18 19:00 19:46 19:47 20:00 Temp 97.5 97.5 Pulse 99 Resp 20 B/P (MAP) 140/85 (103) Pulse Ox 90 93 93 O2 Delivery Nasal Cannula Nasal Cannula Nasal Cannula Nasal Cannula O2 Flow Rate 4.0 4.0 4.0 4.0 11/25/18 11/25/18 11/25/18 11/26/18 22:29 23:00 23:25 00:04 Temp 97.7 97.7 Pulse 100 Resp 19 20 B/P (MAP) 143/84 (103) Pulse Ox 93 90 93 O2 Delivery Nasal Cannula Nasal Cannula Nasal Cannula Nasal Cannula O2 Flow Rate 4.0 4.0 4.0 4.0 11/26/18 11/26/18 11/26/18 11/26/18 01:30 05:48 06:11 06:12 Resp 18 16 Pulse Ox 93 93 93 93 O2 Delivery Nasal Cannula Nasal Cannula Nasal Cannula Nasal Cannula O2 Flow Rate 4.0 4.0 4.0 4.0 11/26/18 11/26/18 06:33 07:00 Temp 97.6 97.6 Pulse 91 Resp 16 14 B/P (MAP) 134/77 (96) Pulse Ox 93 92 O2 Delivery Nasal Cannula Nasal Cannula O2 Flow Rate 4.0 4.0 Intake and Output 11/25/18 11/25/18 11/26/18 15:00 23:00 07:00 Intake Total 600 ml 780 ml 460 ml Balance 600 ml 780 ml 460 ml KATHIE EDMONDS MD November 26, 2018 08:36
[2018-11-26] MEDS ORDERED: KETOROLAC 15 MG/ML VIAL. IV PRN (08:45)
[2018-11-26] MEDS: guaiFENesin/CODEINE 100mg/10mg 5 ML LIQUID PO SCH ×4 (08:55→20:36)
[2018-11-26] MEDS: TAMSULOSIN 0.4 MG CAP.ER.24H. PO SCH (08:56)
[2018-11-26] MEDS: AZITHROMYCIN 250 MG TABLET. PO SCH (08:56)
[2018-11-26] MEDS: LACTOBACILLUS RHAMNOSUS GG 1 CAPSULE. PO SCH ×2 (08:56→20:36)
[2018-11-26] MEDS: amLODIPine BESYLATE 5 MG TABLET PO SCH (08:56)
[2018-11-26] MEDS: LIDOCAINE (700MG/PATCH) PATCH. TD SCH (08:57)
[2018-11-26] MEDS: LOSARTAN POTASSIUM 50 MG TABLET. PO SCH (08:57)
--- NOTE | 2018-11-26 08:58 | PDOC ---
PULMONARY PROGRESS NOTES Subjective PT STILL SOA SOME CHEST PAIN ON LEFT SIDE Vitals Vital Signs Date Time Temp Pulse Resp B/P (MAP) Pulse Ox O2 Delivery O2 Flow Rate FiO2 11/26/18 07:00 97.6 91 14 134/77 (96) 92 Nasal Cannula 4.0 97.6 ROS: No Nausea, No Abdominal Pain General: Alert, No acute distress Lungs: Wheezing Cardiovascular: S1, S2 Abdomen: Soft, Non-tender Neuro Exam: Alert Extremities: No Edema, Other Skin: Warm Medications Active Scripts Medications Dose Route/Sig Max Daily Dose Days Date Category Dose Instructions Polyethylene Glycol 3350 17 Gm Powd.pack 17 Gm PO DAILY 30 10/06/18 Rx Senna-Time S Tablet (Sennosides/Docusate Sodium) 1 Each Tablet 2 Tab PO PRN BID PRN 30 10/06/18 Rx Protonix (Pantoprazole Sodium) 20 Mg Tablet.dr 1 Tab PO DAILY 10/06/18 Rx Fluticasone Propionate Nasal [place] (Fluticasone Propionate) 16 Gm [place].susp 2 [place] NS DAILY 30 10/06/18 Rx [place] 5-325 Tablet (Acetaminophen/Hydrocodone Bitart) 1 Each Tablet 1 Tab PO PRN Q6HRS PRN 6 10/06/18 Rx Tamsulosin Hcl 0.4 Mg Cap.er.24h 1 Cap PO DAILY 10/22/17 Reported Amlodipine Besylate 5 Mg Tablet 5 Mg PO DAILY 08/15/15 Reported Losartan Potassium 50 Mg Tablet 50 Mg PO DAILY 08/15/15 Reported Duoneb 0.5-3(2.5) Mg/3 Ml (Albuterol/Ipratropium) 3 Ml Ampul.neb 3 Ml IH Q4HRS 08/15/15 Reported Advair 500-50 Diskus (Fluticasone/Salmeterol) 1 Each Disk.w.dev 1 Puff IH BID PRN 07/04/14 Reported Patient takes prn before bed if he feels he needs it Impression . IMPRESSION: 1. Acute exacerbation of chronic obstructive pulmonary disease. 2. History of tobacco dependence, in remission. 3. Abnormal x-ray compatible with atelectasis, possible pneumonia. 4. Severe emphysema. 5. Panic disorder, unspecified. Plan . PT VERY SOA WITH MINIMAL EXERTION CHECK HIS O2 SAT DROPS TO 82 WILL CONTINUE ANITBX AND STEROIDS WILL NEED ANOTHER 24-48 AVOID CAFFEINE INFORMED PT TO AVOID REFLUX WILL ADD ISRAEL MCDONALD MD November 26, 2018 08:58
[2018-11-26] MEDS ORDERED: guaiFENesin/CODEINE 100mg/10mg PO (10:41)
[2018-11-26] MEDS ORDERED: BUDE0.5A NEB (10:41)
[2018-11-26] MEDS ORDERED: HYDR-3164 PO (10:41)
[2018-11-26 11:00] VITALS: BP 134/76
--- NOTE | 2018-11-26 12:15 | PDOC2 ---
GI CONSULT Reason For Consult: reflux symptoms, minor swallowing issues HPI: HPI: 68 y/o male admitted w/ COPD exacerbation and abnormal CXR/possible pneumonia, additional h/o anxiety/panic disorder. Pulm note indicates severe dyspnea w/ minimal exertion w/ sats in low 80s. Plans to continue antibiotics and steroids - also recs to avoid caffeine. He describes some "swallowing issues" for about 1 year. [place] w/ big pills and solid foods. Does not occur daily, but often if he overeats. Difficult for him to elaborate on symptoms except to say "just hard to swallow." [place] in upper chest - has some discomfort there sometimes. Two days ago, got beef tips and noodles stuck in his esophagus - this eventually passed w/ water but was concerning because this is the first time anything has gotten stuck. Seems h/o GERD - says "I need to belch a lot." Previously was taking Pepto-Bismol but was started on Protonix QD ~2-3 weeks ago by PCP - he thinks it helps. No n/v. Occasional abd pain related to previous hernia repair. No diarrhea. Typical bowel pattern is 1 stool QOD - he takes a stool softener sometimes. No hematemesis, hematochezia, or melena. Frequent use of prednisone for pulm issues - says he's gained a lot of weight secondary to this and w/ sedentary lifestyle (because too short of breath to do much). Can document EGD w/ Dr. Mistry in 08/1999 for left-sided chest pain, pyrosis, and h/o NSAID use - showed small hiatal hernia but was otherwise normal. Random antral biopsy was obtained, results unavailable. Prilosec was recommended. Reports normal colonoscopy ~1-2 years ago @ [facility]. Denies pancreas and PUD history. Reviewed GI consult (Dr. Dubose) from 11/2010 - CT noted hepatic lesions suspected to be cysts, cholelithiasis, diverticulosis, and ventral hernia. CTA chest in 2018 also noted multiple cystic hepatic structures similar to prior exam and large gallstone. No NSAIDs (though says he has a Rx PRN pain medication at home that he rarely uses). PMH: PMH: HTN, COPD/emphysema, pneumonia, anxiety appendectomy, ventral hernia repair w/ mesh, right hip surgery Social History: Smoke: Quit ALCOHOL: none Drugs: None ROS: GEN: Denies fevers, chills, sweats HEENT: Denies blurred vision, sore throat CV: Denies chest pain RESP: +SOA GI: Per HPI : Denies hematuria, dysuria ENDO: +weight gain NEURO: Denies confusion, dizziness MSK: Denies weakness, joint pain/swelling SKIN: Denies jaundice, pruritus Vitals: Vitals: Vital Signs Date Time Temp Pulse Resp B/P (MAP) Pulse Ox O2 Delivery O2 Flow Rate FiO2 11/26/18 11:13 92 Nasal Cannula 4.0 11/26/18 11:00 97.3 91 16 134/76 (95) 97.3 Allergies: Coded Allergies: No Known Drug Allergies (Unverified , 09/12/14) Medications: Current Medications Medications (Trade) Dose Ordered Sig/Georges Route PRN Reason Start Time Stop Time Status Last Admin Dose Admin Alprazolam (Xanax) 0.25 mg PRN Q8HRS PRN PO ANXIETY / AGITATION 11/25/18 12:30 11/25/18 14:07 Pantoprazole Sodium (Protonix) 40 mg DAILYAC PO 11/26/18 07:30 11/26/18 08:57 Pantoprazole Sodium (Protonix) 40 mg 1X ONCE PO 11/25/18 12:30 11/25/18 12:31 DC 11/25/18 12:34 Lactobacillus Rhamnosus (Culturelle) 1 cap BID PO 11/25/18 21:00 11/26/18 08:56 Lidocaine (Lidoderm) 1 patch DAILY TD 11/26/18 09:00 11/26/18 08:57 Guaifenesin/ Codeine Phosphate (Robitussin Ac) 5 ml QID PO 11/26/18 09:00 11/26/18 08:55 Imaging: Imaging: CXR 11/23 IMPRESSION: 1. Interval increase in bilateral lower lobe atelectasis or infiltrate. 2. Emphysema. PE: GEN: NAD, up to chair HEENT: Atraumatic, PERRL LUNGS: diminished, NC 4L HEART: RRR ABD: NABS, round, some firmness around umbilicus likely related to previous hernia repair EXTREMITY: No edema SKIN: No rashes, no jaundice NEURO/PSYCH: A & O 3, anxious A/P: A/P: COPD exacerbation/possible pneumonia Dyspepsia/belching, dysphagia - EGD 19 years ago w/ hiatal hernia CRC screen - reports normal colonoscopy 1-2 years ago H/o constipation Diverticulosis Hepatic cysts Cholelithiasis Steroid use Anxiety -- Agree w/ PPI - can increase to BID. Would benefit from EGD - he would like to pursue as outpt when pulm issues stabilize. Could consider esophagram before this. Add Miralax for h/o constipation if he wants. HONEY WEBER November 26, 2018 12:15
[2018-11-26] MEDS: cefTRIAXone IV Push 1 GM VIAL. IVP SCH (13:21)
[2018-11-26 14:57] VITALS: BP 149/77
[2018-11-26 19:00] VITALS: BP 116/74
[2018-11-26] MEDS ORDERED: PATCH REMOVAL. MC SCH (21:00)
[2018-11-26 23:00] VITALS: BP 136/89
[2018-11-27] MEDS: ALBUTEROL SULFATE 2.5 MG/3 ML NEBU. NEB PRN ×2 (05:33→07:34)
[2018-11-27] MEDS: HYDROmorphone 2 MG/ML VIAL IVP PRN ×2 (05:57→09:52)
[2018-11-27] MEDS: methylPREDNISolone SOD SUCC PF 40 MG/ML VIAL. IV SCH (05:58)
[2018-11-27 07:00] VITALS: BP 139/91
[2018-11-27] MEDS: PANTOPRAZOLE 40 MG TABLET.DR. PO SCH (07:28)
[2018-11-27] MEDS: BUDESONIDE 0.5 MG/2 ML NEBU. NEB SCH (07:34)
[2018-11-27] MEDS ORDERED: POLYETHYLENE GLYCOL 3350 17 GM PACKET. PO SCH (09:00)
[2018-11-27] MEDS: LOSARTAN POTASSIUM 50 MG TABLET. PO SCH (09:00)
[2018-11-27] MEDS: LACTOBACILLUS RHAMNOSUS GG 1 CAPSULE. PO SCH (09:01)
[2018-11-27] MEDS: LIDOCAINE (700MG/PATCH) PATCH. TD SCH (09:01)
[2018-11-27] MEDS: AZITHROMYCIN 250 MG TABLET. PO SCH (09:02)
[2018-11-27] MEDS: guaiFENesin/CODEINE 100mg/10mg 5 ML LIQUID PO SCH (09:02)
[2018-11-27] MEDS: TAMSULOSIN 0.4 MG CAP.ER.24H. PO SCH (09:02)
[2018-11-27] MEDS: amLODIPine BESYLATE 5 MG TABLET PO SCH (09:02)
[2018-11-27] MEDS: HYDROcodone/APAP 5/325MG 1 TAB TABLET PO PRN (09:06)
--- NOTE | 2018-11-27 09:38 | PDOC ---
Subjective: Subjective: No issues swallowing, thinks cough medicine helps. Objective: Vital Signs: Vital Signs Date Time Temp Pulse Resp B/P (MAP) Pulse Ox O2 Delivery O2 Flow Rate FiO2 11/27/18 09:06 92 Nasal Cannula 4.0 11/27/18 09:02 91 139/91 11/27/18 07:00 98.1 18 98.1 PE: GEN: NAD - was asleep LUNGS: NC 4L HEART: RRR ABD: S/ND/NT NEURO/PSYCH: A & O 3, anxious A/P: COPD exacerbation GERD, ?dysphagia Anxiety -- Continue PPI, plan for EGD as outpt w/ Dr. Messina. HONEY WEBER November 27, 2018 09:38
--- NOTE | 2018-11-27 09:39 | PDOC ---
PULMONARY PROGRESS NOTES Subjective PT STILL SOA SOME CHEST PAIN ON LEFT SIDE Vitals Vital Signs Date Time Temp Pulse Resp B/P (MAP) Pulse Ox O2 Delivery O2 Flow Rate FiO2 11/27/18 09:06 92 Nasal Cannula 4.0 11/27/18 09:02 91 139/91 11/27/18 07:00 98.1 18 98.1 ROS: No Nausea, No Abdominal Pain General: Alert, No acute distress Lungs: Wheezing Cardiovascular: S1, S2 Abdomen: Soft, Non-tender Neuro Exam: Alert Extremities: No Edema, Other Skin: Warm Medications Active Scripts Medications Dose Route/Sig Max Daily Dose Days Date Category Dose Instructions Polyethylene Glycol 3350 17 Gm Powd.pack 17 Gm PO DAILY 30 10/06/18 Rx Senna-Time S Tablet (Sennosides/Docusate Sodium) 1 Each Tablet 2 Tab PO PRN BID PRN 30 10/06/18 Rx Protonix (Pantoprazole Sodium) 20 Mg Tablet.dr 1 Tab PO DAILY 10/06/18 Rx Fluticasone Propionate Nasal [place] (Fluticasone Propionate) 16 Gm [place].susp 2 Cranberry NS DAILY 30 10/06/18 Rx [place] 5-325 Tablet (Acetaminophen/Hydrocodone Bitart) 1 Each Tablet 1 Tab PO PRN Q6HRS PRN 6 10/06/18 Rx Tamsulosin Hcl 0.4 Mg Cap.er.24h 1 Cap PO DAILY 10/22/17 Reported Amlodipine Besylate 5 Mg Tablet 5 Mg PO DAILY 08/15/15 Reported Losartan Potassium 50 Mg Tablet 50 Mg PO DAILY 08/15/15 Reported Duoneb 0.5-3(2.5) Mg/3 Ml (Albuterol/Ipratropium) 3 Ml Ampul.neb 3 Ml IH Q4HRS 08/15/15 Reported Advair 500-50 Diskus (Fluticasone/Salmeterol) 1 Each Disk.w.dev 1 Puff IH BID PRN 07/04/14 Reported Patient takes prn before bed if he feels he needs it Impression . IMPRESSION: 1. Acute exacerbation of chronic obstructive pulmonary disease. 2. History of tobacco dependence, in remission. 3. Abnormal x-ray compatible with atelectasis, possible pneumonia. 4. Severe emphysema. 5. Panic disorder, unspecified. Plan . PT VERY SOA WITH MINIMAL EXERTION CHECK HIS O2 SAT DROPS TO 82 WILL CONTINUE ANITBX AND STEROIDS WILL NEED ANOTHER 24-48 AVOID CAFFEINE INFORMED PT TO AVOID REFLUX WILL ADD ISRAEL MCDONALD MD November 27, 2018 09:39
[2018-11-27] MEDS ORDERED: PANT20TA2 PO (10:26)
--- NOTE | 2018-11-27 10:29 | PDOC3 ---
Discharge Summary Visit Information Date of Admission: November 24, 2018 Date of Discharge: November 27, 2018 Admitting Diagnosis Comment: COPD exacerbation Hypoxic respiratory failure, home O2 dependency 3.5 liters CAP Sepsis Smoker obesity BMI 32 GERD, Final Diagnosis Problems Medical Problems: (1) CAP (community acquired pneumonia) Status: Acute (2) COPD exacerbation Status: Acute Brief Hospital Course Allergies Allergies Coded Allergies Type Severity Reaction Last Updated Verified No Known Drug Allergies 09/12/14 No Vital Signs Vital Signs Date Time Temp Pulse Resp B/P (MAP) Pulse Ox O2 Delivery O2 Flow Rate FiO2 11/27/18 09:52 92 Nasal Cannula 4.0 11/27/18 09:02 91 139/91 11/27/18 07:00 98.1 18 98.1 Brief Hospital Course Mr. Beltran is a 68 old white male, COPD history and O2 dependent 3-1/2 L at home. Admitted for COPD exacerbation, had CAP and met sepsis criteria. Comanage with pulmonary. Needs to go home again on his baseline home O2. Course remarkable for some significant reflux symptoms. I had consulted GI and recommended PPI twice a day an outpatient EGD All Rx on chart, he tends to like narcotics or is not dependent and I have prescribed some pills dc < 30 PRoc; none Consuts: Gi, pulmo Discharge Information Condition at Discharge: Improved, Stable Follow Up: Weeks (GI as outpatient for outpatient EGD, PCP or pulmonary 1 month) Disposition/Orders: D/C to Home Scheduled Amlodipine Besylate (Amlodipine Besylate) 5 Mg Tablet, 5 MG PO DAILY for htn, (Reported) Entered as Reported by: TROY MONSIVAIS [facility] on 08/15/15 1348 Last Action: Continued on 11/24/18 0143 by NEFTALI CHARLES RN Budesonide (Budesonide) 0.5 Mg/2 Ml Ampul.neb, 0.5 MG NEB RTBID for copd MDD 1, #60 Prescribed by: KATHIE EDMONDS on 11/26/18 1041 Fluticasone Propionate (Fluticasone Propionate Nasal [place]) 16 Gm [place].susp, 2 SPRAY NS DAILY for Nasal congestion for 30 Days, #1 Ref 2 Prescribed by: TOD CHOWDARY MD on 10/06/18 1148 Last Action: Reviewed on 11/23/18 8675 by NEFTALI CHARLES RN Ipratropium/Albuterol Sulfate (Duoneb 0.5-3(2.5) Mg/3 Ml) 3 Ml Ampul.neb, 3 ML IH Q4HRS for shortness of breath, (Reported) Entered as Reported by: TROY MONSIVAIS [facility] on 08/15/15 1348 Last Action: Continued on 11/24/18142 by NEFTALI CHARLES RN Losartan Potassium (Losartan Potassium) 50 Mg Tablet, 50 MG PO DAILY for htn, (Reported) Entered as Reported by: TROY MONSIVAIS [facility] on 08/15/15 1348 Last Action: Continued on 11/24/18142 by NEFTALI CHARLES RN Pantoprazole Sodium (Protonix) 20 Mg Tablet.dr, 1 TAB PO DAILY for GERD, #30 Prescribed by: TOD CHOWDARY MD on 10/06/18 1148 Last Action: Converted on 11/24/18142 by NEFTALI CHARLES RN Pantoprazole Sodium (Protonix) 20 Mg Tablet.dr, 2 TAB PO BID for gerd, #30 Prescribed by: KATHIE EDMONDS on 11/27/18 1026 Polyethylene Glycol 3350 (Polyethylene Glycol 3350) 17 Gm Powd.pack, 17 GM PO DAILY for constipation for 30 Days, #30 Prescribed by: TOD CHOWDARY MD on 10/06/18 1209 Last Action: Converted on 11/24/18142 by NEFTALI CHARLES RN Tamsulosin Hcl (Tamsulosin Hcl) 0.4 Mg Cap.er.24h, 1 CAP PO DAILY, #30 Ref 5 (Reported) Entered as Reported by: REAGAN ARAIZA RN on 10/22/17 1623 Last Action: Continued on 11/24/18142 by NEFTALI CHARLES RN [guaiFENesin/CODEINE 100mg/10mg] 5 ML LIQUID, 5 ML PO QID for cough MDD 1 for 10 Days Prescribed by: KATHIE EDMNODS on 11/26/18 1041 Scheduled PRN Fluticasone/Salmeterol (Advair 500-50 Diskus) 1 Each Disk.w.dev, 1 PUFF IH BID PRN for SHORTNESS OF BREATH, #1 Ref 5 (Reported) Patient takes prn before bed if he feels he needs it Entered as Reported by: ROX ANEGL on 07/04/14 6821 Last Action: Converted on 11/24/18142 by NEFTALI CHARLES RN Hydrocodone/Apap 5-325 ([place] 5-325 Tablet) 1 Each Tablet, 1 TAB PO PRN Q6HRS PRN for PAIN MDD 1 for 6 Days, #20 Prescribed by: KATHIE EDMONDS on 11/26/18 1041 Sennosides/Docusate Sodium (Senna-Time S Tablet) 1 Each Tablet, 2 TAB PO PRN BID PRN for CONSTIPATION for 30 Days, #60 Prescribed by: TOD CHOWDARY MD on 10/06/18 1209 Last Action: Continued on 11/24/18142 by MORALES ROMAN CHERRIE Y MD November 27, 2018 10:29
[2018-11-27] MEDS: cefTRIAXone IV Push 1 GM VIAL. IVP SCH (10:39)
[2018-11-27 11:00] VITALS: BP 129/86
--- NOTE | 2018-11-27 11:18 | NUR ---
Discharge Note: JESSIE BRANHAM [place] Discharge instructions and discharge home medications reviewed with Patient and a copy given. All questions have been answered and understanding verbalized. The following instructions and handouts were given: PNA Discontinued lines and drains: Peripheral IV intact. Patient discharged to Home or Self Care with Self via Wheelchair Medications were returned to patient from pharmacy
== END 2018-11-27 11:21 | disposition home or self-care (01) | DRG 871 ==
LOC: ER 19:10 → 6 SOUTH 20:32 → 5 NORTH 11-25 15:14
PROVIDERS: ADMIT Internal Medicine; ATTEND Internal Medicine
DX: A41.9 Sepsis, unspecified organism (principal); J18.1 Lobar pneumonia, unspecified organism; J98.11 Atelectasis; J96.11 Chronic respiratory failure with hypoxia; J44.1 Chronic obstructive pulmonary disease with (acute) exacerbation; J44.0 Chronic obstructive pulmonary disease with (acute) lower respiratory infection; E66.9 Obesity, unspecified; F17.210 Nicotine dependence, cigarettes, uncomplicated; F41.0 Panic disorder [episodic paroxysmal anxiety]; I10 Essential (primary) hypertension; K21.9 Gastro-esophageal reflux disease without esophagitis; K59.00 Constipation, unspecified; F17.201 Nicotine dependence, unspecified, in remission; K57.90 Diverticulosis of intestine, part unspecified, without perforation or abscess without bleeding; K76.89 Other specified diseases of liver; K80.20 Calculus of gallbladder without cholecystitis without obstruction; Z68.32 Body mass index [BMI] 32.0-32.9, adult; Z82.49 Family history of ischemic heart disease and other diseases of the circulatory system; Z99.81 Dependence on supplemental oxygen
CPT/HCPCS: 36415; 71045; 80053; 83605; 83880; 84484; 85025; 87040; 87804; 93005; 94640; 94644; 94760; 96361; 96374; 96375; 96376; J0696; J1170; J2270; J2405; J2920; J2930; J7030; J7613; J7620; J7626; J7644; Q0144; 99285-25

== ENCOUNTER 2018-12-19 13:35 | Inpatient (IN) | payer MEDICARE ==
[~2018-12-19] VITALS: Ht 182.9 cm; Wt 98.0 kg
[~2018-12-19 13:35] MED LIST changes: +BUDE0.5A NEB; +guaiFENesin/CODEINE 100mg/10mg PO
[2018-12-19] MEDS ORDERED: methylPREDNISolone SOD SUCC PF 125 MG/2 ML VIAL. IV ONE (14:00)
[2018-12-19] MEDS ORDERED: IPRATRPIUM/ALBUTEROL 0.5/2.5MG 3 ML NEBU. NEB ONE (14:00)
[2018-12-19] MEDS ORDERED: fentaNYL PF VIAL 100 MCG/2 ML VIAL IV ONE (14:15)
[2018-12-19 14:16] LABS: BASO # 0.1 x10^3/uL (0.0-0.2); BASO % 1 % (0-3); EOS # 0.7 x10^3/uL (0.0-0.7); EOS % 9 % (0-3); HEMATOCRIT 38.7 % (39.0-53.0); HEMOGLOBIN 12.9 g/dL (13.0-17.5); LYMPH # 2.8 x10^3/uL (1.0-4.8); LYMPH % 35 % (24-48); MEAN CORPUSCULAR HEMOGLOBIN 28 pg (25-35); MEAN CORPUSCULAR HGB CONC 33 g/dL (31-37); MEAN CORPUSCULAR VOLUME 85 fL (79-100); MONO # 0.9 x10^3/uL (0.0-1.1); MONO % 11 % (0-9); NEUT # 3.6 x10^3uL (1.8-7.7); NEUT % 45 % (31-73); PLATELET COUNT 443 x10^3/uL (140-400); RED BLOOD COUNT 4.53 x10^6/uL (4.30-5.70); RED CELL DISTRIBUTION WIDTH 15.7 % (11.5-14.5); WHITE BLOOD COUNT 8.1 x10^3/uL (4.0-11.0)
[2018-12-19 14:18] LABS: BASE EXCESS ABG -1 mmol/L (-3-3); FIO2 ABG 40% NC; HCO3 ABG 24 mmol/L (21-28); PCO2 ABG 38 mmHg (35-46); PO2 ABG 62 mmHg (65-108); SAT O2 ABG 92 % (92-99)
[2018-12-19 14:44] LABS: CALCIUM 9.3 mg/dL (8.5-10.1); CREATININE 0.9 mg/dL (0.7-1.3); GFR 83.4; POTASSIUM 4.2 mmol/L (3.5-5.1)
[2018-12-19 14:47] LABS: ALBUMIN 3.8 g/dL (3.4-5.0); ALBUMIN/GLOBULIN RATIO 1.1 (1.0-1.7); TOTAL BILIRUBIN 0.7 mg/dL (0.2-1.0); TOTAL PROTEIN 7.2 g/dL (6.4-8.2)
--- NOTE | 2018-12-19 14:51 | RAD ---
EXAM: CHEST 1 VIEW History: Shortness of breath COMPARISON: 11/23/2018 TECHNIQUE: Single portable radiograph of the chest FINDINGS: The cardiac silhouette is unremarkable. Focus of airspace opacity identified in the right lung base likely pneumonia or atelectasis. Mild hyperinflated lungs likely changes of COPD IMPRESSION: Focus of airspace opacity identified in the right lung base likely pneumonia or atelectasis. Follow-up to resolution. Electronically signed by: Blake Willson MD (12/19/2018 2:48 PM) [facility]
[2018-12-19] MEDS ORDERED: IOHEXOL 350 MG/ML 100 ML VIAL. IV ONE (15:30)
[2018-12-19] MEDS ORDERED: CONTRAST GIVEN. MC PRN (15:30)
--- NOTE | 2018-12-19 15:35 | PHYS DOC ---
Past Medical History Past Medical History: COPD, Hypertension Additional Past Medical Histor: Emphysema Past Surgical History: Other Additional Past Surgical Histo: Hernia repair, right hip infection Alcohol Use: None Drug Use: None Adult General Chief Complaint Chief Complaint: SHORTNESS OF BREATH HPI HPI Patient is a 68 year old male who presents with obtaining of shortness of breath. Patient has history of COPD on 3 L of home oxygen and complaining of constant shortness of breath and left lower chest pain for the last 3 days with increasing chronic cough. Patient rated his pain 9/10 and states she takes hydrocodone for chronic back pain that did not help for his pain and asking for pain medication. Patient denies fever and chills, lower extremity pain or edema, history of DVT and PE. Patient had O2 of 90% on 3 L of home oxygen at arrival to ER. Review of Systems Review of Systems Constitutional: Denies fever or chills [] Eyes: Denies change in visual acuity, redness, or eye pain [] HENT: Denies nasal congestion or sore throat [] Respiratory: Denies cough or shortness of breath [] Cardiovascular: No additional information not addressed in HPI [] GI: Denies abdominal pain, nausea, vomiting, bloody stools or diarrhea [] : Denies dysuria or hematuria [] Musculoskeletal: Denies back pain or joint pain [] Integument: Denies rash or skin lesions [] Neurologic: Denies headache, focal weakness or sensory changes [] Endocrine: Denies polyuria or polydipsia [] All other systems were reviewed and found to be within normal limits, except as documented in this note. Current Medications Current Medications Current Medications Medications (Trade) Dose Ordered Sig/Georges Start Time Stop Time Status Last Admin Dose Admin Albuterol/ Ipratropium (Duoneb) 3 ml 1X ONCE 12/19/18 14:00 12/19/18 14:01 DC 12/19/18 14:15 3 ML Ceftriaxone Sodium (Rocephin) 1 gm 1X ONCE 12/19/18 15:45 12/19/18 15:46 DC 12/19/18 15:47 1 GM Doxycycline Hyclate (Vibra-Tab) 100 mg 1X ONCE 12/19/18 16:30 12/19/18 16:31 UNV Fentanyl Citrate (Fentanyl 2ml Vial) 50 mcg 1X ONCE 12/19/18 14:15 12/19/18 14:16 DC 12/19/18 14:15 50 MCG Info (CONTRAST GIVEN -- Rx MONITORING) 1 each PRN DAILY PRN 12/19/18 15:30 12/21/18 15:29 Iohexol (Omnipaque 350 Mg/ml) 100 ml 1X ONCE 12/19/18 15:30 12/19/18 15:31 DC Methylprednisolone Sodium Succinate (SOLU-Medrol 125MG VIAL) 125 mg 1X ONCE 12/19/18 14:00 12/19/18 14:01 DC 12/19/18 14:06 125 MG Morphine Sulfate (Morphine Sulfate) 4 mg 1X ONCE 12/19/18 15:45 12/19/18 15:46 DC 12/19/18 15:44 4 MG Sodium Chloride 1,000 ml @ 1,000 mls/hr 1X ONCE 12/19/18 15:45 12/19/18 16:44 12/19/18 15:48 1,000 MLS/HR Allergies Allergies Allergies Coded Allergies Type Severity Reaction Last Updated Verified No Known Drug Allergies 09/12/14 No Physical Exam Physical Exam Constitutional: Well developed, well nourished, mild distress, non-toxic appea dennis. [] HENT: Normocephalic, atraumatic, bilateral external ears normal, oropharynx moist, no oral exudates, nose normal. [] Eyes: PERRLA, EOMI, conjunctiva normal, no discharge. [] Neck: Normal range of motion, no tenderness, supple, no stridor. [] Cardiovascular: Tachycardia, no murmur [] Lungs & Thorax: Mild respiratory distress with intercostal resection and rhonchi and decrease of air movement. Abdomen: Bowel sounds normal, soft, no tenderness, no masses, no pulsatile masses. [] Skin: Warm, dry, no erythema, no rash. [] Back: No tenderness, no CVA tenderness. [] Extremities: No tenderness, no cyanosis, no clubbing, ROM intact, no edema. [] Neurologic: Alert and oriented X 3, normal motor function, normal sensory function, no focal deficits noted. [] Psychologic: Affect anxious, judgement normal, mood normal. [] Current Patient Data Vital Signs Vital Signs Date Time Temp Pulse Resp B/P (MAP) Pulse Ox O2 Delivery O2 Flow Rate FiO2 6/1/19 15:44 20 12/19/18 15:14 88 132/72 (92) 12/19/18 14:15 92 Nasal Cannula 5.0 12/19/18 13:41 97.8 97.8 Lab Values Laboratory Tests Test 12/19/18 13:50 12/19/18 14:10 White Blood Count 8.1 x10^3/uL (4.0-11.0) Red Blood Count 4.53 x10^6/uL (4.30-5.70) Hemoglobin 12.9 g/dL (13.0-17.5) L Hematocrit 38.7 % (39.0-53.0) L Mean Corpuscular Volume 85 fL (79-100) Mean Corpuscular Hemoglobin 28 pg (25-35) Mean Corpuscular Hemoglobin Concent 33 g/dL (31-37) Red Cell Distribution Width 15.7 % (11.5-14.5) H Platelet Count 443 x10^3/uL (140-400) H Neutrophils (%) (Auto) 45 % (31-73) Lymphocytes (%) (Auto) 35 % (24-48) Monocytes (%) (Auto) 11 % (0-9) H Eosinophils (%) (Auto) 9 % (0-3) H Basophils (%) (Auto) 1 % (0-3) Neutrophils # (Auto) 3.6 x10^3uL (1.8-7.7) Lymphocytes # (Auto) 2.8 x10^3/uL (1.0-4.8) Monocytes # (Auto) 0.9 x10^3/uL (0.0-1.1) Eosinophils # (Auto) 0.7 x10^3/uL (0.0-0.7) Basophils # (Auto) 0.1 x10^3/uL (0.0-0.2) D-Dimer (Kellee) 1.08 ug/mlFEU (0.00-0.50) H Sodium Level 143 mmol/L (136-145) Potassium Level 4.2 mmol/L (3.5-5.1) Chloride Level 105 mmol/L (98-107) Carbon Dioxide Level 23 mmol/L (21-32) Anion Gap 15 (6-14) H Blood Urea Nitrogen 14 mg/dL (8-26) Creatinine 0.9 mg/dL (0.7-1.3) Estimated GFR (Cockcroft-Gault) 83.4 BUN/Creatinine Ratio 16 (6-20) Glucose Level 90 mg/dL (70-99) Lactic Acid Level 0.8 mmol/L (0.4-2.0) Calcium Level 9.3 mg/dL (8.5-10.1) Total Bilirubin 0.7 mg/dL (0.2-1.0) Aspartate Amino Transferase (AST) 17 U/L (15-37) Alanine Aminotransferase (ALT) 21 U/L (16-63) Alkaline Phosphatase 90 U/L (46-116) Creatine Kinase 43 U/L (39-308) Troponin I Quantitative < 0.017 ng/mL (0.000-0.055) IS-Nab-Q-Type Natriuretic Peptide 21 pg/mL (0-124) Total Protein 7.2 g/dL (6.4-8.2) Albumin 3.8 g/dL (3.4-5.0) Albumin/Globulin Ratio 1.1 (1.0-1.7) O2 Saturation 92 % (92-99) Arterial Blood pH 7.41 (7.35-7.45) Arterial Blood pCO2 at Patient Temp 38 mmHg (35-46) Arterial Blood pO2 at Patient Temp 62 mmHg (65-108) L Arterial Blood HCO3 24 mmol/L (21-28) Arterial Blood Base Excess -1 mmol/L (-3-3) FiO2 40% nc Laboratory Tests 12/19/18 13:50 Laboratory Tests 12/19/18 13:50 EKG EKG [] Interpretation Time: EKG interpreted by me. EKG at 1342 showed sinus tachycardia at rate of 106, prolonged MN interval at 120, no acute ST and T-wave abnormalities. Radiology/Procedures Radiology/Procedures [facility] [address] [place] [address] IMAGING REPORT Signed PATIENT: JESSIE BRANHAM ACCOUNT: [id number] : 1950 LOCATION: ER AGE: 68 SEX: M EXAM STATUS: REG ER ORD. PHYSICIAN: JENN CARPIO MD REASON: shortness of breath, HX COPD ON OXYGEN AT HOME 10/02 PROCEDURE: PORTABLE CHEST 1V EXAM: CHEST 1 VIEW History: Shortness of breath COMPARISON: 11/23/2018 TECHNIQUE: Single portable radiograph of the chest FINDINGS: The cardiac silhouette is unremarkable. Focus of airspace opacity identified in the right lung base likely pneumonia or atelectasis. Mild hyperinflated lungs likely changes of COPD IMPRESSION: Focus of airspace opacity identified in the right lung base likely pneumonia or atelectasis. Follow-up to resolution. Electronically signed by: Blake Willson MD (12/19/2018 2:48 PM) [facility] DICTATED and SIGNED BY: BLAKE WILLSON MD DATE: 12/19/18 1448 [facility] [address] [place] [address] IMAGING REPORT Signed PATIENT: JESSIE BRANHAM ACCOUNT: [id number] : 1950 LOCATION: ER AGE: 68 SEX: M EXAM STATUS: REG ER ORD. PHYSICIAN: JENN CARPIO MD REASON: shortness of breath and elevated d-dimer PROCEDURE: CT ANGIOGRAPHY CHEST Examination: CT angiography chest HISTORY: History of shortness of breath, elevated d-dimer COMPARISON: 03/17/2018 Exposure: One or more of the following individualized dose reduction techniques were utilized for this examination: 1. Automated exposure control 2. Adjustment of the mA and/or kV according to patient size 3. Use of iterative reconstruction technique FINDINGS: The central airways are patent. The heart size grossly appears unremarkable. The caliber of the aorta grossly appears unremarkable. Coronary artery calcifications. There is no evidence of filling defect identified in the main pulmonary arterial trunk and right and left main pulmonary arteries and the visualized lobar, segmental branch of the pulmonary arteries. Diffuse bilateral lung emphysematous changes identified. There is linear consolidation identified in the right middle lobe of the lung likely atelectasis or consolidation. There is mild airspace opacity identified in the left lingula of the lung likely atelectasis or infiltrate. Mild bibasilar lung airspace opacities likely atelectasis or infiltrates. Cystic structures identified in the liver likely cysts similar to prior exam. Cholelithiasis partially visualized moderate degenerative changes thoracic spine. IMPRESSION: 1. No evidence of pulmonary embolism. 2. Linear airspace opacity identified in the right middle lobe, left lingula likely pneumonia or atelectasis. Mild bibasilar lung airspace opacities likely atelectasis or infiltrates. Severe lung emphysematous changes. 3. Cholelithiasis again identified. Electronically signed by: Blake Willson MD (12/19/2018 4:17 PM) [facility] DICTATED and SIGNED BY: BLAKE WILLSON MD DATE: 12/19/18 1610 Course & Med Decision Making Course & Med Decision Making Pertinent Labs and Imaging studies reviewed. (See chart for details) Evaluation of patient in ER showed 5-year-old male patient with history of COPD on 2 L of home oxygen obtaining of shortness of breath and cough and chest wall pain for 3 days. Patient had O2 sat of 90% on 3 L of oxygen improved to 94% on 5 L of oxygen. Patient had mild tachycardia that gradually improved with treatment in ER. Patient did not have elevation of lactic acid of white count or hypertension. Labs showed mild elevation of d-dimer and chest x-ray was concern for pneumonia. CT of chest did not show PE. Was concern for infestation. Plan to admit patient with diagnosis of hypoxia and CAP. Dragon Disclaimer Dragon Disclaimer This electronic medical record was generated, in whole or in part, using a voice recognition dictation system. Departure Departure Impression: Primary Impression: CAP (community acquired pneumonia) Additional Impressions: Hypoxia COPD exacerbation Chest wall pain Disposition: 09 ADMITTED INPATIENT (16 0) Admitting Physician: DILAN (Dr Gonzalez accepted admission at 1608) Condition: IMPROVED Referrals: SUE KELLY MD (PCP) Problem Qualifiers Primary Impression: CAP (community acquired pneumonia) Laterality: right Lung location: unspecified part of lung Qualified Codes: J18.9 - Pneumonia, unspecified organism JENN CARPIO MD Dec 19, 2018 15:35
[2018-12-19] MEDS ORDERED: cefTRIAXone IV Push 1 GM VIAL. IVP ONE (15:45)
[2018-12-19] MEDS ORDERED: IV NORMAL SALINE 1000ML BAG 1,000 ML IV ONE (15:45)
[2018-12-19] MEDS ORDERED: MORPHINE SULFATE 4 MG/ML VIAL. IV ONE (15:45)
--- NOTE | 2018-12-19 16:15 | PDOC1 ---
History and Physical Date of Admission Date of Admission DATE: 12/19/18 TIME: 16:08 Identification/Chief Complaint Chief Complaint Shortness of breath Source Source: Patient History of Present Illness History of Present Illness Mr Beltran is a 67-year-old male who has a history of severe COPD with last FEV1 of 1.4, which was 38% predicted. He is on chronic oxygen at 3 liters. He came to the hospital with cough with yellow sputum production. Denies any chest pain. He does have some pain in his left upper quadrant after a meal. No headache, no nausea or vomiting, no diarrhea. The patient says that the nebulizer treatment is helping him here more than home. His chest x-ray did reveal definite right lower lobe consolidation. He has some mild parenchymal scarring. CTPA was performed with severe hypoxia, tachycardia and h/o COPD with elevated d dimer, formal read is pending at this time, but I do not see any significant flow voids. He is asking for more IV pain meds, when he takes the IV fentanyl he thinks it helps with his breathing. However, changing from oxycodone to hydrocodone seemed to help previously. On ROS he had a BM this morning, but notes recently he has abdominal fullness and early satiety. He is also c/o left hand IV site burning, no sign of infiltration. Has f/u scheduled with pulm outpatient. Gets O2 and nebs through [facility]. Past Medical History Cardiovascular: No pertinent hx Pulmonary: Bronchitis, COPD, Pneumonia GI: GERD, Other Hepatobiliary: No pertinent hx Psych: No pertinent hx Musculoskeletal: low back pain Past Surgical History Past Surgical History: Hernia Repair, No pertinent history Family History Family History: Hypertension, Other Social History Smoke: Quit ALCOHOL: none Drugs: None Current Medications Current Medications Current Medications Albuterol/ Ipratropium (Duoneb) 3 ml 1X ONCE NEB Last administered on 12/19/18at 14:15; Start 12/19/18 at 14:00; Stop 12/19/18 at 14:01; Status DC Methylprednisolone Sodium Succinate (SOLU-Medrol 125MG VIAL) 125 mg 1X ONCE IV Last administered on 12/19/18at 14:06; Start 12/19/18 at 14:00; Stop 12/19/18 at 14:01; Status DC Fentanyl Citrate (Fentanyl 2ml Vial) 50 mcg 1X ONCE IV Last administered on 12/19/18at 14:15; Start 12/19/18 at 14:15; Stop 12/19/18 at 14:16; Status DC Iohexol (Omnipaque 350 Mg/ml) 100 ml 1X ONCE IV ; Start 12/19/18 at 15:30; Stop 12/19/18 at 15:31; Status DC Info (CONTRAST GIVEN -- Rx MONITORING) 1 each PRN DAILY PRN MC SEE COMMENTS; Start 12/19/18 at 15:30; Stop 12/21/18 at 15:29 Sodium Chloride 1,000 ml @ 1,000 mls/hr 1X ONCE IV Last administered on 12/19/18at 15:48; Start 12/19/18 at 15:45; Stop 12/19/18 at 16:44 Morphine Sulfate (Morphine Sulfate) 4 mg 1X ONCE IV Last administered on 12/19/18at 15:44; Start 12/19/18 at 15:45; Stop 12/19/18 at 15:46; Status DC Ceftriaxone Sodium (Rocephin) 1 gm 1X ONCE IVP Last administered on 12/19/18at 15:47; Start 12/19/18 at 15:45; Stop 12/19/18 at 15:46; Status DC Active Scripts Active Protonix (Pantoprazole Sodium) 20 Mg Tablet.dr 2 Tab PO BID Budesonide 0.5 Mg/2 Ml Ampul.neb 0.5 Mg NEB RTBID MDD 1 [guaiFENesin/CODEINE 100mg/10mg] 5 ML Liquid 5 Ml PO QID MDD 1 10 Days [place] 5-325 Tablet (Acetaminophen/Hydrocodone Bitart) 1 Each Tablet 1 Tab PO PRN Q6HRS PRN MDD 1 6 Days Polyethylene Glycol 3350 17 Gm Powd.pack 17 Gm PO DAILY 30 Days Senna-Time S Tablet (Sennosides/Docusate Sodium) 1 Each Tablet 2 Tab PO PRN BID PRN 30 Days Protonix (Pantoprazole Sodium) 20 Mg Tablet.dr 1 Tab PO DAILY Fluticasone Propionate Nasal Fisher (Fluticasone Propionate) 16 Gm Fisher.susp 2 Fisher NS DAILY 30 Days Reported Tamsulosin Hcl 0.4 Mg Cap.er.24h 1 Cap PO DAILY Amlodipine Besylate 5 Mg Tablet 5 Mg PO DAILY Losartan Potassium 50 Mg Tablet 50 Mg PO DAILY Duoneb 0.5-3(2.5) Mg/3 Ml (Albuterol/Ipratropium) 3 Ml Ampul.neb 3 Ml IH Q4HRS Advair 500-50 Diskus (Fluticasone/Salmeterol) 1 Each Disk.w.dev 1 Puff IH BID PRN Patient takes prn before bed if he feels he needs it Allergies Allergies: Coded Allergies: No Known Drug Allergies (Unverified , 09/12/14) ROS General: YES: Fatigue, Malaise, Appetite; No: Chills, Night Sweats, Other PSYCHOLOGICAL ROS: YES: Anxiety; No: Behavioral Disorder, Concentration difficultie, Decreased libido, Depression, Disorientation, Hallucinations, Hostility, Irritablity, Memory difficulties, Mood Swings, Obsessive thoughts, Physical abuse, Sexual abuse, Sleep disturbances, Suicidal ideation, Other Eyes: No Blurry vision, No Decreased vision, No Double vision, No Dry eyes, No Excessive tearing, No Eye Pain, No Itchy Eyes, No Loss of vision, No Photophobia, No Scotomata, No Uses contacts, No Uses glasses, No Other HEENT: No: Heacaches, Visual Changes, Hearing change, Nasal congestion, Nasal discharge, Oral lesions, Sinus pain, Sore Throat, Epistaxis, Sneezing, Snoring, Tinnitus, Vertigo, Vocal changes, Other ALLERGY AND IMMUNOLOGY: No: Hives, Insect Bite Sensitivity, Itchy/Watery Eyes, Nasal Congestion, Post Nasal Drip, Seasonal Allergies, Other Hematological and Lymphatic: No: Bleeding Problems, Blood Clots, Blood Transfusions, Brusing, Night Sweats, Pallor, Swollen Lymph Nodes, Other ENDOCRINE: No: Breast Changes, Galactorrhea, Hair Pattern Changes, Hot Flashes, Malaise/lethargy, Mood Swings, Palpitations, Polydipsia/polyuria, Skin Changes, Temperature Intolerance, Unexpected Weight Changes, Other Breast: No New/Changing Breast Lumps, No Nipple changes, No Nipple discharge, No Other Respiratory: YES: Cough, Pleuritic Pain, Shortness of breath, SOB with excertion, Sputum Changes, Tachypnea, Wheezing; No: Hemoptysis, Orthopnea, Stridor, Other Cardiovascular: No Chest Pain, No Palpitations, No Orthopnea, No Paroxysmal Noc. Dyspnea, No Edema, No Lt Headedness, No Other Gastrointestinal: Yes Nausea, Yes Abdominal Pain; No Vomiting, No Diarrhea, No Constipation, No Melena, No Hematochezia, No Other Genitourinary: No Dysuria, No Frequency, No Incontinence, No Hematuria, No Retention, No Discharge, No Urgency, No Pain, No Flank Pain, No Other, No , No , No , No , No , No , No Musculoskeletal: No Gait Disturbance, No Joint Pain, No Joint Stiffness, No Joint Swelling, No Muscle Pain, No Muscular Weakness, No Pain In:, No Swelling In:, No Other Neurological: No Behavorial Changes, No Bowel/Bladder ControlChng, No Confusion, No Dizziness, No Gait Disturbance, No Headaches, No Impaired Coord/balance, No Memory Loss, No Numbness/Tingling, No Seizures, No Speech Problems, No Tremors, No Visual Changes, No Weakness, No Other Skin: No Dry Skin, No Eczema, No Hair Changes, No Lumps, No Mole Changes, No Mottling, No Nail Changes, No Pruritus, No Rash, No Skin Lesion Changes, No Other, No Acne Physical Exam General: Alert, Oriented X3, Cooperative, No acute distress HEENT: Atraumatic, PERRLA, EOMI, Mucous membr. moist/pink Lungs: Other (Diffuse wheezing, some right sided crackles. prolonged expiratory phase, poor air movement) Abdomen: Normal bowel sounds, No tenderness, No hepatosplenomegaly, No masses, Other (Full abdomen) Rectal Exam: not examined Extremities: No clubbing, No cyanosis, No edema, Normal pulses, No tenderness/swelling Skin: No rashes, No breakdown, No significant lesion Neuro: Normal gait, Normal speech, Strength at 5/5 X4 ext, Normal tone, Sensation intact, Cranial nerves 3-12 NL, Reflexes 2+ Psych/Mental Status: Mental status NL, Mood NL Vitals Vitals Vital Signs Date Time Temp Pulse Resp B/P (MAP) Pulse Ox O2 Delivery O2 Flow Rate FiO2 12/19/18 15:44 20 12/19/18 15:14 88 132/72 (92) 12/19/18 14:15 92 Nasal Cannula 5.0 12/19/18 13:41 97.8 97.8 Labs Labs Laboratory Tests Test 12/19/18 13:50 12/19/18 14:10 White Blood Count 8.1 x10^3/uL (4.0-11.0) Red Blood Count 4.53 x10^6/uL (4.30-5.70) Hemoglobin 12.9 g/dL (13.0-17.5) Hematocrit 38.7 % (39.0-53.0) Mean Corpuscular Volume 85 fL (79-100) Mean Corpuscular Hemoglobin 28 pg (25-35) Mean Corpuscular Hemoglobin Concent 33 g/dL (31-37) Red Cell Distribution Width 15.7 % (11.5-14.5) Platelet Count 443 x10^3/uL (140-400) Neutrophils (%) (Auto) 45 % (31-73) Lymphocytes (%) (Auto) 35 % (24-48) Monocytes (%) (Auto) 11 % (0-9) Eosinophils (%) (Auto) 9 % (0-3) Basophils (%) (Auto) 1 % (0-3) Neutrophils # (Auto) 3.6 x10^3uL (1.8-7.7) Lymphocytes # (Auto) 2.8 x10^3/uL (1.0-4.8) Monocytes # (Auto) 0.9 x10^3/uL (0.0-1.1) Eosinophils # (Auto) 0.7 x10^3/uL (0.0-0.7) Basophils # (Auto) 0.1 x10^3/uL (0.0-0.2) D-Dimer (Kellee) 1.08 ug/mlFEU (0.00-0.50) Sodium Level 143 mmol/L (136-145) Potassium Level 4.2 mmol/L (3.5-5.1) Chloride Level 105 mmol/L (98-107) Carbon Dioxide Level 23 mmol/L (21-32) Anion Gap 15 (6-14) Blood Urea Nitrogen 14 mg/dL (8-26) Creatinine 0.9 mg/dL (0.7-1.3) Estimated GFR (Cockcroft-Gault) 83.4 BUN/Creatinine Ratio 16 (6-20) Glucose Level 90 mg/dL (70-99) Lactic Acid Level 0.8 mmol/L (0.4-2.0) Calcium Level 9.3 mg/dL (8.5-10.1) Total Bilirubin 0.7 mg/dL (0.2-1.0) Aspartate Amino Transf (AST/SGOT) 17 U/L (15-37) Alanine Aminotransferase (ALT/SGPT) 21 U/L (16-63) Alkaline Phosphatase 90 U/L (46-116) Creatine Kinase 43 U/L (39-308) Troponin I Quantitative < 0.017 ng/mL (0.000-0.055) DO-Uct-D-Type Natriuretic Peptide 21 pg/mL (0-124) Total Protein 7.2 g/dL (6.4-8.2) Albumin 3.8 g/dL (3.4-5.0) Albumin/Globulin Ratio 1.1 (1.0-1.7) O2 Saturation 92 % (92-99) Arterial Blood pH 7.41 (7.35-7.45) Arterial Blood pCO2 at Patient Temp 38 mmHg (35-46) Arterial Blood pO2 at Patient Temp 62 mmHg (65-108) Arterial Blood HCO3 24 mmol/L (21-28) Arterial Blood Base Excess -1 mmol/L (-3-3) FiO2 40% nc Laboratory Tests Test 12/19/18 13:50 12/19/18 14:10 White Blood Count 8.1 x10^3/uL (4.0-11.0) Red Blood Count 4.53 x10^6/uL (4.30-5.70) Hemoglobin 12.9 g/dL (13.0-17.5) Hematocrit 38.7 % (39.0-53.0) Mean Corpuscular Volume 85 fL (79-100) Mean Corpuscular Hemoglobin 28 pg (25-35) Mean Corpuscular Hemoglobin Concent 33 g/dL (31-37) Red Cell Distribution Width 15.7 % (11.5-14.5) Platelet Count 443 x10^3/uL (140-400) Neutrophils (%) (Auto) 45 % (31-73) Lymphocytes (%) (Auto) 35 % (24-48) Monocytes (%) (Auto) 11 % (0-9) Eosinophils (%) (Auto) 9 % (0-3) Basophils (%) (Auto) 1 % (0-3) Neutrophils # (Auto) 3.6 x10^3uL (1.8-7.7) Lymphocytes # (Auto) 2.8 x10^3/uL (1.0-4.8) Monocytes # (Auto) 0.9 x10^3/uL (0.0-1.1) Eosinophils # (Auto) 0.7 x10^3/uL (0.0-0.7) Basophils # (Auto) 0.1 x10^3/uL (0.0-0.2) D-Dimer (Kellee) 1.08 ug/mlFEU (0.00-0.50) Sodium Level 143 mmol/L (136-145) Potassium Level 4.2 mmol/L (3.5-5.1) Chloride Level 105 mmol/L (98-107) Carbon Dioxide Level 23 mmol/L (21-32) Anion Gap 15 (6-14) Blood Urea Nitrogen 14 mg/dL (8-26) Creatinine 0.9 mg/dL (0.7-1.3) Estimated GFR (Cockcroft-Gault) 83.4 BUN/Creatinine Ratio 16 (6-20) Glucose Level 90 mg/dL (70-99) Lactic Acid Level 0.8 mmol/L (0.4-2.0) Calcium Level 9.3 mg/dL (8.5-10.1) Total Bilirubin 0.7 mg/dL (0.2-1.0) Aspartate Amino Transf (AST/SGOT) 17 U/L (15-37) Alanine Aminotransferase (ALT/SGPT) 21 U/L (16-63) Alkaline Phosphatase 90 U/L (46-116) Creatine Kinase 43 U/L (39-308) Troponin I Quantitative < 0.017 ng/mL (0.000-0.055) SZ-Ovi-E-Type Natriuretic Peptide 21 pg/mL (0-124) Total Protein 7.2 g/dL (6.4-8.2) Albumin 3.8 g/dL (3.4-5.0) Albumin/Globulin Ratio 1.1 (1.0-1.7) O2 Saturation 92 % (92-99) Arterial Blood pH 7.41 (7.35-7.45) Arterial Blood pCO2 at Patient Temp 38 mmHg (35-46) Arterial Blood pO2 at Patient Temp 62 mmHg (65-108) Arterial Blood HCO3 24 mmol/L (21-28) Arterial Blood Base Excess -1 mmol/L (-3-3) FiO2 40% nc Images Images CXR - Focus of airspace opacity identified in the right lung base likely pneumonia or atelectasis. Follow-up to resolution. CTPA - 1. No evidence of pulmonary embolism. 2. Linear airspace opacity identified in the right middle lobe, left lingula likely pneumonia or atelectasis. Mild bibasilar lung airspace opacities likely atelectasis or infiltrates. Severe lung emphysematous changes. 3. Cholelithiasis again identified. VTE Prophylaxis Ordered VTE Prophylaxis Devices: Yes VTE Pharmacological Prophylaxi: Yes Assessment/Plan Assessment/Plan A/P: RLL Pneumonia - recent hospital stay, needs HCAP treatment and with COPD high risk for likely infection with gram negative organism such as pseudomonas COPD exacerbation - steroids, antibiotics, nebs. Consult pulm Hypoxic respiratory failure, home O2 dependency 3.5 liters 24/7. Needs more than his home requirements likely 2/2 pneumonia Sepsis - with RR and tachycardia, given fluids in ED. Empiric HCAP antibiotics, vanco and zosyn Smoker - recently quit after hospital stay obesity BMI 32 - counseled on weight loss GERD - will cont PPI Left hand pain - at IV site, looks good, will advise a second IV site for meds. FEN - General diet PPX - lovenox FULL CODE Inpatient med/surg for acute COPD exacerbation, likely 2 midnights inpatient TOD CHOWDARY MD Dec 19, 2018 16:15
--- NOTE | 2018-12-19 16:20 | RAD ---
Examination: CT angiography chest HISTORY: History of shortness of breath, elevated d-dimer COMPARISON: 03/17/2018 Exposure: One or more of the following individualized dose reduction techniques were utilized for this examination: 1. Automated exposure control 2. Adjustment of the mA and/or kV according to patient size 3. Use of iterative reconstruction technique FINDINGS: The central airways are patent. The heart size grossly appears unremarkable. The caliber of the aorta grossly appears unremarkable. Coronary artery calcifications. There is no evidence of filling defect identified in the main pulmonary arterial trunk and right and left main pulmonary arteries and the visualized lobar, segmental branch of the pulmonary arteries. Diffuse bilateral lung emphysematous changes identified. There is linear consolidation identified in the right middle lobe of the lung likely atelectasis or consolidation. There is mild airspace opacity identified in the left lingula of the lung likely atelectasis or infiltrate. Mild bibasilar lung airspace opacities likely atelectasis or infiltrates. Cystic structures identified in the liver likely cysts similar to prior exam. Cholelithiasis partially visualized moderate degenerative changes thoracic spine. IMPRESSION: 1. No evidence of pulmonary embolism. 2. Linear airspace opacity identified in the right middle lobe, left lingula likely pneumonia or atelectasis. Mild bibasilar lung airspace opacities likely atelectasis or infiltrates. Severe lung emphysematous changes. 3. Cholelithiasis again identified. Electronically signed by: Blake Willson MD (12/19/2018 4:17 PM) [facility]
[2018-12-19] MEDS ORDERED: DOXYCYCLINE HYCLATE 100 MG TABLET PO ONE (16:30)
[2018-12-19] MEDS ORDERED: VANCOMYCIN 1.25 GM in IV NORMAL SALINE 250ML 250 ML IV SCH (17:15)
[2018-12-19] MEDS ORDERED: HYDROcodone/APAP 5/325MG 1 TAB TABLET PO PRN (17:15)
[2018-12-19] MEDS ORDERED: SENNOSIDES/DOCUSATE 8.6/50MG TABLET. PO PRN (17:15)
--- NOTE | 2018-12-19 17:20 | NUR ---
This patient was transported up by [email or web address], was able to ambulate to the bed with SBA. Patient denies pain at this time. Security called to collect $52, and also assist with placing handicap marker in patient's truck/locked the truck. This nurse will continue to monitor. Patient's oxygen was here on admission as well left in the room.
[2018-12-19] MEDS ORDERED: VANCOMYCIN 2 GM in IV NORMAL SALINE 500ML BAG 500 ML IV ONE (17:30)
[2018-12-19 17:31] VITALS: BP 133/67
--- NOTE | 2018-12-19 17:55 | EKG ---
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
[2018-12-19] MEDS: PIPERACILLIN/TAZOBACTAM 3.375 GM in IV NORMAL SALINE 50ML 50 ML IV SCH ×2 (18:00→21:28)
[2018-12-19] MEDS: VANCOMYCIN PER PHARMACY MC PRN (18:37)
--- NOTE | 2018-12-19 18:39 | NUR ---
Pharmacy Vancomycin Dosing Note S:Consulted to monitor and dose vancomycin started 12/19/18. O:JESSIE BRANHAM is a 68 year old M with HCAP. Height: 6 feet, 0 inches Weight: 102.1 kg Dosing Weight: Actual Other Antibiotics: ZOSYN 3.375G IV Q6HRS LABS: Last BUN: 14 Last Creatinine: 0.9 Creatinine Clearance: 83 mL/min Last WBC: 8.1 Last Procalcitonin: on order Tmax (past 24 hours): 97.9 Microbiology: BLOOD CX PENDING A: Patient requires vancomycin for HCAP, goal trough 15-20 mcg/ml. Patient's SCr is 0.9 with an eCrCl of 83 ml/min. Initiate the following: P: 1. Initiate Vancomycin 2000 mg IV x 1 dose, then 1500 mg IV q12h 2. Follow up Trough level on 12/21/18 at 0730 3. Pharmacy will continue to monitor, follow and adjust therapy as needed. CHERYL CAMPOS [facility], 12/19/18 [id number]
[2018-12-19 19:00] VITALS: BP 136/82
--- NOTE | 2018-12-19 21:29 | NUR ---
Pt has refused the midnight dose of zosyn, he states he hasn't slept in 2 days, and would like to have little disturbance in the night. Pt is showing signs of anxious behavior. He is worried about the IV keeping him awake.
[2018-12-19] MEDS ORDERED: LORazepam 1 MG TABLET PO PRN (21:30)
[2018-12-19] MEDS ORDERED: ALPR1TAB6 PO (21:39)
[2018-12-19] MEDS: BUDESONIDE 0.5 MG/2 ML NEBU. NEB SCH (22:06)
[2018-12-19] MEDS: IPRATRPIUM/ALBUTEROL 0.5/2.5MG 3 ML NEBU. IH SCH ×2 (22:06→22:26)
[2018-12-19] MEDS: fentaNYL PF VIAL 100 MCG/2 ML VIAL IV PRN (22:28)
[2018-12-19 23:00] VITALS: BP 118/78
[2018-12-19] MEDS: ALPRAZolam 1 MG TABLET PO PRN ×2 (23:27→23:30)
[2018-12-20] MEDS: IPRATRPIUM/ALBUTEROL 0.5/2.5MG 3 ML NEBU. IH SCH ×4 (00:11→14:42)
[2018-12-20] MEDS: PIPERACILLIN/TAZOBACTAM 3.375 GM in IV NORMAL SALINE 50ML 50 ML IV SCH ×3 (06:05→17:29)
[2018-12-20] MEDS: fentaNYL PF VIAL 100 MCG/2 ML VIAL IV PRN ×3 (06:11→15:37)
[2018-12-20 07:00] VITALS: BP 119/75
[2018-12-20] MEDS: BUDESONIDE 0.5 MG/2 ML NEBU. NEB SCH (07:01)
[2018-12-20] MEDS ORDERED: PANTOPRAZOLE 40 MG TABLET.DR. PO SCH (07:30)
[2018-12-20] MEDS ORDERED: VANCOMYCIN 1.5 GM in IV NORMAL SALINE 500ML BAG 500 ML IV SCH (08:00)
[2018-12-20] MEDS ORDERED: POLYETHYLENE GLYCOL 3350 17 GM PACKET. PO SCH (09:00)
[2018-12-20] MEDS ORDERED: amLODIPine BESYLATE 5 MG TABLET PO SCH (09:00)
[2018-12-20] MEDS ORDERED: FLUTICASONE 50MCG/NASAL SPRAY 16GM BOTTLE. NS SCH (09:00)
[2018-12-20] MEDS ORDERED: TAMSULOSIN 0.4 MG CAP.ER.24H. PO SCH (09:00)
[2018-12-20] MEDS ORDERED: LOSARTAN POTASSIUM 50 MG TABLET. PO SCH (09:00)
[2018-12-20 11:00] VITALS: BP 136/77
--- NOTE | 2018-12-20 13:24 | CONS ---
DATE OF CONSULTATION: ATTENDING PHYSICIAN: Dr. Gonzalez. REASON FOR CONSULTATION: Dyspnea. HISTORY OF PRESENT ILLNESS: The patient is very well known to me, he has history of severe COPD with chronic hypoxic respiratory failure, is on home oxygen at 3 liters. Last FEV1 was 1.4, which was 38% predicted. He presented to the hospital with cough, which has been occasionally productive of light yellow sputum production, but mostly he is unable to bring up the phlegm. He feels like the mucus is stuck in his chest. He says when he bends over he becomes hypoxic. The patient's chest x-ray and CT chest was performed, which was reviewed by me. There was no evidence of pulmonary embolism on CT chest. There is some linear atelectasis in the right middle lobe and left lingula, and some basal atelectasis as well. There is evidence of severe emphysema. No headaches, no nausea or vomiting, no diarrhea, no dysuria, no focal weakness. PAST MEDICAL HISTORY: Severe chronic obstructive pulmonary disease, history of chronic respiratory failure. PAST SURGICAL HISTORY: Hernia repair. FAMILY HISTORY: Hypertension. SOCIAL HISTORY: Quit tobacco 15+ years ago, smoked for 35-40 years. REVIEW OF SYSTEMS: Twelve-point system obtained. Pertinent positives discussed in my history of present illness, otherwise noncontributory. All systems that were negative were reviewed as above. ALLERGIES: None. MEDICATIONS: All reviewed as listed in the MRAD including antibiotics. PHYSICAL EXAMINATION: VITAL SIGNS: Reviewed. Afebrile, pulse ox 93% on 3 liters. NECK: Supple. LUNGS: With faint expiratory wheezes. CARDIOVASCULAR: Regular. ABDOMEN: Soft. EXTREMITIES: With no pitting edema. LABORATORY DATA: Reviewed. White cell count 8.1, hemoglobin 12.9 and platelets are 443. ABGs with a pH of 7.41, pCO2 of 30 and a pO2 of 62 on 40% FiO2. D-dimer 1.08. IMPRESSION: 1. Dyspnea secondary to acute exacerbation of chronic obstructive pulmonary disease. 2. Acute bronchitis. 3. Abnormal CT chest with likely atelectasis, which is linear in the right middle lobe and lingula and some basal atelectasis. Clinically, less likely pneumonia. 4. Increased weight gain and abdominal girth also contributing to basal atelectasis. RECOMMENDATIONS: 1. Continue with present oxygen. 2. Continue present bronchodilators. 3. Continue antibiotics. 4. Incentive spirometry with aggressive pulmonary toilet. 5. Weight loss is strongly emphasized to the patient. 6. Obtain sputum cultures once available. 7. Possible discharge in the next 48 hours. KRISTINA OROPEZA MD DR: ELAINA/ramo JOB#: [id number] / [id number]
--- NOTE | 2018-12-20 13:47 | PDOC ---
PROGRESS NOTES Chief Complaint Chief Complaint RLL Pneumonia - recent hospital stay, needs HCAP treatment and with COPD high risk for likely infection with gram negative organism such as pseudomonas COPD exacerbation - steroids, antibiotics, nebs. Consult pulm Hypoxic respiratory failure, home O2 dependency 3.5 liters 10/02. Needs more than his home requirements likely 2/2 pneumonia Sepsis - with RR and tachycardia, given fluids in ED. Empiric HCAP antibiotics, vanco and zosyn Smoker - recently quit after hospital stay obesity BMI 32 - counseled on weight loss GERD - will cont PPI Left hand pain - at IV site, looks good, will advise a second IV site for meds. FEN - General diet PPX - lovenox FULL CODE Inpatient med/surg for acute COPD exacerbation, likely 2 midnights inpatient History of Present Illness History of Present Illness Patient feeling better compared to admission. Denies fever chills respiratory status is greatly improved, still having cough productive of sputum greenish in color. No concerns voiced during my visit plan of care discussed in detail Vitals Vitals Vital Signs Date Time Temp Pulse Resp B/P (MAP) Pulse Ox O2 Delivery O2 Flow Rate FiO2 12/20/18 11:30 93 Nasal Cannula 3.0 12/20/18 11:00 97.7 98 14 136/77 (96) 97.7 Physical Exam General: Alert, Oriented X3, Cooperative, No acute distress Lungs: Wheezing Abdomen: Normal bowel sounds, No tenderness, No hepatosplenomegaly, No masses, Other (Full abdomen) Extremities: No clubbing, No cyanosis, No edema, Normal pulses, No tenderness/swelling Skin: No rashes, No breakdown, No significant lesion Labs LABS Laboratory Tests Test 12/19/18 13:50 12/19/18 14:10 White Blood Count 8.1 x10^3/uL (4.0-11.0) Red Blood Count 4.53 x10^6/uL (4.30-5.70) Hemoglobin 12.9 g/dL (13.0-17.5) Hematocrit 38.7 % (39.0-53.0) Mean Corpuscular Volume 85 fL (79-100) Mean Corpuscular Hemoglobin 28 pg (25-35) Mean Corpuscular Hemoglobin Concent 33 g/dL (31-37) Red Cell Distribution Width 15.7 % (11.5-14.5) Platelet Count 443 x10^3/uL (140-400) Neutrophils (%) (Auto) 45 % (31-73) Lymphocytes (%) (Auto) 35 % (24-48) Monocytes (%) (Auto) 11 % (0-9) Eosinophils (%) (Auto) 9 % (0-3) Basophils (%) (Auto) 1 % (0-3) Neutrophils # (Auto) 3.6 x10^3uL (1.8-7.7) Lymphocytes # (Auto) 2.8 x10^3/uL (1.0-4.8) Monocytes # (Auto) 0.9 x10^3/uL (0.0-1.1) Eosinophils # (Auto) 0.7 x10^3/uL (0.0-0.7) Basophils # (Auto) 0.1 x10^3/uL (0.0-0.2) D-Dimer (Kellee) 1.08 ug/mlFEU (0.00-0.50) Sodium Level 143 mmol/L (136-145) Potassium Level 4.2 mmol/L (3.5-5.1) Chloride Level 105 mmol/L (98-107) Carbon Dioxide Level 23 mmol/L (21-32) Anion Gap 15 (6-14) Blood Urea Nitrogen 14 mg/dL (8-26) Creatinine 0.9 mg/dL (0.7-1.3) Estimated GFR (Cockcroft-Gault) 83.4 BUN/Creatinine Ratio 16 (6-20) Glucose Level 90 mg/dL (70-99) Lactic Acid Level 0.8 mmol/L (0.4-2.0) Calcium Level 9.3 mg/dL (8.5-10.1) Total Bilirubin 0.7 mg/dL (0.2-1.0) Aspartate Amino Transf (AST/SGOT) 17 U/L (15-37) Alanine Aminotransferase (ALT/SGPT) 21 U/L (16-63) Alkaline Phosphatase 90 U/L (46-116) Creatine Kinase 43 U/L (39-308) Troponin I Quantitative < 0.017 ng/mL (0.000-0.055) TA-Hbi-O-Type Natriuretic Peptide 21 pg/mL (0-124) Total Protein 7.2 g/dL (6.4-8.2) Albumin 3.8 g/dL (3.4-5.0) Albumin/Globulin Ratio 1.1 (1.0-1.7) O2 Saturation 92 % (92-99) Arterial Blood pH 7.41 (7.35-7.45) Arterial Blood pCO2 at Patient Temp 38 mmHg (35-46) Arterial Blood pO2 at Patient Temp 62 mmHg (65-108) Arterial Blood HCO3 24 mmol/L (21-28) Arterial Blood Base Excess -1 mmol/L (-3-3) FiO2 40% nc Review of Systems Review of Systems Pertinent as per history of present illness otherwise 14 point review of system is negative Assessment and Plan Assessmemt and Plan Problems Medical Problems: (1) CAP (community acquired pneumonia) Status: Acute (2) Chest wall pain Status: Acute (3) COPD exacerbation Status: Acute Comment Review of Relevant I have reviewed the following items tim (where applicable) has been applied. Labs Laboratory Tests Test 12/19/18 13:50 12/19/18 14:10 White Blood Count 8.1 x10^3/uL (4.0-11.0) Red Blood Count 4.53 x10^6/uL (4.30-5.70) Hemoglobin 12.9 g/dL (13.0-17.5) Hematocrit 38.7 % (39.0-53.0) Mean Corpuscular Volume 85 fL (79-100) Mean Corpuscular Hemoglobin 28 pg (25-35) Mean Corpuscular Hemoglobin Concent 33 g/dL (31-37) Red Cell Distribution Width 15.7 % (11.5-14.5) Platelet Count 443 x10^3/uL (140-400) Neutrophils (%) (Auto) 45 % (31-73) Lymphocytes (%) (Auto) 35 % (24-48) Monocytes (%) (Auto) 11 % (0-9) Eosinophils (%) (Auto) 9 % (0-3) Basophils (%) (Auto) 1 % (0-3) Neutrophils # (Auto) 3.6 x10^3uL (1.8-7.7) Lymphocytes # (Auto) 2.8 x10^3/uL (1.0-4.8) Monocytes # (Auto) 0.9 x10^3/uL (0.0-1.1) Eosinophils # (Auto) 0.7 x10^3/uL (0.0-0.7) Basophils # (Auto) 0.1 x10^3/uL (0.0-0.2) D-Dimer (Kellee) 1.08 ug/mlFEU (0.00-0.50) Sodium Level 143 mmol/L (136-145) Potassium Level 4.2 mmol/L (3.5-5.1) Chloride Level 105 mmol/L (98-107) Carbon Dioxide Level 23 mmol/L (21-32) Anion Gap 15 (6-14) Blood Urea Nitrogen 14 mg/dL (8-26) Creatinine 0.9 mg/dL (0.7-1.3) Estimated GFR (Cockcroft-Gault) 83.4 BUN/Creatinine Ratio 16 (6-20) Glucose Level 90 mg/dL (70-99) Lactic Acid Level 0.8 mmol/L (0.4-2.0) Calcium Level 9.3 mg/dL (8.5-10.1) Total Bilirubin 0.7 mg/dL (0.2-1.0) Aspartate Amino Transf (AST/SGOT) 17 U/L (15-37) Alanine Aminotransferase (ALT/SGPT) 21 U/L (16-63) Alkaline Phosphatase 90 U/L (46-116) Creatine Kinase 43 U/L (39-308) Troponin I Quantitative < 0.017 ng/mL (0.000-0.055) VG-Gii-N-Type Natriuretic Peptide 21 pg/mL (0-124) Total Protein 7.2 g/dL (6.4-8.2) Albumin 3.8 g/dL (3.4-5.0) Albumin/Globulin Ratio 1.1 (1.0-1.7) O2 Saturation 92 % (92-99) Arterial Blood pH 7.41 (7.35-7.45) Arterial Blood pCO2 at Patient Temp 38 mmHg (35-46) Arterial Blood pO2 at Patient Temp 62 mmHg (65-108) Arterial Blood HCO3 24 mmol/L (21-28) Arterial Blood Base Excess -1 mmol/L (-3-3) FiO2 40% nc Laboratory Tests Test 12/19/18 13:50 6/1/19 14:10 White Blood Count 8.1 x10^3/uL (4.0-11.0) Red Blood Count 4.53 x10^6/uL (4.30-5.70) Hemoglobin 12.9 g/dL (13.0-17.5) Hematocrit 38.7 % (39.0-53.0) Mean Corpuscular Volume 85 fL (79-100) Mean Corpuscular Hemoglobin 28 pg (25-35) Mean Corpuscular Hemoglobin Concent 33 g/dL (31-37) Red Cell Distribution Width 15.7 % (11.5-14.5) Platelet Count 443 x10^3/uL (140-400) Neutrophils (%) (Auto) 45 % (31-73) Lymphocytes (%) (Auto) 35 % (24-48) Monocytes (%) (Auto) 11 % (0-9) Eosinophils (%) (Auto) 9 % (0-3) Basophils (%) (Auto) 1 % (0-3) Neutrophils # (Auto) 3.6 x10^3uL (1.8-7.7) Lymphocytes # (Auto) 2.8 x10^3/uL (1.0-4.8) Monocytes # (Auto) 0.9 x10^3/uL (0.0-1.1) Eosinophils # (Auto) 0.7 x10^3/uL (0.0-0.7) Basophils # (Auto) 0.1 x10^3/uL (0.0-0.2) D-Dimer (Kellee) 1.08 ug/mlFEU (0.00-0.50) Sodium Level 143 mmol/L (136-145) Potassium Level 4.2 mmol/L (3.5-5.1) Chloride Level 105 mmol/L (98-107) Carbon Dioxide Level 23 mmol/L (21-32) Anion Gap 15 (6-14) Blood Urea Nitrogen 14 mg/dL (8-26) Creatinine 0.9 mg/dL (0.7-1.3) Estimated GFR (Cockcroft-Gault) 83.4 BUN/Creatinine Ratio 16 (6-20) Glucose Level 90 mg/dL (70-99) Lactic Acid Level 0.8 mmol/L (0.4-2.0) Calcium Level 9.3 mg/dL (8.5-10.1) Total Bilirubin 0.7 mg/dL (0.2-1.0) Aspartate Amino Transf (AST/SGOT) 17 U/L (15-37) Alanine Aminotransferase (ALT/SGPT) 21 U/L (16-63) Alkaline Phosphatase 90 U/L (46-116) Creatine Kinase 43 U/L (39-308) Troponin I Quantitative < 0.017 ng/mL (0.000-0.055) IA-Gbr-O-Type Natriuretic Peptide 21 pg/mL (0-124) Total Protein 7.2 g/dL (6.4-8.2) Albumin 3.8 g/dL (3.4-5.0) Albumin/Globulin Ratio 1.1 (1.0-1.7) O2 Saturation 92 % (92-99) Arterial Blood pH 7.41 (7.35-7.45) Arterial Blood pCO2 at Patient Temp 38 mmHg (35-46) Arterial Blood pO2 at Patient Temp 62 mmHg (65-108) Arterial Blood HCO3 24 mmol/L (21-28) Arterial Blood Base Excess -1 mmol/L (-3-3) FiO2 40% nc Medications Current Medications Albuterol/ Ipratropium (Duoneb) 3 ml 1X ONCE NEB Last administered on 12/19/18at 14:15; Start 12/19/18 at 14:00; Stop 12/19/18 at 14:01; Status DC Methylprednisolone Sodium Succinate (SOLU-Medrol 125MG VIAL) 125 mg 1X ONCE IV Last administered on 12/19/18at 14:06; Start 12/19/18 at 14:00; Stop 12/19/18 at 14:01; Status DC Fentanyl Citrate (Fentanyl 2ml Vial) 50 mcg 1X ONCE IV Last administered on 12/19/18at 14:15; Start 12/19/18 at 14:15; Stop 12/19/18 at 14:16; Status DC Iohexol (Omnipaque 350 Mg/ml) 100 ml 1X ONCE IV Last administered on 12/19/18at 16:00; Start 12/19/18 at 15:30; Stop 12/19/18 at 15:31; Status DC Info (CONTRAST GIVEN -- Rx MONITORING) 1 each PRN DAILY PRN MC SEE COMMENTS; Start 12/19/18 at 15:30; Stop 12/21/18 at 15:29 Sodium Chloride 1,000 ml @ 1,000 mls/hr 1X ONCE IV Last administered on 12/19/18at 15:48; Start 12/19/18 at 15:45; Stop 12/19/18 at 16:44; Status DC Morphine Sulfate (Morphine Sulfate) 4 mg 1X ONCE IV Last administered on 12/19/18at 15:44; Start 12/19/18 at 15:45; Stop 12/19/18 at 15:46; Status DC Ceftriaxone Sodium (Rocephin) 1 gm 1X ONCE IVP Last administered on 12/19/18at 15:47; Start 12/19/18 at 15:45; Stop 12/19/18 at 17:15; Status DC Doxycycline Hyclate (Vibra-Tab) 100 mg 1X ONCE PO Last administered on 12/19/18at 16:38; Start 12/19/18 at 16:30; Stop 12/19/18 at 17:15; Status DC Vancomycin HCl 1.25 gm/Sodium Chloride 250 ml @ 167 mls/hr Q12H IV ; Start 12/19/18 at 17:15; Status UNV Piperacillin Sod/ Tazobactam Sod 3.375 gm/Sodium Chloride 50 ml @ 100 mls/hr Q6HRS IV Last administered on 12/20/18at 13:06; Start 12/19/18 at 18:00 Amlodipine Besylate (Norvasc) 5 mg DAILY PO Last administered on 12/20/18at 08:01; Start 12/20/18 at 09:00 Budesonide (Pulmicort) 0.5 mg RTBID NEB Last administered on 12/20/18at 07:01; Start 12/19/18 at 20:00 Fluticasone Propionate (Flonase) 2 spray DAILY NS Last administered on 12/20/18 08:03; Start 12/20/18 at 09:00 Acetaminophen/ Hydrocodone Bitart (Lortab 5/325) 1 tab PRN Q6HRS PRN PO PAIN Last administered on 12/20/18 08:01; Start 12/19/18 at 17:15 Albuterol/ Ipratropium (Duoneb) 3 ml Q4HRS IH Last administered on 12/20/18at 10:54; Start 12/19/18 at 20:00 Losartan Potassium (Cozaar) 50 mg DAILY PO Last administered on 12/20/18at 08:01; Start 12/20/18 at 09:00 Senna/Docusate Sodium (Senna Plus) 2 tab PRN BID PRN PO CONSTIPATION; Start 12/19/18 at 17:15 Tamsulosin HCl (Flomax) 0.4 mg DAILY PO Last administered on 12/20/18at 08:01; Start 12/20/18 at 09:00 Pantoprazole Sodium (Protonix) 40 mg DAILYAC PO Last administered on 12/20/18at 06:05; Start 12/20/18 at 07:30 Polyethylene Glycol (miraLAX PACKET) 17 gm DAILY PO Last administered on 12/20/18at 10:50; Start 12/20/18 at 09:00 Fentanyl Citrate (Fentanyl 2ml Vial) 25 mcg PRN Q4HRS PRN IV PAIN Last administered on 12/20/18at 11:00; Start 12/19/18 at 17:15 Vancomycin HCl 2 gm/Sodium Chloride 500 ml @ 250 mls/hr 1X ONCE IV Last administered on 12/19/18at 21:24; Start 12/19/18 at 17:30; Stop 12/19/18 at 19:29; Status DC Vancomycin HCl (Vanco Per Pharmacy) 1 each PRN DAILY PRN MC SEE COMMENTS Last administered on 12/19/18at 18:37; Start 12/19/18 at 18:45 Vancomycin HCl 1.5 gm/Sodium Chloride 500 ml @ 250 mls/hr Q12H IV Last administered on 12/20/18at 08:03; Start 12/20/18 at 08:00 Vancomycin HCl (Vancomycin Trough Level) 1 each 1X ONCE MC ; Start 12/21/18 at 07:30; Stop 12/21/18 at 07:31 Lorazepam (Ativan) 1 mg PRN Q6HRS PRN PO ANXIETY / AGITATION; Start 12/19/18 at 21:30; Stop 12/19/18 at 21:41; Status DC Alprazolam (Xanax) 1 mg PRN Q6HRS PRN PO ANXIETY / AGITATION Last administered on 12/19/18at 23:30; Start 12/19/18 at 21:45 Lactobacillus Rhamnosus (Culturelle) 1 cap BID PO ; Start 12/20/18 at 21:00 Active Scripts Active Protonix (Pantoprazole Sodium) 20 Mg Tablet.dr 2 Tab PO BID Budesonide 0.5 Mg/2 Ml Ampul.neb 0.5 Mg NEB RTBID MDD 1 [guaiFENesin/CODEINE 100mg/10mg] 5 ML Liquid 5 Ml PO QID MDD 1 10 Days [place] 5-325 Tablet (Acetaminophen/Hydrocodone Bitart) 1 Each Tablet 1 Tab PO PRN Q6HRS PRN MDD 1 6 Days Polyethylene Glycol 3350 17 Gm Powd.pack 17 Gm PO DAILY 30 Days Senna-Time S Tablet (Sennosides/Docusate Sodium) 1 Each Tablet 2 Tab PO PRN BID PRN 30 Days Protonix (Pantoprazole Sodium) 20 Mg Tablet.dr 1 Tab PO DAILY Fluticasone Propionate Nasal [place] (Fluticasone Propionate) 16 Gm [place].susp 2 [place] NS DAILY 30 Days Reported Alprazolam 1 Mg Tablet 1 Mg PO PRN Q6-8HRS PRN Tamsulosin Hcl 0.4 Mg Cap.er.24h 1 Cap PO DAILY Amlodipine Besylate 5 Mg Tablet 5 Mg PO DAILY Losartan Potassium 50 Mg Tablet 50 Mg PO DAILY Duoneb 0.5-3(2.5) Mg/3 Ml (Albuterol/Ipratropium) 3 Ml Ampul.neb 3 Ml IH Q4HRS Advair 500-50 Diskus (Fluticasone/Salmeterol) 1 Each Disk.w.dev 1 Puff IH BID PRN Patient takes prn before bed if he feels he needs it Vitals/I & O Vital Sign - Last 24 Hours 12/19/18 12/19/18 12/19/18 12/19/18 14:10 14:15 14:15 14:45 Resp 22 20 Pulse Ox 92 O2 Delivery Nasal Cannula O2 Flow Rate 5.0 5.0 12/19/18 12/19/18 12/19/18 12/19/18 15:14 15:44 17:31 18:00 Temp 97.9 97.9 Pulse 88 106 Resp 20 20 20 B/P (MAP) 132/72 (92) 133/67 (89) Pulse Ox 93 O2 Delivery Nasal Cannula Nasal Cannula O2 Flow Rate 5.0 5.0 6/112/19/18 12/19/18 12/19/18 19:00 20:20 22:05 22:28 Temp 97.4 97.4 Pulse 112 Resp 18 B/P (MAP) 136/82 (100) Pulse Ox 93 95 95 O2 Delivery Nasal Cannula Nasal Cannula Nasal Cannula Nasal Cannula O2 Flow Rate 5.0 4.0 3.0 4.0 12/19/18 12/20/18 12/20/18 12/20/18 23:00 06:11 07:00 07:02 Temp 98.2 97.4 98.2 97.4 Pulse 104 90 Resp 18 14 B/P (MAP) 118/78 (91) 119/75 (90) Pulse Ox 92 95 93 O2 Delivery Nasal Cannula Nasal Cannula Nasal Cannula Nasal Cannula O2 Flow Rate 4.0 4.0 4.0 3.0 12/20/18 12/20/18 12/20/18 12/20/18 07:30 08:01 08:01 08:01 Pulse 90 90 B/P (MAP) 119/75 119/75 Pulse Ox 93 O2 Delivery Nasal Cannula Nasal Cannula O2 Flow Rate 3.0 3.0 12/20/18 12/20/18 12/20/18 12/20/18 09:00 10:54 11:00 11:00 Temp 97.7 97.7 Pulse 98 Resp 14 B/P (MAP) 136/77 (96) Pulse Ox 93 92 O2 Delivery Nasal Cannula Nasal Cannula Nasal Cannula Nasal Cannula O2 Flow Rate 3.0 3.0 3.0 4.0 12/20/18 11:30 Pulse Ox 93 O2 Delivery Nasal Cannula O2 Flow Rate 3.0 Intake and Output 12/19/18 12/19/18 12/20/18 15:00 23:00 07:00 Output Total 425 ml Balance -425 ml MOISES GREGG MD Dec 20, 2018 13:47
--- NOTE | 2018-12-20 13:47 | NUR ---
Bedside Swallow Evaluation completed. Please refer to full report for additional information. Impressions: Min-mild oropharyngeal dysphagia w/ 1 instance s/s aspiration that occurred w/ straw drinking of thin liquids. While pt frequently had periods of wet and/or hoarse phonation during evaluation, they occurred primarily during speaking and were present prior to PO trials. Aspiration risk appears low for regular diet and thin liquids w/ use of swallow precautions including no straws and sitting upright for all PO. Education provided to pt w/ pt able to recall strategies. Recommendations: Continue regular diet, thin liquids but no straws. General swallow precautions. ST f/u 1-2 visit to assess swallow safety. D/w Eliz RN; Dr. Lara; pt w/ precautions posted in room.
[2018-12-20] MEDS: VANCOMYCIN PER PHARMACY MC PRN (13:54)
[2018-12-20 15:00] VITALS: BP 114/78
[2018-12-20] MEDS ORDERED: KETOROLAC 30 MG/ML VIAL. IV PRN (17:15)
--- NOTE | 2018-12-20 17:45 | NUR ---
Education was done with patient about pain management, PO vs IV. Patient is requesting Dilaudid, discussed with MD, orders received. Education on Toradol completed, patient refused Toradol at this time. Lisa, family friend called to discuss pain management, patient agrees to discuss with Lisa. Education completed again with Lisa via telephone and patient at bedside. Patient agreed to Toradol, offered PO pain medication, patient refused. This nurse will continue to monitor. Addendum: 12/20/18 at 1805 by EMMA BERG RN Education completed on need for IV abx, patient stated, "I don't see the point." After education patient was agreeable to receive IV abx.
--- NOTE | 2018-12-20 18:32 | NUR ---
This patient is wanting to leave AMA, education was completed. Nursing mold yard supervisor, security and MD notified. Security will return patient's money at time of walk out. Offered bags to collect belongings, patient refused. Patient requested breathing tx., did not want to wait for it as it is shift change. This nurse will continue to monitor until security arrives.
[2018-12-20] MEDS ORDERED: LACTOBACILLUS RHAMNOSUS GG 1 CAPSULE. PO SCH (21:00)
== END 2018-12-20 18:49 | disposition left against medical advice (07) | DRG 871 ==
LOC: ER 13:35 → 4 NORTH 16:58
PROVIDERS: ADMIT Internal Medicine; ATTEND Internal Medicine
DX: A41.9 Sepsis, unspecified organism (principal); J18.1 Lobar pneumonia, unspecified organism; J96.11 Chronic respiratory failure with hypoxia; J98.11 Atelectasis; J44.1 Chronic obstructive pulmonary disease with (acute) exacerbation; J44.0 Chronic obstructive pulmonary disease with (acute) lower respiratory infection; E66.9 Obesity, unspecified; G89.29 Other chronic pain; I10 Essential (primary) hypertension; J20.9 Acute bronchitis, unspecified; K21.9 Gastro-esophageal reflux disease without esophagitis; K80.20 Calculus of gallbladder without cholecystitis without obstruction; Z53.21 Procedure and treatment not carried out due to patient leaving prior to being seen by health care provider; Y95 Nosocomial condition; Z68.32 Body mass index [BMI] 32.0-32.9, adult; Z82.49 Family history of ischemic heart disease and other diseases of the circulatory system; Z99.81 Dependence on supplemental oxygen; Z87.891 Personal history of nicotine dependence; Z68.29 Body mass index [BMI] 29.0-29.9, adult; Z79.899 Other long term (current) drug therapy
CPT/HCPCS: 36415; 36600; 71045; 71275; 80053; 82550; 82805; 83605; 83880; 84484; 85025; 85379; 87040; 93005; 94640; 96374; 96375; J0696; J1885; J2270; J2543; J2930; J3010; J3370; J7030; J7040; J7620; J7626; Q9967; 92610; 99285-25

== ENCOUNTER 2019-04-11 03:57 | Inpatient (IN) | payer MEDICARE ==
[~2019-04-11] VITALS: Ht 182.9 cm; Wt 99.8 kg
[~2019-04-11 03:57] MED LIST changes: +ALPR1TAB6 PO; -PANT40TA5 PO; +PANT40TA77 PO; -TIZA4TAB PO; +TIZA4TAB2 PO
[2019-04-11 04:07] VITALS: BP 138/85
--- NOTE | 2019-04-11 04:16 | PHYS DOC ---
Past Medical History Past Medical History: COPD, Hypertension Additional Past Medical Histor: Emphysema Past Surgical History: No Surgical History Additional Past Surgical Histo: Hernia repair, right hip infection Alcohol Use: None Drug Use: None Adult General Chief Complaint Chief Complaint: SHORTNESS OF BREATH HPI HPI 5-year-old male presents to the emergency department with complaints of shortness of breath. Patient has chronic respiratory failure on 3 L. He states he is having shortness of breath with exertion and ambulation, states his saturations get into the 70s at home. He does describe a cough with yellow sputum production. Denies any fever, nausea, vomiting, diarrhea. Patient denies any abdominal pain. Review of Systems Review of Systems Constitutional: Denies fever or chills [] Respiratory: Cough, yellow sputum production, shortness of breath Cardiovascular: No additional information not addressed in HPI [] GI: Denies abdominal pain, nausea, vomiting, bloody stools or diarrhea [] Musculoskeletal: Denies back pain or joint pain [] Integument: Denies rash or skin lesions [] Neurologic: Denies headache, focal weakness or sensory changes [] All other systems were reviewed and found to be within normal limits, except as documented in this note. Current Medications Current Medications Current Medications Medications (Trade) Dose Ordered Sig/Georges Start Time Stop Time Status Last Admin Dose Admin Albuterol/ Ipratropium (Duoneb) 3 ml 1X ONCE 04/11/19 04:30 04/11/19 04:31 DC 04/11/19 04:24 3 ML Levofloxacin/ Dextrose 150 ml @ 100 mls/hr 1X ONCE 04/11/19 05:15 04/11/19 06:44 UNV Methylprednisolone Sodium Succinate (SOLU-Medrol 125MG VIAL) 125 mg 1X ONCE 04/11/19 04:30 04/11/19 04:31 DC 04/11/19 04:38 125 MG Allergies Allergies Allergies Coded Allergies Type Severity Reaction Last Updated Verified No Known Drug Allergies 09/12/14 No Physical Exam Physical Exam Constitutional: Well developed, well nourished, non-toxic appearance, mild distress secondary to shortness of breath[] HENT: Normocephalic, atraumatic, bilateral external ears normal, oropharynx moist, no oral exudates, nose normal. [] Eyes: PERRLA, EOMI, conjunctiva normal, no discharge. [] Cardiovascular:Heart rate regular rhythm, no murmur [] Lungs & Thorax: Decreased breath sounds appreciated bilaterally, expiratory wheeze appreciated Abdomen: Bowel sounds normal, soft, no tenderness, no masses, no pulsatile masses. [] Skin: Warm, dry, no erythema, no rash. [] Extremities: No tenderness, no cyanosis, no clubbing, ROM intact, no edema. [] Neurologic: Alert and oriented X 3, no focal deficits noted. [] Psychologic: Affect normal, judgement normal, mood normal. [] Current Patient Data Vital Signs Vital Signs Date Time Temp Pulse Resp B/P (MAP) Pulse Ox O2 Delivery O2 Flow Rate FiO2 04/11/19 04:25 94 Nasal Cannula 6.0 04/11/19 04:07 98.3 98 20 138/85 (102) 98.3 Lab Values Laboratory Tests Test 04/11/19 04:20 04/11/19 04:37 White Blood Count 8.9 x10^3/uL (4.0-11.0) Red Blood Count 4.77 x10^6/uL (4.30-5.70) Hemoglobin 13.2 g/dL (13.0-17.5) Hematocrit 39.9 % (39.0-53.0) Mean Corpuscular Volume 84 fL (79-100) Mean Corpuscular Hemoglobin 28 pg (25-35) Mean Corpuscular Hemoglobin Concent 33 g/dL (31-37) Red Cell Distribution Width 17.9 % (11.5-14.5) H Platelet Count 328 x10^3/uL (140-400) Neutrophils (%) (Auto) 54 % (31-73) Lymphocytes (%) (Auto) 27 % (24-48) Monocytes (%) (Auto) 10 % (0-9) H Eosinophils (%) (Auto) 8 % (0-3) H Basophils (%) (Auto) 1 % (0-3) Neutrophils # (Auto) 4.8 x10^3/uL (1.8-7.7) Lymphocytes # (Auto) 2.4 x10^3/uL (1.0-4.8) Monocytes # (Auto) 0.9 x10^3/uL (0.0-1.1) Eosinophils # (Auto) 0.7 x10^3/uL (0.0-0.7) Basophils # (Auto) 0.1 x10^3/uL (0.0-0.2) Sodium Level 145 mmol/L (136-145) Potassium Level 3.2 mmol/L (3.5-5.1) L Chloride Level 107 mmol/L (98-107) Carbon Dioxide Level 30 mmol/L (21-32) Anion Gap 8 (6-14) Blood Urea Nitrogen 10 mg/dL (8-26) Creatinine 1.0 mg/dL (0.7-1.3) Estimated GFR (Cockcroft-Gault) 73.9 BUN/Creatinine Ratio 10 (6-20) Glucose Level 95 mg/dL (70-99) Calcium Level 9.7 mg/dL (8.5-10.1) Total Bilirubin 0.6 mg/dL (0.2-1.0) Aspartate Amino Transferase (AST) 14 U/L (15-37) L Alanine Aminotransferase (ALT) 17 U/L (16-63) Alkaline Phosphatase 79 U/L (46-116) Troponin I Quantitative < 0.017 ng/mL (0.000-0.055) Total Protein 7.4 g/dL (6.4-8.2) Albumin 3.7 g/dL (3.4-5.0) Albumin/Globulin Ratio 1.0 (1.0-1.7) POC Venous pH 7.38 (7.32-7.42) POC Venous pCO2 44 mmHg (41-51) POC Venous pO2 68 mmHg (20-40) H Venous Blood HCO3 26 mmol/L (24-28) POC Venous O2 Saturation (Andreia) 93 % POC FiO2 21.0 Laboratory Tests 04/11/19 04:20 Laboratory Tests 04/11/19 04:20 EKG EKG EKG reviewed without evidence of acute ST changes, hear rate 91[] Interpretation Time: Interpretation time 0502 Radiology/Procedures Radiology/Procedures [] Course & Med Decision Making Course & Med Decision Making Pertinent Labs and Imaging studies reviewed. (See chart for details) []68-year-old male presents to the emergency department with complaints of shortness of breath. Patient has chronic respiratory failure on 3 L. He states he is having shortness of breath with exertion and ambulation, states his saturations get into the 70s at home. He does describe a cough with yellow sputum production. Denies any fever, nausea, vomiting, diarrhea. Patient denies any abdominal pain. Labs and imaging reviewed. Xray without acute consolidation. Patient received solumedrol 125mg IV, duoneb in ER. Saturations 94% on 5 L NC. Levaquin 750mg IV X 1. Plan for admit given continued SOB and COPD exacerbation. Discussed admit with patient. Dragon Disclaimer Dragon Disclaimer This electronic medical record was generated, in whole or in part, using a voice recognition dictation system. Departure Departure Impression: Primary Impression: Acute and chronic respiratory failure ([id number]) Additional Impression: COPD exacerbation Disposition: ADMITTED INPATIENT Admitting Physician: DILAN Condition: IMPROVED Referrals: SUE KELLY MD (PCP) Problem Qualifiers Primary Impression: Acute and chronic respiratory failure ([id number]) Respiratory failure complication: unspecified whether with hypoxia or hypercapnia Qualified Codes: J96.20 - Acute and chronic respiratory failure, unspecified whether with hypoxia or hypercapnia ANITA MENESES MD Apr 11, 2019 04:16
[2019-04-11] MEDS ORDERED: IPRATRPIUM/ALBUTEROL 0.5/2.5MG 3 ML NEBU. NEB ONE (04:30)
[2019-04-11] MEDS ORDERED: methylPREDNISolone SOD SUCC PF 125 MG/2 ML VIAL. IV ONE (04:30)
[2019-04-11 04:33] LABS: BASO # 0.1 x10^3/uL (0.0-0.2); BASO % 1 % (0-3); EOS # 0.7 x10^3/uL (0.0-0.7); EOS % 8 % (0-3); HEMATOCRIT 39.9 % (39.0-53.0); HEMOGLOBIN 13.2 g/dL (13.0-17.5); LYMPH # 2.4 x10^3/uL (1.0-4.8); LYMPH % 27 % (24-48); MEAN CORPUSCULAR HEMOGLOBIN 28 pg (25-35); MEAN CORPUSCULAR HGB CONC 33 g/dL (31-37); MEAN CORPUSCULAR VOLUME 84 fL (79-100); MONO # 0.9 x10^3/uL (0.0-1.1); MONO % 10 % (0-9); NEUT # 4.8 x10^3/uL (1.8-7.7); NEUT % 54 % (31-73); PLATELET COUNT 328 x10^3/uL (140-400); RED BLOOD COUNT 4.77 x10^6/uL (4.30-5.70); RED CELL DISTRIBUTION WIDTH 17.9 % (11.5-14.5); WHITE BLOOD COUNT 8.9 x10^3/uL (4.0-11.0)
[2019-04-11 04:41] LABS: ISTAT BE VENOUS 1 mmol/L (0-3); ISTAT HCO3 VEN 26 mmol/L (24-28); ISTAT PCO2 VEN 44 mmHg (41-51); ISTAT PH VEN 7.38 (7.32-7.42); ISTAT PO2 VEN 68 mmHg (20-40); ISTAT SAT O2 VEN 93 %; ISTAT TCO2 VEN 27 mmol/L (21-32)
[2019-04-11 04:43] LABS: CALCIUM 9.7 mg/dL (8.5-10.1); GFR 73.9; POTASSIUM 3.2 mmol/L (3.5-5.1)
[2019-04-11 04:49] LABS: ALBUMIN 3.7 g/dL (3.4-5.0); TOTAL BILIRUBIN 0.6 mg/dL (0.2-1.0); TOTAL PROTEIN 7.4 g/dL (6.4-8.2)
[2019-04-11] MEDS ORDERED: ACETAMINOPHEN 325 MG TABLET. PO PRN (05:15)
[2019-04-11] MEDS ORDERED: ONDANSETRON PF 4 MG/2 ML VIAL. IV PRN (05:15)
--- NOTE | 2019-04-11 07:19 | NUR ---
Introduced myself to the patient, he angrily told me he is just waiting for his doctor. I asked how he was feeling, when he did not respond I touched his arm and asked if he was ok. He angrily told me "DO NOT touch me." He complained of his IV, I told him I could flush it, would be ok to touch him long enough to flush his IV. He said "I don't need a smart ass today." He refused that. I informed him I am his nurse to take care of him. He stated he "didn't need anyone to take care of him, the doctor can do that." Refused me to talk or take care of him, he just wanted to relax and get well. Unwilling to listen to anything said. I informed him of his call light. He said he wouldn't be using that, he didn't need it.
[2019-04-11] MEDS ORDERED: IPRATRPIUM/ALBUTEROL 0.5/2.5MG 3 ML NEBU. NEB SCH (08:00)
--- NOTE | 2019-04-11 08:11 | RAD ---
Exam performed: One view chest. Indication: Cough, shortness of breath Date of Service: 04/11/2019 4:25 AM Comparison: One view chest from 12/19/2018. Single AP upright portable view chest findings: Cardiomediastinal silhouette is within limits of normal. Pulmonary vascularity is unremarkable. There is a linear opacity right lung base perhaps an area of atelectasis or developing infiltrate. No pleural effusion or pneumothorax is detected. The bony structures are normal. Impression: Linear opacity right lung base likely atelectasis or infiltrate. Correlate clinically Electronically signed by: Jaylene Aaron MD (04/11/2019 8:08 AM) [facility]
[2019-04-11] MEDS ORDERED: POTASSIUM CHLORIDE 20 MEQ TABLET.ER. PO ONE (08:45)
--- NOTE | 2019-04-11 08:48 | PDOC1 ---
History and Physical Date of Admission Date of Admission DATE: 04/11/19 TIME: 08:45 Identification/Chief Complaint Chief Complaint Shortness of breath Source Source: Patient History of Present Illness History of Present Illness Mr Beltran is a 67-year-old male who has a history of severe COPD with last FEV1 of 1.4, which was 38% predicted. He is on chronic oxygen at 3 liters. He came to the hospital with cough with yellow sputum production. Denies any chest pain. He does have some pain in his left upper quadrant after a meal. No headache, no nausea or vomiting, no diarrhea. The patient says that the nebulizer treatment is helping him here more than home. His chest x-ray did reveal definite right lower lobe consolidation. He has some mild parenchymal scarring. K 3.3 He states he is having shortness of breath with exertion and ambulation, states his saturations get into the 70s at home. Patient denies any abdominal pain. Has f/u scheduled with pulm outpatient. Gets O2 and nebs through [employer]. He is asking for tele to be removed and his girlfriend states they are claustrophobic in the current room. Past Medical History Cardiovascular: No pertinent hx Pulmonary: Bronchitis, COPD, Pneumonia GI: GERD, Other Hepatobiliary: No pertinent hx Psych: No pertinent hx Musculoskeletal: low back pain Past Surgical History Past Surgical History: Hernia Repair, No pertinent history Family History Family History: Hypertension, Other Social History ALCOHOL: none Drugs: None Current Problem List Problem List Problems Medical Problems: (1) Acute and chronic respiratory failure ([id number]) Status: Acute (2) Chest wall pain Status: Acute (3) COPD exacerbation Status: Acute Current Medications Current Medications Current Medications Methylprednisolone Sodium Succinate (SOLU-Medrol 125MG VIAL) 125 mg 1X ONCE IV Last administered on 04/11/19at 04:38; Start 04/11/19 at 04:30; Stop 04/11/19 at 04:31; Status DC Albuterol/ Ipratropium (Duoneb) 3 ml 1X ONCE NEB Last administered on 04/11/19at 04:24; Start 04/11/19 at 04:30; Stop 04/11/19 at 04:31; Status DC Levofloxacin/ Dextrose 150 ml @ 100 mls/hr 1X ONCE IV Last administered on 04/11/19at 05:18; Start 04/11/19 at 05:15; Stop 04/11/19 at 06:44; Status DC Ondansetron HCl (Zofran) 4 mg PRN Q8HRS PRN IV NAUSEA/VOMITING Last administered on 04/11/19at 05:18; Start 04/11/19 at 05:15; Stop 04/12/19 at 05:14 Acetaminophen (Tylenol) 650 mg PRN Q4HRS PRN PO FEVER; Start 04/11/19 at 05:15; Stop 04/12/19 at 05:14 Albuterol/ Ipratropium (Duoneb) 3 ml RTQID NEB ; Start 04/11/19 at 08:00; Stop 04/12/19 at 07:59 Active Scripts Active Protonix (Pantoprazole Sodium) 20 Mg Tablet.dr 2 Tab PO BID Budesonide 0.5 Mg/2 Ml Ampul.neb 0.5 Mg NEB RTBID MDD 1 [guaiFENesin/CODEINE 100mg/10mg] 5 ML Liquid 5 Ml PO QID MDD 1 10 Days [place] 5-325 Tablet (Acetaminophen/Hydrocodone Bitart) 1 Each Tablet 1 Tab PO PRN Q6HRS PRN MDD 1 6 Days Polyethylene Glycol 3350 17 Gm Powd.pack 17 Gm PO DAILY 30 Days Senna-Time S Tablet (Sennosides/Docusate Sodium) 1 Each Tablet 2 Tab PO PRN BID PRN 30 Days Protonix (Pantoprazole Sodium) 20 Mg Tablet.dr 1 Tab PO DAILY Fluticasone Propionate Nasal [place] (Fluticasone Propionate) 16 Gm [place].susp 2 [place] NS DAILY 30 Days Reported Alprazolam 1 Mg Tablet 1 Mg PO PRN Q6-8HRS PRN Tamsulosin Hcl 0.4 Mg Cap.er.24h 1 Cap PO DAILY Amlodipine Besylate 5 Mg Tablet 5 Mg PO DAILY Losartan Potassium 50 Mg Tablet 50 Mg PO DAILY Duoneb 0.5-3(2.5) Mg/3 Ml (Albuterol/Ipratropium) 3 Ml Ampul.neb 3 Ml IH Q4HRS Advair 500-50 Diskus (Fluticasone/Salmeterol) 1 Each Disk.w.dev 1 Puff IH BID PRN Patient takes prn before bed if he feels he needs it Allergies Allergies: Coded Allergies: No Known Drug Allergies (Unverified , 09/12/14) ROS General: YES: Fatigue, Malaise; No: Chills, Night Sweats, Appetite, Other PSYCHOLOGICAL ROS: YES: Hostility, Irritablity; No: Anxiety, Behavioral Disorder, Concentration difficultie, Decreased libido, Depression, Disorientation, Hallucinations, Memory difficulties, Mood Swings, Obsessive thoughts, Physical abuse, Sexual abuse, Sleep disturbances, Suicidal ideation, Other Eyes: No Blurry vision, No Decreased vision, No Double vision, No Dry eyes, No Excessive tearing, No Eye Pain, No Itchy Eyes, No Loss of vision, No Photophobia, No Scotomata, No Uses contacts, No Uses glasses, No Other HEENT: No: Heacaches, Visual Changes, Hearing change, Nasal congestion, Nasal discharge, Oral lesions, Sinus pain, Sore Throat, Epistaxis, Sneezing, Snoring, Tinnitus, Vertigo, Vocal changes, Other ALLERGY AND IMMUNOLOGY: No: Hives, Insect Bite Sensitivity, Itchy/Watery Eyes, Nasal Congestion, Post Nasal Drip, Seasonal Allergies, Other Hematological and Lymphatic: No: Bleeding Problems, Blood Clots, Blood Transfusions, Brusing, Night Sweats, Pallor, Swollen Lymph Nodes, Other ENDOCRINE: No: Breast Changes, Galactorrhea, Hair Pattern Changes, Hot Flashes, Malaise/lethargy, Mood Swings, Palpitations, Polydipsia/polyuria, Skin Changes, Temperature Intolerance, Unexpected Weight Changes, Other Breast: No New/Changing Breast Lumps, No Nipple changes, No Nipple discharge, No Other Respiratory: YES: Cough, Shortness of breath, SOB with excertion, Tachypnea, Wheezing; No: Hemoptysis, Orthopnea, Pleuritic Pain, Sputum Changes, Stridor, Other Cardiovascular: No Chest Pain, No Palpitations, No Orthopnea, No Paroxysmal N oc. Dyspnea, No Edema, No Lt Headedness, No Other Gastrointestinal: No Nausea, No Vomiting, No Abdominal Pain, No Diarrhea, No Constipation, No Melena, No Hematochezia, No Other Genitourinary: No Dysuria, No Frequency, No Incontinence, No Hematuria, No Retention, No Discharge, No Urgency, No Pain, No Flank Pain, No Other, No , No , No , No , No , No , No Musculoskeletal: No Gait Disturbance, No Joint Pain, No Joint Stiffness, No Joint Swelling, No Muscle Pain, No Muscular Weakness, No Pain In:, No Swelling In:, No Other Neurological: No Behavorial Changes, No Bowel/Bladder ControlChng, No Confusion, No Dizziness, No Gait Disturbance, No Headaches, No Impaired Coord/balance, No Memory Loss, No Numbness/Tingling, No Seizures, No Speech Problems, No Tremors, No Visual Changes, No Weakness, No Other Skin: No Dry Skin, No Eczema, No Hair Changes, No Lumps, No Mole Changes, No Mottling, No Nail Changes, No Pruritus, No Rash, No Skin Lesion Changes, No Other, No Acne Physical Exam General: Alert, Oriented X3, Cooperative, No acute distress HEENT: Atraumatic, PERRLA, EOMI, Mucous membr. moist/pink Lungs: Other (Diffuse scattered wheezes, prolonged expiratory phase) Abdomen: Normal bowel sounds, Soft, No tenderness, No hepatosplenomegaly, No masses Extremities: No clubbing, No cyanosis, No edema, Normal pulses, No tenderness/swelling Skin: No rashes, No breakdown, No significant lesion Neuro: Normal gait, Normal speech, Strength at 5/5 X4 ext, Normal tone, Sensation intact, Cranial nerves 3-12 NL, Reflexes 2+ Psych/Mental Status: Mental status NL, Mood NL Vitals Vitals Vital Signs Date Time Temp Pulse Resp B/P (MAP) Pulse Ox O2 Delivery O2 Flow Rate FiO2 04/11/19 04:25 94 Nasal Cannula 6.0 04/11/19 04:07 98.3 98 20 138/85 (102) 98.3 Labs Labs Laboratory Tests Test 04/11/19 04:20 04/11/19 04:37 White Blood Count 8.9 x10^3/uL (4.0-11.0) Red Blood Count 4.77 x10^6/uL (4.30-5.70) Hemoglobin 13.2 g/dL (13.0-17.5) Hematocrit 39.9 % (39.0-53.0) Mean Corpuscular Volume 84 fL (79-100) Mean Corpuscular Hemoglobin 28 pg (25-35) Mean Corpuscular Hemoglobin Concent 33 g/dL (31-37) Red Cell Distribution Width 17.9 % (11.5-14.5) Platelet Count 328 x10^3/uL (140-400) Neutrophils (%) (Auto) 54 % (31-73) Lymphocytes (%) (Auto) 27 % (24-48) Monocytes (%) (Auto) 10 % (0-9) Eosinophils (%) (Auto) 8 % (0-3) Basophils (%) (Auto) 1 % (0-3) Neutrophils # (Auto) 4.8 x10^3/uL (1.8-7.7) Lymphocytes # (Auto) 2.4 x10^3/uL (1.0-4.8) Monocytes # (Auto) 0.9 x10^3/uL (0.0-1.1) Eosinophils # (Auto) 0.7 x10^3/uL (0.0-0.7) Basophils # (Auto) 0.1 x10^3/uL (0.0-0.2) Sodium Level 145 mmol/L (136-145) Potassium Level 3.2 mmol/L (3.5-5.1) Chloride Level 107 mmol/L (98-107) Carbon Dioxide Level 30 mmol/L (21-32) Anion Gap 8 (6-14) Blood Urea Nitrogen 10 mg/dL (8-26) Creatinine 1.0 mg/dL (0.7-1.3) Estimated GFR (Cockcroft-Gault) 73.9 BUN/Creatinine Ratio 10 (6-20) Glucose Level 95 mg/dL (70-99) Calcium Level 9.7 mg/dL (8.5-10.1) Total Bilirubin 0.6 mg/dL (0.2-1.0) Aspartate Amino Transf (AST/SGOT) 14 U/L (15-37) Alanine Aminotransferase (ALT/SGPT) 17 U/L (16-63) Alkaline Phosphatase 79 U/L (46-116) Troponin I Quantitative < 0.017 ng/mL (0.000-0.055) Total Protein 7.4 g/dL (6.4-8.2) Albumin 3.7 g/dL (3.4-5.0) Albumin/Globulin Ratio 1.0 (1.0-1.7) Bedside Venous pH 7.38 (7.32-7.42) Bedside Venous pCO2 44 mmHg (41-51) Bedside Venous pO2 68 mmHg (20-40) Venous Blood HCO3 26 mmol/L (24-28) POC Venous O2 Saturation (Andreia) 93 % Bedside FiO2 21.0 Laboratory Tests Test 04/11/19 04:20 04/11/19 04:37 White Blood Count 8.9 x10^3/uL (4.0-11.0) Red Blood Count 4.77 x10^6/uL (4.30-5.70) Hemoglobin 13.2 g/dL (13.0-17.5) Hematocrit 39.9 % (39.0-53.0) Mean Corpuscular Volume 84 fL (79-100) Mean Corpuscular Hemoglobin 28 pg (25-35) Mean Corpuscular Hemoglobin Concent 33 g/dL (31-37) Red Cell Distribution Width 17.9 % (11.5-14.5) Platelet Count 328 x10^3/uL (140-400) Neutrophils (%) (Auto) 54 % (31-73) Lymphocytes (%) (Auto) 27 % (24-48) Monocytes (%) (Auto) 10 % (0-9) Eosinophils (%) (Auto) 8 % (0-3) Basophils (%) (Auto) 1 % (0-3) Neutrophils # (Auto) 4.8 x10^3/uL (1.8-7.7) Lymphocytes # (Auto) 2.4 x10^3/uL (1.0-4.8) Monocytes # (Auto) 0.9 x10^3/uL (0.0-1.1) Eosinophils # (Auto) 0.7 x10^3/uL (0.0-0.7) Basophils # (Auto) 0.1 x10^3/uL (0.0-0.2) Sodium Level 145 mmol/L (136-145) Potassium Level 3.2 mmol/L (3.5-5.1) Chloride Level 107 mmol/L (98-107) Carbon Dioxide Level 30 mmol/L (21-32) Anion Gap 8 (6-14) Blood Urea Nitrogen 10 mg/dL (8-26) Creatinine 1.0 mg/dL (0.7-1.3) Estimated GFR (Cockcroft-Gault) 73.9 BUN/Creatinine Ratio 10 (6-20) Glucose Level 95 mg/dL (70-99) Calcium Level 9.7 mg/dL (8.5-10.1) Total Bilirubin 0.6 mg/dL (0.2-1.0) Aspartate Amino Transf (AST/SGOT) 14 U/L (15-37) Alanine Aminotransferase (ALT/SGPT) 17 U/L (16-63) Alkaline Phosphatase 79 U/L (46-116) Troponin I Quantitative < 0.017 ng/mL (0.000-0.055) Total Protein 7.4 g/dL (6.4-8.2) Albumin 3.7 g/dL (3.4-5.0) Albumin/Globulin Ratio 1.0 (1.0-1.7) Bedside Venous pH 7.38 (7.32-7.42) Bedside Venous pCO2 44 mmHg (41-51) Bedside Venous pO2 68 mmHg (20-40) Venous Blood HCO3 26 mmol/L (24-28) POC Venous O2 Saturation (Andreia) 93 % Bedside FiO2 21.0 VTE Prophylaxis Ordered VTE Prophylaxis Devices: Yes VTE Pharmacological Prophylaxi: Yes Assessment/Plan Assessment/Plan A/P: COPD exacerbation - steroids, antibiotics, nebs. Hypoxic respiratory failure, home O2 dependency 3.5 liters 24/7. Needs more than his home requirements likely 2/2 pneumonia RLL CXR abnormality - recent hospital stay, needs to consider HCAP treatment and with COPD high risk for likely infection with gram negative organism such as pse udomonas Sepsis - with RR and tachycardia, given fluids in ED. [facility] HCAP antibiotics Levaquin given Smoker - recently quit after hospital stay obesity BMI 32 - counseled on weight loss GERD - will cont PPI FEN - General diet PPX - lovenox FULL CODE Inpatient med/surg for acute COPD exacerbation, likely 2 midnights inpatient Unfortunately during my examination he got upset and has signed AMA paperwork. TOD CHOWDARY MD Apr 11, 2019 08:48
[2019-04-11] MEDS ORDERED: POLYETHYLENE GLYCOL 3350 17 GM PACKET. PO SCH (09:00)
[2019-04-11] MEDS ORDERED: BUDESONIDE 0.5 MG/2 ML NEBU. NEB SCH (09:00)
[2019-04-11] MEDS ORDERED: LOSARTAN POTASSIUM 50 MG TABLET. PO SCH (09:00)
[2019-04-11] MEDS ORDERED: POTASSIUM CHLORIDE 10MEQ 100 ML IV SCH (09:00)
[2019-04-11] MEDS ORDERED: amLODIPine BESYLATE 5 MG TABLET PO SCH (09:00)
[2019-04-11] MEDS ORDERED: TAMSULOSIN 0.4 MG CAP.ER.24H. PO SCH (09:00)
[2019-04-11] MEDS ORDERED: IPRATRPIUM/ALBUTEROL 0.5/2.5MG 3 ML NEBU. IH SCH (09:00)
--- NOTE | 2019-04-11 09:35 | NUR ---
Patient asked to see the nurse in charge. I went in to talk to him and he said he was waiting for 3 hours and wanted to leave. I got AMA papers and called security. Patient refused to sign paperwork and security witnessed this interaction.
--- NOTE | 2019-04-11 11:19 | PDOC3 ---
Discharge Summary Visit Information Date of Admission: Apr 11, 2019 Date of Discharge: Apr 11, 2019 Admitting Diagnosis: Acute hypoxic respiratory failure Final Diagnosis Problems Medical Problems: (1) Acute and chronic respiratory failure ([id number]) Status: Acute (2) Chest wall pain Status: Acute (3) COPD exacerbation Status: Acute Brief Hospital Course Allergies Allergies Coded Allergies Type Severity Reaction Last Updated Verified No Known Drug Allergies 09/12/14 No Vital Signs Vital Signs Date Time Temp Pulse Resp B/P (MAP) Pulse Ox O2 Delivery O2 Flow Rate FiO2 04/11/19 04:25 94 Nasal Cannula 6.0 04/11/19 04:07 98.3 98 20 138/85 (102) 98.3 Lab Results Laboratory Tests Test 04/11/19 04:20 04/11/19 04:37 White Blood Count 8.9 x10^3/uL (4.0-11.0) Red Blood Count 4.77 x10^6/uL (4.30-5.70) Hemoglobin 13.2 g/dL (13.0-17.5) Hematocrit 39.9 % (39.0-53.0) Mean Corpuscular Volume 84 fL (79-100) Mean Corpuscular Hemoglobin 28 pg (25-35) Mean Corpuscular Hemoglobin Concent 33 g/dL (31-37) Red Cell Distribution Width 17.9 % (11.5-14.5) Platelet Count 328 x10^3/uL (140-400) Neutrophils (%) (Auto) 54 % (31-73) Lymphocytes (%) (Auto) 27 % (24-48) Monocytes (%) (Auto) 10 % (0-9) Eosinophils (%) (Auto) 8 % (0-3) Basophils (%) (Auto) 1 % (0-3) Neutrophils # (Auto) 4.8 x10^3/uL (1.8-7.7) Lymphocytes # (Auto) 2.4 x10^3/uL (1.0-4.8) Monocytes # (Auto) 0.9 x10^3/uL (0.0-1.1) Eosinophils # (Auto) 0.7 x10^3/uL (0.0-0.7) Basophils # (Auto) 0.1 x10^3/uL (0.0-0.2) Sodium Level 145 mmol/L (136-145) Potassium Level 3.2 mmol/L (3.5-5.1) Chloride Level 107 mmol/L (98-107) Carbon Dioxide Level 30 mmol/L (21-32) Anion Gap 8 (6-14) Blood Urea Nitrogen 10 mg/dL (8-26) Creatinine 1.0 mg/dL (0.7-1.3) Estimated GFR (Cockcroft-Gault) 73.9 BUN/Creatinine Ratio 10 (6-20) Glucose Level 95 mg/dL (70-99) Calcium Level 9.7 mg/dL (8.5-10.1) Magnesium Level 2.0 mg/dL (1.8-2.4) Total Bilirubin 0.6 mg/dL (0.2-1.0) Aspartate Amino Transf (AST/SGOT) 14 U/L (15-37) Alanine Aminotransferase (ALT/SGPT) 17 U/L (16-63) Alkaline Phosphatase 79 U/L (46-116) Troponin I Quantitative < 0.017 ng/mL (0.000-0.055) Total Protein 7.4 g/dL (6.4-8.2) Albumin 3.7 g/dL (3.4-5.0) Albumin/Globulin Ratio 1.0 (1.0-1.7) Procalcitonin < 0.10 ng/mL (0.00-0.10) Bedside Venous pH 7.38 (7.32-7.42) Bedside Venous pCO2 44 mmHg (41-51) Bedside Venous pO2 68 mmHg (20-40) Venous Blood HCO3 26 mmol/L (24-28) POC Venous O2 Saturation (Andreia) 93 % Bedside FiO2 21.0 Laboratory Tests Test 04/11/19 04:20 04/11/19 04:37 White Blood Count 8.9 x10^3/uL (4.0-11.0) Red Blood Count 4.77 x10^6/uL (4.30-5.70) Hemoglobin 13.2 g/dL (13.0-17.5) Hematocrit 39.9 % (39.0-53.0) Mean Corpuscular Volume 84 fL (79-100) Mean Corpuscular Hemoglobin 28 pg (25-35) Mean Corpuscular Hemoglobin Concent 33 g/dL (31-37) Red Cell Distribution Width 17.9 % (11.5-14.5) Platelet Count 328 x10^3/uL (140-400) Neutrophils (%) (Auto) 54 % (31-73) Lymphocytes (%) (Auto) 27 % (24-48) Monocytes (%) (Auto) 10 % (0-9) Eosinophils (%) (Auto) 8 % (0-3) Basophils (%) (Auto) 1 % (0-3) Neutrophils # (Auto) 4.8 x10^3/uL (1.8-7.7) Lymphocytes # (Auto) 2.4 x10^3/uL (1.0-4.8) Monocytes # (Auto) 0.9 x10^3/uL (0.0-1.1) Eosinophils # (Auto) 0.7 x10^3/uL (0.0-0.7) Basophils # (Auto) 0.1 x10^3/uL (0.0-0.2) Sodium Level 145 mmol/L (136-145) Potassium Level 3.2 mmol/L (3.5-5.1) Chloride Level 107 mmol/L (98-107) Carbon Dioxide Level 30 mmol/L (21-32) Anion Gap 8 (6-14) Blood Urea Nitrogen 10 mg/dL (8-26) Creatinine 1.0 mg/dL (0.7-1.3) Estimated GFR (Cockcroft-Gault) 73.9 BUN/Creatinine Ratio 10 (6-20) Glucose Level 95 mg/dL (70-99) Calcium Level 9.7 mg/dL (8.5-10.1) Magnesium Level 2.0 mg/dL (1.8-2.4) Total Bilirubin 0.6 mg/dL (0.2-1.0) Aspartate Amino Transf (AST/SGOT) 14 U/L (15-37) Alanine Aminotransferase (ALT/SGPT) 17 U/L (16-63) Alkaline Phosphatase 79 U/L (46-116) Troponin I Quantitative < 0.017 ng/mL (0.000-0.055) Total Protein 7.4 g/dL (6.4-8.2) Albumin 3.7 g/dL (3.4-5.0) Albumin/Globulin Ratio 1.0 (1.0-1.7) Procalcitonin < 0.10 ng/mL (0.00-0.10) Bedside Venous pH 7.38 (7.32-7.42) Bedside Venous pCO2 44 mmHg (41-51) Bedside Venous pO2 68 mmHg (20-40) Venous Blood HCO3 26 mmol/L (24-28) POC Venous O2 Saturation (Andreia) 93 % Bedside FiO2 21.0 Brief Hospital Course Mr Beltran is a 67-year-old male who has a history of severe COPD with last FEV1 of 1.4, which was 38% predicted. He is on chronic oxygen at 3 liters. He came to the hospital with cough with yellow sputum production. Denies any chest pain. He does have some pain in his left upper quadrant after a meal. No headache, no nausea or vomiting, no diarrhea. The patient says that the nebulizer treatment is helping him here more than home. His chest x-ray did reveal definite right lower lobe consolidation. He has some mild parenchymal scarring. K 3.3 He states he is having shortness of breath with exertion and ambulation, states his saturations get into the 70s at home. Patient denies any abdominal pain. Has f/u scheduled with pulm outpatient. Gets O2 and nebs through [employer]. He was asking for tele to be removed and his girlfriend states they are claustrophobic in the current room. He was seen in the ED a bit after 4:00 am and evaluated by myself around 9 am and he left AMA during examination stating he was tired of waiting for the doctor. Discharge Information Condition at Discharge: Comment (AMA) Follow Up: Weeks Disposition/Orders: Other (AMA) Scheduled Amlodipine Besylate (Amlodipine Besylate) 5 Mg Tablet, 5 MG PO DAILY for htn, (Reported) Entered as Reported by: TROY MONSIVAIS [facility] on 08/15/15 1348 Last Action: Continued on 04/11/1945 by TOD CHOWDARY MD Budesonide (Budesonide) 0.5 Mg/2 Ml Ampul.neb, 0.5 MG NEB RTBID for copd MDD 1, #60 Prescribed by: KATHIE EDMONDS on 11/26/18 1041 Last Action: Continued on 04/11/1945 by TOD CHOWDARY MD Fluticasone Propionate (Fluticasone Propionate Nasal [place]) 16 Gm [place].susp, 2 SPRAY NS DAILY for Nasal congestion for 30 Days, #1 Ref 2 Prescribed by: TOD CHOWDARY MD on 10/06/18 1148 Ipratropium/Albuterol Sulfate (Duoneb 0.5-3(2.5) Mg/3 Ml) 3 Ml Ampul.neb, 3 ML IH Q4HRS for shortness of breath, (Reported) Entered as Reported by: TROY MONSIVAIS [facility] on 08/15/15 1348 Last Action: Continued on 04/11/19 0845 by TOD CHOWDARY MD Losartan Potassium (Losartan Potassium) 50 Mg Tablet, 50 MG PO DAILY for htn, (Reported) Entered as Reported by: TROY MONSIVAIS RP on 08/15/15 1348 Last Action: Continued on 04/11/19 0845 by TOD CHOWDARY MD Pantoprazole Sodium (Protonix) 20 Mg Tablet.dr, 1 TAB PO DAILY for GERD, #30 Prescribed by: TOD CHOWDARY MD on 10/06/18 1148 Pantoprazole Sodium (Protonix) 20 Mg Tablet.dr, 2 TAB PO BID for gerd, #30 Prescribed by: KATHIE EDMONDS on 11/27/18 1026 Polyethylene Glycol 3350 (Polyethylene Glycol 3350) 17 Gm Powd.pack, 17 GM PO DAILY for constipation for 30 Days, #30 Prescribed by: TOD CHOWDARY MD on 10/06/18 1209 Last Action: Continued on 04/11/19 0845 by TOD CHOWDARY MD Tamsulosin Hcl (Tamsulosin Hcl) 0.4 Mg Cap.er.24h, 1 CAP PO DAILY, #30 Ref 5 (Reported) Entered as Reported by: REAGAN ARAIZA RN on 10/22/17 1623 Last Action: Continued on 04/11/19 0845 by TOD CHOWDARY MD [guaiFENesin/CODEINE 100mg/10mg] 5 ML LIQUID, 5 ML PO QID for cough MDD 1 for 10 Days Prescribed by: KATHIE EDMONDS on 11/26/18 1041 Scheduled PRN Alprazolam (Alprazolam) 1 Mg Tablet, 1 MG PO PRN Q6-8HRS PRN for ANXIETY / AGITATION, (Reported) Entered as Reported by: QIAN COLORADO on 12/19/182138 Fluticasone/Salmeterol (Advair 500-50 Diskus) 1 Each Disk.w.dev, 1 PUFF IH BID PRN for SHORTNESS OF BREATH, #1 Ref 5 (Reported) Patient takes prn before bed if he feels he needs it Entered as Reported by: ROX ANGEL on 07/04/14 2351 Hydrocodone/Apap 5-325 ([place] 5-325 Tablet) 1 Each Tablet, 1 TAB PO PRN Q6HRS PRN for PAIN MDD 1 for 6 Days, #20 Prescribed by: KATHIE EDMONDS on 11/26/18 1041 Sennosides/Docusate Sodium (Senna-Time S Tablet) 1 Each Tablet, 2 TAB PO PRN BID PRN for CONSTIPATION for 30 Days, #60 Prescribed by: TOD CHOWDARY MD on 10/06/18 1209 TOD CHOWDARY MD Apr 11, 2019 11:19
--- NOTE | 2019-04-12 06:17 | EKG ---
[facility] [address] [place] [address] Test Date: 2019-04-11 Test Time: 04:03:09 Pat Name: FRED BRANHAM Department: Room: Gender: M [employer]: : 1950 Requested By: ANITA MENESES Order Number: [id number] Reading MD: Measurements Intervals [place] Rate: 91 P: 90 AL: 216 QRS: -10 QRSD: 106 T: 31 QT: 352 QTc: 435 Interpretive Statements SINUS RHYTHM PROLONGED AL INTERVAL LEFTWARD AXIS ABNORMAL ECG RI6.01 Unconfirmed report No previous ECG available for comparison
== END 2019-04-11 09:25 | disposition left against medical advice (07) | DRG 189 ==
LOC: ER 03:57 → 6 SOUTH 05:09
PROVIDERS: ADMIT Internal Medicine; ATTEND Internal Medicine
DX: J96.21 Acute and chronic respiratory failure with hypoxia (principal); J44.1 Chronic obstructive pulmonary disease with (acute) exacerbation; I10 Essential (primary) hypertension; K21.9 Gastro-esophageal reflux disease without esophagitis; E66.9 Obesity, unspecified; Z99.81 Dependence on supplemental oxygen; Z82.49 Family history of ischemic heart disease and other diseases of the circulatory system; Z79.899 Other long term (current) drug therapy; Z87.891 Personal history of nicotine dependence; Z68.32 Body mass index [BMI] 32.0-32.9, adult
CPT/HCPCS: 36415; 71045; 80053; 82803; 83735; 84145; 84484; 85025; 93005; 94640; J1956; J2405; J2930; J7620; G0378

== ENCOUNTER 2020-10-04 04:18 | Observation (INO) | payer MEDICARE ==
[~2020-10-04] VITALS: Ht 182.9 cm; Wt 94.5 kg
[~2020-10-04 04:18] MED LIST changes: +AMLO-186 PO; -AMLO5TAB10 PO; -POLY17PO28 PO; +POLY17PO52 PO
[2020-10-04] MEDS ORDERED: IPRATRPIUM/ALBUTEROL 0.5/2.5MG 3 ML NEBU. NEB ONE (05:00)
[2020-10-04] MEDS ORDERED: methylPREDNISolone SOD SUCC PF 125 MG/2 ML VIAL. IV ONE (05:00)
[2020-10-04 05:12] LABS: CALCIUM 8.6 mg/dL (8.5-10.1); GFR 73.7; POTASSIUM 3.2 mmol/L (3.5-5.1)
[2020-10-04 05:13] LABS: BASO # 0.1 x10^3/uL (0.0-0.2); BASO % 2 % (0-3); EOS # 1.2 x10^3/uL (0.0-0.7); EOS % 14 % (0-3); HEMATOCRIT 27.5 % (39.0-53.0); HEMOGLOBIN 8.1 g/dL (13.0-17.5); LYMPH # 2.3 x10^3/uL (1.0-4.8); LYMPH % 25 % (24-48); MEAN CORPUSCULAR HEMOGLOBIN 20 pg (25-35); MEAN CORPUSCULAR HGB CONC 29 g/dL (31-37); MEAN CORPUSCULAR VOLUME 69 fL (79-100); MONO % 11 % (0-9); NEUT # 4.4 x10^3/uL (1.8-7.7); NEUT % 49 % (31-73); PLATELET COUNT 524 x10^3/uL (140-400); RED BLOOD COUNT 4.02 x10^6/uL (4.30-5.70); RED CELL DISTRIBUTION WIDTH 19.4 % (11.5-14.5)
[2020-10-04 05:18] LABS: ALBUMIN 3.5 g/dL (3.4-5.0); TOTAL BILIRUBIN 0.4 mg/dL (0.2-1.0); TOTAL PROTEIN 6.9 g/dL (6.4-8.2)
--- NOTE | 2020-10-04 05:26 | PHYS DOC ---
Past Medical History Past Medical History: COPD, Hypertension Additional Past Medical Histor: Emphysema Past Surgical History: No Surgical History Additional Past Surgical Histo: Hernia repair, right hip infection Smoking Status: Former Smoker Alcohol Use: None Drug Use: None General Adult EDM: Chief Complaint: SHORTNESS OF BREATH HPI: HPI: Patient is a 69 year old male with history of COPD on 3 L of oxygen, hypertension, acid reflux [facility] emergency department by private vehicle for shortness of breath. Patient reports this has been ongoing for the past several days. He has been using home breathing treatments without much relief. Patient has had cough has been nonproductive. No chest pain or fevers that he knows of. No nausea vomiting abdominal pain numbness weakness syncope headache fever chills. Patient is non-smoker. Denies drugs or alcohol. Denies any cardiac history. Has never had a heart attack. Review of Systems: Review of Systems: Review of Systems: Constitutional: Denies fever or chills Eyes: Denies redness or eye pain HENT: Denies nasal congestion or sore throat Respiratory: Denies cough. Cardiovascular: Denies chest pain or palpitations GI: denies abdominal pain and nausea, denies vomiting or diarrhea : Denies dysuria or hematuria Musculoskeletal: Denies back pain or joint pain Integument: Denies rash or skin lesions Neurologic: Denies headache, focal weakness or sensory changes Heart Score: C/O Chest Pain: No Current Medications: Current Medications Medications (Trade) Dose Ordered Sig/Georges Start Time Stop Time Status Last Admin Dose Admin Albuterol/ Ipratropium (Duoneb) 3 ml 1X ONCE 10/04/20 05:00 10/04/20 05:01 DC Azithromycin 250 ml @ 250 mls/hr 1X ONCE 10/04/20 05:30 10/04/20 06:29 Methylprednisolone Sodium Succinate (SOLU-Medrol 125MG VIAL) 125 mg 1X ONCE 10/04/20 05:00 10/04/20 05:01 DC 10/04/20 05:02 125 MG Allergies: Allergies: Allergies Coded Allergies Type Severity Reaction Last Updated Verified No Known Drug Allergies 09/12/14 No Physical Exam: PE: *GENERAL APPEARANCE: Awake and alert. Cooperative. No acute distress. HEAD: Normocephalic. Atraumatic. EYES: EOM's grossly intact. Sclera anicteric. Conjunctiva clear ENT:. Airway patent. Mucous membranes moist. No trismus. Tolerating secretions. NECK: Supple. Trachea midline. HEART: Regular rate and rhythm. Radial pulses 2+. Good capillary refill. LUNGS: Respirations u unlabored. Wheezing or rhonchi bilaterally. ABDOMEN: Soft. Non-tender. No guarding or rebound. No CVA tenderness. No palpable or pulsatile mass. EXTREMITIES: No acute deformities. No edema, erythema or calf tenderness. SKIN: Warm and dry. No rash. NEUROLOGICAL: Alert and oriented x3. No gross neurological deficits. Moves all 4 extremities spontaneously. PSYCHIATRIC: Normal mood. Current Patient Data: Labs: Laboratory Tests Test 10/04/20 04:55 White Blood Count 9.0 x10^3/uL (4.0-11.0) Red Blood Count 4.02 x10^6/uL (4.30-5.70) L Hemoglobin 8.1 g/dL (13.0-17.5) L Hematocrit 27.5 % (39.0-53.0) L Mean Corpuscular Volume 69 fL (79-100) L Mean Corpuscular Hemoglobin 20 pg (25-35) L Mean Corpuscular Hemoglobin Concent 29 g/dL (31-37) L Red Cell Distribution Width 19.4 % (11.5-14.5) H Platelet Count 524 x10^3/uL (140-400) H Neutrophils (%) (Auto) 49 % (31-73) Lymphocytes (%) (Auto) 25 % (24-48) Monocytes (%) (Auto) 11 % (0-9) H Eosinophils (%) (Auto) 14 % (0-3) H Basophils (%) (Auto) 2 % (0-3) Neutrophils # (Auto) 4.4 x10^3/uL (1.8-7.7) Lymphocytes # (Auto) 2.3 x10^3/uL (1.0-4.8) Monocytes # (Auto) 1.0 x10^3/uL (0.0-1.1) Eosinophils # (Auto) 1.2 x10^3/uL (0.0-0.7) H Basophils # (Auto) 0.1 x10^3/uL (0.0-0.2) Platelet Estimate Pending Sodium Level 142 mmol/L (136-145) Potassium Level 3.2 mmol/L (3.5-5.1) L Chloride Level 105 mmol/L (98-107) Carbon Dioxide Level 28 mmol/L (21-32) Anion Gap 9 (6-14) Blood Urea Nitrogen 14 mg/dL (8-26) Creatinine 1.0 mg/dL (0.7-1.3) Estimated GFR (Cockcroft-Gault) 73.7 BUN/Creatinine Ratio 14 (6-20) Glucose Level 87 mg/dL (70-99) Calcium Level 8.6 mg/dL (8.5-10.1) Total Bilirubin 0.4 mg/dL (0.2-1.0) Aspartate Amino Transferase (AST) 10 U/L (15-37) L Alanine Aminotransferase (ALT) 18 U/L (16-63) Alkaline Phosphatase 77 U/L (46-116) Total Protein 6.9 g/dL (6.4-8.2) Albumin 3.5 g/dL (3.4-5.0) Albumin/Globulin Ratio 1.0 (1.0-1.7) Laboratory Tests 10/04/20 04:55 Laboratory Tests 10/04/20 04:55 Vital Signs: Vital Signs Date Time Temp Pulse Resp B/P (MAP) Pulse Ox O2 Delivery O2 Flow Rate FiO2 10/04/20 04:25 97.8 96 24 134/79 (97) 96 Nasal Cannula 3.0 97.8 EKG: EKG: EKG interpretation shows sinus rhythm ventricular rate of 83 bpm. ID interval 204 ms. QRS duration 110 ms. QTc [address] segment elevations. Radiology/Procedures: Radiology/Procedures: [][facility] [id number]#: [id number] : 1950 LOCATION: ER AGE: 69 SEX: M EXAM STATUS: REG ER ORD. PHYSICIAN: SHIRA HERBERT DO REASON: sob PROCEDURE: PORTABLE CHEST 1V Chest AP portable at 0509: Reason for examination: Short of breath. Comparison is made to previous study dated 04/11/2019. The heart size is normal. Mediastinum is unremarkable. Lung elizabeth show emphysematous changes. There continues to be a bandlike opacity at the right lung base which may reflect some parenchymal scarring and has not changed. No gross pleural effusions are seen. No acute bony abnormalities are seen. IMPRESSION: Emphysema. Chronic opacity at the right lung base which probably reflects some scarring. Electronically signed by: Leander Parker MD (10/04/2020 5:32 AM) [facility] DICTATED and SIGNED BY: LEANDER PARKER MD DATE: 10/04/20 [id number] 0 Course & Med Decision Making: Course & Med Decision Making Medical decision making: This is a 69-year-old male presents emergency department for shortness of breath. Is on 3 L of oxygen at home. Patient arrived by private vehicle. Upon arrival to the emergency department patient is 83% on his 3 L of oxygen. He was taken back into the room. Oxygen was increased. Patient did have wheezing or rhonchi bilaterally. He was given breathing treatment steroids azithromycin. EKG showed no acute ST segment elevations. Patient has no leukocytosis. Hemoglobin 8.1. Troponin negative. Potassium slightly low at 3.2. Ordered replacement in the emergency department. At this time based on patient's symptoms and findings will admit to the hospital for further observation and evaluation. Spoke with patient. Agreeable to admission. They are aware of all labs and imaging. All questions answered and patient stable at time of admission. Rohit Disclaimer: Rohit Disclaimer: This electronic medical record was generated, in whole or in part, using a voice recognition dictation system. Departure Departure Impression: Primary Impression: COPD with acute exacerbation Additional Impression: Hypokalemia Disposition: ADMITTED INPT THIS HOSP (Spoke with Dr. Sabillon at 0630. Excepts admission. Agrees with plan. Spoke with patient. Agreeable to admission. Patient stable at time of admission.) Condition: IMPROVED Referrals: SUE KELLY MD (PCP) SHIRA HERBERT DO Oct 04, 2020 05:26
[2020-10-04] MEDS ORDERED: AZITHRMYCN 500MG IVPB FOR OMNI 250 ML IV ONE (05:30)
--- NOTE | 2020-10-04 05:34 | RAD ---
Chest AP portable at 0509: Reason for examination: Short of breath. Comparison is made to previous study dated 04/11/2019. The heart size is normal. Mediastinum is unremarkable. Lung elizabeth show emphysematous changes. There continues to be a bandlike opacity at the right lung base which may reflect some parenchymal scarring and has not changed. No gross pleural effusions are seen. No acute bony abnormalities are seen. IMPRESSION: Emphysema. Chronic opacity at the right lung base which probably reflects some scarring. Electronically signed by: Mackenzie Barriga MD (10/04/2020 5:32 AM) VELIA
--- NOTE | 2020-10-04 05:47 | EKG ---
[facility] [address] [place] [address] Test Date: 2020-10-04 Test Time: 04:43:53 Pat Name: FRED BRANHAM Department: Room: Gender: M Rn Utilization Management Um: : 1950 Requested By: SHIRA HERBERT Order Number: [id number] Reading MD: Measurements Intervals [place] Rate: 83 P: 90 RI: 204 QRS: -10 QRSD: 110 T: 20 QT: 364 QTc: 428 Interpretive Statements SINUS RHYTHM LEFTWARD AXIS OTHERWISE NORMAL ECG RI6.02 No previous ECG available for comparison
[2020-10-04] MEDS ORDERED: POTASSIUM CHLORIDE 20 MEQ TABLET.ER. PO ONE (06:00)
[2020-10-04 06:01] LABS: % EOS 12 % (0-5); % LYMPHS 33 % (24-48); % MONOS 19 % (0-10); % SEGS 36 % (35-66)
[2020-10-04 06:02] LABS: ANISOCYTOSIS SLIGHT; HYPOCHROMIA MOD; PLT ESTIMATE INCREASED (ADEQUATE); POLYCHROMASIA SLIGHT
[2020-10-04 06:03] LABS: MICROCYTOSIS MOD
[2020-10-04] MEDS ORDERED: ONDANSETRON PF 4 MG/2 ML VIAL. ONE (06:39)
[2020-10-04] MEDS ORDERED: ONDANSETRON PF 4 MG/2 ML VIAL. IVP ONE (07:00)
[2020-10-04 08:00] VITALS: BP 135/78
[2020-10-04] MEDS ORDERED: IPRATRPIUM/ALBUTEROL 0.5/2.5MG 3 ML NEBU. NEB SCH (08:00)
--- NOTE | 2020-10-04 09:58 | PDOC1 ---
History and Physical Date of Admission Date of Admission DATE: 10/04/20 TIME: 09:52 Identification/Chief Complaint Chief Complaint Shortness of breath Source Source: Chart review, Patient History of Present Illness History of Present Illness Patient 69-year-old male with past medical history COPD on 3 L, who presented to ER last night for shortness of breath. Family has been giving short of breath the past several days. He been using home breathing treatments without much improvement. In the ED he was treated with steroids and duo nebs with some reported improvement, however he was admitted for further medical management. Upon my evaluation of the patient he states that he did not feel that he needs to be admitted and is adamantly requesting to be discharged home at the time of my evaluation. He denies any productive cough, fever, or known sick exposures. Past Medical History Cardiovascular: No pertinent hx Pulmonary: Bronchitis, COPD, Pneumonia GI: GERD, Other Hepatobiliary: No pertinent hx Psych: No pertinent hx Musculoskeletal: low back pain Past Surgical History Past Surgical History: Hernia Repair, No pertinent history Family History Family History: Hypertension, Other Social History Smoke: Quit ALCOHOL: none Drugs: None Current Problem List Problem List Problems Medical Problems: (1) COPD with acute exacerbation Status: Acute (2) Hypokalemia Status: Acute Current Medications Current Medications Current Medications Albuterol/ Ipratropium (Duoneb) 3 ml 1X ONCE NEB Last administered on 10/04/20at 06:15; Start 10/04/20 at 05:00; Stop 10/04/20 at 05:01; Status DC Methylprednisolone Sodium Succinate (SOLU-Medrol 125MG VIAL) 125 mg 1X ONCE IV Last administered on 10/04/20at 05:02; Start 10/04/20 at 05:00; Stop 10/04/20 at 05:01; Status DC Azithromycin 250 ml @ 250 mls/hr 1X ONCE IV Last administered on 10/04/20at 06:01; Start 10/04/20 at 05:30; Stop 10/04/20 at 06:29; Status DC Potassium Chloride (Klor-Con) 20 meq 1X ONCE PO ; Start 10/04/20 at 06:00; Stop 10/04/20 at 06:01; Status DC Albuterol/ Ipratropium (Duoneb) 3 ml RTQID NEB ; Start 10/04/20 at 08:00; Stop 10/05/20 at 07:59 Ondansetron HCl (Zofran) 4 mg 1X ONCE IVP Last administered on 10/04/20at 06:42; Start 10/04/20 at 07:00; Stop 10/04/20 at 07:01; Status DC Ondansetron HCl (Zofran) 4 mg STK-MED ONCE .ROUTE ; Start 10/04/20 at 06:39; Stop 10/04/20 at 06:39; Status DC Albuterol/ Ipratropium (Combivent Respimat 20-100 Mcg) 1 puff RTQID INH ; Start 10/04/20 at 12:00 Active Scripts Active Budesonide 0.5 Mg/2 Ml Ampul.neb 0.5 Mg NEB RTBID MDD 1 [guaiFENesin/CODEINE 100mg/10mg] 5 ML Liquid 5 Ml PO QID MDD 1 10 Days [place] 5-325 Tablet (Acetaminophen/Hydrocodone Bitart) 1 Each Tablet 1 Tab PO PRN Q6HRS PRN MDD 1 6 Days Polyethylene Glycol 3350 17 Gm Powd.pack 17 Gm PO DAILY 30 Days Senna-Time S Tablet (Sennosides/Docusate Sodium) 1 Each Tablet 2 Tab PO PRN BID PRN 30 Days Protonix (Pantoprazole Sodium) 20 Mg Tablet.dr 1 Tab PO DAILY Fluticasone Propionate Nasal [place] (Fluticasone Propionate) 16 Gm Emporium.susp 2 [place] NS DAILY 30 Days Reported Alprazolam 1 Mg Tablet 1 Mg PO PRN Q6-8HRS PRN Tamsulosin Hcl 0.4 Mg Cap.er.24h 1 Cap PO DAILY Amlodipine Besylate 5 Mg Tablet 5 Mg PO DAILY Losartan Potassium 50 Mg Tablet 50 Mg PO DAILY Duoneb 0.5-3(2.5) Mg/3 Ml (Albuterol/Ipratropium) 3 Ml Ampul.neb 3 Ml IH Q4HRS Advair 500-50 Diskus (Fluticasone/Salmeterol) 1 Each Disk.w.dev 1 Puff IH BID PRN Patient takes prn before bed if he feels he needs it Allergies Allergies: Coded Allergies: No Known Drug Allergies (Unverified , 09/12/14) ROS Review of System GENERAL: No history of weight change, weakness or fevers. SKIN: No bruising, hair changes or rashes. EYES: No blurred, double or loss of vision. NOSE AND THROAT: No history of nosebleeds, hoarseness or sore throat. HEART: Denies chest pain, denies palpitations. LUNGS: Shortness of breath. Denies cough, hemoptysis, wheezing. GASTROINTESTINAL: Denies nausea, vomiting, abdominal pain. GENITOURINARY: Denies dysuria, frequency, urgency, hematuria. NEUROLOGIC: Denies history of numbness, tingling, tremor or weakness. PSYCHIATRIC: Denies anxiety, denies depression. ENDOCRINE: No history of heat or cold intolerance, polyuria or polydipsia. EXTREMITIES: Denies muscle weakness, joint pain, pain on walking or stiffness. Physical Exam Physical Exam General: Alert, Oriented X3, Cooperative, No acute distress HEENT: PERRLA, EOMI Lungs: Decreased breath sounds, breathing on 3 L nasal cannula. Normal air movement Heart: RRR, no murmurs Cardiovascular: S1, S2 Abdomen: Normal bowel sounds, Soft, No tenderness Extremities: No clubbing, No cyanosis Skin: No rashes, No significant lesion Neuro: Normal speech, Normal tone, Sensation intact Psych/Mental Status: Mental status NL, Mood NL Vitals Vitals Vital Signs Date Time Temp Pulse Resp B/P (MAP) Pulse Ox O2 Delivery O2 Flow Rate FiO2 10/04/20 08:00 98.2 84 20 135/78 (97) 95 Nasal Cannula 3.0 98.2 Labs Labs Laboratory Tests Test 10/04/20 04:55 White Blood Count 9.0 x10^3/uL (4.0-11.0) Red Blood Count 4.02 x10^6/uL (4.30-5.70) Hemoglobin 8.1 g/dL (13.0-17.5) Hematocrit 27.5 % (39.0-53.0) Mean Corpuscular Volume 69 fL (79-100) Mean Corpuscular Hemoglobin 20 pg (25-35) Mean Corpuscular Hemoglobin Concent 29 g/dL (31-37) Red Cell Distribution Width 19.4 % (11.5-14.5) Platelet Count 524 x10^3/uL (140-400) Neutrophils (%) (Auto) 49 % (31-73) Lymphocytes (%) (Auto) 25 % (24-48) Monocytes (%) (Auto) 11 % (0-9) Eosinophils (%) (Auto) 14 % (0-3) Basophils (%) (Auto) 2 % (0-3) Neutrophils # (Auto) 4.4 x10^3/uL (1.8-7.7) Lymphocytes # (Auto) 2.3 x10^3/uL (1.0-4.8) Monocytes # (Auto) 1.0 x10^3/uL (0.0-1.1) Eosinophils # (Auto) 1.2 x10^3/uL (0.0-0.7) Basophils # (Auto) 0.1 x10^3/uL (0.0-0.2) Segmented Neutrophils % 36 % (35-66) Lymphocytes % 33 % (24-48) Monocytes % 19 % (0-10) Eosinophils % 12 % (0-5) Platelet Estimate Increased (ADEQUATE) Polychromasia Slight Hypochromasia Mod Anisocytosis Slight Microcytosis Mod Sodium Level 142 mmol/L (136-145) Potassium Level 3.2 mmol/L (3.5-5.1) Chloride Level 105 mmol/L (98-107) Carbon Dioxide Level 28 mmol/L (21-32) Anion Gap 9 (6-14) Blood Urea Nitrogen 14 mg/dL (8-26) Creatinine 1.0 mg/dL (0.7-1.3) Estimated GFR (Cockcroft-Gault) 73.7 BUN/Creatinine Ratio 14 (6-20) Glucose Level 87 mg/dL (70-99) Calcium Level 8.6 mg/dL (8.5-10.1) Magnesium Level 2.2 mg/dL (1.8-2.4) Total Bilirubin 0.4 mg/dL (0.2-1.0) Aspartate Amino Transf (AST/SGOT) 10 U/L (15-37) Alanine Aminotransferase (ALT/SGPT) 18 U/L (16-63) Alkaline Phosphatase 77 U/L (46-116) Troponin I Quantitative < 0.017 ng/mL (0.000-0.055) Total Protein 6.9 g/dL (6.4-8.2) Albumin 3.5 g/dL (3.4-5.0) Albumin/Globulin Ratio 1.0 (1.0-1.7) Laboratory Tests Test 10/04/20 04:55 White Blood Count 9.0 x10^3/uL (4.0-11.0) Red Blood Count 4.02 x10^6/uL (4.30-5.70) Hemoglobin 8.1 g/dL (13.0-17.5) Hematocrit 27.5 % (39.0-53.0) Mean Corpuscular Volume 69 fL (79-100) Mean Corpuscular Hemoglobin 20 pg (25-35) Mean Corpuscular Hemoglobin Concent 29 g/dL (31-37) Red Cell Distribution Width 19.4 % (11.5-14.5) Platelet Count 524 x10^3/uL (140-400) Neutrophils (%) (Auto) 49 % (31-73) Lymphocytes (%) (Auto) 25 % (24-48) Monocytes (%) (Auto) 11 % (0-9) Eosinophils (%) (Auto) 14 % (0-3) Basophils (%) (Auto) 2 % (0-3) Neutrophils # (Auto) 4.4 x10^3/uL (1.8-7.7) Lymphocytes # (Auto) 2.3 x10^3/uL (1.0-4.8) Monocytes # (Auto) 1.0 x10^3/uL (0.0-1.1) Eosinophils # (Auto) 1.2 x10^3/uL (0.0-0.7) Basophils # (Auto) 0.1 x10^3/uL (0.0-0.2) Segmented Neutrophils % 36 % (35-66) Lymphocytes % 33 % (24-48) Monocytes % 19 % (0-10) Eosinophils % 12 % (0-5) Platelet Estimate Increased (ADEQUATE) Polychromasia Slight Hypochromasia Mod Anisocytosis Slight Microcytosis Mod Sodium Level 142 mmol/L (136-145) Potassium Level 3.2 mmol/L (3.5-5.1) Chloride Level 105 mmol/L (98-107) Carbon Dioxide Level 28 mmol/L (21-32) Anion Gap 9 (6-14) Blood Urea Nitrogen 14 mg/dL (8-26) Creatinine 1.0 mg/dL (0.7-1.3) Estimated GFR (Cockcroft-Gault) 73.7 BUN/Creatinine Ratio 14 (6-20) Glucose Level 87 mg/dL (70-99) Calcium Level 8.6 mg/dL (8.5-10.1) Magnesium Level 2.2 mg/dL (1.8-2.4) Total Bilirubin 0.4 mg/dL (0.2-1.0) Aspartate Amino Transf (AST/SGOT) 10 U/L (15-37) Alanine Aminotransferase (ALT/SGPT) 18 U/L (16-63) Alkaline Phosphatase 77 U/L (46-116) Troponin I Quantitative < 0.017 ng/mL (0.000-0.055) Total Protein 6.9 g/dL (6.4-8.2) Albumin 3.5 g/dL (3.4-5.0) Albumin/Globulin Ratio 1.0 (1.0-1.7) Images Images PORTABLE CHEST 1V Chest AP portable at 0509: Reason for examination: Short of breath. Comparison is made to previous study dated 04/11/2019. The heart size is normal. Mediastinum is unremarkable. Lung elizabeth show emphysematous changes. There continues to be a bandlike opacity at the right lung base which may reflect some parenchymal scarring and has not changed. No gross pleural effusions are seen. No acute bony abnormalities are seen. IMPRESSION: Emphysema. Chronic opacity at the right lung base which probably reflects some scarring. VTE Prophylaxis Ordered VTE Prophylaxis Devices: No VTE Pharmacological Prophylaxi: Yes Assessment/Plan Assessment/Plan COPD Microcytic anemia Hypokalemia Plan: Patient was treated with steroids and breathing treatment in the ED He notes significant improvement, currently breathing has baseline O2 requ irement of 3 L without hypoxia He denies productive cough, fever, or need to increase his home O2 requirement. Will discharge patient home with close PCP follow-up. Justifications for Admission Other Justification DOMINGO ALANIS MD Oct 04, 2020 09:58
--- NOTE | 2020-10-04 10:05 | NUR ---
Discharge Note: PT DISCHARGED HOME WITH SELF CARE. PT LEFT FACILITY VIA PRIVATE VEHICLE WITH SELF. PT STABLE AND ALERT UPON DISCHARGE. PT PIV REMOVED FROM L AC WITHOUT COMPLICATIONS, BANDAGE APPLIED. PT EDUCATED ABOUT DISCHARGE INSTRUCTIONS, DISCHARGE MEDICATIONS, AND FOLLOW-UP CARE. PT VOICED NO CONCERNS AT THIS TIME. PT LEFT WITH ALL PERSONAL BELONGINGS. FRED BRANHAM Discharge instructions and discharge home medications reviewed with Patient and a copy given. All questions have been answered and understanding verbalized.
--- NOTE | 2020-10-04 11:35 | PDOC3 ---
Discharge Summary Visit Information Date of Admission: Oct 04, 2020 Date of Discharge: Oct 04, 2020 Final Diagnosis Problems Medical Problems: (1) COPD with acute exacerbation Status: Acute (2) Hypokalemia Status: Acute Brief Hospital Course Allergies Allergies Coded Allergies Type Severity Reaction Last Updated Verified No Known Drug Allergies 09/12/14 No Vital Signs Vital Signs Date Time Temp Pulse Resp B/P (MAP) Pulse Ox O2 Delivery O2 Flow Rate FiO2 10/04/20 08:00 98.2 84 20 135/78 (97) 95 Nasal Cannula 3.0 98.2 Lab Results Laboratory Tests Test 10/04/20 04:55 White Blood Count 9.0 x10^3/uL (4.0-11.0) Red Blood Count 4.02 x10^6/uL (4.30-5.70) Hemoglobin 8.1 g/dL (13.0-17.5) Hematocrit 27.5 % (39.0-53.0) Mean Corpuscular Volume 69 fL (79-100) Mean Corpuscular Hemoglobin 20 pg (25-35) Mean Corpuscular Hemoglobin Concent 29 g/dL (31-37) Red Cell Distribution Width 19.4 % (11.5-14.5) Platelet Count 524 x10^3/uL (140-400) Neutrophils (%) (Auto) 49 % (31-73) Lymphocytes (%) (Auto) 25 % (24-48) Monocytes (%) (Auto) 11 % (0-9) Eosinophils (%) (Auto) 14 % (0-3) Basophils (%) (Auto) 2 % (0-3) Neutrophils # (Auto) 4.4 x10^3/uL (1.8-7.7) Lymphocytes # (Auto) 2.3 x10^3/uL (1.0-4.8) Monocytes # (Auto) 1.0 x10^3/uL (0.0-1.1) Eosinophils # (Auto) 1.2 x10^3/uL (0.0-0.7) Basophils # (Auto) 0.1 x10^3/uL (0.0-0.2) Segmented Neutrophils % 36 % (35-66) Lymphocytes % 33 % (24-48) Monocytes % 19 % (0-10) Eosinophils % 12 % (0-5) Platelet Estimate Increased (ADEQUATE) Polychromasia Slight Hypochromasia Mod Anisocytosis Slight Microcytosis Mod Sodium Level 142 mmol/L (136-145) Potassium Level 3.2 mmol/L (3.5-5.1) Chloride Level 105 mmol/L (98-107) Carbon Dioxide Level 28 mmol/L (21-32) Anion Gap 9 (6-14) Blood Urea Nitrogen 14 mg/dL (8-26) Creatinine 1.0 mg/dL (0.7-1.3) Estimated GFR (Cockcroft-Gault) 73.7 BUN/Creatinine Ratio 14 (6-20) Glucose Level 87 mg/dL (70-99) Calcium Level 8.6 mg/dL (8.5-10.1) Magnesium Level 2.2 mg/dL (1.8-2.4) Total Bilirubin 0.4 mg/dL (0.2-1.0) Aspartate Amino Transf (AST/SGOT) 10 U/L (15-37) Alanine Aminotransferase (ALT/SGPT) 18 U/L (16-63) Alkaline Phosphatase 77 U/L (46-116) Troponin I Quantitative < 0.017 ng/mL (0.000-0.055) Total Protein 6.9 g/dL (6.4-8.2) Albumin 3.5 g/dL (3.4-5.0) Albumin/Globulin Ratio 1.0 (1.0-1.7) Laboratory Tests Test 10/04/20 04:55 White Blood Count 9.0 x10^3/uL (4.0-11.0) Red Blood Count 4.02 x10^6/uL (4.30-5.70) Hemoglobin 8.1 g/dL (13.0-17.5) Hematocrit 27.5 % (39.0-53.0) Mean Corpuscular Volume 69 fL (79-100) Mean Corpuscular Hemoglobin 20 pg (25-35) Mean Corpuscular Hemoglobin Concent 29 g/dL (31-37) Red Cell Distribution Width 19.4 % (11.5-14.5) Platelet Count 524 x10^3/uL (140-400) Neutrophils (%) (Auto) 49 % (31-73) Lymphocytes (%) (Auto) 25 % (24-48) Monocytes (%) (Auto) 11 % (0-9) Eosinophils (%) (Auto) 14 % (0-3) Basophils (%) (Auto) 2 % (0-3) Neutrophils # (Auto) 4.4 x10^3/uL (1.8-7.7) Lymphocytes # (Auto) 2.3 x10^3/uL (1.0-4.8) Monocytes # (Auto) 1.0 x10^3/uL (0.0-1.1) Eosinophils # (Auto) 1.2 x10^3/uL (0.0-0.7) Basophils # (Auto) 0.1 x10^3/uL (0.0-0.2) Segmented Neutrophils % 36 % (35-66) Lymphocytes % 33 % (24-48) Monocytes % 19 % (0-10) Eosinophils % 12 % (0-5) Platelet Estimate Increased (ADEQUATE) Polychromasia Slight Hypochromasia Mod Anisocytosis Slight Microcytosis Mod Sodium Level 142 mmol/L (136-145) Potassium Level 3.2 mmol/L (3.5-5.1) Chloride Level 105 mmol/L (98-107) Carbon Dioxide Level 28 mmol/L (21-32) Anion Gap 9 (6-14) Blood Urea Nitrogen 14 mg/dL (8-26) Creatinine 1.0 mg/dL (0.7-1.3) Estimated GFR (Cockcroft-Gault) 73.7 BUN/Creatinine Ratio 14 (6-20) Glucose Level 87 mg/dL (70-99) Calcium Level 8.6 mg/dL (8.5-10.1) Magnesium Level 2.2 mg/dL (1.8-2.4) Total Bilirubin 0.4 mg/dL (0.2-1.0) Aspartate Amino Transf (AST/SGOT) 10 U/L (15-37) Alanine Aminotransferase (ALT/SGPT) 18 U/L (16-63) Alkaline Phosphatase 77 U/L (46-116) Troponin I Quantitative < 0.017 ng/mL (0.000-0.055) Total Protein 6.9 g/dL (6.4-8.2) Albumin 3.5 g/dL (3.4-5.0) Albumin/Globulin Ratio 1.0 (1.0-1.7) Brief Hospital Course Mr. Beltran is a 69 old male who presented with COPD. He was treated with breathing treatment and steroids in the ED. Upon my evaluation in the morning after his own admission, patient denies any shortness of breath and was currently breathing at his baseline O2 requirement of 3 L. He is adamant about discharging immediately and denies any further home needs. He was discharged with close PCP follow-up. Discharge Information Condition at Discharge: Improved Follow Up: Weeks Disposition/Orders: D/C to Home Scheduled Amlodipine Besylate (Amlodipine Besylate) 5 Mg Tablet, 5 MG PO DAILY for htn, (Reported) Entered as Reported by: TROY MONSIVAIS [facility] on 08/15/15 1348 Budesonide (Budesonide) 0.5 Mg/2 Ml Ampul.neb, 0.5 MG NEB RTBID for copd MDD 1, #60 Prescribed by: KATHIE EDMONDS on 11/26/18 1041 Fluticasone Propionate (Fluticasone Propionate Nasal Couch) 16 Gm Couch.susp, 2 SPRAY NS DAILY for Nasal congestion for 30 Days, #1 Ref 2 Prescribed by: TOD CHOWDARY MD on 10/06/18 1148 Ipratropium/Albuterol Sulfate (Duoneb 0.5-3(2.5) Mg/3 Ml) 3 Ml Ampul.neb, 3 ML IH Q4HRS for shortness of breath, (Reported) Entered as Reported by: TROY MONSIVASI [facility] on 08/15/15 1348 Losartan Potassium (Losartan Potassium) 50 Mg Tablet, 50 MG PO DAILY for htn, (Reported) Entered as Reported by: TROY MONSIVAIS [facility] on 08/15/15 1348 Pantoprazole Sodium (Protonix) 20 Mg Tablet.dr, 1 TAB PO DAILY for GERD, #30 Prescribed by: TOD CHOWDARY MD on 10/06/18 1148 Polyethylene Glycol 3350 (Polyethylene Glycol 3350) 17 Gm Powd.pack, 17 GM PO DAILY for constipation for 30 Days, #30 Prescribed by: TOD CHOWDARY MD on 10/06/18 1209 Tamsulosin Hcl (Tamsulosin Hcl) 0.4 Mg Cap.er.24h, 1 CAP PO DAILY, #30 Ref 5 (Reported) Entered as Reported by: REAGAN ARAIZA RN on 10/22/17 1623 [guaiFENesin/CODEINE 100mg/10mg] 5 ML LIQUID, 5 ML PO QID for cough MDD 1 for 10 Days Prescribed by: KATHIE EDMONDS on 11/26/18 1041 Scheduled PRN Alprazolam (Alprazolam) 1 Mg Tablet, 1 MG PO PRN Q6-8HRS PRN for ANXIETY / AGITATION, (Reported) Entered as Reported by: QIAN COLORADO on 12/19/18 2139 Fluticasone/Salmeterol (Advair 500-50 Diskus) 1 Each Disk.w.dev, 1 PUFF IH BID PRN for SHORTNESS OF BREATH, #1 Ref 5 (Reported) Patient takes prn before bed if he feels he needs it Entered as Reported by: ROX ANGEL on 07/04/14 2351 Hydrocodone/Apap 5-325 (Dumont 5-325 Tablet) 1 Each Tablet, 1 TAB PO PRN Q6HRS PRN for PAIN MDD 1 for 6 Days, #20 Prescribed by: KATHIE EDMONDS on 11/26/18 1041 Sennosides/Docusate Sodium (Senna-Time S Tablet) 1 Each Tablet, 2 TAB PO PRN BID PRN for CONSTIPATION for 30 Days, #60 Prescribed by: TOD CHOWDARY MD on 10/06/18 1209 Discontinued Medications Pantoprazole Sodium (Protonix) 20 Mg Tablet.dr, 2 TAB PO BID for gerd, #30 Prescribed by: KATHIE EDMONDS on 11/27/18 1026 Justicifation of Admission Dx: Justifications for Admission: Justification of Admission Dx: Yes DOMINGO ALANIS MD Oct 04, 2020 11:35
--- NOTE | 2020-10-04 11:51 | NUR ---
SW following for discharge planning. Pt discharged home self-care with no SW needs.
[2020-10-04] MEDS ORDERED: IPRATROPIUM/ALBUTEROL 20/100mcg/INH INHALER. INH SCH (12:00)
--- NOTE | 2020-10-05 15:25 | NUR ---
IP: Attempted to contact pt concerning COVID results, No answer, left a voicemail to return the call.
--- NOTE | 2020-10-05 15:38 | NUR ---
IP: Pt returned call and I informed him of negative COVID results. Pt verbalized understanding.
== END 2020-10-04 10:07 | disposition home or self-care (01) ==
LOC: ER 04:18 → EEVIPCON 04:18 → INTOOBSV 06:15 → 6 SOUTH 06:15
PROVIDERS: ADMIT Internal Medicine; ATTEND Internal Medicine
DX: J44.1 Chronic obstructive pulmonary disease with (acute) exacerbation (principal); Z20.822 Contact with and (suspected) exposure to COVID-19; E87.6 Hypokalemia; D50.9 Iron deficiency anemia, unspecified; I10 Essential (primary) hypertension; K21.9 Gastro-esophageal reflux disease without esophagitis; J18.9 Pneumonia, unspecified organism; J40 Bronchitis, not specified as acute or chronic; Z87.891 Personal history of nicotine dependence; Z98.890 Other specified postprocedural states
CPT/HCPCS: 71045; 80053; 83735; 84484; 85007; 85025; 93005; 94640; 94760; 96365; 96375; 99285; G0378; J0456; J2405; J2930; U0003; G0379

== ENCOUNTER 2021-02-13 04:45 | Emergency (ER) | payer MEDICARE ==
[~2021-02-13] VITALS: Ht 182.9 cm; Wt 92.0 kg
--- NOTE | 2021-02-13 04:50 | PHYS DOC ---
Past Medical History Past Medical History: COPD, Hypertension Additional Past Medical Histor: Emphysema (LUCIANO WOOTEN DO) Past Medical History: COPD (LAUREL FAY DO) Past Surgical History: No Surgical History Additional Past Surgical Histo: Hernia repair, right hip infection (LUCIANO WOOTEN DO) Smoking Status: Former Smoker Alcohol Use: None Drug Use: None (LUCIANO WOOTEN DO) General Adult EDM: Chief Complaint: SHORTNESS OF BREATH HPI: HPI: 70-year-old male past medical history of COPD (follows with Dr. Lara), former tobacco use and hypertension, presents to the ED brought by EMS with complaints of shortness of breath stating "it hurts in my back when I breath," is confident "this is pleurisy." Pt states he was at [facility] emergency department on Friday night for the same symptoms, had a chest x-ray but left before being discharged-did not receive any antibiotics or prednisone. Cannot recall his last prednisone use. States he received his first dose of the pfizer vaccine in October, had a fever after it and didn't get his second vaccination. States he saw his pcp this past week and reports "I've already been checked for blood clots, I just need help to breath." Cannot recall any CT images or LE ultrasound procedures, "I know it's not a blood clot." Reports no prior h/o covid. EMR reviewed-elevated D-dimer [place] [address] angio concerning for pneumonia, no pulmonary emboli. Only inhaler is albuterol. (LUCIANO WOOTEN DO) Review of Systems: Review of Systems: Constitutional: Denies fever or chills. [] Eyes: Denies change in visual acuity. [] HENT: Denies nasal congestion or sore throat. [] Respiratory: Denies increased work of breathing or hemoptysis Cardiovascular: Denies chest pain or tightness or leg swelling GI: Denies nausea, vomiting, or diarrhea. [] : Denies dysuria or hematuria Musculoskeletal: Denies back pain or joint pain. [] Integument: Denies rash or diaphoresis Neurologic: Denies headache, focal weakness or sensory changes. [] Endocrine: Denies polyuria or polydipsia. [] Lymphatic: Denies swollen glands. [] Psychiatric: Denies depression or anxiety. [] (LUCIANO WOOTEN DO) Heart Score: C/O Chest Pain: No Risk Factors: Risk Factors: DM, Current or recent (<one month) smoker, HTN, HLP, family history of CAD, obesity. Risk Scores: Score 0 - 3: 2.5% MACE over next 6 weeks - Discharge Home Score 4 - 6: 20.3% MACE over next 6 weeks - Admit for Clinical Observation Score 7 - 10: 72.7% MACE over next 6 weeks - Early Invasive Strategies (LUCIANO WOOTEN DO) C/O Chest Pain: N/A (LAUREL FAY DO) Allergies: Allergies: Allergies Coded Allergies Type Severity Reaction Last Updated Verified No Known Drug Allergies 09/12/14 No (LUCIANO WOOTEN DO) Physical Exam: PE: Constitutional: Afebrile, no acute distress HENT: Normocephalic, atraumatic, Eyes: EOMI, conjunctiva normal, no discharge. Neck: Normal range of motion, supple, Cardiovascular: S1/2 present, regular rhythm Lungs & Thorax: Speaking in full sentences, bilateral equal chest rise, no tachypnea or increased work of breathing, 98% on 3L NC, expiratory wheezing Abdomen: soft, no tenderness, Skin: Warm, dry, Extremities: No tenderness, no cyanosis, no unilateral lower extremity edema Neurologic: Alert and oriented X 3, normal motor function, normal sensory function, no focal deficits noted. [] Psychologic: condescending -"Are you sure you're a doctor or the nurse?" becomes tearful - appears overwhelmed as if he's tired of being in hospitals (LUCIANO WOOTEN DO) Current Patient Data: Labs: Laboratory Tests Test 02/13/21 05:42 02/13/21 06:00 White Blood Count 8.0 x10^3/uL Red Blood Count 3.94 x10^6/uL Hemoglobin 8.0 g/dL Hematocrit 26.4 % Mean Corpuscular Volume 67 fL Mean Corpuscular Hemoglobin 20 pg Mean Corpuscular Hemoglobin Concent 31 g/dL Red Cell Distribution Width 19.3 % Platelet Count 450 x10^3/uL Neutrophils (%) (Auto) 51 % Lymphocytes (%) (Auto) 25 % Monocytes (%) (Auto) 12 % Eosinophils (%) (Auto) 10 % Basophils (%) (Auto) 2 % Neutrophils # (Auto) 4.1 x10^3/uL Lymphocytes # (Auto) 2.0 x10^3/uL Monocytes # (Auto) 0.9 x10^3/uL Eosinophils # (Auto) 0.8 x10^3/uL Basophils # (Auto) 0.1 x10^3/uL Platelet Estimate Increased Hypochromasia Mod Anisocytosis Mod Microcytosis Present Sodium Level 142 mmol/L Potassium Level 3.3 mmol/L Chloride Level 107 mmol/L Carbon Dioxide Level 28 mmol/L Anion Gap 7 Blood Urea Nitrogen 21 mg/dL Creatinine 0.7 mg/dL Estimated GFR (Cockcroft-Gault) 110.9 BUN/Creatinine Ratio 30 Glucose Level 94 mg/dL Calcium Level 8.9 mg/dL Magnesium Level 2.1 mg/dL Total Bilirubin 0.3 mg/dL Aspartate Amino Transf (AST/SGOT) 13 U/L Alanine Aminotransferase (ALT/SGPT) 17 U/L Alkaline Phosphatase 64 U/L Creatine Kinase 50 U/L Troponin I Quantitative < 0.017 ng/mL CX-Xmj-[id number]-Type Natriuretic Peptide 192 pg/mL Total Protein 6.4 g/dL Albumin 3.3 g/dL Albumin/Globulin Ratio 1.1 SARS-CoV-2 Antigen (Rapid) Negative Current Medications Medications (Trade) Dose Ordered Sig/Georges Route PRN Reason Start Time Stop Time Status Last Admin Dose Admin Dexamethasone Sodium Phosphate (Decadron) 10 mg 1X ONCE IV 02/13/21 05:45 02/13/21 05:46 DC 02/13/21 05:54 Albuterol/ Ipratropium (Duoneb) 9 ml 1X ONCE NEB 02/13/21 05:45 02/13/21 05:46 DC 02/13/21 06:55 Fentanyl Citrate (Fentanyl 2ml Vial) 50 mcg 1X ONCE IVP 02/13/21 06:00 02/13/21 06:01 DC 02/13/21 05:55 Iohexol (Omnipaque 350 Mg/ml) 100 ml 1X ONCE IV 02/13/21 06:30 02/13/21 06:31 DC 02/13/21 06:41 Info (CONTRAST GIVEN -- Rx MONITORING) 1 each PRN DAILY PRN MC SEE COMMENTS 02/13/21 06:30 02/15/21 06:29 Morphine Sulfate (Morphine Sulfate) 4 mg 1X ONCE IVP 02/13/21 07:00 02/13/21 07:01 DC (LAUREL FAY DO) EKG: EKG: Since then significant beats per minute, left axis deviation, first-degree AV block w/ pr 210, no T wave inversion, no ST elevation or ST depression (LUCIANO WOOTEN DO) Radiology/Procedures: Radiology/Procedures: []IMAGING REPORT Signed PATIENT: JESSIE BRANHAM ACCOUNT: [id number] : 1950 LOCATION: ER AGE: 70 SEX: M EXAM STATUS: REG ER ORD. PHYSICIAN: LUCIANO WOOTEN DO REASON: soa PROCEDURE: PORTABLE CHEST 1V EXAMINATION: Chest radiograph. VIEWS: Single view COMPARISON: 10/04/2020 INDICATION:70 years, Male, shortness of breath. FINDINGS: Normal cardiomediastinal silhouette. Similar emphysematous changes. No focal consolidation. No pleural effusion or pneumothorax. No acute osseous process. IMPRESSION: No acute cardiopulmonary process. Electronically signed by: Leslie Bran MD (02/13/2021 5:44 AM) [facility] DICTATED and SIGNED BY: LESLIE BRAN MD DATE: 02/13/21 [id number] (LUCIANO WOOTEN DO) Radiology/Procedures: [facility] [address] [place] [address] IMAGING REPORT Signed PATIENT: JESSIE BRANHAM ACCOUNT: [id number] : 1950 LOCATION: ER AGE: 70 SEX: M EXAM STATUS: REG ER ORD. PHYSICIAN: LUCIANO WOOTEN DO REASON: soa, pleuritic back pain PROCEDURE: CT ANGIOGRAPHY CHEST EXAMINATION: CTA Chest With IV contrast INDICATION:70 years, Male, shortness of breath and pleuritic back pain, evaluate for pulmonary embolism. COMPARISON: 01/07/2019 and multiple priors TECHNIQUE: Spiral CTA was obtained from the jugular notch through the posterior costophrenic recess. 3-D MIPS, sagittal and coronal reformats were obtained. Exposure: One or more of the following individualized dose reduction techniques were utilized for this examination: 1. Automated exposure control 2. Adjustment of the mA and/or kV according to patient size 3. Use of iterative reconstruction technique. FINDINGS: LUNGS/PLEURA: Central airways are patent. Severe pulmonary emphysema. Subsegmental atelectasis versus scarring in the right middle lobe and lingula. No focal consolidation, pleural effusion or pneumothorax. Redemonstrated 4 mm pulmonary nodule in the lingula, unchanged since multiple prior exam dating back to July 2015, most likely benign. MEDIASTINUM: No pathologic mediastinal or hilar adenopathy. Calcified subcarinal lymph node The thoracic aorta and pulmonary arteries are normal in caliber. No pulmonary embolism. Mild cardiomegaly. No pericardial effusion. Mild calcified coronary atherosclerosis. The visualized thyroid and the esophagus are unremarkable. AXILLA/SOFT TISSUE: No supraclavicular or axillary adenopathy. Regional soft tissues are within normal limits. UPPER ABDOMEN: Cholelithiasis. Partially imaged hypodense lesion in the upper pole right kidney. Redemonstrated simple right hepatic lobe cysts, stable to slightly increasing and size since comparison, the largest in the hepatic dome measures 5.2 cm, previously 5.0 cm. BONES: No evidence of acute fractures or aggressive osseous lesions. Multilevel degenerative changes in the spine. IMPRESSION: 1. No evidence of pulmonary embolism. 2. Similar severe pulmonary emphysema. 3. No focal consolidation. 4. Cholelithiasis. 4. Partially imaged hypodense lesion in the upper pole right kidney, indetermi jose. Recommend further evaluation with nonemergent renal ultrasound. Electronically signed by: Leslie Bran MD (02/13/2021 7:08 AM) [facility] DICTATED and SIGNED BY: LESLIE BRAN MD DATE: 02/13/21 [id number] (LAUREL FAY DO) Course & Med Decision Making: Course & Med Decision Making Pertinent Labs and Imaging studies reviewed. (See chart for details) Concern for COPD exacerbation, Covid test pending. CXR w/no pnuemonia. Dexamethasone and duo nebs ordered. Due to shift change patient was signed out to oncoming physician Dr. Fay for further medical management disposition. ([facility]) Course & Med Decision Making Patient is a 70-year-old male who present to ER due to trouble breathing. Patient has COPD, CT scan of the chest did not show any evidence of PE or infection, it does show emphysema. Patient oxygen saturation was 87% on room air upon arrival, patient saturation improved to 95% with 2 L after nebulizer treatment.. Patient will be admitted to hospital for further evaluation, discussed with hospitalist on-call Dr. Erazo who agreed admit patient. (LAUREL FAY DO) Dragon Disclaimer: Dragon Disclaimer: This electronic medical record was generated, in whole or in part, using a voice recognition dictation system. (LUCIANO WOOTEN DO) Departure Departure Impression: Primary Impression: COPD exacerbation Additional Impression: Person under investigation for COVID-19 Disposition: ADMITTED INPATIENT Admitting Physician: DILAN (Dr. Erazo) (LAUREL FAY DO) Condition: IMPROVED Referrals: SUE KELLY MD (PCP) LUCIANO WOOTEN DO Feb 13, 2021 04:50 LAUREL FAY DO Feb 13, 2021 06:45
--- NOTE | 2021-02-13 05:15 | EKG ---
[facility] [address] [place] [address] Test Date: 2021-02-13 Test Time: 05:10:21 Pat Name: JESSIE BRANHAM Department: Room: Gender: M Fur Tinter: : 1950 Requested By: LUCIANO WOOTEN Order Number: [id number] Reading MD: Measurements Intervals [place] Rate: 75 P: 90 IA: 210 QRS: -5 QRSD: 106 T: 29 QT: 380 QTc: 427 Interpretive Statements SINUS RHYTHM LEFTWARD AXIS INCOMPLETE RIGHT BUNDLE BRANCH BLOCK NO SPECIFIC ECG ABNORMALITIES RI6.01 No previous ECG available for comparison
[2021-02-13] MEDS ORDERED: DEXAMETHASONE SOD PHOS 20 MG/5 ML VIAL. IV ONE (05:45)
[2021-02-13] MEDS ORDERED: IPRATRPIUM/ALBUTEROL 0.5/2.5MG 3 ML NEBU. NEB ONE (05:45)
--- NOTE | 2021-02-13 05:46 | RAD ---
EXAMINATION: Chest radiograph. VIEWS: Single view COMPARISON: 10/04/2020 INDICATION:70 years, Male, shortness of breath. FINDINGS: Normal cardiomediastinal silhouette. Similar emphysematous changes. No focal consolidation. No pleura l effusion or pneumothorax. No acute osseous process. IMPRESSION: No acute cardiopulmonary process. Electronically signed by: Qian Bran MD (02/13/2021 5:44 AM) [facility]
[2021-02-13 05:52] LABS: BASO # 0.1 x10^3/uL (0.0-0.2); BASO % 2 % (0-3); EOS # 0.8 x10^3/uL (0.0-0.7); EOS % 10 % (0-3); HEMATOCRIT 26.4 % (39.0-53.0); LYMPH % 25 % (24-48); MEAN CORPUSCULAR HEMOGLOBIN 20 pg (25-35); MEAN CORPUSCULAR HGB CONC 31 g/dL (31-37); MEAN CORPUSCULAR VOLUME 67 fL (79-100); MONO # 0.9 x10^3/uL (0.0-1.1); MONO % 12 % (0-9); NEUT # 4.1 x10^3/uL (1.8-7.7); NEUT % 51 % (31-73); PLATELET COUNT 450 x10^3/uL (140-400); RED BLOOD COUNT 3.94 x10^6/uL (4.30-5.70); RED CELL DISTRIBUTION WIDTH 19.3 % (11.5-14.5)
[2021-02-13] MEDS ORDERED: fentaNYL PF VIAL 100 MCG/2 ML VIAL IVP ONE (06:00)
[2021-02-13 06:10] LABS: CALCIUM 8.9 mg/dL (8.5-10.1); CREATININE 0.7 mg/dL (0.7-1.3); GFR 110.9; POTASSIUM 3.3 mmol/L (3.5-5.1)
[2021-02-13 06:17] LABS: ALBUMIN 3.3 g/dL (3.4-5.0); ALBUMIN/GLOBULIN RATIO 1.1 (1.0-1.7); MAGNESIUM 2.1 mg/dL (1.8-2.4); TOTAL BILIRUBIN 0.3 mg/dL (0.2-1.0); TOTAL PROTEIN 6.4 g/dL (6.4-8.2)
[2021-02-13] MEDS ORDERED: IOHEXOL 350 MG/ML 100 ML VIAL. IV ONE (06:30)
[2021-02-13] MEDS ORDERED: CONTRAST GIVEN. MC PRN (06:30)
[2021-02-13] MEDS ORDERED: MORPHINE SULFATE 4 MG/ML INJ. IVP ONE (07:00)
--- NOTE | 2021-02-13 07:10 | RAD ---
EXAMINATION: CTA Chest With IV contrast INDICATION:70 years, Male, shortness of breath and pleuritic back pain, evaluate for pulmonary emboli sm. COMPARISON: 01/07/2019 and multiple priors TECHNIQUE: Spiral CTA was obtained from the jugular notch through the posterior costophrenic recess. 3-D MIPS, sagittal and coronal reformats were obtained. Exposure: One or more of the following individualized dose reduction techniques were utilized for thi s examination: 1. Automated exposure control 2. Adjustment of the mA and/or kV according to patient size 3. Use of iterative reconstruction technique. FINDINGS: LUNGS/PLEURA: Central airways are patent. Severe pulmonary emphysema. Subsegmental atelectasis versus scarring in the right middle lobe and lingula. No focal consolidation, pleural effusion or pneumotho rax. Redemonstrated 4 mm pulmonary nodule in the lingula, unchanged since multiple prior exam dating back to July 2015, most likely benign. MEDIASTINUM: No pathologic mediastinal or hilar adenopathy. Calcified subcarinal lymph node The thora cic aorta and pulmonary arteries are normal in caliber. No pulmonary embolism. Mild cardiomegaly. No pericardial effusion. Mild calcified coronary atherosclerosis. The visualized thyroid and the esophag us are unremarkable. AXILLA/SOFT TISSUE: No supraclavicular or axillary adenopathy. Regional soft tissues are within lucia l limits. UPPER ABDOMEN: Cholelithiasis. Partially imaged hypodense lesion in the upper pole right kidney. Rede monstrated simple right hepatic lobe cysts, stable to slightly increasing and size since comparison, the largest in the hepatic dome measures 5.2 cm, previously 5.0 cm. BONES: No evidence of acute fractures or aggressive osseous lesions. Multilevel degenerative changes in the spine. IMPRESSION: 1. No evidence of pulmonary embolism. 2. Similar severe pulmonary emphysema. 3. No focal consolidation. 4. Cholelithiasis. 4. Partially imaged hypodense lesion in the upper pole right kidney, indeterminate. Recommend further evaluation with nonemergent renal ultrasound. Electronically signed by: Qian Bran MD (02/13/2021 7:08 AM) [facility]
[2021-02-13 07:12] LABS: ANISOCYTOSIS MOD; HYPOCHROMIA MOD; MICROCYTOSIS PRESENT; PLT ESTIMATE INCREASED (ADEQUATE)
[2021-02-13] MEDS ORDERED: IV NORMAL SALINE 1000ML BAG 1,000 ML IV SCH (09:00)
[2021-02-13] MEDS ORDERED: MORPHINE SULFATE 2 MG/ML INJ. IV PRN (09:00)
[2021-02-13] MEDS: POTASSIUM CHLORIDE 10 MEQ TABLET.ER. PO ONE ×2 (09:00→09:05)
[2021-02-13] MEDS ORDERED: ONDANSETRON PF 4 MG/2 ML VIAL. IV PRN (09:00)
[2021-02-13 09:54] VITALS: BP 155/72
--- NOTE | 2021-02-13 13:27 | PDOC1 ---
History and Physical Date of Service: DOS: DATE: 02/13/21 TIME: 13:27 Allergies: Allergies: Coded Allergies: No Known Drug Allergies (Unverified , 09/12/14) Current Medications: Current Medications Current Medications Dexamethasone Sodium Phosphate (Decadron) 10 mg 1X ONCE IV Last administered on 02/13/21at 05:54; Start 02/13/21 at 05:45; Stop 02/13/21 at 05:46; Status DC Albuterol/ Ipratropium (Duoneb) 9 ml 1X ONCE NEB Last administered on 02/13/21at 06:55; Start 02/13/21 at 05:45; Stop 02/13/21 at 05:46; Status DC Fentanyl Citrate (Fentanyl 2ml Vial) 50 mcg 1X ONCE IVP Last administered on 02/13/21at 05:55; Start 02/13/21 at 06:00; Stop 02/13/21 at 06:01; Status DC Iohexol (Omnipaque 350 Mg/ml) 100 ml 1X ONCE IV Last administered on 02/13/21at 06:41; Start 02/13/21 at 06:30; Stop 02/13/21 at 06:31; Status DC Info (CONTRAST GIVEN -- Rx MONITORING) 1 each PRN DAILY PRN MC SEE COMMENTS; Start 02/13/21 at 06:30; Stop 02/15/21 at 06:29 Morphine Sulfate (Morphine Sulfate) 4 mg 1X ONCE IVP Last administered on 02/13/21at 09:01; Start 02/13/21 at 07:00; Stop 02/13/21 at 07:01; Status DC Potassium Chloride (Klor-Con) 40 meq 1X ONCE PO ; Start 02/13/21 at 08:30; Stop 02/13/21 at 08:31; Status DC Ondansetron HCl (Zofran) 4 mg PRN Q8HRS PRN IV NAUSEA/VOMITING; Start 02/13/21 at 09:00; Stop 02/14/21 at 08:59 Morphine Sulfate (Morphine Sulfate) 2 mg PRN Q2HR PRN IV PAIN; Start 02/13/21 at 09:00; Stop 02/14/21 at 08:59 Sodium Chloride 1,000 ml @ 75 mls/hr [id number] IV Last administered on 02/13/21at 09:00; Start 02/13/21 at 09:00; Stop 02/14/21 at 08:59 Active Scripts Active Budesonide 0.5 Mg/2 Ml Ampul.neb 0.5 Mg NEB RTBID MDD 1 [guaiFENesin/CODEINE 100mg/10mg] 5 ML Liquid 5 Ml PO QID MDD 1 10 Days [place] 5-325 Tablet (Acetaminophen/Hydrocodone Bitart) 1 Each Tablet 1 Tab PO PRN Q6HRS PRN MDD 1 6 Days Polyethylene Glycol 3350 17 Gm Powd.pack 17 Gm PO DAILY 30 Days Senna-Time S Tablet (Sennosides/Docusate Sodium) 1 Each Tablet 2 Tab PO PRN BID PRN 30 Days Protonix (Pantoprazole Sodium) 20 Mg Tablet.dr 1 Tab PO DAILY Fluticasone Propionate Nasal [place] (Fluticasone Propionate) 16 Gm [place].susp 2 [place] NS DAILY 30 Days Reported Alprazolam 1 Mg Tablet 1 Mg PO PRN Q6-8HRS PRN Tamsulosin Hcl 0.4 Mg Cap.er.24h 1 Cap PO DAILY Amlodipine Besylate 5 Mg Tablet 5 Mg PO DAILY Losartan Potassium 50 Mg Tablet 50 Mg PO DAILY Duoneb 0.5-3(2.5) Mg/3 Ml (Albuterol/Ipratropium) 3 Ml Ampul.neb 3 Ml IH Q4HRS Advair 500-50 Diskus (Fluticasone/Salmeterol) 1 Each Disk.w.dev 1 Puff IH BID PRN Patient takes prn before bed if he feels he needs it ROS: Review of Systems Review of System REVIEW OF SYSTEMS: GENERAL: Denies weakness SKIN: No bruising, hair changes or rashes. EYES: No blurred, double or loss of vision. NOSE AND THROAT: No history of nosebleeds, hoarseness or sore throat. HEART: No history of palpitations, chest pain or shortness of breath on exertion. LUNGS: Denies cough, hemoptysis, wheezing or shortness of breath. GASTROINTESTINAL: Denies changes in appetite, nausea, vomiting, diarrhea or constipation. GENITOURINARY: No history of frequency, urgency, hesitancy or nocturia. NEUROLOGIC: Denies history of numbness, tingling, or tremor. PSYCHIATRIC: No history of panic, anxiety or depression. ENDOCRINE: No history of heat or cold intolerance, polyuria or polydipsia. EXTREMITIES: Denies joint pain, pain on walking or stiffness. Physical Exam: Vital Signs: Vital Signs Date Time Temp Pulse Resp B/P (MAP) Pulse Ox O2 Delivery O2 Flow Rate FiO2 02/13/21 09:54 72 12 155/72 (99) 94 Nasal Cannula 3.5 02/13/21 04:57 97.8 97.8 Physcial Exam: GEN: No apparent distress. Alert and oriented HEENT: Normal cephalic, atraumatic, external auditory canals are patent EYES: Extraocular muscles are intact, pupil are equally round and reactive to light and accommodation MUSCULOSKELETAL: Well developed , well nourished, good range of motion ENDOCRINE: No thyromegaly was palpated LYMPHATICS: No cervical chain or axillary nodes were noted HEMATOPOIETIC: No bruising NECK: Supple, no JVD, no thyromegaly was noted LUNGS: Clear to auscultation in all lung elizabeth without rhonchi or wheezing HEART: RRR, S!, S2 present. Peripheral pulses intact, no obvious murmurs noted ABDOMEN: Soft, nontender. Positive bowel sounds, no organomegaly, normal bowel sounds EXTREMITIES: Without clubbing, cyanosis, or edema. Pedal pulses intact. Negative Homans sign NEUROLOGIC: Normal speech and tone. A&O x 3, moves all extremities, no obvious focal deficits PSYCHIATRIC: Normal affect, normal mood. Stable SKIN: No ulcerations or rashes, good skin turgor, no jaundice VASCULAR: Good capillary refill, neurovascular bundle appears to be intact Labs: Labs: Laboratory Tests Test 02/13/21 05:42 02/13/21 06:00 White Blood Count 8.0 x10^3/uL (4.0-11.0) Red Blood Count 3.94 x10^6/uL (4.30-5.70) Hemoglobin 8.0 g/dL (13.0-17.5) Hematocrit 26.4 % (39.0-53.0) Mean Corpuscular Volume 67 fL (79-100) Mean Corpuscular Hemoglobin 20 pg (25-35) Mean Corpuscular Hemoglobin Concent 31 g/dL (31-37) Red Cell Distribution Width 19.3 % (11.5-14.5) Platelet Count 450 x10^3/uL (140-400) Neutrophils (%) (Auto) 51 % (31-73) Lymphocytes (%) (Auto) 25 % (24-48) Monocytes (%) (Auto) 12 % (0-9) Eosinophils (%) (Auto) 10 % (0-3) Basophils (%) (Auto) 2 % (0-3) Neutrophils # (Auto) 4.1 x10^3/uL (1.8-7.7) Lymphocytes # (Auto) 2.0 x10^3/uL (1.0-4.8) Monocytes # (Auto) 0.9 x10^3/uL (0.0-1.1) Eosinophils # (Auto) 0.8 x10^3/uL (0.0-0.7) Basophils # (Auto) 0.1 x10^3/uL (0.0-0.2) Platelet Estimate Increased (ADEQUATE) Hypochromasia Mod Anisocytosis Mod Microcytosis Present Sodium Level 142 mmol/L (136-145) Potassium Level 3.3 mmol/L (3.5-5.1) Chloride Level 107 mmol/L (98-107) Carbon Dioxide Level 28 mmol/L (21-32) Anion Gap 7 (6-14) Blood Urea Nitrogen 21 mg/dL (8-26) Creatinine 0.7 mg/dL (0.7-1.3) Estimated GFR (Cockcroft-Gault) 110.9 BUN/Creatinine Ratio 30 (6-20) Glucose Level 94 mg/dL (70-99) Calcium Level 8.9 mg/dL (8.5-10.1) Magnesium Level 2.1 mg/dL (1.8-2.4) Total Bilirubin 0.3 mg/dL (0.2-1.0) Aspartate Amino Transf (AST/SGOT) 13 U/L (15-37) Alanine Aminotransferase (ALT/SGPT) 17 U/L (16-63) Alkaline Phosphatase 64 U/L (46-116) Creatine Kinase 50 U/L (39-308) Troponin I Quantitative < 0.017 ng/mL (0.000-0.055) YJ-Llb-O-Type Natriuretic Peptide 192 pg/mL (0-124) Total Protein 6.4 g/dL (6.4-8.2) Albumin 3.3 g/dL (3.4-5.0) Albumin/Globulin Ratio 1.1 (1.0-1.7) SARS-CoV-2 Antigen (Rapid) Negative (NEGATIVE) Laboratory Tests Test 02/13/21 05:42 02/13/21 06:00 White Blood Count 8.0 x10^3/uL (4.0-11.0) Red Blood Count 3.94 x10^6/uL (4.30-5.70) Hemoglobin 8.0 g/dL (13.0-17.5) Hematocrit 26.4 % (39.0-53.0) Mean Corpuscular Volume 67 fL (79-100) Mean Corpuscular Hemoglobin 20 pg (25-35) Mean Corpuscular Hemoglobin Concent 31 g/dL (31-37) Red Cell Distribution Width 19.3 % (11.5-14.5) Platelet Count 450 x10^3/uL (140-400) Neutrophils (%) (Auto) 51 % (31-73) Lymphocytes (%) (Auto) 25 % (24-48) Monocytes (%) (Auto) 12 % (0-9) Eosinophils (%) (Auto) 10 % (0-3) Basophils (%) (Auto) 2 % (0-3) Neutrophils # (Auto) 4.1 x10^3/uL (1.8-7.7) Lymphocytes # (Auto) 2.0 x10^3/uL (1.0-4.8) Monocytes # (Auto) 0.9 x10^3/uL (0.0-1.1) Eosinophils # (Auto) 0.8 x10^3/uL (0.0-0.7) Basophils # (Auto) 0.1 x10^3/uL (0.0-0.2) Platelet Estimate Increased (ADEQUATE) Hypochromasia Mod Anisocytosis Mod Microcytosis Present Sodium Level 142 mmol/L (136-145) Potassium Level 3.3 mmol/L (3.5-5.1) Chloride Level 107 mmol/L (98-107) Carbon Dioxide Level 28 mmol/L (21-32) Anion Gap 7 (6-14) Blood Urea Nitrogen 21 mg/dL (8-26) Creatinine 0.7 mg/dL (0.7-1.3) Estimated GFR (Cockcroft-Gault) 110.9 BUN/Creatinine Ratio 30 (6-20) Glucose Level 94 mg/dL (70-99) Calcium Level 8.9 mg/dL (8.5-10.1) Magnesium Level 2.1 mg/dL (1.8-2.4) Total Bilirubin 0.3 mg/dL (0.2-1.0) Aspartate Amino Transf (AST/SGOT) 13 U/L (15-37) Alanine Aminotransferase (ALT/SGPT) 17 U/L (16-63) Alkaline Phosphatase 64 U/L (46-116) Creatine Kinase 50 U/L (39-308) Troponin I Quantitative < 0.017 ng/mL (0.000-0.055) BK-Rpo-I-Type Natriuretic Peptide 192 pg/mL (0-124) Total Protein 6.4 g/dL (6.4-8.2) Albumin 3.3 g/dL (3.4-5.0) Albumin/Globulin Ratio 1.1 (1.0-1.7) SARS-CoV-2 Antigen (Rapid) Negative (NEGATIVE) Justifications for Admission Other Justification ZACK AMBROCIO MD Feb 13, 2021 13:27
== END 2021-02-13 09:43 | disposition admitted as inpatient to this hospital (09) ==
LOC: ER 04:45 → UNDOADMIN 08:12 → ED HOLD 08:12 → ER 09:43
DX: J44.1 Chronic obstructive pulmonary disease with (acute) exacerbation (principal); Z20.822 Contact with and (suspected) exposure to COVID-19; I10 Essential (primary) hypertension; Z87.891 Personal history of nicotine dependence
CPT/HCPCS: 36415; 71045; 71275; 80053; 82550; 83735; 83880; 84484; 85025; 87426; 93005; 94644; 96361; 96374; 96375; 99285; J1100; J2270; J3010; J7030; Q9967; U0003; U0005; 96365; 99284-25

== ENCOUNTER 2021-07-18 14:35 | Emergency (ER) | payer MEDICARE ==
[~2021-07-18 14:35] MED LIST changes: +CYCL10TA19 PO; -CYCL10TA2 PO; +TIZA-75 PO; -TIZA4TAB2 PO
== END 2021-07-18 15:22 | disposition left against medical advice (07) ==
LOC: ER 14:35
DX: R06.02 Shortness of breath (principal); Z53.21 Procedure and treatment not carried out due to patient leaving prior to being seen by health care provider

== ENCOUNTER 2021-11-16 21:59 | Inpatient (IN) | payer MEDICARE ==
[~2021-11-16] VITALS: Ht 182.9 cm; Wt 98.4 kg
[2021-11-16] MEDS ORDERED: IV NORMAL SALINE 1000ML BAG 1,000 ML IV ONE (22:30)
[2021-11-16] MEDS ORDERED: ACETAMINOPHEN 500 MG TABLET PO ONE (22:30)
--- NOTE | 2021-11-16 22:38 | PHYS DOC ---
Past Medical History Past Medical History: COPD Additional Past Medical Histor: Emphysema, pleurisy Past Surgical History: No Surgical History Additional Past Surgical Histo: Hernia repair, right hip infection, R cataracts Smoking Status: Former Smoker Alcohol Use: None Drug Use: None General Adult EDM: Chief Complaint: SHORTNESS OF BREATH HPI: HPI: Patient is a 71 year old male who was brought here by EMS from home for 2-day history of cough, fever, trouble breathing. Patient is a former smoker, he does have a history of COPD, he is on 4 L of oxygen at home all the time. Patient denies any chest pain. Patient said he was vaccinated for COVID-19. Patient said he has been coughing with yellow sputum. Patient was seen by his doctor 2 days ago, was prescribed a Z-Shar. Patient has been on a Z-Shar 2 days already but did not feel any better. Review of Systems: Review of Systems: Constitutional: Positive for fever and chill Eyes: Denies change in visual acuity. [] HENT: Denies nasal congestion or sore throat. [] Respiratory: Positive for cough and trouble breathing. Cardiovascular: Denies chest pain or edema. [] GI: Denies abdominal pain, nausea, vomiting, bloody stools or diarrhea. [] : Denies dysuria. [] Musculoskeletal: Denies back pain or joint pain. [] Integument: Denies rash. [] Neurologic: Denies headache, focal weakness or sensory changes. [] Endocrine: Denies polyuria or polydipsia. [] Lymphatic: Denies swollen glands. [] Psychiatric: Denies depression or anxiety. [] Heart Score: C/O Chest Pain: N/A Risk Factors: Risk Factors: DM, Current or recent (<one month) smoker, HTN, HLP, family history of CAD, obesity. Risk Scores: Score 0 - 3: 2.5% MACE over next 6 weeks - Discharge Home Score 4 - 6: 20.3% MACE over next 6 weeks - Admit for Clinical Observation Score 7 - 10: 72.7% MACE over next 6 weeks - Early Invasive Strategies Current Medications: Current Medications Medications (Trade) Dose Ordered Sig/Georges Start Time Stop Time Status Last Admin Dose Admin Acetaminophen (Tylenol) 1,000 mg 1X ONCE 11/16/21 22:30 11/16/21 22:31 Sodium Chloride 1,000 ml @ 1,000 mls/hr 1X ONCE 11/16/21 22:30 11/16/21 23:29 UNV Allergies: Allergies: Allergies Coded Allergies Type Severity Reaction Last Updated Verified No Known Drug Allergies 11/16/21 No Physical Exam: PE: Constitutional: Well developed, well nourished, no acute distress, non-toxic appearance. [] HENT: Normocephalic, atraumatic, bilateral external ears normal, oropharynx moist, no oral exudates, nose normal. [] Eyes: PERRLA, EOMI, conjunctiva normal, no discharge. [] Neck: Normal range of motion, no tenderness, supple, no stridor. [] Cardiovascular: Sinus tachycardia with regular rhythm, no murmur [] Lungs & Thorax: Bilateral breath sounds with expiratory wheezing to auscultation Abdomen: Bowel sounds normal, soft, no tenderness, no masses, no pulsatile masses. [] Skin: Warm, dry, no erythema, no rash. [] Back: No tenderness, no CVA tenderness. [] Extremities: No tenderness, no cyanosis, no clubbing, ROM intact, no edema. [] Neurologic: Alert and oriented X 3, normal motor function, normal sensory function, no focal deficits noted. [] Psychologic: Affect normal, judgement normal, mood normal. [] Current Patient Data: Labs: Laboratory Tests Test 11/16/21 23:00 White Blood Count 9.7 x10^3/uL Red Blood Count 4.72 x10^6/uL Hemoglobin 10.7 g/dL Hematocrit 34.9 % Mean Corpuscular Volume 74 fL Mean Corpuscular Hemoglobin 23 pg Mean Corpuscular Hemoglobin Concent 31 g/dL Red Cell Distribution Width 27.2 % Platelet Count 378 x10^3/uL Neutrophils (%) (Auto) 61 % Lymphocytes (%) (Auto) 16 % Monocytes (%) (Auto) 17 % Eosinophils (%) (Auto) 5 % Basophils (%) (Auto) 1 % Neutrophils # (Auto) 5.9 x10^3/uL Lymphocytes # (Auto) 1.5 x10^3/uL Monocytes # (Auto) 1.6 x10^3/uL Eosinophils # (Auto) 0.4 x10^3/uL Basophils # (Auto) 0.1 x10^3/uL Platelet Estimate Pending Sodium Level 139 mmol/L Potassium Level 3.4 mmol/L Chloride Level 103 mmol/L Carbon Dioxide Level 30 mmol/L Anion Gap 6 Blood Urea Nitrogen 19 mg/dL Creatinine 1.0 mg/dL Estimated GFR (Cockcroft-Gault) 73.2 BUN/Creatinine Ratio 19 Glucose Level 91 mg/dL Lactic Acid Level 0.7 mmol/L Calcium Level 9.1 mg/dL Magnesium Level 2.0 mg/dL Total Bilirubin 0.4 mg/dL Aspartate Amino Transf (AST/SGOT) 10 U/L Alanine Aminotransferase (ALT/SGPT) 12 U/L Alkaline Phosphatase 100 U/L Troponin I High Sensitivity 10 ng/L NV-Ymq-P-Type Natriuretic Peptide 413 pg/mL Total Protein 7.7 g/dL Albumin 3.8 g/dL Albumin/Globulin Ratio 1.0 Influenza Type A Antigen Negative Influenza Type B Antigen Negative SARS-CoV-2 Antigen (Rapid) Negative EKG: EKG: EKG was done at at 2225, heart rate 118 beats per, sinus tachycardia, no ST segment elevation Radiology/Procedures: Radiology/Procedures: Chest x-ray show right lower lobe infiltrate Course & Med Decision Making: Course & Med Decision Making Pertinent Labs and Imaging studies reviewed. (See chart for details) Patient is a 71-year-old male who present to ER for evaluation of cough, trouble breathing, fever and chills. Patient does have right lower lobe infiltration on chest x-ray, patient also has COPD exacerbation. Patient was given steroid, DuoNeb treatment, IV antibiotic in ER. Patient be admitted for further evaluation treatment Dragon Disclaimer: Dragon Disclaimer: This electronic medical record was generated, in whole or in part, using a voice recognition dictation system. Departure Departure Impression: Primary Impression: Pneumonia Additional Impression: COPD exacerbation Disposition: ADMITTED INPATIENT Admitting Physician: DILAN (Dr. Garces) Condition: STABLE Referrals: SUE KELLY MD (PCP) LAUREL FAY DO Nov 16, 2021 22:38
[2021-11-16] MEDS ORDERED: cefTRIAXone IV Push 1 GM VIAL. IVP ONE (23:30)
[2021-11-16 23:39] LABS: INFLUENZA A PATIENT NEGATIVE (NEGATIVE); INFLUENZA B PATIENT NEGATIVE (NEGATIVE)
[2021-11-16] MEDS ORDERED: IPRATRPIUM/ALBUTEROL 0.5/2.5MG 3 ML NEBU. NEB ONE (23:45)
[2021-11-16 23:55] LABS: BASO # 0.1 x10^3/uL (0.0-0.2); BASO % 1 % (0-3); EOS # 0.4 x10^3/uL (0.0-0.7); EOS % 5 % (0-3); HEMATOCRIT 34.9 % (39.0-53.0); HEMOGLOBIN 10.7 g/dL (13.0-17.5); LYMPH # 1.5 x10^3/uL (1.0-4.8); LYMPH % 16 % (24-48); MEAN CORPUSCULAR HEMOGLOBIN 23 pg (25-35); MEAN CORPUSCULAR HGB CONC 31 g/dL (31-37); MEAN CORPUSCULAR VOLUME 74 fL (79-100); MONO # 1.6 x10^3/uL (0.0-1.1); MONO % 17 % (0-9); NEUT # 5.9 x10^3/uL (1.8-7.7); NEUT % 61 % (31-73); PLATELET COUNT 378 x10^3/uL (140-400); RED BLOOD COUNT 4.72 x10^6/uL (4.30-5.70); RED CELL DISTRIBUTION WIDTH 27.2 % (11.5-14.5); WHITE BLOOD COUNT 9.7 x10^3/uL (4.0-11.0)
[2021-11-17] MEDS ORDERED: AZITHROMYCIN 250 MG TABLET. PO ONE (00:15)
[2021-11-17 00:22] LABS: ALBUMIN 3.8 g/dL (3.4-5.0); CALCIUM 9.1 mg/dL (8.5-10.1); TOTAL PROTEIN 7.7 g/dL (6.4-8.2)
[2021-11-17 00:23] LABS: GFR 73.2; POTASSIUM 3.4 mmol/L (3.5-5.1); TOTAL BILIRUBIN 0.4 mg/dL (0.2-1.0)
[2021-11-17] MEDS ORDERED: ONDANSETRON PF 4 MG/2 ML VIAL. IVP PRN ×2 (00:30→08:00)
[2021-11-17] MEDS ORDERED: ACETAMINOPHEN 325 MG TABLET. PO PRN ×2 (00:30→08:00)
[2021-11-17] MEDS: IV NORMAL SALINE 1000ML BAG 1,000 ML IV SCH ×5 (00:55→18:00)
[2021-11-17 02:00] VITALS: BP 143/95
[2021-11-17] MEDS ORDERED: SENNOSIDES/DOCUSATE 8.6/50MG TABLET. PO PRN (02:30)
[2021-11-17] MEDS: HYDROcodone/APAP 5/325MG 1 TAB TABLET PO PRN ×2 (02:37→19:30)
[2021-11-17] MEDS: ALPRAZolam 1 MG TABLET PO PRN ×2 (02:37→23:40)
--- NOTE | 2021-11-17 02:43 | RAD ---
Study: PORTABLE CHEST 1V Indication: Shortness of air. Fever. Cough. Comparison: 02/13/2021 Findings: Unchanged prominence of the cardiomediastinal silhouette. Similar hilar configuration. Advanced emphysema. Favored discoid atelectasis at the right lung base. Probable component of atelect asis at the left lung base as well. Unchanged blunting of the left costophrenic angle. No pneumothora x. Impression: Advanced emphysematous changes and bibasilar atelectasis. A superimposed infectious process is not fu lly excluded but the radiographic appearance of the basilar opacities is not typical of an organizing pneumonia. Electronically signed by: CASSIE PENA MD (11/16/2021 11:32 PM) [facility]
[2021-11-17 05:02] LABS: PLT ESTIMATE ADEQUATE (ADEQUATE)
[2021-11-17 05:03] LABS: ANISOCYTOSIS MARKED; HYPOCHROMIA MOD; MICROCYTOSIS SLIGHT; POLYCHROMASIA SLIGHT; TARGET CELLS OCC
--- NOTE | 2021-11-17 05:06 | EKG ---
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
[2021-11-17] MEDS: BUDESONIDE 0.5 MG/2 ML NEBU. NEB SCH ×2 (06:13→20:23)
[2021-11-17] MEDS: IPRATRPIUM/ALBUTEROL 0.5/2.5MG 3 ML NEBU. IH SCH ×5 (06:13→22:46)
[2021-11-17 07:00] VITALS: BP 156/72
--- NOTE | 2021-11-17 07:54 | PDOC1 ---
History and Physical Date of Service: DOS: DATE: 11/17/21 TIME: 07:50 Chief Complaint: Chief Complain: Shortness of breath History of Present Illness: HPI: 71 year old male who was brought here by EMS from home for 2-day history of cough, fever, trouble breathing. Patient is a former smoker, he does have a history of COPD, he is on 4 L of oxygen at home all the time. Patient denies any chest pain. Patient said he was vaccinated for COVID-19. Patient said he has been coughing with yellow sputum. Patient was seen by his doctor 2 days ago, was prescribed a Z-Shar. Patient has been on a Z-Shar 2 days already but did not feel any better. Past Medical/Surgical History: PMH/PSH: Past Medical History: COPD, Emphysema, pleurisy Past Surgical History: Hernia repair, right hip infection, R cataracts Allergies: Allergies: Coded Allergies: No Known Drug Allergies (Unverified , 11/16/21) Family History: Family History: Reviewed with no relative findings in the chart Social History: Social History: Smoking Status: Former Smoker Alcohol Use: None Drug Use: None Current Medications: Current Medications Current Medications Acetaminophen (Tylenol) 1,000 mg 1X ONCE PO ; Start 11/16/21 at 22:30; Stop 11/16/21 at 22:31; Status DC Sodium Chloride 1,000 ml @ 1,000 mls/hr 1X ONCE IV Last administered on 11/16/21at 23:40; Start 11/16/21 at 22:30; Stop 11/16/21 at 23:29; Status DC Ceftriaxone Sodium (Rocephin) 1 gm 1X ONCE IVP Last administered on 11/16/21at 00:33; Start 11/16/21 at 23:30; Stop 11/16/21 at 23:31; Status DC Albuterol/ Ipratropium (Duoneb) 3 ml 1X ONCE NEB Last administered on 11/16/21at 23:45; Start 11/16/21 at 23:45; Stop 11/16/21 at 23:46; Status DC Azithromycin (Zithromax) 500 mg 1X ONCE PO ; Start 11/17/21 at 00:15; Stop 11/17/21 at 00:16; Status DC Ondansetron HCl (Zofran) 4 mg PRN Q8HRS PRN IVP NAUSEA/VOMITING; Start 11/17/21 at 00:30; Stop 11/18/21 at 00:29 Sodium Chloride 1,000 ml @ 125 mls/hr Q8H IV Last administered on 11/17/21at 00:55; Start 11/17/21 at 00:30; Stop 11/18/21 at 00:29 Acetaminophen (Tylenol) 650 mg PRN Q4HRS PRN PO FEVER > 100.3'F; Start 11/17/21 at 00:30; Stop 11/18/21 at 00:29 Albuterol/ Ipratropium (Duoneb) 3 ml RTQID NEB ; Start 11/17/21 at 08:00; Stop 11/17/21 at 02:31; Status DC Alprazolam (Xanax) 1 mg PRN Q6HRS PRN PO ANXIETY / AGITATION Last administered on 11/17/21at 02:37; Start 11/17/21 at 02:30 Fluticasone Propionate (Flonase) 2 spray DAILY NS ; Start 11/17/21 at 09:00 Acetaminophen/ Hydrocodone Bitart (Lortab 5/325) 1 tab PRN Q6HRS PRN PO PAIN; Start 11/17/21 at 02:30 Albuterol/ Ipratropium (Duoneb) 3 ml Q4HRS W/A IH Last administered on 11/17/21at 06:13; Start 11/17/21 at 06:00 Polyethylene Glycol (miraLAX PACKET) 17 gm DAILY PO ; Start 11/17/21 at 09:00 Senna/Docusate Sodium (Senna Plus) 2 tab PRN BID PRN PO CONSTIPATION; Start 11/17/21 at 02:30 Tamsulosin HCl (Flomax) 0.4 mg DAILY PO ; Start 11/17/21 at 09:00 Budesonide (Pulmicort) 0.5 mg RTBID NEB Last administered on 11/17/21at 06:13; Start 11/17/21 at 08:00 Pantoprazole Sodium (Protonix) 40 mg DAILYAC PO ; Start 11/17/21 at 07:30 Active Scripts Active Budesonide 0.5 Mg/2 Ml Ampul.neb 0.5 Mg NEB RTBID MDD 1 [guaiFENesin/CODEINE 100mg/10mg] 5 ML Liquid 5 Ml PO QID MDD 1 10 Days [place] 5-325 Tablet (Acetaminophen/Hydrocodone Bitart) 1 Each Tablet 1 Tab PO PRN Q6HRS PRN MDD 1 6 Days Polyethylene Glycol 3350 17 Gm Powd.pack 17 Gm PO DAILY 30 Days Senna-Time S Tablet (Sennosides/Docusate Sodium) 1 Each Tablet 2 Tab PO PRN BID PRN 30 Days Protonix (Pantoprazole Sodium) 20 Mg Tablet.dr 1 Tab PO DAILY Fluticasone Propionate Nasal [place] (Fluticasone Propionate) 16 Gm [place].susp 2 [place] NS DAILY 30 Days Reported Alprazolam 1 Mg Tablet 1 Mg PO PRN Q6-8HRS PRN Tamsulosin Hcl 0.4 Mg Cap.er.24h 1 Cap PO DAILY Amlodipine Besylate 5 Mg Tablet 5 Mg PO DAILY Losartan Potassium 50 Mg Tablet 50 Mg PO DAILY Duoneb 0.5-3(2.5) Mg/3 Ml (Albuterol/Ipratropium) 3 Ml Ampul.neb 3 Ml IH Q4HRS Advair 500-50 Diskus (Fluticasone/Salmeterol) 1 Each Disk.w.dev 1 Puff IH BID PRN Patient takes prn before bed if he feels he needs it ROS: Review of Systems Review of System REVIEW OF SYSTEMS: GENERAL: Denies weakness SKIN: No bruising, hair changes or rashes. EYES: No blurred, double or loss of vision. NOSE AND THROAT: No history of nosebleeds, hoarseness or sore throat. HEART: No history of palpitations, chest pain or shortness of breath on exertion. LUNGS: Denies cough, hemoptysis, wheezing or shortness of breath. GASTROINTESTINAL: Denies changes in appetite, nausea, vomiting, diarrhea or constipation. GENITOURINARY: No history of frequency, urgency, hesitancy or nocturia. NEUROLOGIC: Denies history of numbness, tingling, or tremor. PSYCHIATRIC: No history of panic, anxiety or depression. ENDOCRINE: No history of heat or cold intolerance, polyuria or polydipsia. EXTREMITIES: Denies joint pain, pain on walking or stiffness. Physical Exam: Vital Signs: Vital Signs Date Time Temp Pulse Resp B/P (MAP) Pulse Ox O2 Delivery O2 Flow Rate FiO2 11/17/21 06:13 97 Nasal Cannula 4.0 11/17/21 02:00 98.7 103 20 143/95 (111) 98.7 Physcial Exam: General: Well developed, well nourished, no acute distress, well appearing HEENT: Pupils equally round and reactive to light, EOMI, no discharge, normal conjunctiva Neck: Supple, no nuchal rigidity, no JVD, trachea midline, no tenderness Cardiac: RRR, no murmurs, no gallops, no rubs Chest/Lungs: CTAB, no wheeze, no rhonchi, no crackles Abdomen: soft, non-distended, no guarding, no peritoneal signs, non-tender Back: No tenderness Extremities: no edema, pulses intact, non-tender,capillary refill <3 sec bilateral upper and lower extremities, Neuro: Alert and oriented x 4, no focal deficits, normal speech Labs: Labs: Laboratory Tests Test 11/16/21 23:00 White Blood Count 9.7 x10^3/uL (4.0-11.0) Red Blood Count 4.72 x10^6/uL (4.30-5.70) Hemoglobin 10.7 g/dL (13.0-17.5) Hematocrit 34.9 % (39.0-53.0) Mean Corpuscular Volume 74 fL (79-100) Mean Corpuscular Hemoglobin 23 pg (25-35) Mean Corpuscular Hemoglobin Concent 31 g/dL (31-37) Red Cell Distribution Width 27.2 % (11.5-14.5) Platelet Count 378 x10^3/uL (140-400) Neutrophils (%) (Auto) 61 % (31-73) Lymphocytes (%) (Auto) 16 % (24-48) Monocytes (%) (Auto) 17 % (0-9) Eosinophils (%) (Auto) 5 % (0-3) Basophils (%) (Auto) 1 % (0-3) Neutrophils # (Auto) 5.9 x10^3/uL (1.8-7.7) Lymphocytes # (Auto) 1.5 x10^3/uL (1.0-4.8) Monocytes # (Auto) 1.6 x10^3/uL (0.0-1.1) Eosinophils # (Auto) 0.4 x10^3/uL (0.0-0.7) Basophils # (Auto) 0.1 x10^3/uL (0.0-0.2) Platelet Estimate Adequate (ADEQUATE) Polychromasia Slight Hypochromasia Mod Anisocytosis Marked Microcytosis Slight Target Cells Occ Sodium Level 139 mmol/L (136-145) Potassium Level 3.4 mmol/L (3.5-5.1) Chloride Level 103 mmol/L (98-107) Carbon Dioxide Level 30 mmol/L (21-32) Anion Gap 6 (6-14) Blood Urea Nitrogen 19 mg/dL (8-26) Creatinine 1.0 mg/dL (0.7-1.3) Estimated GFR (Cockcroft-Gault) 73.2 BUN/Creatinine Ratio 19 (6-20) Glucose Level 91 mg/dL (70-99) Lactic Acid Level 0.7 mmol/L (0.4-2.0) Calcium Level 9.1 mg/dL (8.5-10.1) Magnesium Level 2.0 mg/dL (1.8-2.4) Total Bilirubin 0.4 mg/dL (0.2-1.0) Aspartate Amino Transf (AST/SGOT) 10 U/L (15-37) Alanine Aminotransferase (ALT/SGPT) 12 U/L (16-63) Alkaline Phosphatase 100 U/L (46-116) Troponin I High Sensitivity 10 ng/L (4-75) EW-Jdo-R-Type Natriuretic Peptide 413 pg/mL (0-124) Total Protein 7.7 g/dL (6.4-8.2) Albumin 3.8 g/dL (3.4-5.0) Albumin/Globulin Ratio 1.0 (1.0-1.7) Influenza Type A Antigen Negative (NEGATIVE) Influenza Type B Antigen Negative (NEGATIVE) SARS-CoV-2 Antigen (Rapid) Negative (NEGATIVE) Laboratory Tests Test 11/16/21 23:00 White Blood Count 9.7 x10^3/uL (4.0-11.0) Red Blood Count 4.72 x10^6/uL (4.30-5.70) Hemoglobin 10.7 g/dL (13.0-17.5) Hematocrit 34.9 % (39.0-53.0) Mean Corpuscular Volume 74 fL (79-100) Mean Corpuscular Hemoglobin 23 pg (25-35) Mean Corpuscular Hemoglobin Concent 31 g/dL (31-37) Red Cell Distribution Width 27.2 % (11.5-14.5) Platelet Count 378 x10^3/uL (140-400) Neutrophils (%) (Auto) 61 % (31-73) Lymphocytes (%) (Auto) 16 % (24-48) Monocytes (%) (Auto) 17 % (0-9) Eosinophils (%) (Auto) 5 % (0-3) Basophils (%) (Auto) 1 % (0-3) Neutrophils # (Auto) 5.9 x10^3/uL (1.8-7.7) Lymphocytes # (Auto) 1.5 x10^3/uL (1.0-4.8) Monocytes # (Auto) 1.6 x10^3/uL (0.0-1.1) Eosinophils # (Auto) 0.4 x10^3/uL (0.0-0.7) Basophils # (Auto) 0.1 x10^3/uL (0.0-0.2) Platelet Estimate Adequate (ADEQUATE) Polychromasia Slight Hypochromasia Mod Anisocytosis Marked Microcytosis Slight Target Cells Occ Sodium Level 139 mmol/L (136-145) Potassium Level 3.4 mmol/L (3.5-5.1) Chloride Level 103 mmol/L (98-107) Carbon Dioxide Level 30 mmol/L (21-32) Anion Gap 6 (6-14) Blood Urea Nitrogen 19 mg/dL (8-26) Creatinine 1.0 mg/dL (0.7-1.3) Estimated GFR (Cockcroft-Gault) 73.2 BUN/Creatinine Ratio 19 (6-20) Glucose Level 91 mg/dL (70-99) Lactic Acid Level 0.7 mmol/L (0.4-2.0) Calcium Level 9.1 mg/dL (8.5-10.1) Magnesium Level 2.0 mg/dL (1.8-2.4) Total Bilirubin 0.4 mg/dL (0.2-1.0) Aspartate Amino Transf (AST/SGOT) 10 U/L (15-37) Alanine Aminotransferase (ALT/SGPT) 12 U/L (16-63) Alkaline Phosphatase 100 U/L (46-116) Troponin I High Sensitivity 10 ng/L (4-75) TM-Erm-P-Type Natriuretic Peptide 413 pg/mL (0-124) Total Protein 7.7 g/dL (6.4-8.2) Albumin 3.8 g/dL (3.4-5.0) Albumin/Globulin Ratio 1.0 (1.0-1.7) Influenza Type A Antigen Negative (NEGATIVE) Influenza Type B Antigen Negative (NEGATIVE) SARS-CoV-2 Antigen (Rapid) Negative (NEGATIVE) Images: Images PROCEDURE: PORTABLE CHEST 1V Study: PORTABLE CHEST 1V Indication: Shortness of air. Fever. Cough. Comparison: 02/13/2021 Findings: Unchanged prominence of the cardiomediastinal silhouette. Similar hilar configuration. Advanced emphysema. Favored discoid atelectasis at the right lung base. Probable component of atelectasis at the left lung base as well. Unchanged blunting of the left costophrenic angle. No pneumothorax. Impression: Advanced emphysematous changes and bibasilar atelectasis. A superimposed infectious process is not fully excluded but the radiographic appearance of the basilar opacities is not typical of an organizing pneumonia. Assessment/Plan Assessment/Plan Acute hypoxic respiratory failure Bilateral atypical pneumonia, possible gram-negative organisms Microcytic anemia, likely NEFTALY Mild hypokalemia Mildly elevated BNP, consistent with chronic hypoxia associated with COPD History of tobacco misuse History of COPD Admit to hospitalist service for further management Maintaining O2 saturation greater than 92% on supplementation as needed Continue IV antibiotics Sinus toileting IV and p.o. electrolyte replacement as needed DuoNebs scheduled and albuterol as needed Pending TTE to assess etiology of respiratory failure Pending TSH Lovenox for DVT prophylaxis Protonix while on steroids GI prophylaxis ADA diet CODE STATUS full Discussed with RN and SW Disposition inpatient management as above DPOA: Undesignated Justifications for Admission Other Justification ZACK AMBROCIO MD Nov 17, 2021 07:54
[2021-11-17] MEDS ORDERED: LORazepam 0.5 MG TABLET PO PRN (08:00)
[2021-11-17] MEDS ORDERED: DEXTROSE 50% 25 GM / 50ML DISP.SYRIN. IV PRN (08:00)
[2021-11-17] MEDS ORDERED: diphenhydrAMINE HCL 25 MG CAPSULE PO PRN ×2 (08:00)
[2021-11-17] MEDS ORDERED: DOCUSATE SODIUM 100 MG CAPSULE. PO PRN (08:00)
[2021-11-17] MEDS ORDERED: SENNOSIDES 8.6 MG TABLET PO PRN (08:00)
[2021-11-17] MEDS ORDERED: IPRATRPIUM/ALBUTEROL 0.5/2.5MG 3 ML NEBU. NEB SCH (08:00)
[2021-11-17] MEDS ORDERED: ZOLPIDEM 5 MG TABLET. PO PRN (08:00)
[2021-11-17] MEDS ORDERED: PROCHLORPERAZINE 10 MG/2 ML VIAL. IV PRN (08:00)
[2021-11-17] MEDS ORDERED: diphenhydrAMINE 50 MG/ML VIAL IVP PRN (08:00)
[2021-11-17] MEDS: POLYETHYLENE GLYCOL 3350 17 GM PACKET. PO SCH (08:32)
[2021-11-17] MEDS: TAMSULOSIN 0.4 MG CAP.ER.24H. PO SCH (08:32)
[2021-11-17] MEDS: PANTOPRAZOLE 40 MG TABLET.DR. PO SCH (08:32)
[2021-11-17] MEDS: FLUTICASONE 50MCG/NASAL SPRAY 16GM BOTTLE. NS SCH (08:32)
[2021-11-17] MEDS: ENOXAPARIN 40 MG/0.4 ML SYRINGE. SQ SCH (08:32)
[2021-11-17] MEDS: cefTRIAXone IV Push 1 GM VIAL. IVP SCH (08:34)
[2021-11-17] MEDS: AZITHROMYCIN 500 MG in IV NORMAL SALINE 250ML 250 ML IV SCH (08:38)
[2021-11-17 11:00] VITALS: BP 126/78
[2021-11-17] MEDS: MORPHINE SULFATE 2 MG/ML INJ. IV PRN ×2 (12:00→17:38)
[2021-11-17] MEDS: methylPREDNISolone SOD SUCC PF 40 MG/ML VIAL. IV SCH ×3 (12:00→23:40)
[2021-11-17 15:00] VITALS: BP 139/77
[2021-11-17 19:00] VITALS: BP 130/70
[2021-11-17 23:15] VITALS: BP 135/66
[2021-11-18] MEDS: IV NORMAL SALINE 1000ML BAG 1,000 ML IV SCH (04:00)
[2021-11-18] MEDS: IPRATRPIUM/ALBUTEROL 0.5/2.5MG 3 ML NEBU. IH SCH (06:00)
[2021-11-18] MEDS: methylPREDNISolone SOD SUCC PF 40 MG/ML VIAL. IV SCH (06:04)
[2021-11-18 07:00] VITALS: BP 121/81
[2021-11-18] MEDS: BUDESONIDE 0.5 MG/2 ML NEBU. NEB SCH (07:46)
[2021-11-18] MEDS: AZITHROMYCIN 500 MG in IV NORMAL SALINE 250ML 250 ML IV SCH (08:18)
[2021-11-18] MEDS: cefTRIAXone IV Push 1 GM VIAL. IVP SCH (08:18)
[2021-11-18] MEDS: TAMSULOSIN 0.4 MG CAP.ER.24H. PO SCH (08:19)
[2021-11-18] MEDS: ENOXAPARIN 40 MG/0.4 ML SYRINGE. SQ SCH (08:19)
[2021-11-18] MEDS: POLYETHYLENE GLYCOL 3350 17 GM PACKET. PO SCH (08:19)
[2021-11-18] MEDS: PANTOPRAZOLE 40 MG TABLET.DR. PO SCH (08:19)
[2021-11-18 08:34] LABS: BASO % 0 % (0-3); EOS % 0 % (0-3); HEMATOCRIT 32.5 % (39.0-53.0); HEMOGLOBIN 10.1 g/dL (13.0-17.5); LYMPH # 0.7 x10^3/uL (1.0-4.8); LYMPH % 11 % (24-48); MEAN CORPUSCULAR HEMOGLOBIN 23 pg (25-35); MEAN CORPUSCULAR HGB CONC 31 g/dL (31-37); MEAN CORPUSCULAR VOLUME 72 fL (79-100); MONO # 0.1 x10^3/uL (0.0-1.1); MONO % 2 % (0-9); NEUT # 5.3 x10^3/uL (1.8-7.7); NEUT % 87 % (31-73); PLATELET COUNT 415 x10^3/uL (140-400); RED BLOOD COUNT 4.51 x10^6/uL (4.30-5.70); RED CELL DISTRIBUTION WIDTH 26.4 % (11.5-14.5); WHITE BLOOD COUNT 6.1 x10^3/uL (4.0-11.0)
[2021-11-18] MEDS: FLUTICASONE 50MCG/NASAL SPRAY 16GM BOTTLE. NS SCH (09:00)
[2021-11-18 09:12] LABS: CALCIUM 9.4 mg/dL (8.5-10.1); CREATININE 1.1 mg/dL (0.7-1.3); GFR 65.6; MAGNESIUM 2.1 mg/dL (1.8-2.4); PHOSPHORUS 3.1 mg/dL (2.6-4.7); POTASSIUM 3.6 mmol/L (3.5-5.1)
[2021-11-18 11:00] VITALS: BP 128/80
[2021-11-18] MEDS ORDERED: METH4TAB2 PO (11:06)
[2021-11-18] MEDS ORDERED: METH-562 PO (11:06)
--- NOTE | 2021-11-18 11:08 | DISCH ---
DISCHARGE INSTRUCTIONS Condition on Discharge Condition on Discharge: Stable Activity After Discharge Activity Instructions for Disc: No restrictions, Resume previous activity, Activity as tolerated Exercise Instruction after Dis: Walk 30 min, 5 x per week, Progress as tolerated Driving Instructions after Dis: Do not drive today Weight Bearing Status after Di: No restrictions, Full weight bearing, As tolerated Diet after Discharge Diet after Discharge: Cardiac, Regular Diet Texture: Regular Liquid Texture: Thin Liquid Swallowing Supervision: None needed Wound Incision Care Wound/Incision Care: No wound care needed Checks after Discharge Checks after discharge: Check blood press - daily, Check your Temp as needed Contacting the DR. after DC Call your doctor for: Concerns you may have Follow-Up Follow up with: PCP within 2 weeks of discharge Follow Up With: Pulmonary as needed or as scheduled Treatment/Equipment after DC Adaptive Equipment Issued: None Discharge Respiratory Equipmen: Oxygen ZACK AMBROCIO MD November 18, 2021 11:08
[2021-11-18] MEDS ORDERED: AZIT500T4 PO (11:09)
[2021-11-18] MEDS ORDERED: AMOX1TAB58 PO (11:09)
[2021-11-18] MEDS ORDERED: METHOCARBAMOL 750 MG TABLET PO PRN (11:15)
== END 2021-11-18 14:00 | disposition home or self-care (01) | DRG 177 ==
LOC: ER 21:59 → 5 NORTH 22:00
PROVIDERS: ADMIT Family Medicine; ATTEND Family Medicine
DX: J15.6 Pneumonia due to other Gram-negative bacteria (principal); J96.01 Acute respiratory failure with hypoxia; J98.11 Atelectasis; E87.6 Hypokalemia; J43.9 Emphysema, unspecified; Z87.891 Personal history of nicotine dependence; D50.9 Iron deficiency anemia, unspecified; Z20.822 Contact with and (suspected) exposure to COVID-19
CPT/HCPCS: 36415; 71045; 80048; 80053; 83605; 83735; 83880; 84100; 84443; 84484; 85025; 87428; 93005; 94640; 94760; 96361; 96374; J0456; J0696; J1650; J2270; J2920; J7030; J7050; U0003; 99285-25; G0378; J7626